=== PATIENT | male | born 1945 | race Caucasian/White ===

== ENCOUNTER 2020-04-08 14:20 | Outpatient (CLI) | payer MEDICARE, SELFPAY ==
[2020-04-08 14:50] LABS: Basophils Percent Auto 0.4 % (0.2-1.2); Eosinophils Absolute Auto 0.1 K/mm3 (0-0.3); Eosinophils Percent Auto 2.3 % (0-4.4); Hematocrit 31.4 % (42.0-52.0); Hemoglobin 10.6 g/dL (14.0-18.0); Immature Granulocyte Absolute 0.03 K/mm3 (0.00-0.031); Immature Granulocyte Percent A 0.6 % (0-0.5); Lymphocytes Absolute Auto 0.93 K/mm3 (0.9-3.2); Lymphocytes Percent Auto 18.1 % (18.3-44.2); Mean Corpuscular HGB Conc 33.8 g/dl (32-36); Mean Corpuscular Hemoglobin 31.9 pg (26-34); Mean Corpuscular Volume 94.6 fl (80-100); Monocytes Absolute Auto 0.4 K/mm3 (0.1-0.6); Monocytes Percent Auto 6.8 % (2.6-8.5); Neutrophils Absolute Auto 3.7 K/mm3 (1.3-6.7); Neutrophils Percent Auto 71.8 % (45.5-73.1); Platelet Count Result 183 k/mm3 (150-375); Red Blood Count 3.32 M/mm3 (4.6-6.20); Red Cell Distribution Width 13.5 % (11.5-14.5); White Blood Count 5.1 K/mm3 (4.5-10.0)
[2020-04-08 15:09] LABS: Alanine Aminotransferase 19 U/L (4-50); Albumin Level 4.2 g/dL (3.5-5.1); Alkaline Phosphatase 70 U/L (38-126); Anion Gap 7 mmol/L (8-16); Aspartate Amino Transferase 27 U/L (17-59); Bilirubin,Total 0.5 mg/dL (0.2-1.3); Blood Urea Nitrogen 35 mg/dL (9-20); Calcium 9.1 mg/dL (8.4-10.2); Carbon Dioxide 30 mmol/L (22-30); Chloride 106 mmol/L (98-107); Cholesterol 131 mg/dL (0-200); Estimated Glomerular Filt Rate 29; Glucose 85 mg/dL (75-110); HDL Direct 37 mg/dL; Potassium 4.4 mmol/L (3.4-5.0); Sodium 143 mmol/L (137-145); Triglycerides 160 mg/dL (<150)
[2020-04-08 15:17] LABS: LDL Cholesterol Direct 57 mg/dL
[2020-04-08 15:23] LABS: Hemoglobin A1C 5.3 % (<5.7)
[2020-04-08 15:53] LABS: Creatinine Urine 131.3 mg/dL
[2020-04-08 15:54] LABS: Vitamin D 25 Hydroxy 40.3 ng/mL
[2020-04-08 15:57] LABS: MALB Creatinine Ratio 21.9 mg/g (0-30); Microalbumin Urine Random 28.8 mg/L (0-16.7)
[2020-04-12 21:55] LABS: PSA, Free 0.24 ng/mL; PSA, Total 1.6 ng/mL (<=4.0)
== END 2020-04-08 14:21 | disposition home or self-care (01) ==
PROVIDERS: PCP Family Medicine; Visit Provider Family Medicine
DX: E11.9 Type 2 diabetes mellitus without complications (principal); R97.20 Elevated prostate specific antigen [PSA]; N40.0 Benign prostatic hyperplasia without lower urinary tract symptoms; E78.5 Hyperlipidemia, unspecified; I49.5 Sick sinus syndrome; I10 Essential (primary) hypertension; E55.9 Vitamin D deficiency, unspecified; Z00.00 Encounter for general adult medical examination without abnormal findings
CPT/HCPCS: 36415; 80053; 80061; 82043; 82306; 83036; 84153; 84154; 84443; 85025

== ENCOUNTER 2020-05-03 12:18 | Outpatient (CLI) | payer MEDICARE, SELFPAY ==
--- NOTE | ~2020-05-03 | US_ITS ---
US renal BI 05/03/2020 12:56 Procedure: Realtime transabdominal ultrasound of the kidneys and bladder. Indication: Chronic renal disease Comparison: No prior studies for comparison. Findings: Renal echotexture is normal bilaterally without hydronephrosis, contour deforming mass or r enal calculus. The right kidney measures 9 cm and left kidney measures 9.3 cm. Bladder within normal limits. Impression: 1: Unremarkable renal ultrasound. No stones, masses or hydronephrosis. Reviewed, dictated and finalized at location A. SPECIALIST Impression: 1: Unremarkable renal ultrasound. No stones, masses or hydronephrosis.
== END 2020-05-03 12:19 | disposition home or self-care (01) ==
PROVIDERS: PCP Family Medicine; Visit Provider Internal Medicine Nephrology
DX: N18.4 Chronic kidney disease, stage 4 (severe) (principal)
CPT/HCPCS: 76775

== ENCOUNTER 2021-08-05 00:01 | Day surgery (SDC) | payer MEDICARE, SELFPAY ==
[2021-05-14 10:23] VITALS: BMI 39.2
[2021-07-24 13:37] VITALS: BMI 39.2
[2021-08-05 10:18] VITALS: BP 159/82; PULSE 60; RESP 18; TEMP 36.5; O2SAT 99; BMI 37.3
[2021-08-05] MEDS: LACTATED RINGERS 1,000 ML 150 ML IV CONT (10:37)
--- NOTE | 2021-08-05 10:50 | WPDANESEPPF ---
Anes - Initial Pre Proc Eval Procedure: Operation Date: 08/05/21 11:30 Proposed Procedures p Screening Colonoscopy - Manuel Hamilton MD Date/Time: 08/05/21 10:50 Surgeon: Manuel Hamilton MD Pre Op Diagnosis: neoplasm screening Patient Data Age: 76 Gender: M Height: 1.57 m Weight: 92.6 kg Last Vital Signs Temp 36.5 C 08/05/21 10:18 Pulse 60 08/05/21 10:18 Resp 18 08/05/21 10:18 BP 159/82 H 08/05/21 10:18 Pulse Ox 99 08/05/21 10:18 Allergies Allergy/AdvReac Type Severity Reaction Status Date / Time adhesive Allergy Intermediate HIVES Verified 08/05/21 10:25 ramipril Allergy Unknown Swelling Verified 08/05/21 10:25 Home Medications Medication Instructions Recorded Confirmed Type rosuvastatin 40 mg tablet 40 mg PO DAILY 04/04/20 08/05/21 History sulfamethoxazole 800 1 tablet PO QAM tablet 04/04/20 08/05/21 History mg-trimethoprim 160 mg tablet ferrous sulfate 325 mg (65 mg 325 mg PO DAILY 09/19/20 08/05/21 History iron) tablet mecobalamin (vitamin B12) 1,000 1,000 mcg SUBLINGUAL DAILY 09/19/20 08/05/21 History mcg disintegrating tablet,sublingual hydrocortisone 1 % topical cream 1 applic TOPICAL TID PRN #28.4 g 02/18/21 08/05/21 Rx citalopram 20 mg tablet 20 mg PO DAILY #90 tablet 03/06/21 08/05/21 Rx hydrochlorothiazide 25 mg tablet 25 mg PO DAILY #90 tablet 03/06/21 08/05/21 Rx losartan 100 mg tablet 100 mg PO DAILY #90 tablet 03/06/21 08/05/21 Rx pantoprazole 40 mg tablet,delayed 40 mg PO DAILY #90 tablet 03/06/21 08/05/21 Rx release amlodipine 10 mg tablet 10 mg PO DAILY #90 tablet 04/03/21 08/05/21 Rx tamsulosin 0.4 mg capsule 0.4 mg PO DAILY #90 cap 04/03/21 08/05/21 Rx Patient hx anesthesia problems: none Family hx anesthesia problems: none Results Review: All pre-operative results and documents have been reviewed as part of the pre-operative evaluation. FOR[facility]LY [facility] Past Medical History Medical History Anxiety BPH NOS w/o ur obs/LUTS CAD in [place] artery Chronic neck and back pain CKD (chronic kidney disease) stage 3, GFR 30-59 ml/min Depression Dyslipidemia Elevated PSA Essential (primary) hypertension Family history of colon cancer GERD without esophagitis CHECO (obstructive sleep apnea) SSS (sick sinus syndrome) Type 2 diabetes mellitus without complication, without long-term current use of insulin Unspecified osteoarthritis, unspecified site Vitamin D deficiency Surgical History Surgical History H/O: knee surgery (~2013) History of arthroplasty of right hip 06/2020 History of bilateral knee replacement (~2013) History of carpal tunnel surgery of right wrist 12/2003 History of cervical spinal surgery 03/2007 History of coronary artery stent placement 04/2003, 11/2007 History of esophageal dilatation 06/2013 History of lumbosacral spine surgery 10/2004 History of pacemaker 2002 Family History Family History Father Family history of emphysema Sibling Family history of renal failure Other Carcinoma of colon Diabetes mellitus Family history of cardiovascular disease Family history of tuberculosis Hypertension Social History Social History Years smoked: 3 Smoking status: Former smoker Tobacco type: cigars Smoking end date: 05/17/80 Alcohol intake: current Alcohol use details: rare use, 2-3 times a year Substance use: never Substance use type: does not use Living arrangements: alone Spiritual care concerns: No Anes - Eval Final PreProcedure Day of Procedure 08/05/21 10:50 Patient weight: obese Heart: regular rate and rhythm Lungs: decreased breath sounds Airway: Mallampati scale class II Neurological: other (alert) Last oral intake: >/= 8 hours
--- NOTE | 2021-08-05 11:33 | PM.HPGS ---
History of Present Illness History of Present Illness Consent: Risks, benefits, and alternatives have been discussed and questions answered. Patient agrees to proceed with procedure. Chief complaint: neoplasm screening Narrative: Diomedes Bhandari is a 76 year old male with polyps in the past, last colonoscopy was in 2019. Review of Systems Constitutional: Constitutional: Denies headache(s) and Denies weakness Eyes: Eyes: Denies blurry vision ENT: Reports Normal hearing present, Denies headache(s) and Denies neck pain Cardiovascular: Cardiovascular: Denies chest pain and Denies dyspnea Respiratory: Respiratory: Denies dyspnea Gastrointestinal: Gastrointestinal: Reports no additional gastrointestinal complaints Genitourinary: Genitourinary: Denies dysuria Musculoskeletal: Musculoskeletal: Denies neck pain Integumentary/Breasts: Skin/Breast: Denies dry skin Neurologic: Reports Normal hearing present, Denies headache(s) and Denies weakness Psychiatric: Psychiatric: Denies anxiety Endocrine: Endocrine: Denies change in body appearance Hematologic/Lymphatic: Hematologic/Lymphatic: Denies easy bleeding Allergic/Immunologic: Allergic/Immunologic: Denies urticaria PMF Past Medical History Medical History (Updated 08/05/21 @ 11:34 by Manuel Hamilton MD) Anxiety BPH NOS w/o ur obs/LUTS CAD in [place] artery Chronic neck and back pain CKD (chronic kidney disease) stage 3, GFR 30-59 ml/min Colon polyp Depression Dyslipidemia Elevated PSA Essential (primary) hypertension Family history of colon cancer GERD without esophagitis CHECO (obstructive sleep apnea) SSS (sick sinus syndrome) Type 2 diabetes mellitus without complication, without long-term current use of insulin Unspecified osteoarthritis, unspecified site Vitamin D deficiency Surgical History Surgical History H/O: knee surgery (~2013) History of arthroplasty of right hip 06/2020 History of bilateral knee replacement (~2013) History of carpal tunnel surgery of right wrist 12/2003 History of cervical spinal surgery 03/2007 History of coronary artery stent placement 04/2003, 11/2007 History of esophageal dilatation 06/2013 History of lumbosacral spine surgery 10/2004 History of pacemaker 2002 Family History Family History Father Family history of emphysema Sibling Family history of renal failure Other Carcinoma of colon Diabetes mellitus Family history of cardiovascular disease Family history of tuberculosis Hypertension Social History Social History Years smoked: 3 Smoking status: Former smoker Tobacco type: cigars Smoking end date: 05/17/80 Alcohol intake: current Alcohol use details: rare use, 2-3 times a year Substance use: never Substance use type: does not use Living arrangements: alone Spiritual care concerns: No Meds Home Medications and Allergies Home Medications Medication Instructions Recorded Confirmed Type rosuvastatin 40 mg tablet 40 mg PO DAILY 04/04/20 08/05/21 History sulfamethoxazole 800 1 tablet PO QAM tablet 04/04/20 08/05/21 History mg-trimethoprim 160 mg tablet ferrous sulfate 325 mg (65 mg 325 mg PO DAILY 09/19/20 08/05/21 History iron) tablet mecobalamin (vitamin B12) 1,000 1,000 mcg SUBLINGUAL DAILY 09/19/20 08/05/21 History mcg disintegrating tablet,sublingual hydrocortisone 1 % topical cream 1 applic TOPICAL TID PRN #28.4 g 02/18/21 08/05/21 Rx citalopram 20 mg tablet 20 mg PO DAILY #90 tablet 03/06/21 08/05/21 Rx hydrochlorothiazide 25 mg tablet 25 mg PO DAILY #90 tablet 03/06/21 08/05/21 Rx losartan 100 mg tablet 100 mg PO DAILY #90 tablet 03/06/21 08/05/21 Rx pantoprazole 40 mg tablet,delayed 40 mg PO DAILY #90 tablet 03/06/21 08/05/21 Rx release amlodipine 10 mg
[2021-08-05 12:15] VITALS: BP 126/80; PULSE 64; RESP 30; O2SAT 97
[2021-08-05 12:25] VITALS: BP 130/83; PULSE 66; RESP 26; O2SAT 98
[2021-08-05 12:35] VITALS: BP 141/93; PULSE 66; RESP 18; O2SAT 99
== END 2021-08-05 12:43 | disposition home or self-care (01) ==
PROVIDERS: PCP Family Medicine; Visit Provider Internal Medicine Gastroenterology
PROC: 0DJD8ZZ Inspection of Lower Intestinal Tract, Via Natural or Artificial Opening Endoscopic (ICD-10-PCS; CPT 45378; principal; 2021-08-05 11:30)
DX: Z12.11 Encounter for screening for malignant neoplasm of colon (principal); K63.5 Polyp of colon; K57.30 Diverticulosis of large intestine without perforation or abscess without bleeding; K64.8 Other hemorrhoids; I25.10 Atherosclerotic heart disease of native coronary artery without angina pectoris; N40.0 Benign prostatic hyperplasia without lower urinary tract symptoms; K21.9 Gastro-esophageal reflux disease without esophagitis; E55.9 Vitamin D deficiency, unspecified; E78.5 Hyperlipidemia, unspecified; I12.9 Hypertensive chronic kidney disease with stage 1 through stage 4 chronic kidney disease, or unspecified chronic kidney disease; N18.30 Chronic kidney disease, stage 3 unspecified; F41.8 Other specified anxiety disorders; E11.22 Type 2 diabetes mellitus with diabetic chronic kidney disease; R97.20 Elevated prostate specific antigen [PSA]; I49.5 Sick sinus syndrome; Z87.891 Personal history of nicotine dependence; M19.90 Unspecified osteoarthritis, unspecified site; E66.9 Obesity, unspecified; Z68.37 Body mass index [BMI] 37.0-37.9, adult
CPT/HCPCS: 45385; 88305; J2704; J7120

== ENCOUNTER 2021-08-28 16:40 | Emergency (ER) | payer MEDICARE, SELFPAY ==
--- NOTE | ~2021-08-28 | CT_ITS ---
EXAMINATION: CT brain wo con DATE: 08/28/2021 18:11 INDICATION: Head injury TECHNIQUE: Computed tomography (CT) of the head was performed without intravenous contrast. The mA wa s adjusted according to patient size. Iterative reconstruction technique was employed. Exam dose: 68 1.00 mGy-cm total exam DLP. COMPARISON: 11/25/2018 CT brain FINDINGS: Left periorbital hematoma and left frontal cephalohematoma. No skull fracture There is a left orbital floor blowout fracture. There is a small amount of fluid in the dependent asp ect of left maxillary sinus. 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 Bilateral carotid siphon internal carotid artery calcifications and vertebral artery calcification. T here is nonspecific diminished attenuation of the cerebral white matter, likely due to chronic small vessel ischemic changes. No intracranial mass lesion or hemorrhage or cerebrovascular accident, midline shift or mass effect e ffect is evident. No subdural or epidural hematoma. Moderate cerebral and cerebellar volume loss. IMPRESSION: Left orbital floor blowout fracture Left periorbital hematoma, left frontal cephalohematoma; no skull fracture Cerebral atherosclerosis and chronic small vessel ischemic changes of cerebral white matter No acute intracranial finding Reviewed, dictated and finalized at Location [facility]. Reviewed, dictated and finalized at location A.
--- NOTE | ~2021-08-28 | CT_ITS ---
EXAMINATION: CT facial & cervical spine wo DATE: 08/28/2021 18:11 INDICATION: Fall. Head injury. Neck pain. TECHNIQUE: Computed tomography (CT) of the facial bones and maxillofacial region was performed withou t intravenous contrast. Automated exposure control and iterative reconstruction technique were employ ed. Exam dose: 521.33 mGy-cm total exam DLP. COMPARISON: None. FINDINGS: There is a blowout fracture at the inferomedial wall of the left orbit, with adjacent emphy sema of the left orbit. There is left periorbital and extracranial frontal hematoma.. There is a sma ll fluid collection in the dependent left maxillary sinus. The frontozygomatic sutures, orbital rims and zygomatic arches are intact. No mandibular fracture. The temporomandibular joints are intact. Status post anterior surgical cervical spine fusion at C2-6. There is minimal retrolisthesis and moderate degenerative disc disease at C2-3. There is mild anterolisthesis at C6-7. Degenerative change and fusion at multiple apophyseal joints. No fracture or dislocation of the cervical spine. IMPRESSION: Inferomedial left orbital wall blow out fracture Status post anterior surgical fusion at C2-6 Cervical spondylosis Reviewed, dictated and finalized at Location [facility]. Reviewed, dictated and finalized at location A.
--- NOTE | ~2021-08-28 | XR_ITS ---
XR knee RT min 4V DATE: 08/28/2021 17:57 INDICATION: Fall. Right knee pain. TECHNIQUE: 5 views COMPARISON: 11/11/2011 postoperative portable right knee radiographs FINDINGS: Status post right total knee arthroplasty with patellar resurfacing. No recent fracture or dislocation or joint effusion is evident. Femoral and popliteal artery calcifications. IMPRESSION: Right total knee arthroplasty with patellar resurfacing No fracture or dislocation or joint effusion is detected Reviewed, dictated and finalized at location A.
--- NOTE | ~2021-08-28 | XR_ITS ---
XR knee LT min 4V DATE: 08/28/2021 17:57 INDICATION: Fall. Left knee pain. TECHNIQUE: 4 views including crosstable lateral COMPARISON: None FINDINGS: Status post left total knee arthroplasty. There is joint space narrowing and particularly s purring at the patellofemoral joint. No fracture or dislocation or joint effusion is evident. No periosteal reaction or bone destruction. Osteopenia. Extensive femoral and popliteal artery calcifications. IMPRESSION: Left knee arthroplasty Patellofemoral osteoarthritis No fracture or dislocation or joint effusion is detected Osteopenia Reviewed, dictated and finalized at location A.
[2021-08-28 17:12] VITALS: BP 130/65; PULSE 62; RESP 16; O2SAT 98
--- NOTE | 2021-08-28 17:16 | ED.FALL ---
HPI - Fall General Chief Complaint: Fall <DORA Prater Last Filed: 08/28/21 20:01> Stated Complaint: fall - head/knee/arm pain <DORA Prater Last Filed: 08/28/21 20:01> Time Seen by Provider: 08/28/21 17:11 <DORA Prater Last Filed: 08/28/21 20:01> Source: patient and family <DORA Prater Last Filed: 08/28/21 20:01> Mode of arrival: ambulatory <DORA Prater Last Filed: 08/28/21 20:01> Limitations: no limitations <DOAR Prater Last Filed: 08/28/21 20:01> History of Present Illness HPI Narrative: Patient is a 76-year-old male who presents to the ED with report of a fall that occurred around 1230 pm today. Patient's daughter at bedside assisted in providing information. She reports the patient has history of bilateral knee replacements and hip replacement and has chronic difficulty with ambulation. He is supposed to typically use a walker for assistance with ambulation. Patient was only using his cane today when he tripped and fell, falling forward, hitting his head. Patient sustained an abrasion to his left forehead and has since developed swelling and ecchymosis to his left upper eyelid. Small abrasions to bridge of nose and left upper lip. Patient is still able to see out of his left eye. Reports slight blurry vision when both eyes are open, but no blurry vision with solo L vision. No pain with eye movements at this time. Also reports having posterior neck pain and bilateral knee pain, though he does have chronic pain in his right knee. Denies any prodromal symptoms prior to the fall, or any current CP, SOB, abdominal pain, nausea, vomiting, fever, chills. Patient's daughter reports patient has a morphine pump for chronic pain. He has also been dealing with some cognitive issues recently which Dr. Gray, PCP is aware of. <DORA Prater Last Filed: 08/28/21 20:01> Related Data Home Medications: Home Medications Medication Instructions Recorded Confirmed rosuvastatin 40 mg tablet 40 mg PO DAILY 04/04/20 08/19/21 sulfamethoxazole 800 1 tablet PO QAM tablet 04/04/20 08/19/21 mg-trimethoprim 160 mg tablet ferrous sulfate 325 mg (65 mg 325 mg PO DAILY 09/19/20 08/19/21 iron) tablet mecobalamin (vitamin B12) 1,000 1,000 mcg SUBLINGUAL DAILY 09/19/20 08/19/21 mcg disintegrating tablet,sublingual aspirin 81 mg tablet,delayed 81 mg PO DAILY 08/19/21 08/19/21 release dutasteride 0.5 mg capsule 0.5 mg PO DAILY 08/19/21 08/19/21 <Modesta Cage PA-C - Last Filed: 08/28/21 20:01> Allergies/Adverse Reactions: Allergies Allergy/AdvReac Type Severity Reaction Status Date / Time adhesive Allergy Intermediate HIVES Verified 08/19/21 13:19 ramipril Allergy Unknown Swelling Verified 08/19/21 13:19 <Modesta Cage PA-C - Last Filed: 08/28/21 20:01> Review of Systems Review of Systems: CONSTITUTIONAL: Denies fever, chills. EYES: Reports swelling/ecchymosis to L upper eyelid. Reports slight blurry vision in L eye. CARDIOVASCULAR: Denies chest pain. RESPIRATORY: Denies dyspnea. GASTROINTESTINAL: Denies abdominal pain, nausea, vomiting, or diarrhea. MUSCULOSKELETAL: Reports posterior neck pain, bilateral knee pain. SKIN: Reports abrasions to L forehead, nose, lip. NEUROLOGIC: Denies dizziness, lightheadedness, headache, numbness, or weakness. <Modesta Cage PA-C - Last Filed: 08/28/21 20:01> All systems reviewed & are unremarkable except as noted in HPI and below <Modesta Cage PA-C - Last Filed: 08/28/21 20:01> [facility] Past Medical History Medical History: Medical History Anxiety BPH NOS w/o ur obs/LUTS CAD in [place] artery Chronic neck and back pain CKD (chronic kidney disease) stage 3, GFR 30-59 ml/min Colon polyp Depression Dyslipidemia Essential (primary) hypertension Family history of colon cancer GERD without esophagitis CHECO
--- NOTE | 2021-08-28 17:28 | ECG_ITS ---
Measurements Intervals [place] Rate: 67 P: 125 LA: 287 QRS: -18 QRSD: 84 T: 56 QT: 331 QTc: 351 Interpretive Statements ELECTRONIC ATRIAL PACEMAKER LOW QRS VOLTAGE IN PRECORDIAL LEADS [QRS DEFLECTION < 1.0 mV IN CHEST LEADS] NONSPECIFIC T-WAVE ABNORMALITY ABNORMAL ECG COMPARED TO ECG 11/30/2018 02:37:03 T-WAVE ABNORMALITY NOW PRESENT Electronically Signed On 08-29-2021 15:37:29 CDT by Tang Gee M.D.
[2021-08-28 17:52] LABS: Alanine Aminotransferase 25 U/L (4-50); Albumin Level 4.4 g/dL (3.5-5.1); Alkaline Phosphatase 81 U/L (38-126); Anion Gap 8 mmol/L (8-16); Aspartate Amino Transferase 41 U/L (17-59); Bilirubin,Total 0.3 mg/dL (0.2-1.3); Blood Urea Nitrogen 30 mg/dL (9-20); Calcium 8.8 mg/dL (8.4-10.2); Carbon Dioxide 27 mmol/L (22-30); Chloride 103 mmol/L (98-107); Estimated CRCL calculation 35 ml/min; Estimated Glomerular Filt Rate 39; Glucose 156 mg/dL (65-110); Potassium 4.4 mmol/L (3.4-5.0); Sodium 138 mmol/L (137-145)
[2021-08-28 18:57] VITALS: BP 148/77; PULSE 67; RESP 22; O2SAT 98
[2021-08-28 18:57] LABS: Basophils Percent Auto 0.3 % (0.2-1.2); Eosinophils Percent Auto 0.5 % (0-4.4); Hematocrit 34.4 % (42.0-52.0); Hemoglobin 11.3 g/dL (14.0-18.0); Immature Granulocyte Absolute 0.03 K/mm3 (0.00-0.031); Immature Granulocyte Percent A 0.4 % (0-0.5); Lymphocytes Absolute Auto 0.92 K/mm3 (0.9-3.2); Lymphocytes Percent Auto 12.2 % (18.3-44.2); Mean Corpuscular HGB Conc 32.8 g/dl (32-36); Mean Corpuscular Hemoglobin 30.5 pg (26-34); Mean Corpuscular Volume 92.7 fl (80-100); Mean Platelet Volume 9.8 fl (7.4-10.4); Monocytes Absolute Auto 0.4 K/mm3 (0.1-0.6); Monocytes Percent Auto 5.3 % (2.6-8.5); Neutrophils Absolute Auto 6.1 K/mm3 (1.3-6.7); Neutrophils Percent Auto 81.3 % (45.5-73.1); Platelet Count Result 206 k/mm3 (150-375); Red Blood Count 3.71 M/mm3 (4.6-6.20); Red Cell Distribution Width 13.2 % (11.5-14.5); White Blood Count 7.5 K/mm3 (4.5-10.0)
[2021-08-28 19:01] VITALS: BP 154/81; PULSE 65; RESP 20; O2SAT 99
[2021-08-28 19:17] LABS: Appearance Urine Clear (Clear); Bilirubin Urine Negative (Negative); Color Urine Yellow (Yellow); Glucose Urine UA Negative (Negative); Ketones Urine Negative (Negative); Leukocyte Esterase Ur Negative LEU/UL (Negative); Nitrate Urine Negative (Negative); Protein Urine Negative (Negative); Specific Grav Ur 1.025 (1.001-1.035); Urobilinogen Urine 0.2 mg/dL (<2.0); pH Urine 5.5 (5.0-9.0)
[2021-08-28 19:20] VITALS: BP 127/79; PULSE 70; RESP 16; O2SAT 98
[2021-08-28 19:23] LABS: Mucus Urine Rare /lpf; Squamous Epithelial Cell Urine Rare /hpf (Few); WBC Urine 0-3 /hpf
[2021-08-28 19:24] LABS: Add Urine Microscopic? YES; Blood Urine Trace-Intact (Negative)
[2021-08-28 19:27] LABS: INR 1.1; Prothrombin Time 13.9 Seconds (11.1-14.7)
== END 2021-08-28 20:30 | disposition short-term general hospital (02) ==
PROVIDERS: Physician Assistant; Emergency Provider Emergency Medicine; PCP Family Medicine
DX: S02.32XA Fracture of orbital floor, left side, initial encounter for closed fracture (principal); N40.0 Benign prostatic hyperplasia without lower urinary tract symptoms; I25.10 Atherosclerotic heart disease of native coronary artery without angina pectoris; I12.9 Hypertensive chronic kidney disease with stage 1 through stage 4 chronic kidney disease, or unspecified chronic kidney disease; E11.22 Type 2 diabetes mellitus with diabetic chronic kidney disease; N18.30 Chronic kidney disease, stage 3 unspecified; E78.5 Hyperlipidemia, unspecified; K21.9 Gastro-esophageal reflux disease without esophagitis; G47.33 Obstructive sleep apnea (adult) (pediatric); M17.12 Unilateral primary osteoarthritis, left knee; E55.9 Vitamin D deficiency, unspecified; Z95.5 Presence of coronary angioplasty implant and graft; Z95.0 Presence of cardiac pacemaker; Z96.641 Presence of right artificial hip joint; Z96.653 Presence of artificial knee joint, bilateral; Z98.1 Arthrodesis status; Z86.010 Personal history of colon polyps; Z79.82 Long term (current) use of aspirin; F17.290 Nicotine dependence, other tobacco product, uncomplicated; M47.812 Spondylosis without myelopathy or radiculopathy, cervical region; W01.0XXA Fall on same level from slipping, tripping and stumbling without subsequent striking against object, initial encounter; R94.31 Abnormal electrocardiogram [ECG] [EKG]
CPT/HCPCS: 36415; 70450; 70486; 72125; 73564; 80053; 81001; 85025; 85610; 85730; 93005; 99285; L0140

== ENCOUNTER 2022-04-21 12:58 | Outpatient (CLI) | payer MEDICARE, MEDICAID, SELFPAY ==
[2022-04-22 11:48] LABS: Kit Draw Collected
== END 2022-04-21 12:59 | disposition home or self-care (01) ==
LOC: ANHGOSHLAB 13:03
PROVIDERS: PCP Family Medicine; Visit Provider Internal Medicine Nephrology
DX: E21.1 Secondary hyperparathyroidism, not elsewhere classified (principal); N18.32 Chronic kidney disease, stage 3b; I12.9 Hypertensive chronic kidney disease with stage 1 through stage 4 chronic kidney disease, or unspecified chronic kidney disease; E11.29 Type 2 diabetes mellitus with other diabetic kidney complication; E55.9 Vitamin D deficiency, unspecified
CPT/HCPCS: 36415

== ENCOUNTER 2022-08-27 09:05 | Outpatient (CLI) | payer MEDICARE, MEDICAID, SELFPAY ==
[2022-08-27 18:33] LABS: Creatinine Urine 107.6 mg/dL
[2022-08-27 18:44] LABS: Basophils Percent Auto 0.4 % (0.2-1.2); Eosinophils Absolute Auto 0.2 K/mm3 (0-0.3); Eosinophils Percent Auto 4.8 % (0-4.4); Hematocrit 33.6 % (42.0-52.0); Hemoglobin 11.1 g/dL (14.0-18.0); Immature Granulocyte Absolute 0.03 K/mm3 (0.00-0.031); Immature Granulocyte Percent A 0.6 % (0-0.5); Lymphocytes Absolute Auto 1.08 K/mm3 (0.9-3.2); Lymphocytes Percent Auto 21.8 % (18.3-44.2); Mean Corpuscular Hemoglobin 30.9 pg (26-34); Mean Corpuscular Volume 93.6 fl (80-100); Mean Platelet Volume 9.9 fl (7.4-10.4); Monocytes Absolute Auto 0.5 K/mm3 (0.1-0.6); Monocytes Percent Auto 9.1 % (2.6-8.5); Neutrophils Absolute Auto 3.1 K/mm3 (1.3-6.7); Neutrophils Percent Auto 63.3 % (45.5-73.1); Platelet Count Result 177 k/mm3 (150-375); Red Blood Count 3.59 M/mm3 (4.6-6.20); Red Cell Distribution Width 13.1 % (11.5-14.5)
[2022-08-27 18:52] LABS: Parathyroid Intact 66.3 pg/mL (7.5-53.5)
[2022-08-27 18:53] LABS: Vitamin D 25 Hydroxy 54.5 ng/mL
[2022-08-27 19:56] LABS: Alanine Aminotransferase 45 U/L (6-50); Albumin Level 4.3 g/dL (3.5-5.1); Alkaline Phosphatase 87 U/L (38-126); Anion Gap 6 mmol/L (8-16); Aspartate Amino Transferase 47 U/L (17-59); Bilirubin,Total 0.5 mg/dL (0.2-1.3); Blood Urea Nitrogen 42 mg/dL (9-20); Calcium 8.7 mg/dL (8.4-10.2); Carbon Dioxide 31 mmol/L (22-30); Chloride 104 mmol/L (98-107); Cholesterol 52 mg/dL (0-200); Estimated Glomerular Filt Rate 33; Glucose 95 mg/dL (65-110); HDL Direct 38 mg/dL; Phosphorus 4.2 mg/dL (2.5-4.5); Potassium 4.8 mmol/L (3.4-5.0); Sodium 141 mmol/L (137-145); Triglycerides 59 mg/dL (<150)
[2022-08-27 20:55] LABS: Hemoglobin A1C 5.6 % (<5.7)
[2022-08-27 21:46] LABS: LDL Cholesterol Direct < 30 mg/dL
[2022-08-28 10:26] LABS: Total Protein Urine Random 8 mg/dL
== END 2022-08-27 09:06 | disposition home or self-care (01) ==
PROVIDERS: PCP Family Medicine; Referring Provider Internal Medicine Nephrology; Visit Provider Family Medicine
DX: N18.32 Chronic kidney disease, stage 3b (principal); I12.9 Hypertensive chronic kidney disease with stage 1 through stage 4 chronic kidney disease, or unspecified chronic kidney disease; E11.22 Type 2 diabetes mellitus with diabetic chronic kidney disease; E55.9 Vitamin D deficiency, unspecified; N25.81 Secondary hyperparathyroidism of renal origin; E53.8 Deficiency of other specified B group vitamins; Z12.5 Encounter for screening for malignant neoplasm of prostate; E78.5 Hyperlipidemia, unspecified
CPT/HCPCS: 36415; 80053; 80061; 80069; 81002; 81050; 82306; 82570; 82607; 83036; 83970; 84153; 84156; 84443; 85025; G0103

== ENCOUNTER 2023-01-20 11:20 | Outpatient (CLI) | payer MEDICARE, MEDICAID, SELFPAY ==
[2023-01-20 19:33] LABS: Creatinine Urine 228.9 mg/dL; Total Protein Urine Random 7 mg/dL; Ur Ttl Prot Creatinine Ratio 0.03 mg/mg (0-0.20)
[2023-01-20 20:08] LABS: Albumin Level 4.3 g/dL (3.5-5.1); Anion Gap 7 mmol/L (8-16); Blood Urea Nitrogen 31 mg/dL (9-20); Calcium 9.5 mg/dL (8.4-10.2); Carbon Dioxide 30 mmol/L (22-30); Chloride 106 mmol/L (98-107); Estimated Glomerular Filt Rate 42; Glucose 85 mg/dL (65-110); Phosphorus 4.2 mg/dL (2.5-4.5); Potassium 4.7 mmol/L (3.4-5.0); Sodium 143 mmol/L (137-145)
[2023-01-20 20:29] LABS: Vitamin D 25 Hydroxy 56.8 ng/mL
== END 2023-01-20 11:21 | disposition home or self-care (01) ==
PROVIDERS: PCP Family Medicine; Visit Provider Internal Medicine Nephrology
DX: E11.22 Type 2 diabetes mellitus with diabetic chronic kidney disease (principal); I12.9 Hypertensive chronic kidney disease with stage 1 through stage 4 chronic kidney disease, or unspecified chronic kidney disease; N18.32 Chronic kidney disease, stage 3b; N25.81 Secondary hyperparathyroidism of renal origin; E55.9 Vitamin D deficiency, unspecified
CPT/HCPCS: 36415; 80069; 82306; 82570; 83970; 84156

== ENCOUNTER 2023-02-24 13:58 | Emergency (ER) | payer MEDICARE, MEDICAID, SELFPAY ==
[2023-02-24 14:06] VITALS: BP 103/73; PULSE 65; RESP 18; TEMP 36.2; O2SAT 97
[2023-02-24 14:34] LABS: Basophils Percent Auto 0.3 % (0.2-1.2); Eosinophils Absolute Auto 0.1 K/mm3 (0-0.3); Eosinophils Percent Auto 0.7 % (0-4.4); Hemoglobin 10.8 g/dL (14.0-18.0); Immature Granulocyte Absolute 0.01 K/mm3 (0.00-0.031); Immature Granulocyte Percent A 0.1 % (0-0.5); Lymphocytes Absolute Auto 0.77 K/mm3 (0.9-3.2); Lymphocytes Percent Auto 10.1 % (18.3-44.2); Mean Corpuscular HGB Conc 32.7 g/dl (32-36); Mean Corpuscular Hemoglobin 30.5 pg (26-34); Mean Corpuscular Volume 93.2 fl (80-100); Mean Platelet Volume 9.4 fl (7.4-10.4); Monocytes Absolute Auto 0.2 K/mm3 (0.1-0.6); Neutrophils Absolute Auto 6.6 K/mm3 (1.3-6.7); Neutrophils Percent Auto 85.8 % (45.5-73.1); Platelet Count Result 183 k/mm3 (150-375); Red Blood Count 3.54 M/mm3 (4.6-6.20); Red Cell Distribution Width 12.8 % (11.5-14.5); White Blood Count 7.7 K/mm3 (4.5-10.0)
--- NOTE | 2023-02-24 14:42 | ED.NAVMDI ---
HPI - Nausea/Vomiting/Diarrhea General Chief complaint: Nausea/Vomiting/Diarrhea Stated complaint: vomiting Time Seen by Provider: 02/24/23 14:16 Source: patient, family, RN notes reviewed and old records reviewed Mode of arrival: ambulatory Limitations: no limitations History of Present Illness HPI Narrative: This is a 78 year old male who presents for evaluation of nausea and vomiting. Patient states he has had nausea and bilious vomiting for 2 days. He had episodes of vomiting yesterday but he felt better and he was able to eat dinner. He denies nausea and vomiting this morning after drinking coffee. He states he has had vomiting every hour since. He denies diarrhea, abdominal pain, fever or chills. His son reports patient seems to have episode of vomiting every 2 weeks but it resolves. Related Data Home Medications Medication Instructions Recorded Confirmed rosuvastatin 40 mg tablet 40 mg PO DAILY 04/04/20 09/24/22 sulfamethoxazole 800 1 tablet PO QAM 04/04/20 09/24/22 mg-trimethoprim 160 mg tablet ferrous sulfate 325 mg (65 mg 325 mg PO DAILY 09/19/20 09/24/22 iron) tablet mecobalamin (vitamin B12) 1,000 1,000 mcg sublingual DAILY 09/19/20 09/24/22 mcg disintegrating tablet,sublingual dutasteride 0.5 mg capsule 0.5 mg PO DAILY 08/19/21 09/24/22 cholecalciferol (vitamin D3) 125 125 mcg PO DAILY 02/17/22 09/24/22 mcg (5,000 unit) capsule donepezil 10 mg tablet 10 mg PO DAILY 02/17/22 09/24/22 evolocumab 140 mg/mL subcutaneous 140 mg subcut MONTHLY 02/17/22 09/24/22 syringe (Repatha Syringe) aspirin 81 mg tablet,delayed 81 mg PO DAILY 08/24/22 09/24/22 release (Adult Low Dose Aspirin) Allergies Allergy/AdvReac Type Severity Reaction Status Date / Time adhesive Allergy Intermediate HIVES Verified 02/24/23 14:12 ramipril Allergy Unknown Swelling Verified 02/24/23 14:12 Review of Systems Constitutional: Constitutional: Denies weakness Cardiovascular: Cardiovascular: Denies syncope, Denies rapid heart rate, Denies irregular heart rhythm, Denies leg edema and Denies dyspnea Respiratory: Respiratory: Denies chest congestion, Denies hemoptysis, Denies excessive phlegm production and Denies dyspnea Gastrointestinal: Gastrointestinal: Denies abdominal pain, Denies hematochezia, Denies diarrhea, Reports nausea and Reports vomiting Genitourinary: Genitourinary: Denies hematuria, Denies dysuria, Denies penile discharge and Denies testicular pain Musculoskeletal: Musculoskeletal: Denies joint swelling, Denies loss of height and Denies muscle weakness Neurologic: Denies syncope, Denies focal weakness and Denies weakness PMFSH Past Medical History Medical History Anxiety BPH NOS w/o ur obs/LUTS CAD in [place] artery Chronic neck and back pain CKD (chronic kidney disease) stage 3, GFR 30-59 ml/min Colon polyp Dementia Depression Dyslipidemia Essential (primary) hypertension Family history of colon cancer GERD without esophagitis CHECO (obstructive sleep apnea) SSS (sick sinus syndrome) Type 2 diabetes mellitus without complication, without long-term current use of insulin Unspecified osteoarthritis, unspecified site Vitamin D deficiency Surgical History Surgical History H/O: knee surgery (~2013) History of arthroplasty of right hip (~06/2020) 06/2020 History of carpal tunnel surgery of right wrist (~12/2003) 12/2003 History of cervical spinal surgery (~03/2007) 03/2007 History of coronary artery stent placement 04/2003, 11/2007, 10/2021 History of esophageal dilatation (~06/2013) 06/2013 History of left knee replacement (~2017) History of lumbosacral spine surgery (~10/2004) 10/2004 History of pacemaker (~2002) 2002 History of right knee joint replacement (~2009) 2004 and 2009 on bactrim since 2009 due to septic arthritis post knee replacement. Family History Family History (Re
[2023-02-24 14:43] LABS: Alanine Aminotransferase 49 U/L (6-50); Albumin Level 4.4 g/dL (3.5-5.1); Alkaline Phosphatase 71 U/L (38-126); Anion Gap 11 mmol/L (8-16); Aspartate Amino Transferase 54 U/L (17-59); Bilirubin,Total 0.5 mg/dL (0.2-1.3); Blood Urea Nitrogen 37 mg/dL (9-20); Calcium 8.8 mg/dL (8.4-10.2); Carbon Dioxide 23 mmol/L (22-30); Chloride 106 mmol/L (98-107); Estimated CRCL calculation 26 ml/min; Estimated Glomerular Filt Rate 28; Glucose 135 mg/dL (65-110); Lipase 107 U/L (23-300); Potassium 4.4 mmol/L (3.4-5.0); Sodium 140 mmol/L (137-145)
[2023-02-24 14:51] LABS: Appearance Urine Cloudy (Clear); Bacteria Urine None Seen /hpf; Bilirubin Urine Negative (Negative); Blood Urine Negative (Negative); Color Urine Yellow (Yellow); Glucose Urine UA Negative (Negative); Hyaline Casts Urine Present /lpf; Ketones Urine Negative (Negative); Leukocyte Esterase Ur Negative LEU/UL (Negative); Nitrate Urine Negative (Negative); Non Pathogenic Casts >20; Protein Urine Trace mg/dL (Negative); RBC Urine 0-2 /hpf (0-2); Squamous Epithelial Cell Urine None seen /hpf (Few); Uric Acid Crystals Urine Present /hpf; Urobilinogen Urine 0.2 mg/dL (<2.0); WBC Urine 0-5 /hpf
[2023-02-24 14:52] LABS: Add Urine Microscopic? YES
[2023-02-24] MEDS: SODIUM CHLORIDE 0.9% IV 1,000 ML 999 ML IV CONT (14:56)
[2023-02-24] MEDS: PANTOPRAZOLE SODIUM IV 40 MG VIAL IV PUSH (14:57)
[2023-02-24] MEDS: ONDANSETRON INJ 4 MG/2 ML VIAL IV PUSH (14:57)
[2023-02-24 15:56] VITALS: BP 119/68; BP 120/64; PULSE 81; PULSE 83
[2023-02-24 15:59] VITALS: BP 117/59; PULSE 77
[2023-02-24 16:40] VITALS: BP 117/59; PULSE 64; RESP 16; O2SAT 96
== END 2023-02-24 16:40 | disposition home or self-care (01) ==
PROVIDERS: Emergency Provider General Practice; PCP Family Medicine
DX: R11.2 Nausea with vomiting, unspecified (principal); E86.0 Dehydration; F03.90 Unspecified dementia, unspecified severity, without behavioral disturbance, psychotic disturbance, mood disturbance, and anxiety; I25.10 Atherosclerotic heart disease of native coronary artery without angina pectoris; I12.9 Hypertensive chronic kidney disease with stage 1 through stage 4 chronic kidney disease, or unspecified chronic kidney disease; E11.22 Type 2 diabetes mellitus with diabetic chronic kidney disease; N18.30 Chronic kidney disease, stage 3 unspecified; N40.0 Benign prostatic hyperplasia without lower urinary tract symptoms; E78.5 Hyperlipidemia, unspecified; E55.9 Vitamin D deficiency, unspecified; K21.9 Gastro-esophageal reflux disease without esophagitis; G47.33 Obstructive sleep apnea (adult) (pediatric); M19.90 Unspecified osteoarthritis, unspecified site; F41.9 Anxiety disorder, unspecified; F32.A Depression, unspecified; Z96.641 Presence of right artificial hip joint; Z96.653 Presence of artificial knee joint, bilateral; Z95.5 Presence of coronary angioplasty implant and graft; Z95.0 Presence of cardiac pacemaker; Z86.010 Personal history of colon polyps; Z87.891 Personal history of nicotine dependence; Z79.82 Long term (current) use of aspirin
CPT/HCPCS: 36415; 80053; 81001; 83690; 85025; 96361; 96374; 96375; 99284; C9113; J2405; J7030

== ENCOUNTER 2024-10-17 11:27 | Emergency (ER) | payer MEDICARE, MEDICAID, SELFPAY ==
[2024-10-17] VITALS (15 sets, daily range): BP systolic 109–166; BP diastolic 47–94; PULSE 60–80; RESP 13–19; TEMP 36.6–36.8; O2SAT 98–100
--- NOTE | ~2024-10-17 | XR_ITS ---
EXAMINATION: XR chest 1V portable 10/17/2024 13:02 INDICATION: Dyspnea. PROCEDURE: AP portable chest COMPARISON: Comparison to multiple prior studies sequentially, with oldest reviewed study dated 04/17. FINDINGS: The lungs are clear. The cardiomediastinal silhouette is within normal limits. There are no pleural effusions. There is no pneumothorax suspected. Stable position to pacemaker leads in the right atrium and right ventricle respectively. There are changes of anterior fusion visualized cervi loki spine IMPRESSION: 1: NO ACUTE CARDIOPULMONARY DISEASE. Reviewed, dictated and finalized at location A.
--- OUTSIDE RECORDS SUMMARY | 2024-10-17 11:37 | XMS_ITS | Encounter Summary ---
Author Organization [facility] Address [address] [place] [address] Phone Care Team Providers Care Library Services Dean Name Role Phone Huy Elliott Primary Care Provider [phone] Tony Gray MD Primary Care Provider Alfredo Jordan DESK ASSISTANT Unavailable [phone] Encounter Details Date Type Department Care Team (Late st Contact Info) Description 08/09/2017 Orders Only 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 Gender Identity Not on file Sexual Orientation Not on file documented as of this encounter Plan of Treatment Upcoming Encounters Date Type Department Care Team (Late st Contact Info) Description 10/23/2024 7:30 AM CDT Hospital Encounter [facility] Operating Room [address] [place] [address] [place] [id number] [facility] [address] [place] [address] 10/23/2024 7:30 AM CDT - 10/23/2024 9:00 AM CDT Surgery [facility] Operating Room [id number] [place] [id number] [place] [id number] [facility] [address] [address] [place] [address] INTRATHECAL PAIN PUMP BATTERY REPLACEMENT WITH PLASMA BLADE/60 MIN 11/23/2024 7:30 AM CDT Hospital Encounter [facility] Operating Room [address] [place] [address] [place] [id number] [facility] [address] [place] [address] 11/23/2024 7:30 AM CDT - 11/23/2024 9:30 AM CDT Surgery [facility] Operating Room [address] [place] [address] [place] [id number] [facility] [address] [place] [address] NEUROLYSIS PERIPHERAL NERVE RT SAPHENOUS NERVE/120 MIN Scheduled Procedures Name Priority Associated Diagnoses Date/Ti me INSERTION PUMP - PAIN MANAGEMENT LOW BACK PAIN 10/23/2024 7:30 AM CDT NEUROLYSIS PERIPHERAL NERVE SAPHENOUS NERVE 11/23/2024 7:30 AM CDT documented as of this encounter Procedures Procedure Name Priority Date/Time Associated Diagnosis Comments DISCHARGE LABORATORY CUMULATIVE REPORT 08/09/2017 12:00 AM CDT documented in this encounter Results * DISCHARGE LABORATORY CUMULATIVE REPORT (08/09/2017 12:00 AM CDT) Narrative 08/09/2017 12:00 AM CDT Ordered by an unspecified provider. us Historical Provider LAB BLOOD ORDERABLES Judy l Result documented in this encounter Visit Diagnoses Not on filedocumented in this encounter Care Teams Library Services Dean Relationship Specialty Start Date End Date Huy Elliott [address] [place] [address] PCP - General 07/09/16 12/15/21 Tony Gray MD [address] [place] [address] PCP - General Family Practice 12/16/21 [place] [id number] [place] [address] Nurse Practitioner Pain Management 04/19/24 documented as of this encounter
--- OUTSIDE RECORDS SUMMARY | 2024-10-17 11:37 | XMS_ITS | Encounter Summary ---
Author Organization [facility] Address [address] [place] [address] Phone Care Team Providers Care Testing And Regulating Technician Name Role Phone Huy Elliott Primary Care Provider [phone] Tony Gray MD Primary Care Provider Alfredo Jordan BED MACHINE OPERATOR Unavailable [phone] Encounter Details Date Type Department Care Team (Late st Contact Info) Description 05/13/2017 Orders Only [facility] Provider, MD Erlinda [address] [place] [id number] Social History Tobacco Use Types Packs/Day Years Used Date Smoking Tobacco: Former Alcohol Use Standard Drinks/Week Comments Yes 0 (1 standard drink = 0.6 oz pur e alcohol) Sex and Gender Information Value Date Recorded Sex Assigned at Not on file 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 [address] [place] [address] 10/23/2024 7:30 AM CDT - 10/23/2024 9:00 AM CDT Surgery [facility] Operating Room [id number] [place] [address] [place] [address] [facility] [address] [place] [address] INTRATHECAL PAIN PUMP BATTERY REPLACEMENT WITH PLASMA BLADE/60 MIN 11/23/2024 7:30 AM CDT Hospital Encounter [facility] Operating Room [address] [place] [address] [place] [address] [facility] [address] [place] [address] 11/23/2024 7:30 AM CDT - 11/23/2024 9:30 AM CDT Surgery [facility] Operating Room [address] [place] [address] [place] [address] [facility] [address] [place] [address] NEUROLYSIS PERIPHERAL NERVE RT SAPHENOUS NERVE/120 MIN Scheduled Procedures Name Priority Associated Diagnoses Date/Ti me INSERTION PUMP - PAIN MANAGEMENT LOW BACK PAIN 10/23/2024 7:30 AM CDT NEUROLYSIS PERIPHERAL NERVE SAPHENOUS NERVE 11/23/2024 7:30 AM CDT documented as of this encounter Procedures Procedure Name Priority Date/Time Associated Diagnosis Comments DISCHARGE LABORATORY CUMULATIVE REPORT 05/13/2017 12:00 AM HVAC TECHNICIAN documented in this encounter Results * DISCHARGE LABORATORY CUMULATIVE REPORT (05/13/2017 12:00 AM HVAC TECHNICIAN) Narrative 05/13/2017 12:00 AM HVAC TECHNICIAN Ordered by an unspecified provider. us Historical Provider LAB BLOOD ORDERABLES Judy l Result documented in this encounter Visit Diagnoses Not on filedocumented in this encounter Care Teams Testing And Regulating Technician Relationship Specialty Start Date End Date Huy Elliott [address] [place] [address] PCP - General 07/09/16 12/15/21 Tony Gray MD [address] [place] [address] PCP - General Family Practice 12/16/21 [place] [address] [place] [address] Nurse Practitioner Pain Management 04/19/24 documented as of this encounter
--- OUTSIDE RECORDS SUMMARY | 2024-10-17 11:37 | XMS_ITS | Continuity of Care Document ---
Author Organization [facility] Address [address] [place] [address] [address] [place] [address] Phone Care Team Providers Care Honeycomb Blanket Maker Name Role Phone Cardona OD, Jerry Unavailable Unavailable Procedures Procedure Date Office/outpatient Visit, Est Eye Exam Established Pt Advance Directives Directive Yes / No Effective Date File Name No Information Encounters Encounter Description Practice Location Reason(s) For Visit Diagnoses Date Provider Providers Copied on Encounter Office/outpat ient Visit, Est [facility], [address] [place] [address] [address], [place], [place], [id number], tel:[phone] [facility] No Information Juan David-3 0-200 9 Cardona OD Jerry. [address] [facility] , [address], [place], [place], [facility], [place]. tel:[phone] [facility], [address] [place] [address] [address], [place], [place], [id number], tel:[phone] [facility] No Information Oct-2 3-200 9 Cardona OD Jerry. [address] [facility] , [address], [place], [place], [facility], [place]. tel:[phone] Family History Family Member Type Diagnosis Age At Onset No Information Payers Payer name Insurance type Covered green party ID Authoriza tion(s) [employer] [employer] [id number] Social History Type Description Quantity Date Captured Comments Sex Male Smoking Status No Information Chief Complaint And Reason For Visit No Information Reason For Referral Reason For Referral No Information History Of Present Illness Encounter Date Complaint History Of Prese nt Illness No Information Functional Status Date Functional Assessmen t No Information Instructions Date Instruction Additional Infor mation No Information Assessments Type Assessment Date No Information Patient Care Teams Name Effective Dates (start - stop) Status Members No Information
--- OUTSIDE RECORDS SUMMARY | 2024-10-17 11:37 | XMS_ITS | Encounter Summary ---
Author Organization [facility] Address [address] [place] [place] [address] Care Team Providers Care Field Producer Name Role Phone Tony Gray MD Primary Care Provider Darell Yu MD Unavailable Harry Vang MD Unavailable [phone] Twyla Cervantes MD Unavailable [phone] Encounter Details Date Type Department Care Team (Late st Contact Info) Description 08/28/2021 Ophth Exam [facility] [address] [place] [phone] [place], [place] [address] [facility] [address] [place] [address] Social History Tobacco Use Types Packs/Day Years Used Date Smoking Tobacco: Former Cigars Comments:quit 10 years ago Alcohol Use Standard Drinks/Week Comments Yes 8.3 (1 standard drink = 0.6 oz p ure alcohol) 10 beers per week Sex and Gender Information Value Date Recorded Sex Assigned at Not on file 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 [address] [address] Cardiovascular Disease 09/22/21 Harry Vang MD [address] [address] Internal Medicine 09/22/21 Twyla Cervantes MD [address] [facility] [address] [place] [address] Nephrology 09/22/21 documented as of this encounter
--- OUTSIDE RECORDS SUMMARY | 2024-10-17 11:38 | XMS_ITS | Encounter Summary ---
Author Organization [facility] Address [address] [place] [address] Phone Care Team Providers Care Store Host Name Role Phone Tony Gray MD Primary Care Provider Pepe Dunn MD Unavailable [phone] Reason for Visit * Reason Comments Medication Refill Encounter Details Date Type Department Care Team (Late st Contact Info) Description 10/25/2023 Refill [facility] - Neurology [facility] [address] [place] [address] Pepe Dunn MD [address] [place] [phone] Medication Refill Social History Tobacco Use Types Packs/Day Years Used Date Smoking Tobacco: Former Cigarettes Q uit: 05/17/1980 Smokeless Tobacco: Never Alcohol Use Standard Drinks/Week Comments Yes 0 (1 standard drink = 0.6 oz pur e alcohol) rare Sex and Gender Information Value Date Recorded Sex Assigned at Not on file Legal Sex Male 7:15 PM CDT Gender Identity Not on file Sexual Orientation Not on file documented as of this encounter Miscellaneous Notes * Telephone Encounter - Criss Woo RN - 10/25/2023 7:57 AM CDT Medication(s) refilled and signed per [facility] Chronic Medication Refill Standing Order for Pediatricand Adult Patients. Requested Prescriptions Pending Prescriptions Disp Refills donepezil (ARICEPT) 10 MG Tablet [Pharmacy Med Name: DONEPEZIL HCL 10 MG TABLET] 90 Tablet 3 Sig: TAKE 1 TABLET BY MOUTH NIGHTLY. START AFTER COMPLETING 5MG TABLETS Antidementia Agents Protocol Passed - 10/25/2023 12:53 AM Passed - Visit with relevant provider in past 12 months or upcoming 90 days Recent Visits Date Type Provider Dept 09/02/23 Office Visit Pepe Dunn MD [facility] 02/12/23 Office Visit Pepe Dunn MD [facility] Showing recent visits within past 365 days and meeting all other requirements Future Appointments No visits were found meeting these conditions. Showing future appointments within next 90 days and meeting all other requirements Passed - Patient has established therapy with Antidementia Agents for at least 6 months documented in this encounter Plan of Treatment Upcoming Encounters Date Type Department Care Team (Late st Contact Info) Description 01/22/2025 10:45 AM CDT Office Visit [facility] - [facility] [address] [place] [address] Pepe Dunn MD [address] [place] [address] documented as of this encounter Visit Diagnoses Not on filedocumented in this encounter Care Teams Store Host Relationship Specialty Start Date End Date Tony Gray MD PCP - General Family Medicine 08/26/21 Pepe Dunn MD [address] [place] [address] Consulting Physician Neurology 02/03/22 documented as of this encounter
--- OUTSIDE RECORDS SUMMARY | 2024-10-17 11:38 | XMS_ITS | CONTINUITY OF CARE DOCUMENT ---
Author Name marcus velazquez Address Unknown Organization [facility] Address [address] [facility] [address] [place] [address] Phone [phone] Care Team Providers Care Outbound Supervisor Name Role Phone Gigi COYNE, Darell Unavailable [phone] Tony Gray MD Unavailable Tony Gray MD Unavailable [phone] PROBLEMS Condition Status Date Provider Notes Iron deficiency active Rebecca Munoz RN Sick sinus syndrome active Precious Ruiz [facility] Sleep apnea, obstructive - CPAP @ 15. active Zak Roth RN Hypertension, benign active Precious DIAZ M enrolled MUSCLE PAIN completed - Darell Yu MD BACK PAIN, CHRONIC completed - Darell Yu MD SICK SINUS SYNDROME-05/[address] DAISY completed - Rosanna Whyte RN DIABETES MELLITUS active Darell Yu MD SPINAL STENOSIS active Darell Yu MD ANEMIA completed - Rosanna Whyte RN Dizziness completed - Rosanna Whyte RN Tobacco use quit completed - Darell Yu MD Dyspnea on exertion active Darell Yu MD CKD stage 3 GFR 30-59 active Rosanna Burroughs on RN Fatigue active Darell Yu MD B12 deficiency active Darell Yu MD CHF - diastolic active Darell Yu MD Diabetes Mellitus, Type II, controlled w/ renal complications completed - Darell Yu MD Long-term (current) use of other medications completed - Darell Yu MD Pre cardiovasc. examination completed - Rosanna Whyte RN S/P dual chamber pacemaker gen change/new RA lead - Biotronik active Rosanna Whyte RN SINUS BRADYCARDIA-ASYMPTOMATIC- NO BB, [place] CHANNEL BLOCKERS completed - Darell WOODS active Darell Yu MD ENCOUNTERS Date Type Provider Location Encounter Diag nosis - In-person encounter Office Visit [facility] - [facility]-person encounter [facility] - In-person encounter Office Visit [facility] Dyspnea on exertionDiabetes Mellitus, Type II, controlled w/ renal complications - In-person encounter Office Visit [facility] - In-person encounter Office Visit [facility] CHF - diastolic - In-person encounter Office Visit [facility] CAD - In-person encounter Office Visit [facility] Long-term (current) use of other medications - In-person encounter Office Visit [facility] - In-person encounter Office Visit [facility] - In-person encounter Office Visit Darell Yu MD [facility] B12 deficiency - In-person encounter Office Visit Darell Yu MD [facility] - In-person encounter Office Visit [facility] - In-person encounter Office Visit [facility] - In-person encounter Office Visit [facility] - In-person encounter Office Visit [facility] Preop cardiovasc. examination - In-person encounter Office Visit Darell Thomson Dyspnea on exertion - In-person encounter Office Visit [facility] Fatigue - In-person encounter Office Visit [facility] SICK SINUS SYNDROME-05/[address] JUDEDizzinessCKD stage 3 GFR 30-59 - In-person encounter Office Visit [facility] ANEMIAS/P dual chamb er pacemaker gen change/new RA lead - Biotronik - In-person encounter Office Visit [facility] - In-person encounter Office Visit Tariq Watson MD [place] [facility] - In-person encounter Office Visit [facility] - In-person encounter Office Visit [facility] - In-person encounter Office Visit [facility] MUSCLE PAINSINUS BRADYCARDIA-ASYMPTOMATI C- NO BB, [place] CHANNEL BLOCKERSBACK PAIN, CHRONICTobacco use quit - In-person encounter Office Visit [facility] - In-person encounter Office Visit [facility] - In-person encounter Office Visit [facility] - In-person encounter Office Visit [facility] - In-person encounter Office Visit Darell Yu MD [facility] - In-person encounter Office Visit Darell Yu MD [facility] DIABETES MELLITUSSPI NAL STENOSIS - In-person encounter Office Visit Benjamin Camacho MD [place] [facility] - In-person encounter Office Visit Darell [facility] - In-person encounter Office Visit Darell Yu MD [facility] - In-person encounter Office Visit Darell Yu MD [facility] - In-person encounter Office Visit [facility] CAD - In-person encounter Office Visit Darell Yu MD [facility] - In-person encounter Office Visit [facility] - In-person encounter Office Visit [facility] VITAL SIGNS Date Observation Value Provider Body Mass Index (Ratio) 31.79 kg/m2 Kiara Birch oxygen saturation, oximetry 97 % Carol Tilley pulse rate 72 /min Carol Tilley blood pressure, diastolic 56 mm[Hg] Em jeff Tilley blood pressure, systolic 116 mm[Hg] Jody ly Tilley weight E&M 197 [lb_av] Carol Tilley blood pressure, cuff size regular Em jeff [facility]il[facility] height E&M 66 [in_i] Carol Tilley Body Mass Index (Ratio) 31.63 kg/m2 Kiara Birch blood pressure, diastolic 51 mm[Hg] Em jeff [facility] blood pressure, systolic 108 mm[Hg] Jody ly Tilley pulse rate 65 /min Carol Tilley oxygen saturation, oximetry 97 % Carol Tilley weight E&M 196 [lb_av] Carol Tilley blood pressure, cuff size regular Gisel [facility]illey height E&M 66 [in_i] Carol Tilley Body Mass Index (Ratio) 31.79 kg/m2 Sund jr Yu MD blood pressure, diastolic 88 mm[Hg] Rae franco Palomares blood pressure, systolic 175 mm[Hg] [place] oxygen saturation, oximetry 97 % [facility] 79 [facility] rate E&M 14 /min [facility] weight E&M 197 [lb_av] [facility] height E&M 66 [in_i] [facility] blood pressure, cuff size regular An salvador Palomares blood pressure, diastolic 55 mm[Hg] Li nkLogic blood pressure, systolic 112 mm[Hg] Suzette kLogic Body Mass Index (Ratio) 34.38 kg/m2 Sund jr Yu MD blood pressure, diastolic 55 mm[Hg] Candi dumont Castaneda blood pressure, systolic 112 mm[Hg] Steven helle [place] oxygen saturation, oximetry 96 % Temi Castaneda pulse rate 89 /min Temi saab weight E&M 213 [lb_av] Temi saab respiratory rate E&M 14 /min Suad persaud Castaneda blood pressure, cuff size large Candi Castaneda height E&M 66 [in_i] Temi saab Body Mass Index (Ratio) 34.05 kg/m2 Lavonne Feliciano NP blood pressure, diastolic 74 mm[Hg] Mi tim Leonel blood pressure, systolic 110 mm[Hg] Steven helle [place] oxygen saturation, oximetry 98 % Temi Castaneda pulse rate 80 /min Temi saab weight E&M 211 [lb_av] Temi saab respiratory rate E&M 16 /min Suad Castaneda blood pressure, cuff size large Candi dumont Castaneda height E&M 66 [in_i] Temi saab Body Mass Index (Ratio) 34.28 kg/m2 Sund jr Yu MD blood pressure, cuff size large Br enda Moutray blood pressure, diastolic 71 mm[Hg] Br enda [place] blood pressure, systolic 133 mm[Hg] Peggy nda [place]ray oxygen saturation, oximetry 98 % Herminia Moutray respiratory rate E&M 16 /min Herminia Moutray pulse rate 78 /min Herminia Moutray weight E&M 212.4 [lb_av] Herminia Moutray height E&M 66 [in_i] Herminia Moutray Body Mass Index (Ratio) 33.25 kg/m2 Sund jr Yu MD blood pressure, cuff size large Candi dumont Castaneda blood pressure, diastolic 68 mm[Hg] Ak tim Castaneda blood pressure, systolic 132 mm[Hg] [facility] [place] oxygen saturation, oximetry 96 % Temi Castaneda respiratory rate E&M 16 /min Suad Castaneda pulse rate 89 /min Temi saab weight E&M 206 [lb_av] Temi saab height E&M 66 [in_i] Temi saab Body Mass Index (Ratio) 33.89 kg/m2 Eliceo Yu MD blood pressure, diastolic 57 mm[Hg] Ch astpanda Lara blood pressure, systolic 135 mm[Hg] [facility]i [facility] Lara oxygen saturation, oximetry 97 % [facility] 97 [facility] weight E&M 210 [lb_av] [facility] respiratory rate E&M 16 /min Logan leonard Lara height E&M 66 [in_i] [facility] Body Mass Index (Ratio) 34.70 kg/m2 Pamela Clemons blood pressure, diastolic 78 mm[Hg] Fe guillermo Quintero blood pressure, systolic 130 mm[Hg] Fel icia Quintero oxygen saturation, oximetry 95 % Daysi Quintero respiratory rate E&M 16 /min Daysi Quintero pulse rate 77 /min Daysi Quintero temperature E&M 97.0 [degF] Daysi Quinetro weight E&M 215 [lb_av] Daysi Quintero height E&M 66 [in_i] Daysi Quintero Body Mass Index (Ratio) 34.86 kg/m2 Eliceo Yu MD pulse rate 66 /min Daysi Quintero blood pressure, diastolic 74 mm[Hg] Fe guillermo Quintero blood pressure, systolic 126 mm[Hg] Fel icia Quintero oxygen saturation, oximetry 97 % Daysi Quintero respiratory rate E&M 16 /min Daysi Quintero temperature E&M 98.2 [degF] Daysi Quintero weight E&M 216 [lb_av] Daysi Quintero height E&M 66 [in_i] Daysi Quintero blood pressure, cuff size regular Kr iskay Geovani blood pressure, diastolic 80 mm[Hg] Kr iskay [place] blood pressure, systolic 120 mm[Hg] Gómezi sty Geovani respiratory rate E&M 18 /min Laura [place] pulse rate 78 /min Laura oxygen saturation, oximetry 97 % Laura Body Mass Index (Ratio) 35.83 kg/m2 Raul villanueva [place] weight in kilograms E&M 100.70 kg Raul ty weight E&M 222 [lb_av] Laura height E&M 66 [in_i] Laura height in centimeters E&M 167.64 cm Gómez rai Body Mass Index (Ratio) 35.67 kg/m2 Eliceo Yu MD blood pressure, cuff size regular Gómez rai Geovani blood pressure, diastolic 70 mm[Hg] Gómez rai blood pressure, systolic 122 mm[Hg] Gómezi sthoracio Geovani oxygen saturation, oximetry 95 % Laura [place] pulse rate 81 /min Laura Geovani respiratory rate E&M 18 /min Laura Geovani weight E&M 221 [lb_av] Laura Geovani height E&M 66 [in_i] Laura Body Mass Index (Ratio) 35.05 kg/m2 Eliceo Yu MD blood pressure, cuff size regular Gómez rai weight E&M 217.2 [lb_av] Laura [place] blood pressure, diastolic 70 mm[Hg] Gómez rai Geovani blood pressure, systolic 130 mm[Hg] Kri sty Geovani respiratory rate E&M 17 /min Laura [place] pulse rate 94 /min Laura [place] oxygen saturation, oximetry 95 % Laura Geovani height E&M 66 [in_i] Laura Geovani Body Mass Index (Ratio) 36.47 kg/m2 Evelyne Farr oxygen saturation, oximetry 93 % [facility] E&M 16 /min Anyiit horacio Bermudez pulse rate 64 /min [facility] Lara blood pressure, diastolic 70 mm[Hg] astity Lara blood pressure, systolic 120 mm[Hg] Anyi stity Lara weight E&M 226 [lb_av] [facility] E&M 66 [in_i] [facility] Body [facility] Index (Ratio) 36.60 kg/m2 Eliceo Yu MD oxygen saturation, oximetry 94 % Laura Olivo blood pressure, diastolic 70 mm[Hg] Gómez Anthonyby blood pressure, systolic 122 mm[Hg] Nestor Anthonyby pulse rate 75 /min Laura [place] respiratory rate E&M 17 /min Laura [place] weight E&M 226.8 [lb_av] [facility], [facility] regular Gómez Anthonyby height E&M 66 [in_i] Laura [place] Body Mass Index (Ratio) 35.83 kg/m2 Charissa Whyte RN blood pressure, diastolic 60 mm[Hg] Ma echoha O'Jose F blood pressure, systolic 110 mm[Hg] Latoya waldron O'Jose F oxygen saturation, oximetry 97 % Clara O'Jose F respiratory rate E&M 16 /min Clara O'Jose F pulse rate 60 /min Clara O'Jose F weight E&M 222 [lb_av] Clara O'Jose F height E&M 66 [in_i] Clara O'Jose F Body Mass Index (Ratio) 36.15 kg/m2 Iona Novoa blood pressure, cuff size regular Tonio ssica N Bright blood pressure, diastolic 60 mm[Hg] Je ssica N Bright blood pressure, systolic 118 mm[Hg] Maria ronnie N Bright oxygen saturation, oximetry 98 % Fay N Bright respiratory rate E&M 18 /min Fay N Bright pulse rate 68 /min Fay N Wilso n weight E&M 224.0 [lb_av] Fay N Wils on Body Mass Index (Ratio) 36.80 kg/m2 Lorena Munoz RN blood pressure, cuff size regular Je ssica N Bright blood pressure, diastolic 70 mm[Hg] Je ssica N Bright blood pressure, systolic 120 mm[Hg] Maria ronnie N Bright oxygen saturation, oximetry 97 % Fay N Bright respiratory rate E&M 18 /min Fay N Bright pulse rate 64 /min Fay N Wilso n weight E&M 228 [lb_av] Fay N Wilso n Body Mass Index (Ratio) 35.83 kg/m2 Charissa Whyte RN blood pressure, resting Yes Raul kay [place] blood pressure, cuff size regular Gómez Anthonyby blood pressure, diastolic 70 mm[Hg] Gómez isty [place] blood pressure, systolic 115 mm[Hg] Gómezi sthoracio [place] oxygen saturation, oximetry 96 % Laura Anthonyby respiratory rate E&M 17 /min Laura Geovani pulse rate 69 /min Laura [place] weight E&M 222 [lb_av] Laura Geovani height E&M 66 [in_i] Laura Geovani blood pressure, diastolic, left arm 60 mm [Hg] Niels Simpson blood pressure, systolic, left arm 120 mm [Hg] Niels Simpson blood pressure, diastolic, right arm 82 m m[Hg] Niels Simpson blood pressure, systolic, right arm 124 m m[Hg] Niels Simpson blood pressure, diastolic 60 mm[Hg] Tonio Simpson blood pressure, systolic 120 mm[Hg] Brooklyn Simpson pulse rate 60 /min Niels Simpson oxygen saturation, oximetry 98 % Niels Simpson respiratory rate E&M 16 /min Niels Simpson Body Mass Index (Ratio) 34.57 kg/m2 Estefany Simpson weight E&M 214.2 [lb_av] Niels Simpson blood pressure, diastolic, left arm 73 mm [Hg] Lucy Yazan blood pressure, systolic, left arm 131 mm [Hg] Lucy Yazan respiratory rate E&M 16 /min Lucy Yazan pulse rate 60 /min Lucy Yazan oxygen saturation, oximetry 95 % Lucy Yazan blood pressure, diastolic 74 mm[Hg] Wy wagner Yazan blood pressure, systolic 126 mm[Hg] Jannie julia Yazan Body Mass Index (Ratio) 36.80 kg/m2 Orin pardo Yazan weight E&M 228 [lb_av] Lucy Yazan blood pressure, diastolic, left arm 79 mm [Hg] Lucy Yazan blood pressure, systolic, left arm 158 mm [Hg] Lucy Yazan blood pressure, diastolic, right arm 79 m m[Hg] Lucy Yazan blood pressure, systolic, right arm 150 m m[Hg] Lucy Yazan blood pressure, diastolic 79 mm[Hg] Wy wagner Yazan blood pressure, systolic 158 mm[Hg] Jannie julia Yazan respiratory rate E&M 16 /min Lucy Hand pulse rate 64 /min Lucy Hand oxygen saturation, oximetry 97 % Lucy Hand Body Mass Index (Ratio) 36.70 kg/m2 Orin Hand weight E&M 227.4 [lb_av] Lucy Hand Body Mass Index (Ratio) 36.15 kg/m2 Anea umesh Partha blood pressure, diastolic 90 mm[Hg] An eatris Partha blood pressure, systolic 160 mm[Hg] Ane atris Partha pulse rate 60 /min Aneatris Partha oxygen saturation, oximetry 97 % Aneatrjoey Chavis respiratory rate E&M 17 /min Aneatri s Partha weight E&M 224 [lb_av] Mariusz Chavis blood pressure, diastolic 80 mm[Hg] Rodolfo webb Galo blood pressure, systolic 144 mm[Hg] Hayden Galo oxygen saturation, oximetry 98 % Laura Galo Body Mass Index (Ratio) 35.99 kg/m2 Sade lobato Galo weight E&M 223 [lb_av] Laura Galo Body Mass Index (Ratio) 37.15 kg/m2 Estefany Simpson blood pressure, diastolic, left arm 70 mm [Hg] Tonioviet Simpson blood pressure, systolic, left arm 132 mm [Hg] [place] Simpson blood pressure, diastolic, right arm 70 m m[Hg] [place] Simpson blood pressure, systolic, right arm 140 m m[Hg] Niels Simpson blood pressure, diastolic 70 mm[Hg] Tonio viet Simpson blood pressure, systolic 132 mm[Hg] Tonio viet Simpson pulse rate 66 /min Tonioviet Simpson oxygen saturation, oximetry 98 % Niels Simpson respiratory rate E&M 16 /min Niels Tatiana weight E&M 230.2 [lb_av] Brooklynviet Tatiana blood pressure, diastolic, left arm 79 mm [Hg] Lucy Pittman blood pressure, systolic, left arm 153 mm [Hg] Lucy Pittman blood pressure, diastolic, right arm 78 m m[Hg] Lucy Pittman blood pressure, systolic, right arm 143 m m[Hg] Lucy Pittman Body Mass Index (Ratio) 35.99 kg/m2 Orin pardo Pittman blood pressure, diastolic 79 mm[Hg] Me edward Pittman blood pressure, systolic 153 mm[Hg] Jannie dumont Pittman pulse rate 60 /min Lucy Pittman oxygen saturation, oximetry 98 % Lucy Pittman respiratory rate E&M 14 /min Lucy Pittman weight E&M 223 [lb_av] Lucy Pittman Body Mass Index (Ratio) 35.86 kg/m2 Estefany Simpson blood pressure, diastolic, left arm 80 mm [Hg] [place] Tatiana blood pressure, systolic, left arm 140 mm [Hg] [place] Tatiana blood pressure, diastolic, right arm 80 m m[Hg] [place] Simpson blood pressure, systolic, right arm 140 m m[Hg] [place] Tatiana blood pressure, diastolic 80 mm[Hg] Tonio Mciaviet Tatiana blood pressure, systolic 140 mm[Hg] Tonio viet Simpson pulse rate 68 /min Niels Simpson oxygen saturation, oximetry 96 % [place] Tatiana respiratory rate E&M 16 /min [place] Tatiana weight E&M 222.2 [lb_av] [place]onioviet Simpson Body Mass Index (Ratio) 35.80 kg/m2 Anea umesh [facility] blood pressure, diastolic 60 mm[Hg] An eatris Partha blood pressure, systolic 126 mm[Hg] Ane atris Partha pulse rate 60 /min Aneatris Partha oxygen saturation, oximetry 97 % Aneatris Partha respiratory rate E&M 18 /min Aneatri s Partha weight E&M 221 [lb_av] Aneatrjoey Chavis blood pressure, diastolic 70 mm[Hg] Ch erese Spann blood pressure, systolic 142 mm[Hg] Racquel resvidhi Spann pulse rate 62 /min Shea Spann oxygen saturation, oximetry 97 % Shea Spann respiratory rate E&M 16 /min Shea Spann weight E&M 218 [lb_av] Shea Spann blood pressure, diastolic 80 mm[Hg] Ta tracey Galo blood pressure, systolic 142 mm[Hg] Hayden ureña Galo Body Mass Index (Ratio) 36.29 kg/m2 Sade lobato Galo pulse rate 61 /min Laura Galo oxygen saturation, oximetry 99 % Laura Galo respiratory rate E&M 18 /min Laura Galo height E&M 66 [in_i] [facility] weight E&M 224 [lb_av] [facility] blood pressure, diastolic, left arm 78 mm [Hg] Clara O'Jose F blood pressure, systolic, left arm 143 mm [Hg] Clara O'Jose F blood pressure, diastolic, right arm 82 m m[Hg] Clara O'Jose F blood pressure, systolic, right arm 140 m m[Hg] Clara O'Jose F blood pressure, diastolic 78 mm[Hg] Ma echoha O'Jose F blood pressure, systolic 143 mm[Hg] Mar chivo O'Jose F pulse rate 91 /min Clara O'Jose F oxygen saturation, oximetry 99 % Clara WagnerJose F respiratory rate E&M 18 /min Clara WagnerJose F weight E&M 228 [lb_av] Clara WagnerJose F blood pressure, diastolic, left arm 78 mm [Hg] Ramonafelix Aguilar MA blood pressure, systolic, left arm 126 mm [Hg] Ramonabailey Aguilar MA blood pressure, diastolic, right arm 78 m m[Hg] Ramonafelix Aguilar MA blood pressure, systolic, right arm 138 m m[Hg] Ramonafelix Aguilar MA oxygen saturation, oximetry 98 % Ramonabailey Aguilar MA blood pressure, diastolic 78 mm[Hg] Elisha avalos Jeff MCCOY blood pressure, systolic 138 mm[Hg] Sabino waldron Jeff MCCOY pulse rate 73 /min Ramona Aguilar MA respiratory rate E&M 16 /min Ramona Aguilar MA blood pressure, diastolic, left arm 81 mm [Hg] Luis Manuel Teran RN blood pressure, systolic, left arm 157 mm [Hg] Luis Manuel Teran RN blood pressure, diastolic, right arm 83 m m[Hg] Luis Manuel Teran RN blood pressure, systolic, right arm 152 m m[Hg] Luis Manuel Teran RN blood pressure, diastolic 81 mm[Hg] Yogesh Teran RN blood pressure, systolic 157 mm[Hg] Luis Manuel Teran RN pulse rate 73 /min Luis Manuel Teran RN oxygen saturation, oximetry 99 % Luis Manuel Teran RN respiratory rate E&M 18 /min Luis Manuel mcpherson RN weight E&M 239 [lb_av] Luis Manuel Teran RN pulse rate, standing 78 /min Magan Morrow blood pressure, diastolic, standing 83 mm [Hg] Magan Terrellp blood pressure, systolic, standing 171 mm [Hg] Magan Terrellp pulse rate, sitting 68 /min Magan fleming blood pressure, diastolic, sitting 86 mm[ Hg] Gilliam Man[place] blood pressure, systolic, sitting 162 mm[ Hg] Gilliam [place] pulse rate, supine, right 60 /min Hiral seph [place] blood pressure, darby tolic, supine, right arm 80 Magan [place] blood pressure, systolic, supine, r arm 1 65 Gilliam [place] blood pressure, diastolic, left arm 90 mm [Hg] Gilliam [place] blood pressure, systolic, left arm 176 mm [Hg] Gilliam Man[place] blood pressure, diastolic, right arm 84 m m[Hg] Gilliam [place] blood pressure, systolic, right arm 175 m m[Hg] Gilliam [place] blood pressure, diastolic 84 mm[Hg] Hiral seph [place] blood pressure, systolic 175 mm[Hg] Roger eph [place] pulse rate 68 /min [facility], [facility] 96 % [facility] E&M 20 /min [facility] weight E&M 241 [lb_av] Gilliam [place] blood pressure, diastolic, left arm 90 mm [Hg] Gilliam [place] blood pressure, systolic, left arm 188 mm [Hg] Gilliam [place] blood pressure, diastolic, right arm 84 m m[Hg] Magan [place] blood pressure, systolic, right arm 183 m m[Hg] Gilliam [place] blood pressure, diastolic 84 mm[Hg] Hiral seph [place] blood pressure, systolic 183 mm[Hg] Roger eph [place] pulse rate 63 /min Gilliam [place] oxygen saturation, oximetry 96 % [facility] E&M 16 /min Gilliam [place] weight E&M 232.5 [lb_av] Gilliam [place] blood pressure, diastolic, left arm 70 mm [Hg] Alfonzo Aguirre blood pressure, systolic, left arm 118 mm [Hg] Alfonzo Aguirre blood pressure, diastolic, right arm 70 m m[Hg] Alfonzo Aguirre blood pressure, systolic, right arm 130 m m[Hg] Alfonzo Aguirre pulse rate 57 /min Alfonzo mazariegos oxygen saturation, oximetry 95 % Alfonzo Aguirre respiratory rate E&M 18 /min Danisha Aguirre weight E&M 227 [lb_av] Alfonzo Pollard nson blood pressure, diastolic, left arm 89 mm [Hg] Maagn [place] blood pressure, systolic, left arm 157 mm [Hg] Magan [place] blood pressure, diastolic, right arm 84 m m[Hg] Gilliam [place] blood pressure, systolic, right arm 149 m m[Hg] Magan [place] blood pressure, diastolic 84 mm[Hg] Hiral seph [place] blood pressure, systolic 149 mm[Hg] Roger [facility] [place] pulse rate 63 /min Gilliam [place] oxygen saturation, oximetry 95 % Gilliam [place] respiratory rate E&M 16 /min Magan [place] weight E&M 231 [lb_av] Magan [place] blood pressure, diastolic, left arm 84 mm [Hg] Yulia Haley blood pressure, systolic, left arm 140 mm [Hg] Yulia Haley blood pressure, diastolic, right arm 90 m m[Hg] Yulia Haley blood pressure, systolic, right arm 148 m m[Hg] Yulia Haley pulse rate 52 /min Yulia Haley oxygen saturation, oximetry 96 % Yulia Haley respiratory rate E&M 16 /min Yulia gray weight E&M 220 [lb_av] Yulia Haley blood pressure, diastolic, left arm 70 mm [Hg] Alfonzo Aguirre blood pressure, systolic, left arm 114 mm [Hg] Alfonzo Aguirre blood pressure, diastolic, right arm 62 m m[Hg] Alfonzo Aguirre blood pressure, systolic, right arm 118 m m[Hg] Alfonzo Aguirre pulse rate 54 /min Alfonzo mazariegos oxygen saturation, oximetry 96 % Alfonzo Aguirre respiratory rate E&M 16 /min Danisha Aguirre weight E&M 211.2 [lb_av] Alfonzo sapmson ALLERGIES Allergy Name Onset Date Reaction Criticality Status SURGICAL TAPE rash. Low Criticality active ALTACE lips swollen Low Criticality active MALVIN INHIBITORS Low Criticality activ e RESULTS Date Observation Value Provider Reference Range Interpretation Location NT-pro BNP 305 LinkLog[facility] <450 Normal [place] [facility] [id number] [place] [id number] Daniel Wetzel MD protein, urine, semiquantitative (dipstick) 19 LinkLog[facility] 5-25 Normal creatinine, random, urine 137 mg/dL [facility] 20-320 Normal albumin, serum 4.4 g/dL [facility] 3.6-5.1 Normal phosphate, serum 4.0 mg/dL [facility] 2.1-4.3 Normal calcium, serum 9.4 mg/dL [facility] 8.6-10.3 Normal carbon dioxide, venous blood 31 mmol/L Link[facility] 20-32 Normal chloride, serum 102 mmol/L [facility] 98-110 Normal potassium, serum 4.4 mmol/L LinkLogic 3.5-5.3 Normal sodium, serum 141 mmol/L [facility] 135-146 Normal urea nitrogen/creatinine ratio, serum 19 (calc) LinkLogic 6-22 Normal creatinine, serum 1.95 mg/dL LinkLog 0.70-1.28 High urea nitrogen, blood 38 mg/dL LinkLog[facility] 7-25 High blood glucose, random 90 mg/dL [facility] 65-139 Normal C-reactive protein, by highly sensitive test 0.9 mg/L [facility] prothrombin time (patient) 10.9 s LinkLog 9.0-11.5 Normal international normalized ratio (INR) 1.1 LinkLogic Normal basophils as percent of blood leukocytes 0.4 % LinkLog[facility] Normal eosinophils as percent of blood leukocytes 1.1 % LinkLog[facility] Normal monocyte count, blood 6.1 % LinkLog[facility] Normal lymphocyte count, blood 14.4 % LinkLog[facility] Normal neutrophils as percent of blood leukocytes 78 % [facility] Normal basophils, absolute, manual 29 cells/mcL [facility] 0-200 Normal eosinophils, absolute, manual 79 cells/mcL [facility] 15-500 Normal monocytes, absolute, manual 439 cells/mcL [facility] 200-950 Normal lymphocytes, absolute 1037 CELLS/UL [facility] 850-3900 Normal Absolute Neutrophil count 5616 cells/mcL [facility] 0562-6149 Normal mean platelet volume 9.7 fL [facility] 7.5-12.5 Normal platelet count 194 THOUSAND/[facility] Normal red blood cell distribution width 13.6 % [facility] 11.0-15.0 Normal mean corpuscular hemoglobin concentration, RBC 32.7 G/DL [facility] 32.0-36.0 Normal mean corpuscular hemoglobin, RBC 30.3 pg [facility] 27.0-33.0 Normal mean corpuscular volume, RBC 92.6 fL [facility] 80.0-100.0 Normal hematocrit, blood 37.3 % [facility] 38.5-50.0 Low hemoglobin electrophoresis, blood 12.2 [facility] 13.2-17.1 Low erythrocyte (RBC) count 4.03 MILLION/UL [facility] 4.20-5.80 Low leukocyte (white blood cells) count, blood 7.2 THOUSAND/UL [facility] 3.8-10.8 Normal calcium, serum 9.4 mg/dL [facility] 8.6-10.3 Normal carbon dioxide, venous blood 32 mmol/L [facility] 20-32 Normal chloride, serum 105 mmol/L [facility] 98-110 Normal potassium, serum 4.6 mmol/L [facility] 3.5-5.3 Normal sodium, serum 142 mmol/L [facility] 135-146 Normal urea nitrogen/creatinine ratio, serum 18 (calc) [facility] 6-22 Normal Estimated Glomerular Filtration Rate (calc) 54 mL/min/{1.73 _m2} [facility] > OR = 60 Low creatinine, serum 1.45 mg/dL [facility] 0.70-1.18 High urea nitrogen, blood 26 mg/dL [facility] 7-25 High blood glucose, random 115 mg/dL [facility] 65-99 High cholesterol, non-HDL, total 115 MG/DL (CALC) [facility] <130 Normal cholesterol/HDL ratio, serum, percent 3.4 (calc) [facility] <5.0 Normal LDL cholesterol, serum 94 MG/DL (CALC) [facility] Normal triglyceride, serum, fasting 114 mg/dL [facility] <150 Normal HDL cholesterol, serum 48 mg/dL [facility] > OR = 40 Normal cholesterol, serum 163 mg/dL [facility] <200 Normal hemoglobin A1C, blood, as % of total hemoglobin 5.6 % OF TOTAL HGB [facility] <5.7 Normal testosterone, total 258 ng/dL [facility] 250-827 Normal ferritin, serum 34 ng/mL [facility] 24-380 Normal NT-pro BNP 67 [facility] Normal iron saturation percent, serum 15 % (CALC) [facility] 20-48 Low iron binding capacity, total 380 MCG/DL (CALC) [facility] 250-425 Normal iron, serum 58 ug/dL [facility] 50-180 Normal thyroid stimulating hormone, serum 1.88 u[IU]/mL [facility] 0.40-4.50 Normal free thyroxine index 2.5 [facility] 1.4-3.8 Normal thyroxine, serum, total 7.7 ug/dL [facility] 4.9-10.5 Normal triiodothyronine resin uptake 32 % [facility] 22-35 Normal microalbumin/creati nine ratio, urine 13 MCG/MG CREAT [facility] <30 Normal microalbumin/total urine volume 17 mg/L [facility] Units converted. See lab report for original value. Normal creatinine, random, urine 135 mg/dL [facility] 20-320 Normal prostate specific antigen 1.28 ng/mL [facility] < OR = 4.00 Normal B-12, serum 603 pg/mL [facility] 200-1100 Normal basophils as percent of blood leukocytes 0.4 % [facility] Normal eosinophils as percent of blood leukocytes 2.3 % [facility] Normal monocyte count, blood 7.1 % [facility] Normal lymphocyte count, blood 18.5 % [facility] Normal neutrophils as percent of blood leukocytes 71.7 % [facility] Normal basophils, absolute, manual 19 cells/mcL [facility] 0-200 Normal eosinophils, absolute, manual 110 cells/mcL [facility] 15-500 Normal monocytes, absolute, manual 341 cells/mcL [facility] 200-950 Normal lymphocytes, absolute 888 CELLS/UL [facility] 850-3900 Normal Absolute Neutrophil count 3442 cells/mcL [facility] 7761-3410 Normal mean platelet volume 9.8 fL [facility] 7.5-12.5 Normal platelet count 219 THOUSAND/UL [facility] 140-400 Normal red blood cell distribution width 13.4 % [facility] 11.0-15.0 Normal mean corpuscular hemoglobin concentration, RBC 33.3 G/DL [facility] 32.0-36.0 Normal mean corpuscular hemoglobin, RBC 30.0 pg [facility] 27.0-33.0 Normal mean corpuscular volume, RBC 90.1 fL [facility] 80.0-100.0 Normal hematocrit, blood 36.3 % [facility] 38.5-50.0 Low hemoglobin electrophoresis, blood 12.1 [facility] 13.2-17.1 Low erythrocyte (RBC) count 4.03 MILLION/UL [facility] 4.20-5.80 Low leukocyte (white blood cells) count, blood 4.8 THOUSAND/UL [facility] 3.8-10.8 Normal alanine aminotransferase (SGPT), serum 21 1/L [facility] 9-46 Normal aspartate aminotransferase (SGOT), serum 26 1/L [facility] 10-35 Normal alkaline phosphatase, serum 67 1/L [facility] 35-144 Normal bilirubin, serum, total 0.5 mg/dL [facility] 0.2-1.2 Normal albumin/globulin ratio, serum 1.7 (calc) [facility] 1.0-2.5 Normal globulins, serum, total 2.6 G/DL (CALC) [facility] 1.9-3.7 Normal albumin, serum 4.3 g/dL [facility] 3.6-5.1 Normal protein, total, serum 6.9 g/dL [facility] 6.1-8.1 Normal calcium, serum 9.6 mg/dL [facility] 8.6-10.3 Normal carbon dioxide, venous blood 30 mmol/L [facility] 20-32 Normal chloride, serum 106 mmol/L [facility] 98-110 Normal potassium, serum 4.8 mmol/L [facility] 3.5-5.3 Normal sodium, serum 144 mmol/L [facility] 135-146 Normal urea nitrogen/creatinine ratio, serum 16 (calc) [facility] 6-22 Normal Estimated Glomerular Filtration Rate (calc) 48 mL/min/{1.73 _m2} [facility] > OR = 60 Low creatinine, serum 1.60 mg/dL [facility] 0.70-1.18 High urea nitrogen, blood 25 mg/dL [facility] 7-25 Normal blood glucose, random 97 mg/dL [facility] 65-99 Normal cholesterol, non-HDL, total 109 MG/DL (CALC) [facility] <130 Normal cholesterol/HDL ratio, serum, percent 3.6 (calc) [facility] <5.0 Normal LDL cholesterol, serum 87 MG/DL (CALC) [facility] Normal triglyceride, serum, fasting 122 mg/dL [facility] <150 Normal HDL cholesterol, serum 42 mg/dL [facility] > OR = 40 Normal cholesterol, serum 151 mg/dL [facility] <200 Normal ferritin, serum 102 ng/mL [facility] 30-400 B-12, serum 288 pg/mL [facility] 232-1245 iron saturation percent, serum 26 % [facility] 15-55 iron, serum 84 ug/dL [facility] 38-169 iron binding capacity, unsaturated 237 ug/dL [facility] 559-113 8642/06 /23 iron binding capacity, total 321 ug/dL [facility] 733-643 3941/06 /23 hemoglobin A1C, blood, as % of total hemoglobin 5.6 % [facility] 4.8-5.6 basophil count, absolute 0.0 x10E3/uL [facility] 0.0-0.2 Eosinophil Absolute Count 0.1 X10E3/UL [facility] 0.0-0.4 monocyte count, blood, automated 0.5 X10E3/UL [facility] 0.1-0.9 lymphocyte count, blood, automated 1.3 X10E3/UL [facility] 0.7-3.1 Absolute Neutrophils 4.4 X10E3/UL [facility] 1.4-7.0 basophils as percent of blood leukocytes 0 % [facility] Not Estab. eosinophils as percent of blood leukocytes 2 % [facility] Not Estab. monocytes as percent of blood leukocytes 8 % [facility] Not Estab. lymphocytes as percent of blood leukocytes 21 % [facility] Not Estab. neutrophils as percent of blood leukocytes 69 % [facility] Not Estab. platelet count 183 X10E3/UL [facility] 630-730 0409/06 /23 red blood cell distribution width 13.4 % [facility] 11.6-15.4 mean corpuscular hemoglobin concentration, RBC 32.3 G/DL [facility] 31.5-35.7 mean corpuscular hemoglobin, RBC 30.9 pg [facility] 26.6-33.0 mean corpuscular volume, RBC 96 fL [facility] 79-97 hematocrit, blood 35.9 % [facility] 37.5-51.0 Low hemoglobin, blood 11.6 g/dL [facility] 13.0-17.7 Low erythrocyte (RBC) count 3.76 X10E6/UL [facility] 4.14-5.80 Low leukocyte count, blood 6.5 X10E3/UL [facility] 3.4-10.8 ferritin, serum 131 ng/mL [facility] 30-400 B-12, serum 350 pg/mL [facility] 232-1245 iron saturation percent, serum 20 % [facility] 15-55 iron, serum 58 ug/dL [facility] 38-169 iron binding capacity, unsaturated 238 ug/dL [facility] 857-325 2077/09 /27 iron binding capacity, total 296 ug/dL [facility] 502-351 1608/07 /12 microalbumin/creati nine ratio, urine 15.8 MG/G CREAT [facility] 0.0-30.0 microalbumin, random, urine 1 mg/dL [facility] Units converted. See lab report for original value. creatinine, random, urine 63.2 mg/dL [facility] Not Estab. hemoglobin A1C, blood, as % of total hemoglobin 5.9 % [facility] 4.8-5.6 High calcium, serum 9.3 mg/dL [facility] 8.6-10.2 carbon dioxide, venous blood 29 mmol/L [facility] 20-29 chloride, serum 100 mmol/L [facility] 96-106 potassium, serum 4.3 mmol/L [facility] 3.5-5.2 sodium, serum 141 mmol/L [facility] 838-299 1256/07 /12 urea nitrogen/creatinine ratio, serum 15 [facility] 10-24 eGFR if 54 mL/min/{1.73 _m2} [facility] >59 Low eGFR if not 47 mL/min/{1.73 _m2} [facility] >59 Low creatinine, serum 1.49 mg/dL [facility] 0.76-1.27 High urea nitrogen, blood 22 mg/dL [facility] 8-27 blood glucose, random 94 mg/dL [facility] 65-99 vitamin b12, serum 371.5 pg/mL [facility] 211.0 - 946.0 thyroid stimulating hormone, serum 3.500 ??IU/ML [facility] 0.270 - 4.200 pro brain natriuretic peptide 66.3 pg/mL [facility] 0.0 - 125.0 ferritin, serum 44.0 ng/mL [facility] 30.0 - 400.0 albumin, serum 5.2 g/dL [facility] 3.5 - 5.2 red blood cell distribution width, size density 48.1 fL [facility] - immature granulocytes, percentage of total cells, blood 0.3 % [facility] - nucleated red blood cells as percent of blood leukocytes 0.0 % [facility] - red blood cell (erythrocyte) count, per high power field 0.0 10*3/UL [facility] - eosinophils as percent of blood leukocytes 2.4 % [facility] - neutrophils as percent of blood leukocytes 72.0 % [facility] - Absolute Neutrophils 4.2 CELLS/UL [facility] 1.5 - 7.8 basophils as percent of blood leukocytes 0.3 % [facility] - Absolute Basophils 0.0 CELLS/UL [facility] 0.0 - 0.2 monocytes as percent of blood leukocytes 6.0 % [facility] - Absolute Monocytes 0.4 CELLS/UL [facility] 0.2 - 1.0 lymphocytes as percent of blood leukocytes 19.0 % [facility] - Absolute Lymphocytes 1.1 CELLS/UL [facility] 0.9 - 3.9 mean platelet volume 10.1 (?) [facility] - platelet count 219.0 THOUSAND/UL [facility] 100.0 - 400.0 mean corpuscular hemoglobin concentration, RBC 32.7 G/DL [facility] 31.0 - 38.0 mean corpuscular hemoglobin, RBC 29.1 pg [facility] 25.0 - 35.0 mean corpuscular volume, RBC 89.2 fL [facility] 75.0 - 100.0 hematocrit, blood 34.6 % [facility] 35.0 - 55.0 Low hemoglobin, blood 11.3 g/dL [facility] 11.5 - 16.5 Low erythrocyte count, whole blood 3.9 MILLION/UL [facility] 3.5 - 5.5 iron, serum 63.0 ug/dL [facility] 31.0 - 144.0 iron saturation percent, serum 13.2 % [facility] 20.0 - 50.0 Low iron binding capacity, total 477.4 ug/dL [facility] 250.0 - 450.0 High red blood cell distribution width, size density 46.5 fL [facility] - immature granulocytes, percentage of total cells, blood 0.2 % [facility] - nucleated red blood cells as percent of blood leukocytes 0.0 % [facility] - red blood cell (erythrocyte) count, per high power field 0.0 10*3/UL [facility] - eosinophils as percent of blood leukocytes 4.0 % [facility] - neutrophils as percent of blood leukocytes 63.5 % [facility] Absolute Neutrophils 2.8 CELLS/UL [facility] 1.5 - 7.8 basophils as percent of blood leukocytes 0.2 % [facility] - Absolute Basophils 0.0 CELLS/UL [facility] 0.0 - 0.2 monocytes as percent of blood leukocytes 6.9 % [facility] - Absolute Monocytes 0.3 CELLS/UL [facility] 0.2 - 1.0 lymphocytes as percent of blood leukocytes 25.2 % [facility] Lymphocytes 1.1 CELLS/UL [facility] 0.9 - 3.9 mean platelet volume 9.9 (?) [facility] - platelet count 193.0 THOUSAND/UL [facility] 100.0 - 400.0 mean corpuscular hemoglobin concentration, RBC 32.0 G/DL [facility] 31.0 - 38.0 mean corpuscular hemoglobin, RBC 29.4 pg [facility] 25.0 - 35.0 mean corpuscular volume, RBC 91.8 fL [facility] 75.0 - 100.0 hematocrit, blood 35.6 % [facility] 35.0 - 55.0 hemoglobin, blood 11.4 g/dL [facility] 11.5 - 16.5 Low erythrocyte count, whole blood 3.9 MILLION/UL [facility] 3.5 - 5.5 urea nitrogen/creatinine ratio, serum 21.7 [facility] - Estimated Glomerular Filtration Rate (calc) 40.0 (?) [facility] 59.0 - Low chloride, serum 107.1 mmol/L [facility] 98.0 - 107.0 High potassium, serum 4.8 mmol/L [facility] 3.5 - 5.1 sodium, serum 148.0 mmol/L [facility] 136.0 - 145.0 High creatinine, serum 1.8 mg/dL [facility] 0.7 - 1.2 High carbon dioxide, venous blood 21.0 mmol/L [facility] 23.0 - 31.0 Low calcium, serum 9.2 mg/dL [facility] 8.6 - 10.2 urea nitrogen, blood 39.0 mg/dL [facility] 8.0 - 23.0 High blood glucose, random 99.0 mg/dL [facility] 74.0 - 99.0 pro brain natriuretic peptide 90.8 pg/mL [facility] 0.0 - 125.0 urea nitrogen/creatinine ratio, serum 12.0 [facility] - Estimated Glomerular Filtration Rate (calc) 49.3 (?) [facility] 59.0 - Low chloride, serum 106.6 mmol/L [facility] 98.0 - 107.0 potassium, serum 4.5 mmol/L [facility] 3.5 - 5.1 sodium, serum 143.0 mmol/L [facility] 136.0 - 145.0 creatinine, serum 1.5 mg/dL [facility] 0.7 - 1.2 High carbon dioxide, venous blood 26.0 mmol/L [facility] 23.0 - 31.0 calcium, serum 9.2 mg/dL [facility] 8.6 - 10.2 urea nitrogen, blood 18.0 mg/dL [facility] 8.0 - 23.0 Glucose Urine 107.0 mg/dL [facility] 74.0 - 99.0 High mucus on urinalysis Yes [facility] WBC urine on microscopy 0-5 [facility] RBC urine by microscopy 0-5 [facility] leukocyte esterase, urine, by dipstick Negative [facility], urine, semiquantitative (dipstick) Normal [facility] nitrite, urine, semiquantitative Negative [facility] RBC, urine, dipstick Negative [facility] bilirubin, urine Negative [facility] ketones, urine, by test strip Negative [facility] glucose, urine, semiquantitative Negative [facility] protein, urine, semiquantitative (dipstick) Negative [facility] pH, urine, semiquantitative 5.0 [facility] specific gravity, urine 1.019 [facility] urine color Yellow [facility] appearance[facility] urine Clear [facility] alanine aminotransferase (SGPT), serum 31 1/L [facility] aspartate aminotransferase (SGOT), serum 33 1/L [facility] creatinine, serum 1.29 mg/dL [facility] potassium, serum 4.1 mmol/L [facility] sodium, serum 140 mmol/L [facility] cholesterol/HDL ratio, serum, percent 5.7 [facility] triglyceride, serum, fasting 295 mg/dL [facility] lipoprotein, beta, serum, point, quantitative, calculated 105 mg/dL [facility] HDL cholesterol, serum 35 mg/dL [facility] cholesterol, serum 199 mg/dL [facility] alanine aminotransferase (SGPT), serum 23 1/L [facility] aspartate aminotransferase (SGOT), serum 29 1/L [facility] creatinine, serum 1.28 mg/dL [facility] potassium, serum 4.9 mmol/L [facility] sodium, serum 140 mmol/L [facility] alanine aminotransferase (SGPT), serum 23 1/L [facility] aspartate aminotransferase (SGOT), serum 27 1/L [facility] creatinine, serum 1.08 mg/dL [facility] potassium, serum 3.3 mmol/L [facility] sodium, serum 140 mmol/L [facility] alanine aminotransferase (SGPT), serum 26 1/L [facility] aspartate aminotransferase (SGOT), serum 27 1/L [facility] creatinine, serum 1.20 mg/dL [facility] potassium, serum 3.6 mmol/L [facility] sodium, serum 141 mmol/L [facility] alanine aminotransferase (SGPT), serum 21 1/L [facility] aspartate aminotransferase (SGOT), serum 35 1/L [facility] creatinine, serum 1.49 mg/dL [facility] potassium, serum 4.1 mmol/L [facility] sodium, serum 138 mmol/L [facility] prothrombin time (patient) 10.6 s [facility] 9.0-11.5 Normal international normalized ratio (INR) 1.0 [facility] Normal basophils as percent of blood leukocytes 0 % [facility] Normal eosinophils as percent of blood leukocytes 8 % [facility] Normal monocyte count, blood 6 % [facility] Normal lymphocyte count, blood 29 % [facility] Normal metamyelocyte count, blood 1 % [facility] High neutrophils, band form as percent of blood leukocytes 2 % [facility] Normal neutrophils as percent of blood leukocytes 54 % [facility] Normal basophils, absolute, manual 0 cells/mcL [facility] 0-200 Normal eosinophils, absolute, manual 296 cells/mcL [facility] 15-500 Normal monocytes, absolute, manual 222 cells/mcL [facility] 200-950 Normal lymphocytes, absolute 1073 CELLS/UL [facility] 850-3900 Normal Absolute Metamyelocyte count 37 cells/mcL [facility] 0 High Absolute Band Neutrophil count 74 cells/mcL [facility] 0-750 Normal Absolute Neutrophil count 1998 cells/mcL [facility] 7866-4219 Normal platelet count 327 THOUSAND/UL [facility] 140-400 Normal red blood cell distribution width 21.3 % [facility] 11.0-15.0 High mean corpuscular hemoglobin concentration, RBC 29.3 G/DL [facility] 32.0-36.0 Low mean corpuscular hemoglobin, RBC 19.3 pg [facility] 27.0-33.0 Low mean corpuscular volume, RBC 65.8 fL [facility] 80.0-100.0 Low hematocrit, blood 21.5 % [facility] 38.5-50.0 Low hemoglobin electrophoresis, blood 6.3 [facility] 13.2-17.1 Low erythrocyte (RBC) count 3.27 MILLION/UL [facility] 4.20-5.80 Low leukocyte (white blood cells) count, blood 3.7 THOUSAND/UL [facility] 3.8-10.8 Low calcium, serum 8.5 mg/dL [facility] 8.6-10.3 Low carbon dioxide, venous blood 23 mmol/L [facility] 19-30 Normal chloride, serum 111 mmol/L [facility] 98-110 High potassium, serum 5.0 mmol/L [facility] 3.5-5.3 Normal sodium, serum 143 mmol/L [facility] 135-146 Normal urea nitrogen/creatinine ratio, serum 22 (calc) [facility] 6-22 Normal Estimated Glomerular Filtration Rate (calc) 43 mL/min/{1.73 _m2} [facility] > OR = 60 Low creatinine, serum 1.86 mg/dL [facility] 0.70-1.25 High urea nitrogen, blood 40 mg/dL [facility] 7-25 High blood glucose, random 96 mg/dL [facility] 65-99 Normal cholesterol/HDL ratio, serum, percent 6.3 (calc) [facility] < OR = 5.0 High LDL cholesterol, serum 91 MG/DL (CALC) [facility] <130 Normal triglyceride, serum, fasting 263 mg/dL [facility] <150 High HDL cholesterol, serum 27 mg/dL [facility] > OR = 40 Low cholesterol, serum 171 mg/dL [facility] 125-200 Normal prothrombin time (patient) 10.5 s [facility] (9.0-11.5) Normal international normalized ratio (INR) 1.0 [facility] Normal basophils as percent of blood leukocytes 1.0 % [facility] Normal eosinophils as percent of blood leukocytes 5.7 % [facility] Normal monocyte count, blood 9.2 % [facility] Normal lymphocyte count, blood 24.1 % [facility] Normal neutrophils as percent of blood leukocytes 60.0 % [facility] Normal basophils, absolute, manual 52 cells/mcL [facility] (0-200) Normal eosinophils, absolute, manual 296 cells/mcL [facility] (15-500) Normal monocytes, absolute, manual 478 cells/mcL [facility] (200-950) Normal lymphocytes, absolute 1253 CELLS/UL [facility] (850-3900) Normal Absolute Neutrophil count 3120 cells/mcL [facility] (1260-9598) Normal platelet count 224 THOUSAND/UL [facility] (140-400) Normal red blood cell distribution width 13.3 % [facility] (11.0-15.0) Normal mean corpuscular hemoglobin concentration, RBC 33.7 G/DL [facility] (32.0-36.0) Normal mean corpuscular hemoglobin, RBC 30.9 pg [facility] (27.0-33.0) Normal mean corpuscular volume, RBC 91.6 fL [facility] (80.0-100.0 ) Normal hematocrit, blood 41.8 % [facility] (38.5-50.0) Normal hemoglobin electrophoresis, blood 14.1 [facility] (13.2-17.1) Normal erythrocyte (RBC) count 4.57 MILLION/UL [facility] (4.20-5.80) Normal leukocyte (white blood cells) count, blood 5.2 THOUSAND/UL [facility] (3.8-10.8) Normal hyaline casts, urine NONE SEEN [facility] (NONE SEEN) Normal bacteria, urine microscopy NONE SEEN [facility] (NONE SEEN) Normal epithelial cells, urine NONE SEEN [facility] (< OR = 5) Normal RBC urine by microscopy NONE SEEN [facility] (< OR = 3) Normal WBC urine on microscopy NONE SEEN /HPF [facility] (< OR = 5) Normal leukocyte esterase, urine, by dipstick NEGATIVE [facility] (NEGATIVE) Normal nitrite, urine, semiquantitative NEGATIVE [facility] (NEGATIVE) Normal protein, urine, semiquantitative (dipstick) TRACE [facility] (NEGATIVE) Abnormal blood in urine (hemoglobin) by dipstick NEGATIVE [facility] (NEGATIVE) Normal ketones, urine, by test strip NEGATIVE [facility] (NEGATIVE) Normal bilirubin, urine NEGATIVE [facility] (NEGATIVE) Normal glucose, urine, semiquantitative NEGATIVE [facility] (NEGATIVE) Normal pH, urine, semiquantitative 6.0 [facility] (5.0-8.0) Normal specific gravity, urine 1.023 [facility] (1.001-1.03 5) Normal appearance, urine CLEAR [facility] (CLEAR) Normal urine color YELLOW [facility] (YELLOW) Normal PTT patient 28 s [facility] (22-34) Normal alanine aminotransferase (SGPT), serum 42 1/L [facility] (9-60) Normal aspartate aminotransferase (SGOT), serum 27 1/L [facility] (10-35) Normal alkaline phosphatase, serum 122 1/L [facility] (40-115) High bilirubin, serum, total 0.5 mg/dL [facility] (0.2-1.2) Normal albumin/globulin ratio, serum 1.7 (calc) [facility] (1.0-2.1) Normal globulins, serum, total 2.7 G/DL (CALC) [facility] (2.1-3.7) Normal albumin, serum 4.6 g/dL [facility] (3.6-5.1) Normal protein, total, serum 7.3 g/dL [facility] (6.2-8.3) Normal calcium, serum 9.3 mg/dL [facility] (8.6-10.2) Normal carbon dioxide, venous blood 28 mmol/L [facility] (21-33) Normal chloride, serum 105 mmol/L [facility] (98-110) Normal potassium, serum 4.1 mmol/L [facility] (3.5-5.3) Normal sodium, serum 142 mmol/L [facility] (135-146) Normal urea nitrogen/creatinine ratio, serum NOT APPLICABLE (calc) [facility] (6-22) Estimated Glomerular Filtration Rate (calc) >60 mL/min/1.73m 2 [facility] (> OR = 60) Normal creatinine, serum 0.96 mg/dL [facility] (0.76-1.46) Normal urea nitrogen, blood 18 mg/dL [facility] (7-25) Normal blood glucose, random 100 mg/dL [facility] (65-99) High prothrombin time (patient) 10.0 s [facility] 9.0-11.5 Normal international normalized ratio (INR) 0.9 [facility] Normal basophils as percent of blood leukocytes 0.2 % [facility] Normal eosinophils as percent of blood leukocytes 3.0 % [facility] Normal monocyte count, blood 6.6 % [facility] Normal lymphocyte count, blood 25.3 % [facility] Normal neutrophils as percent of blood leukocytes 64.9 % [facility] Normal basophils, absolute, manual 11 cells/mcL [facility] 0-200 Normal eosinophils, absolute, manual 165 cells/mcL [facility] 15-500 Normal monocytes, absolute, manual 363 cells/mcL [facility] 200-950 Normal lymphocytes, absolute 1392 CELLS/UL [facility] 850-3900 Normal Absolute Neutrophil count 3570 cells/mcL [facility] 1384-8799 Normal platelet count 195 THOUSAND/UL [facility] 140-400 Normal red blood cell distribution width 13.8 % [facility] 11.0-15.0 Normal mean corpuscular hemoglobin concentration, RBC 34.5 G/DL [facility] 32.0-36.0 Normal mean corpuscular hemoglobin, RBC 31.0 pg [facility] 27.0-33.0 Normal mean corpuscular volume, RBC 89.9 fL [facility] 80.0-100.0 Normal hematocrit, blood 38.7 % [facility] 38.5-50.0 Normal hemoglobin electrophoresis, blood 13.4 [facility] 13.2-17.1 Normal erythrocyte (RBC) count 4.31 MILLION/UL [facility] 4.20-5.80 Normal leukocyte (white blood cells) count, blood 5.5 THOUSAND/UL [facility] 3.8-10.8 Normal calcium, serum 9.0 mg/dL [facility] 8.6-10.2 Normal carbon dioxide, venous blood 26 mmol/L [facility] 21-33 Normal chloride, serum 109 mmol/L [facility] 98-110 Normal potassium, serum 4.6 mmol/L [facility] 3.5-5.3 Normal sodium, serum 144 mmol/L [facility] 135-146 Normal urea nitrogen/creatinine ratio, serum NOT APPLICABLE (calc) [facility]Log[facility] 6- Estimated Glomerular Filtration Rate (calc) >60 mL/min/1.73m 2 [facility] > OR = 60 Normal creatinine, serum 0.94 mg/dL [facility] 0.76-1.46 Normal urea nitrogen, blood 17 mg/dL [facility] 7-25 Normal blood glucose, random 88 mg/dL [facility] 65-99 Normal cholesterol/HDL ratio, serum, percent 3.4 (calc) [facility]Log[facility] < OR = 5.0 Normal LDL cholesterol, serum 63 MG/DL (CALC) LinkLogic <130 Normal triglyceride, serum, fasting 137 mg/dL [facility] <150 Normal HDL cholesterol, serum 38 mg/dL [facility]Log[facility] > OR = 40 Low cholesterol, serum 128 mg/dL [facility] 125-200 Normal creatine kinase, serum 214 1/L [facility] 44-196 High alanine aminotransferase (SGPT), serum 30 1/L [facility] 9-60 Normal aspartate aminotransferase (SGOT), serum 22 1/L [facility] 10-35 Normal alkaline phosphatase, serum 99 1/L [facility] 40-115 Normal bilirubin, serum, indirect 0.4 MG/DL (CALC) [facility] 0.2-1.2 Normal bilirubin, serum, direct 0.1 mg/dL [facility] < OR = 0.2 Normal bilirubin, serum, total 0.5 mg/dL [facility] 0.2-1.2 Normal albumin/globulin ratio, serum 1.8 (calc) [facility] 1.0-2.1 Normal globulins, serum, total 2.6 G/DL (CALC) [facility] 2.1-3.7 Normal albumin, serum 4.6 g/dL [facility] 3.6-5.1 Normal protein, total, serum 7.2 g/dL [facility] 6.2-8.3 Normal cholesterol/HDL ratio, serum, percent 3.4 (calc) [facility] < OR = 5.0 Normal LDL cholesterol, serum 72 MG/DL (CALC) [facility] <130 Normal HDL cholesterol, serum 42 mg/dL [facility] > OR = 40 Normal cholesterol, serum 142 mg/dL [facility] 125-200 Normal triglyceride, serum, fasting 140 mg/dL [facility] <150 Normal cholesterol/HDL ratio, serum, percent 4.0 (calc) [facility] < OR = 5.0 Normal LDL cholesterol, serum 95 MG/DL (CALC) [facility] <130 Normal HDL cholesterol, serum 44 mg/dL [facility]Log[facility] > OR = 40 Normal cholesterol, serum 176 mg/dL [facility] 125-200 Normal triglyceride, serum, fasting 186 mg/dL [facility] <150 High HISTORY OF MEDICATION USE Medication Status Instructions Dates Provider Indications [facility] ment famotidine 20 mg tablet active Carol Tilley tamsulosin 0.4 mg capsule active Carol Tilley hydrochlorothiazide 12.5 mg tablet completed TAKE 1 TABLET BY MOUTH EVERY DAY 08/30 - 10/11 Carol Tilley Norvasc 5 mg tablet active TAKE 1 TABLE T BY MOUTH EVERY DAY 08/30 Anna Cruz NP rosuvastatin 40 mg tablet active Take 1 tablet by mouth once a day 06/03 Mary Davenport ezetimibe 10 mg tablet active TAKE 1 TABLET BY MOUTH EVERY DAY 06/26 [facility] ezetimibe 10 mg tablet completed Take 1 tablet by mouth once a day 08/04 - 06/26 Lu Mcclure ezetimibe 10 mg tablet completed TAKE 1 TABLET BY MOUTH EVERY DAY 06/07 - 08/04 Mary Davenport Repatha SureClick 140 mg/mL pen injector active INJECT 140 MG SUBCUTANEOUSLY EVERY TWO WEEKS 11/10 Astrid Rushing ezetimibe 10 mg tablet completed Take 1 tablet by mouth once a day 06/03 - 06/07 [facility] clopidogrel 75 mg tablet active TAKE 1 TABLET BY MOUTH EVERY DAY 06/19 [facility] Repatha SureClick 140 mg/mL pen injector completed Inject 140 mg subcutaneously every two weeks 12/01 - 11/10 Astrid Rushing clopidogrel 75 mg tablet completed Take 1 tablet by mouth once a day 10/24 - 06/19 Mary Davenport rosuvastatin 40 mg tablet completed TAKE 1 TABLET BY MOUTH DAILY 08/14 - 06/03 Mary Davenport rosuvastatin 40 mg tablet completed Take 1 tablet by mouth once a day TAKE 1 TABLET BY MOUTH DAILY 05/29 - 08/14 Temi Castaneda ezetimibe 10 mg tablet completed 1 tablet once a day 06/10 - 06/03 Nell Feliciano NP Ranexa 500 mg tablet extended release 12 hr completed 1 tablet twice a day - 10/11 Carol Tilley losartan 100 mg tablet active Take 1 tablet by mouth once a day 12/24 Laura Olivo #28, 28 days supply, Filled 0 dutasteride 0.5 mg capsule completed Take 1 tablet by mouth once a day 11/26 - 10/11 Carol Tilley #28, 28 days supply, Filled 0 TRAMADOL HCL 50 MG ORAL TABLET completed take one tablet by mouth as needed for pain 07/22 - 01/09 Laura Olivo #30, 10 days supply, Filled 9 aspirin 81 mg tablet,delayed release (DR/EC) active 1 tablet by mouth once a day 06/09 Lucy Pittman PREDNISONE TABLET THERAPY PACK completed As directed 05/23 - 01/09 Rosanna Whyte RN [facility] IRON TABLET active 1 tablet once a day 02/09 Chastity Lara AMITIZA 8 MCG ORAL CAPSULE completed ooe cap twice daily 02/09 - 01/09 Laura Olivo Protonix 40 mg tablet,delayed release (DR/EC) active 1 tablet once a day 02/09 Chastity Lara FLOMAX 0.4 MG ORAL CAPSULE completed one tab daily 02/09 - 01/09 Rosanna Whyte RN Celexa 20 mg tablet active 1 tablet onc e a day 02/09 Chastity Lara hydrochlorothiazide 25 mg tablet completed 1 tablet once a day 02/09 - 08/30 Anna Nalluri SENIOR RISK ANALYST Norvasc 10 mg tablet completed 1 tablet once a day 02/09 - 08/30 Anna Nalluri SENIOR RISK ANALYST COMPASS ASA/ RIVAROXABAN completed LTOLE ASA 100mg once daily and Rivaroxaban 2.5mg BID 12/24 - 06/08 Lucy Pittman ANDROGEL 50 MG/5GM (1%) TRANSDERMAL GEL completed Apply 50 mg daily to chest wall 12/29 - 11/24 Laura Olivo VITAMIN D3 2000 UNIT ORAL TABLET completed Take 2000 units by mouth daily 12/29 - 01/09 Laura Olivo diclofenac sodium 75 mg tablet,delayed release (DR/EC) completed once a day 12/23 - 10/11 Carol Tilley B-12 CAPSULE completed 1 QD 10/18 - 02/09 Chastity Lara FOLIC ACID TABLET completed 1 tab QD 10/18 - 02/09 Chastity Lara ASPIRIN ADULT LOW DOSE 81 MG ORAL TABLET DELAYED RELEASE completed One Tab By Mouth Daily 09/25 - 12/24 Lucy Pittman RANEXA 500 MG ORAL TABLET EXTENDED RELEASE 12 HOUR completed ONE TAB. TWICE DAILY for chronic angina 05/22 - 09/10 Rosnana Whyte RN METFORMIN HCL 500 MG ORAL TABLET completed once daily - 12/06 Laura Olivo PREDNISONE (RAMIN) 5 MG ORAL TABS completed two tablets today, one tablet for the next three days, 1/2 tablet for the next two days 12/12 - 12/06 Aneatris Partha LIGHT ASA/ RIVAROXABAN completed - 09/24 Lucy Pittman rosuvastatin 40 mg tablet completed Take 1 tablet by mouth once a day 10/29 - 05/29 Mary Davenport COZAAR 50 MG ORAL TABLET completed ONE TAB. DAILY - 01/09 Laura Olivo ASPIRIN 81 MG ORAL TABLET completed two TAB. DAILY 01/04 - Darell Yu MD sulfamethoxazole-tr imethoprim 800-160 mg tablet active Take as directed Temi Castaneda OMEPRAZOLE 40 MG ORAL CAPSULE DELAYED RELEASE completed ONCE DAILY - 01/09 Rosanna Whyte RN BACTRIM TABLET completed 1 TAB TWICE DAILY - 12/06 Niels Simpson FLEXERIL 10 MG TABS completed 1 tablet by mouth three times daily as needed 05/22 - 01/09 Rosanna Whyte RN HYDROCHLOROTHIAZIDE 12.5 MG ORAL CAPSULE completed ONE TAB. DAILY - Darell Yu MD COZAAR 100 MG ORAL TABLET completed ONE TAB. DAILY - 12/06 Niels Simpson NORVASC 10 MG ORAL TABLET completed 1/2 TAB. DAILY - 8 Lucy Pittman METFORMIN HCL 500 MG ORAL TABLET completed twice daily - 12/06 Laura Galo NUCYNTA 50 MG ORAL TABLET completed 4 once daily - 12/06 Laura Galo GLUCOVANCE 2.5-500 MG ORAL TABLET completed twice daily - 12/06 Clara Adam CALCIUM 600 MG ORAL TABLET completed 1 tablet by mouth daily - 12/06 Laura Galo FLAX SEED OIL 1000 MG ORAL CAPSULE completed 1 caspule by mouth daily - 12/06 Niels Simpson PREDNISOLONE ACETATE 1 % OPHTHALMIC SUSPENSION completed 2 drops in each eye twice daily - 12/06 Ramona Aguilar MA CELEXA 20 MG ORAL TABLET completed 1 tablet by mouth daily - 12/06 Niels Morales VOLTAREN-XR TABLET EXTENDED RELEASE 24 HOUR completed 75mg 1 tablet by mouth twice daily - 12/06 Niels Simpson NIASPAN 500 MG ORAL TABLET EXTENDED RELEASE completed ONE TAB. AT BEDTIME - Dispense as written 06/05 - 12/06 Laura Galo CRESTOR 40 MG ORAL TABLET completed ONE TAB. DAILY (replaces your simcor) - 12/06 Niels Simpson SIMCOR 500-20 MG ORAL TABLET EXTENDED RELEASE 24 HOUR completed ONE TAB. DAILY - Marylu Lujan RN FLEXERIL TABS completed 10 mg at bedtime as needed - 12/06 Clara Adam EXFORGE HCT 10-160-12.5 MG ORAL TABLET completed once daily - Deyvi Dee ZOLOFT 50 MG ORAL TABLET completed once daily - 12/06 Magan Morrow ASPIRIN 325 MG ORAL TABLET completed ONE TAB. DAILY - 12/06 Niels Alexandradney VOLTAREN 75 MG TBEC completed once daily - 12/06 Alfonzo Aguirre PEPCID 40 MG ORAL TABLET completed twice a day - 12/06 Alfonzo Aguirre AMBIEN CR 12.5 MG ORAL TABLET EXTENDED RELEASE completed once daily - 12/06 Magan Terrellnorberto DIOVAN 160 MG ORAL TABLET completed ONE TAB. DAILY - 12/06 Alfonzo Aguirre VYTORIN 10-80 MG ORAL TABLET completed ONE TAB. AT BEDTIME - 12/06 Alfonzo Aguirre PLAVIX 75 MG ORAL TABLET completed ONE TAB. DAILY - 01/04 Rosanna Whyte RN NORVASC 10 MG ORAL TABLET completed ONE TAB. DAILY - 12/06 Alfonzo Aguirre SOCIAL HISTORY Date Observation Value Provider smoking, year quit 2007 Carol Manley n number of years as a smoker 10 a Carol Tilley cigarette use yes Carol Tilley smoking status Former smoker Carol Tilley number of grandchildren Darelljr Yu MD Ne jose Cruz SENIOR RISK ANALYST smoking, year quit 2007 Carol Manley n number of years as a smoker 10 a Carol Tilley cigarette use yes Carol Tilley smoking status Former smoker Carol Tilley physical exercise, frequency, days per week no Temi Castaneda caffeine use, averag e drinks per day 3 /d Temi Castaneda smoking, year quit 2007 Temi Castaneda number of years as a smoker 10 a Temi Castaneda cigarette use yes Temi Med[place] nd smoking status Former smoker Temi Virgilio stapleton physical exercise, frequency, days per week no Herminia Moutray caffeine use, averag e drinks per day 3 /d Herminia Moutray smoking, year quit 2007 Herminia Mo utray number of years as a smoker 10 a Herminia Moutray cigarette use yes Herminia Moutray smoking status Former smoker Herminia Hanksutr ay physical exercise, frequency, days per week no Temi Castaneda caffeine use, averag e drinks per day 3 /d Temi Castaneda smoking, year quit 2007 Temi Castaneda number of years as a smoker 10 a Temi Castaneda cigarette use yes Temi [place] smoking status Former smoker Temi stapleton physical exercise, frequency, days per week no Sarina Lara caffeine use, averag e drinks per day 3 /d Chastity Lara smoking, year quit 2007 Chastity Lara number of years as a smoker 10 a Chastity Lara cigarette use yes Chastity Lara smoking status Former smoker Sarina Moore ue physical exercise, frequency, days per week no Daysi Quintero caffeine use, averag e drinks per day 3 /d Daysi Quintero smoking/tobacco cess ation, patient education and counseling contraindicated Daysi Quintero smoking, year quit 2007 Daysi F ox number of years as a smoker 10 a Daysi Quintero cigarette use yes Daysi Quintero smoking status Former smoker Daysi Quintero social history revie wed E&M reviewed - no changes required Darell Yu MD physical exercise, frequency, days per week no Daysi Quintero caffeine use, averag e drinks per day 3 /d Daysi Quintero smoking, year quit 2007 Daysi F ox number of years as a smoker 10 a Daysi Quintero cigarette use yes Daysi Quintero smoking status Former smoker Daysi Quintero social history revie wed E&M reviewed - no changes required Rosanna Whyte RN physical exercise, frequency, days per week no Laura [place] caffeine use, averag e drinks per day 3 /d Laura Geovani smoking, year quit 2007 Laura Bu sby number of years as a smoker 10 a Laura Geovani cigarette use yes Laura [place] smoking status Former smoker Laura Geovani caffeine use, averag e drinks per day 3 /d Yanna Lopez physical exercise, frequency, days per week no Camelot Sweet alcohol use, average drinks per day social basis only Camelot Sweet caffeine use, averag e drinks per day 2 /d Camelot Sweet smoking, year quit 2007 Camelot S weet number of years as a smoker 10 a Camelot Sweet smoking status Former smoker Camelot Swee t cigarette use yes Camelot Sweet social history revmain valenzuela E&M reviewed - no changes required Darell Yu MD physical exercise, frequency, days per week no Anyistity Lara alcohol use, average drinks per day social basis only Anyistity Lara caffeine use, averag e drinks per day yes Anyistity Lara smoking, year quit 2007 Anyistity Lara number of years as a smoker 10 a Chastity Lara cigarette use yes Chastity Lara smoking status Former smoker Chastity Hog ue social history revmain wed E&M reviewed - no changes required Rosanna Whyte RN physical exercise, frequency, days per week no Laura [place] alcohol use, average drinks per day social basis only Laura Geovani caffeine use, averag e drinks per day yes Laura Geovani smoking, year quit 2007 Laura Bu sby number of years as a smoker 10 a Laura Anthonyby cigarette use yes Laura Anthonyby smoking status Former smoker Laura Anthonyby social history revie wed E&M reviewed - no changes required Rosanna Whyte RN smoking status Former smoker Clara brower social history revie wed E&M reviewed - no changes required Darell Yu MD physical exercise, frequency, days per week no Laura [place] alcohol use, average drinks per day social basis only Laura Geovani caffeine use, averag e drinks per day yes Laura [place] smoking, year quit 2007 Laura oneilly number of years as a smoker 10 a Laura Anthonyby cigarette use yes Laura Geovani smoking status Former smoker Laura Anthonyby physical exercise, frequency, days per week no Rosanna Whyte RN alcohol use, average drinks per day social basis only Rosanna Whyte RN caffeine use, averag e drinks per day yes Rosanna Whyte RN smoking, year quit 2007 Rosanna Hunter RN number of years as a smoker 10 a Rosanna Whyte RN cigarette use yes Rosanna saravia RN smoking status Former smoker Rosanna carpenter RN social history revie wed E&M reviewed - no changes required Rosanna Whyte RN social history revie wed E&M reviewed - no changes required Rosanna Whyte RN physical exercise, frequency, days per week no Lucy Hand alcohol use, average drinks per day social basis only Lucy Hand caffeine use, averag e drinks per day yes Lucy Hand smoking, year quit 2007 Lucy Navarro billy number of years as a smoker 10 a Lucy Hand cigarette use yes Lucy Hand smoking status Former smoker Lucy Hand social history revie wed E&M reviewed - no changes required Darell Yu MD physical exercise, frequency, days per week no Lucy Hand alcohol use, average drinks per day social basis only Luyc Hand caffeine use, averag e drinks per day yes Lucy Hand smoking, year quit 2007 Lucy cervantes number of years as a smoker 10 a Lucy Hand cigarette use yes Lucy Hand smoking status Former smoker Lucy Hand social history E&M Marital Statu s: L brice with family/friends E thnicity: Smoking History: Norberto contreras is a former smoker. Tariq Watson MD smoking/tobacco cess ation, patient education and counseling No Tariq Watson MD social history revie wed E&M reviewed - no changes required Tariq Watson MD smoking status Former smoker Susanleiajoey Matthias sanchez social history revie wed E&M reviewed - no changes required Darell Yu MD physical exercise, frequency, days per week no Rosanna Whyte RN alcohol use, average drinks per day social basis only Rosanna Whyte RN caffeine use, averag e drinks per day yes Rosanna Whyte RN smoking/tobacco cess ation, patient education and counseling yes Rosanna Whyte RN smoking, year quit 2007 Rosanna Hunter RN number of years as a smoker 10 a Rosanna Whyte RN cigarette use yes Rosanna saravia RN smoking status Former smoker Rosanna carpenter RN social history revie wed E&M reviewed - no changes required Rosanna Whyte RN social history revie wed E&M reviewed - no changes required Darell Yu MD physical exercise, frequency, days per week no Lucy Pittman alcohol use, average drinks per day social basis only Lucy Pittman caffeine use, averag e drinks per day yes Lucy Pittman smoking/tobacco cess ation, patient education and counseling yes Lucy Pittman smoking, year quit 2007 Lucy Chavis Yoko number of years as a smoker 10 a Lucy Pittman cigarette use yes Lucy Pittman smoking status Former smoker Lucy Duckworth nn smoking/tobacco cess ation, patient education and counseling yes Rosanna Whyte RN smoking, year quit 2007 Rosanna Hunter RN number of years as a smoker 10 a Rosanna Whyte RN cigarette use yes Rosanna saravia RN physical exercise, frequency, days per week no Rosanna Whyte RN alcohol use, average drinks per day social basis only Rosanna Whyte RN caffeine use, averag e drinks per day yes Rosanna Whyte RN smoking status Former smoker Rosanna carpenter RN social history revie wed E&M reviewed - no changes required Rosanna Whyte RN social history revie wed E&M reviewed Darell Yu MD social history revie wed E&M reviewed Darell Yu MD social history revie wed E&M reviewed Darell Yu MD smoking status never smoker Laura Galo social history revie wed E&M reviewed Darell Yu MD social history revie wed E&M reviewed Darell Yu MD social history revie wed E&M reviewed Lusi Manuel Teran RN social history revie wed E&M reviewed Darell Yu MD social history revie wed E&M reviewed Darell Yu MD social history revie wed E&M reviewed Darell Yu MD social history revie wed E&M reviewed Darell Yu MD social history revie wed E&M reviewed Darell Yu MD social history E&M Marital Statu s: L brice with family/friends E thnicity: Alfonzo Aguirre social history revie wed E&M reviewed Alfonzo Aguirre physical exercise, frequency, days per week no [employer] caffeine use, averag e drinks per day yes [employer] alcohol use, average drinks per day social basis only [facility] smoking status Non-smoker [facility] FUNCTIONAL STATUS Date Observation Value Provider HRA, CV Assess/Plan, Angina (inactive) Management Plan continue current therapy Anna Nalluri SENIOR RISK ANALYST Reason Fall Assessme nt not done medical contraindication Carol Tilley HRA, CV Assess/Plan, Angina (inactive) Management Plan continue current therapy Anna Nalluri SENIOR RISK ANALYST Reason Fall Assessme nt not done medical contraindication Carol Tilley HRA, CV Assess/Plan, Angina (inactive) Management Plan continue current therapy Darell Yu MD HRA, CV Assess/Plan, Angina (inactive) Management Plan continue current therapy Darell Yu MD HRA, CV Assess/Plan, Angina (inactive) Management Plan continue current therapy Nell Feliciano NP HRA, CV Assess/Plan, Angina (inactive) Management Plan continue current therapy Darell Yu MD HRA, CV Assess/Plan, Angina (inactive) Management Plan schedule PCI Darell Yu MD HRA, CV Assess/Plan, Angina (inactive) Management Plan continue current therapy Darell Yu MD HRA, CV Assess/Plan, Angina (inactive) Management Plan continue current therapy Rosanna Whyte RN HRA, CV Assess/Plan, Angina (inactive) Management Plan continue current therapy Darell Yu MD HRA, CV Assess/Plan, Angina (inactive) Management Plan continue current therapy Rosanna Whyte RN HRA, CV Assess/Plan, Angina (inactive) Management Plan continue current therapy Darell Yu MD HRA, CV Assess/Plan, Angina (inactive) Management Plan continue current therapy Darell Yu MD HRA, CV Assess/Plan, Angina (inactive) Management Plan continue current therapy Darell Yu MD HRA, CV Assess/Plan, Angina (inactive) Management Plan continue current therapy Rosanna Whyte RN HRA, CV Assess/Plan, Angina (inactive) Management Plan continue current therapy Darell Yu MD HRA, CV Assess/Plan, Angina (inactive) Management Plan continue current therapy Rosanna Whyte RN MENTAL STATUS Date Observation Value Provider assessment of judgme nt and insight E&M Alert and oriented to time, place and person. Mood and affect are normal. Darell Yu MD assessment of judgme nt and insight E&M Alert and oriented to time, place and person. Mood and affect are normal. Darell Yu MD assessment of judgme nt and insight E&M Alert and oriented to time, place and person. Mood and affect are normal. Darell Yu MD assessment of judgme nt and insight E&M Alert and oriented to time, place and person. Mood and affect are normal. Darell Yu MD assessment of judgme nt and insight E&M Alert and oriented to time, place and person. Mood and affect are normal. Darell Yu MD assessment of judgme nt and insight E&M Alert and oriented to time, place and person. Mood and affect are normal. Luis Manuel Teran RN assessment of judgme nt and insight E&M Alert and oriented to time, place and person. Mood and affect are normal. Darell Yu MD assessment of judgme nt and insight E&M Alert and oriented to time, place and person. Mood and affect are normal. Darell Yu MD assessment of judgme nt and insight E&M Alert and oriented to time, place and person. Mood and affect are normal. Darell Yu MD assessment of judgme nt and insight E&M Alert and oriented to time, place and person. Mood and affect are normal. Darell Yu MD assessment of judgme nt and insight E&M Alert and oriented to time, place and person. Mood and affect are normal. Darell Yu MD assessment of judgme nt and insight E&M Alert and oriented to time, place and person. Mood and affect are normal. Alfonzo Aguirre FAMILY HISTORY Family Member Condition Mother [place] female <65 Full Brother Family History of Co ronary Artery Disease: Mother Family History Coron komal Heart Disease female < 65: Father Family History of Co ronary Artery Disease: INSURANCE PROVIDERS Payer name Policy type / Coverage type Deep red libertarian ID [id number] (PPO C-SNP) [email or web address] insurance [employer] [id number] ADVANCE DIRECTIVES Name Date DISCUSSED - NO DECISION MADE TREATMENT PLAN Date Name Performer [id number],C,s ob with walking <1 city block e cho c/w distolic dysunction b inpatient auditor nomral d /w pt re doyle trial and he is interested Darell Yu MD [id number],C, T he patient is using CPAP on a regular basis. The patient has been benefiting from therapy and should continue use. Nell Feliciano NP [id number],C, C hol: 163 (10/23/2021) HDL: 48 (10/23/2021) LDL: 94 MG/DL (CALC) (10/23/2021) T (10/23/2021) on Repatha w ill start ezetimibe again. Nell Feliciano NP [id number],C, 5 .6% u acr 13 will send him for enrollment to [place] Nell Feliciano NP [id number],C, B P today: 110/74 P rior BP: 133/71 (12/01/2021) Labs Reviewed: C reat: 1.95 (12/17/2021) C hol: 163 (10/23/2021) HDL: 48 (10/23/2021) LDL: 94 MG/DL (CALC) (10/23/2021) T (10/23/2021) Nell Feliciano NP [id number],C,N o chest pain, but continues ot have sob with exertion HsCrP 0.9 Nell Feliciano SHELIA [id number],C, H is updated medication list for this problem includes: Rosuvastatin 40 Mg Tablet (Rosuvastatin) ..... Take 1 tablet by mouth daily Ezetimibe 10 Mg Tablet (Ezetimibe) ..... 1 tablet once a day C HOL: 163 (10/23/2021) LDL: 94 MG/DL (CALC) (10/23/2021) HDL: 48 (10/23/2021) T (10/23/2021) felix Yu MD [id number],C, H is updated medication list for this problem includes: Hydrochlorothiazide 25 Mg Tablet (Hydrochlorothiazide) ..... 1 tablet once a day Losartan 100 Mg Tablet (Losartan) ..... Take 1 tablet by mouth once a day Aspirin 81 Mg Tablet,delayed Release (dr/ec) (Aspirin) ..... 1 tablet by mouth once a day Norvasc 10 Mg Tablet (Amlodipine) ..... 1 tablet once a day BP today: 133/71 P rior BP: 132/68 (10/06/2021) Labs Reviewed: C reat: 1.45 (10/23/2021) C hol: 163 (10/23/2021) HDL: 48 (10/23/2021) LDL: 94 MG/DL (CALC) (10/23/2021) T (10/23/2021) Darell Yu MD [id number],C, He had recent PCI and his sob is improved by 50%. Denies chest pains. Darell Yu MD [id number],C,f erritin 34 w ill try to get iron infusions Darell Yu MD [id number],C, H is updated medication list for this problem includes: Hydrochlorothiazide 25 Mg Tablet (Hydrochlorothiazide) ..... 1 tablet once a day Losartan 100 Mg Tablet (Losartan) ..... Take 1 tablet by mouth once a day Aspirin 81 Mg Tablet,delayed Release (dr/ec) (Aspirin) ..... 1 tablet by mouth once a day Norvasc 10 Mg Tablet (Amlodipine) ..... 1 tablet once a day BP today: 132/68 P rior BP: 135/57 (08/25/2021) Labs Reviewed: C reat: 1.60 (08/27/2021) C hol: 151 (08/27/2021) HDL: 42 (08/27/2021) LDL: 87 MG/DL (CALC) (08/27/2021) T (08/27/2021) [id number][facility],a bnl stress tst with inferio wall ischemia r ecommend cath a lso will do renals same time due to ckd a lso can consider rhc right radial ok [facility] [id number],C, H is updated medication list for this problem includes: Rosuvastatin 40 Mg Tablet (Rosuvastatin) ..... Take 1 tablet by mouth daily Ezetimibe 10 Mg Tablet (Ezetimibe) ..... 1 tablet once a day C HOL: 151 (08/27/2021) LDL: 87 MG/DL (CALC) (08/27/2021) HDL: 42 (08/27/2021) T (08/27/2021) [facility] [id number],C,uacr [facility] [id number],C,5 .6% u acr [facility] [id number],C,I m ore sob c heck labs - cbc, tsh, nt bnp e cho [facility] [id number],C, H is updated medication list for this problem includes: Rosuvastatin 40 Mg Tablet (Rosuvastatin) ..... Take 1 tablet by mouth daily Ezetimibe 10 Mg Tablet (Ezetimibe) ..... 1 tablet once a day [facility] [id number],C,T he patient is using CPAP on a regular basis. The patient has been benefiting from therapy and should continue use. Darell Yu MD [id number],C, H is updated medication list for this problem includes: Hydrochlorothiazide 25 Mg Tablet (Hydrochlorothiazide) ..... 1 tablet once a day Losartan 100 Mg Tablet (Losartan) ..... Take 1 tablet by mouth once a day Aspirin 81 Mg Tablet,delayed Release (dr/ec) (Aspirin) ..... 1 tablet by mouth once a day Norvasc 10 Mg Tablet (Amlodipine) ..... 1 tablet once a day BP today: 135/57 P rior BP: 130/78 (05/29/2020) Labs Reviewed: C reat: 1.49 (11/25/2017) C hol: 199 (06/23/2013) HDL: 35 (06/23/2013) T (06/23/2013) Darell Yu MD [id number],C, H is updated medication list for this problem includes: Losartan 100 Mg Tablet (Losartan) ..... Take 1 tablet by mouth once a day Aspirin 81 Mg Tablet,delayed Release (dr/ec) (Aspirin) ..... 1 tablet by mouth once a day c heck uacr and hbaic Darell Yu MD [id number],C,n egative stress 2019 m ore sob r susu stress test Darell Yu MD [id number],C,s table per pt c hekc HbAic and uacr no la on dopplers in 2020 Darell Yu MD [id number],C,[facility] labs Daina Yu MD [id number],C,on supplement s Darell Yu MD Take your medication s every day as directed. Failing to take your medication properly can have a negative impact on your treatment. Please monitor your blood pressure and heart rate regularly, at least weekly. Sit quietly for 5 minutes before taking your blood pressure and heart rate. Recommend a healthy diet plan which would include lots of vegetables and fruits, poultry and fish, low fat dairy products. It would include lower quantities of carbohydrates, like breads, potatoes, rice and pasta. Only small amounts of sweets should be included. Recommend a low salt, or no added salt diet. Exercise of at least 3 times a week is recommended. Even small amounts of exercise regularly can be less intimidating but still beneficial. Please contact us if you have new Chest Pain, Shortness of Breath, Palpitations, Dizziness, or Edema. Precious Ruiz Cardiology: U ses CPAP on regular basis Anna Chayoluri SHELIA Cardiology: B P today: 116/56 P rior BP: 108/51 (08/30/2024) has been running soft. Reports feeling lightheaded intermitetntly. stopped hctz and amlodipine per PCP. only takes losaratn 50 mg when SBP >110. Anna Nalluri SENIOR RISK ANALYST Cardiology: H is updated medication list for this problem includes: Losartan 100 Mg Tablet (Losartan) ..... Take 1 tablet by mouth once a day Aspirin 81 Mg Tablet,delayed Release (dr/ec) (Aspirin) ..... 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 N ormal stress test ane echo p roBNP [address] onsider LEVEL trail Anna Nalluri SENIOR RISK ANALYST Cardiology:Stable wi th no angina S tress test negative for ischemia Anna Nalluri SENIOR RISK ANALYST Cardiology:Remain un changed. N ormal stress test ane echo p roBNP 305 Anna Nalluri SENIOR RISK ANALYST Cardiology:on rx Darell Yu MD Cardiology:No angina but MCCABE with minimal exertion c heck stress test Darell Yu MD Cardiology:Uses CPAP on regular basis Anna Chayoluri SHELIA Cardiology:LDL -10, Chol 60, HDL 57, trig 67 His updated medication list for this problem includes: Repatha Sureclick 140 Mg/ml Pen Injector (Evolocumab) ..... Inject 140 mg subcutaneously every two weeks Rosuvastatin 40 Mg Tablet (Rosuvastatin) ..... Take 1 tablet by mouth once a day Ezetimibe 10 Mg Tablet (Ezetimibe) ..... Take 1 tablet by mouth every day Anna Nalluri SENIOR RISK ANALYST Cardiology: B P today: 108/51 P rior BP: 175/88 (05/15/2024) running soft, c/o feeling dizzy/lightheaded at times D ecreased amlodipine dose to 5 mg and hctz dose to 12.5 mg daily Anna Nalluri SENIOR RISK ANALYST Cardiology: H is updated medication list for this problem includes: Losartan 100 Mg Tablet (Losartan) ..... Take 1 tablet by mouth once a day Aspirin 81 Mg Tablet,delayed Release (dr/ec) (Aspirin) ..... 1 tablet by mouth once a day Anna Nalluri SENIOR RISK ANALYST Cardiology:follows with nephrolo gist Anna Nalluri SENIOR RISK ANALYST Cardiology:on rx Anna Nalluri SENIOR RISK ANALYST Cardiology:EF 69% c heck proBNP c onsider LEVEL trial Anna Nalluri SENIOR RISK ANALYST Cardiology:Remain un changed. C an only take 20-30 steps before he gets out of breath. NO LE edema. Echo shows EF 69%, impaired diastolic function. c heck stress test i f this is negative can consider level trial Anna Nalluri SHELIA Cardiology Darellnorberto Yu MD Cardiology:Will che k lipid panel His updated medication list for this problem includes: Rosuvastatin 40 Mg Tablet (Rosuvastatin) ..... Take 1 tablet by mouth daily Ezetimibe 10 Mg Tablet (Ezetimibe) ..... Take 1 tablet by mouth every day Repatha Sureclick 140 Mg/ml Pen Injector (Evolocumab) ..... Inject 140 mg subcutaneously every two weeks Darelljr Yu MD Cardiology:Discussio n of benefits for remote patient monitoring took place. Patient gives consent for remote monitoring of physiologic parameters including, but not limited to, weight, blood pressure, pulse oximetry, respiratory flow rate. BP today: 175/88 P rior BP: 112/55 (04/15/2023) Labs Reviewed: C reat: 1.95 (12/17/2021) C hol: 163 (10/23/2021) HDL: 48 (10/23/2021) LDL: 94 MG/DL (CALC) (10/23/2021) T (10/23/2021) His updated medication list for this problem includes: Hydrochlorothiazide 25 Mg Tablet (Hydrochlorothiazide) ..... 1 tablet once a day Losartan 100 Mg Tablet (Losartan) ..... Take 1 tablet by mouth once a day Aspirin 81 Mg Tablet,delayed Release (dr/ec) (Aspirin) ..... 1 tablet by mouth once a day Norvasc 10 Mg Tablet (Amlodipine) ..... 1 tablet once a day Darelljr Yu MD Cardiology: D yspnea on exertion. Will check stress PET CT and echo His updated medication list for this problem includes: Clopidogrel 75 Mg Tablet (Clopidogrel) ..... Take 1 tablet by mouth every day Aspirin 81 Mg Tablet,delayed Release (dr/ec) (Aspirin) ..... 1 tablet by mouth once a day Ranexa 500 Mg Tablet Extended Release 12 Hr (Ranolazine) ..... 1 tablet twice a day Norvasc 10 Mg Tablet (Amlodipine) ..... 1 tablet once a day Darell Yu MD Cardiology: H e gets SOB on mild exertion. This appears to be getting worse and is a lot like his sx pre pci in 2021. Will check a stress PET CT scan W ill check a stress PET CT and echo W illl also check labwork: ProBNP, BMP, and lipids Darell Yu MD Cardiology: H is updated medication list for this problem includes: Ezetimibe 10 Mg Tablet (Ezetimibe) ..... Take 1 tablet by mouth every day Rosuvastatin 40 Mg Tablet (Rosuvastatin) ..... Take 1 tablet by mouth daily Repatha Sureclick 140 Mg/ml Pen Injector (Evolocumab) ..... Inject 140 mg subcutaneously every two weeks C HOL: 163 (10/23/2021) LDL: 94 MG/DL (CALC) (10/23/2021) HDL: 48 (10/23/2021) T (10/23/2021) C RP: 0.9 mg/L (12/17/2021) crp 0.9 Darelljr Yu MD Cardiology:The patie nt is using CPAP on a regular basis. The patient has been benefiting from therapy and should continue use. Darelljr Yu MD Cardiology: H is updated medication list for this problem includes: Hydrochlorothiazide 25 Mg Tablet (Hydrochlorothiazide) ..... 1 tablet once a day Losartan 100 Mg Tablet (Losartan) ..... Take 1 tablet by mouth once a day Aspirin 81 Mg Tablet,delayed Release (dr/ec) (Aspirin) ..... 1 tablet by mouth once a day Norvasc 10 Mg Tablet (Amlodipine) ..... 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 The patient has been benefiting from therapy and should continue use. Nell Greenvidhi BASS Cardiology: C hol: 163 (10/23/2021) HDL: 48 (10/23/2021) LDL: 94 MG/DL (CALC) (10/23/2021) T (10/23/2021) on Repatha leslie cottrell start ezetimibe again. Nell Washington Braden BASS Cardiology: 5 .6% u acr 13 will send him for enrollment to [place] Nelljan Feliciano NP Cardiology: B P today: 110/74 P rior BP: 133/71 (12/01/2021) Labs Reviewed: C reat: 1.95 (12/17/2021) C hol: 163 (10/23/2021) HDL: 48 (10/23/2021) LDL: 94 MG/DL (CALC) (10/23/2021) T (10/23/2021) Nell Washington Braden BASS Cardiology:No chest pain, but continues ot have sob with exertion HsCrP 0.9 Nell Felix Braden BASS Cardiology: H is updated medication list for this problem includes: Rosuvastatin 40 Mg Tablet (Rosuvastatin) ..... Take 1 tablet by mouth daily Ezetimibe 10 Mg Tablet (Ezetimibe) ..... 1 tablet once a day C HOL: 163 (10/23/2021) LDL: 94 MG/DL (CALC) (10/23/2021) HDL: 48 (10/23/2021) T (10/23/2021) felix Yu MD Cardiology: H is updated medication list for this problem includes: Hydrochlorothiazide 25 Mg Tablet (Hydrochlorothiazide) ..... 1 tablet once a day Losartan 100 Mg Tablet (Losartan) ..... Take 1 tablet by mouth once a day Aspirin 81 Mg Tablet,delayed Release (dr/ec) (Aspirin) ..... 1 tablet by mouth once a day Norvasc 10 Mg Tablet (Amlodipine) ..... 1 tablet once a day BP today: 133/71 P rior BP: 132/68 (10/06/2021) Labs Reviewed: C reat: 1.45 (10/23/2021) C hol: 163 (10/23/2021) HDL: 48 (10/23/2021) LDL: 94 MG/DL (CALC) (10/23/2021) T (10/23/2021) Darell Yu MD Cardiology: He had r ecent PCI and his sob is improved by 50%. Denies chest pains. Darell Yu MD Cardiology:ferritin 34 w ill try to get iron infusions Darell Yu MD Cardiology: H is updated medication list for this problem includes: Hydrochlorothiazide 25 Mg Tablet (Hydrochlorothiazide) ..... 1 tablet once a day Losartan 100 Mg Tablet (Losartan) ..... Take 1 tablet by mouth once a day Aspirin 81 Mg Tablet,delayed Release (dr/ec) (Aspirin) ..... 1 tablet by mouth once a day Norvasc 10 Mg Tablet (Amlodipine) ..... 1 tablet once a day B P today: 132/68 P rior BP: 135/57 (08/25/2021) Labs Reviewed: C reat: 1.60 (08/27/2021) C hol: 151 (08/27/2021) HDL: 42 (08/27/2021) LDL: 87 MG/DL (CALC) (08/27/2021) T (08/27/2021) Darell Yu MD Cardiology:abnl stre ss tst with inferio wall ischemia r ecommend cath a lso will do renals same time due to ckd a lso can consider rhc right radial ok Darell Yu MD Cardiology: H is updated medication list for this problem includes: Rosuvastatin 40 Mg Tablet (Rosuvastatin) ..... Take 1 tablet by mouth daily Ezetimibe 10 Mg Tablet (Ezetimibe) ..... 1 tablet once a day C HOL: 151 (08/27/2021) LDL: 87 MG/DL (CALC) (08/27/2021) HDL: 42 (08/27/2021) T (08/27/2021) Darellnorberto Yu MD Cardiology:uacr 13 D Cardiology:5.6% u acr 13 Darell Gigi COYNE Cardiology:I m ore sob c heck labs - cbc, tsh, nt bnp e cho Darell Gigi COYNE Cardiology: H is updated medication list for this problem includes: Rosuvastatin 40 Mg Tablet (Rosuvastatin) ..... Take 1 tablet by mouth daily Ezetimibe 10 Mg Tablet (Ezetimibe) ..... 1 tablet once a day Gigi COYNE Cardiology:The patie nt is using CPAP on a regular basis. The patient has been benefiting from therapy and should continue use. Gigi COYNE Cardiology: H is updated medication list for this problem includes: Hydrochlorothiazide 25 Mg Tablet (Hydrochlorothiazide) ..... 1 tablet once a day Losartan 100 Mg Tablet (Losartan) ..... Take 1 tablet by mouth once a day Aspirin 81 Mg Tablet,delayed Release (dr/ec) (Aspirin) ..... 1 tablet by mouth once a day Norvasc 10 Mg Tablet (Amlodipine) ..... 1 tablet once a day BP today: 135/57 P rior BP: 130/78 (05/29/2020) Labs Reviewed: C reat: 1.49 (11/25/2017) C hol: 199 (06/23/2013) HDL: 35 (06/23/2013) T (06/23/2013) Darell Gigi COYNE Cardiology: H is updated medication list for this problem includes: Losartan 100 Mg Tablet (Losartan) ..... Take 1 tablet by mouth once a day Aspirin 81 Mg Tablet,delayed Release (dr/ec) (Aspirin) ..... 1 tablet by mouth once a day c heck uacr and hbaic Darell Gigi COYNE Cardiology:negative stress 2020 m ore sob r susu stress test Darell Das Cardiology:stable pe r pt c hekc HbAic and uacr no la on dopplers in 2020eenorberto Yu MD Cardiology:redo labs Darellnorberto Yu MD Cardiology:on supplements norberto Yu MD Cardiology:wc Rosanna Whyte RN Cardiology:sob ana r with ranexa c ath in future? Rosanna Whyte RN Cardiology:not on di abetic meds now c heck uacr Rosanna Whyte RN Cardiology:seeing ne phrolog c reatinine 2.2 now w ill get renal artery doppler and post void residual bladder scan u acr 22 a dvised to avoid diclofenac b actim may increase creatinine Rosanna Whyte RN Cardiology:fatigue a nd sob improved with ranexa h as worsening renal fn g et labs first and will decide re [facility] Darelljr Yu MD Cardiology:ldl 73 His updated medication list for this problem includes: Ezetimibe 10 Mg Oral Tablet (Ezetimibe) ..... One tab daily - ADDED TODAY Rosuvastatin 40mg Tab (Rosuvastatin calcium) ..... 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.- DR OH g et labs from [place] a lso on bactrim ds fci for suppression of orthopedic infection Gigi COYNE Cardiology:sob impro thiago with ranexa and B12 supplements s x may be cad related Darell Gigi COYNE Cardiology:ferritin was 102 in 11/03 r susu next year Darell Gigi COYNE Cardiology:sob improved with po b12 supplements Gigi COYNE :pt called f atigue slightly better but still there w ill try ranexa trial Darell Gigi COYNE Cardiology:check flp w ill add vascepa if trigs still high l dl was 71 Rosanna Whyte RN Cardiology:wc Rosanna Whyte RN Cardiology:5.6% Rosanna Whyte RN Cardiology:ranexa tr ial if still fatigued n egative stress test 11/03 Rosanna Whyte RN Cardiology:iron leve ls ok B 12 slightly low - advised to take B12 supplements will check bnp, testosterone levels, tsh r anexa trial if B12 does not help Rosanna Whyte RN Cardiology:iron leve ls ok B 12 slightly low - advised to take B12 supplements Rosanna Whyte RN Cardiology:never had bad surgery h as morphine pump Rosanna Whyte RN Cardiology:ldl 1 h dl 44 t rigs 190 Darell Gigi COYNE Cardiology:wc Darell Gigi COYNE Cardiology:stress te st in 3 months p ost banda Darell Gigi COYNE Cardiology:will check levels at next visit Darell Gigi COYNE Cardiology: H is updated medication list for this problem includes: Aspirin Adult Low Dose 81 Mg Oral Tablet Delayed Release (Aspirin) ..... One tab by mouth daily Hydrochlorothiazide 25 Mg Oral Tablet (Hydrochlorothiazide) ..... One tab daily Norvasc 10 Mg Oral Tablet (Amlodipine besylate) ..... One tab. daily Cozaar 50 Mg Oral Tablet (Losartan potassium) ..... One tab. daily BP today: 130/70 P rior BP: 120/70 (02/09/2018) Labs Reviewed: C reat: 1.49 (11/25/2017) C hol: 199 (06/23/2013) HDL: 35 (06/23/2013) T (06/23/2013) Darell Gigi COYNE Cardiology:rare cp w ill so stress test 2019eep Gigi COYNE Cardiology:iron leve ls were low nl last time in 02/01 and may need infusion again if becomes symptomatic a sx at this time [facility] Gigi COYNE Cardiology- ltr done :wc. H is updated medication list for this problem includes: Hydrochlorothiazide 25 Mg Oral Tablet (Hydrochlorothiazide) ..... One tab daily Norvasc 10 Mg Oral Tablet (Amlodipine besylate) ..... One tab. daily Cozaar 50 Mg Oral Tablet (Losartan potassium) ..... One tab. daily Darell Yu MD Cardiology- ltr done :Denies cp. Negative stress test 2017. Darelljr Yu MD Cardiology- ltr done:uacr 13 Daina geraldine Yu MD Cardiology- ltr done :Cr 1.6 O n Bactrim permanently, which might increase his creat. u acr 13 Darelljr Yu MD Cardiology- ltr done :C/o fatigue, per pt due to his anemia. W ill check ferritin, iron sats, B12. Darell Yu MD Cardiology -,ltr don e: He has been having sharp right lower parasternal chest pains occured at rest lasting for a few seconds associated with sob with numbess in the left arm. Has not had it over last 3 days. negative nuclear stress test 2016 a typical CP -- will hold off further eval at this time p t notified to contact us if recurs Rosanna Whyte RN Cardiology -,ltr don e:has been off metformin as his bs is good w/o meds Rosanna Whyte RN Cardiology -,ltr done:will check uacr Rosanna Whyte RN Cardiology -,ltr don e:BP today: 122/70 P rior BP: 110/60 (03/10/2017) Rosanna Whyte RN Cardiology -ltr done : He had iron infusions and can now walk 1-1/2 blocks before feeling tired which is a significant improvement for him. post infusion iron sat 53 and ferritin 604 Rosanna Whyte RN Cardiology -ltr done : He had iron infusions and can now walk 1-1/2 blocks before feeling tired which is a significant improvement for him. Rosanna Whyte RN Cardiology -ltr done :negative nuclear stress test 12/2016 d enies cp, sob with activitiy. Rosanna Whyte RN Cardiology -ltr done :Patient needs to have left knee replacement with Dr.Paul Vang and needs cardiac clearance for this. n egative nuclear stress test 12/2016 o k for knee surgery from cardiac standpoint Rosanna Whyte RN Cardiology -ltr done:compliant w ith CPAP nighlty Rosanna Whyte RN Cardiology -ltr done :BP today: 110/60 P rior BP: 118/60 (01/13/2017) Rosanna Whyte RN Cardiology: Also rep orts increasing fatigue with exertion, like carrying things or walking about 1/2 block. He used to be able to walk a block, but now walks 1/2 block and has to rest due to fatigue. Denies SOB, CP, dizziness, leg weakness. concerning for anginal equivelant >>>check stress test g et labs from pcp echo EF 65%, E/e' 12, no significant valvular abnormalites p reviously had bnp, pft, cbc wnl last year and no change in sob with ranexa n o longer sob, but c/o fatigue with exertion c onsider iron/ferrritin levels c heck rate response on pacemaker Darell Yu MD Cardiology:compliant with CPAP n ightly Darell Yu MD Cardiology:per pt fl p ok w ill get labs from pcp Darell Yu MD Cardiology:states his BS has bee n controlled Darell Yu MD Cardiology:BP today: 115/70 P rior BP: 120/60 (09/11/2015) Darell Yu MD Cardiology: Reports his SOB is back to baseline now, reports SOB with one flight of stairs or with 2 blocks ambulation. Also reports fatigue with exertion, like carrying groceries. normal proBNP- so not diastolic CHF n ormal PFTs and CBC u nable to assess PA pressure, but no RVE or ANU documented by echo, normal LVEF C reat elevated at 1.8 l ast nuclear stress test 01/2014 was negative for ischemia p t doesn't think Ranexa made any impact on his MCCABE sob may be due to deconditioning - all his testing is negative Darell Yu MD Cardiology:Creat 1.5 2014 C reat 1.8 05/2015 n o LA by renal u/s Rosanna Whyte RN Cardiology:due for FLP Rosanna Hunter RN Cardiology: Reports his SOB is back to baseline now, reports SOB with one flight of stairs or with 2 blocks ambulation. Also reports fatigue with exertion, like carrying groceries. l ast nuclear stress test 01/2014 was negative for ischemia, but sx concerning for anginal equivalent >>>Consider cath for definitive eval Rosanna Whyte RN Cardiology: Reports his SOB is back to baseline now, reports SOB with one flight of stairs or with 2 blocks ambulation. Also reports fatigue with exertion, like carrying groceries. normal proBNP- so not diastolic CHF n ormal PFTs and CBC u nable to assess PA pressure, but no RVE or ANU documented by echo, normal LVEF C reat elevated at 1.8 l ast nuclear stress test 01/2014 was negative for ischemia, but sx concerning for anginal equivalent >>>Consider cath for definitive eval p t doesn't think Ranexa made any impact on his MCCABE sob may be due to deconditioning - all his testing is negative Rosanna Whyte RN Cardiology:compliant with CPAP nightly Rosanna Whyte RN Cardiology:BP today: 120/60 P rior BP: 126/74 (05/22/2015) Rosanna Whyte RN Cardiology - ltr fxd :Reports getting SOB, fatigue with 1/2 flight of stairs. Denies CP. n egative nuclear stress test 01/2014 h ad LVEF 65%, mild lae and E/e'14 by echo 2012 w ill check echo, BMP, BNP, PFTs, Ranexa trial Rosanna Whyte RN Cardiology - ltr fxd :Reports getting SOB, fatigue with 1/2 flight of stairs. Denies CP. n egative nuclear stress test 01/2014 h ad LVEF 65%, mild lae and E/e'14 by echo 2012 w ill check echo, BMP, BNP, PFTs, Ranexa trial Rosanna Whyte RN Cardiology - ltr fxd :He reports BPs at home are high in the mornings before he takes his BP meds, but hasn't checked his BP in the middle of the day. B P today: 126/74 P rior BP: 158/79 (02/13/2015) Rosanna Whyte RN Cardiology - ltr fxd:compliant w ith CPAP nightly Rosanna Whyte RN Cardiology:. He repo rts BPs at home fluctuating. Sometimes it's 110/80, sometimes 160/90, sometimes 200/110. He also reports sometimes just sitting and all of a sudden breaking out in a sweat. Denies feeling SOB or CP with diaphoresis. rule out secondary HTN- renal doppler and arr Darell Yu MD Cardiology:denies CP , SOB n egative nuclear stress test 01/2014 Darell Yu MD Cardiology:states [place] d sleep study 10 years ago and has been using same mask and same CPAP settings since then c ompliant with CPAP h as occasional nights with frequent awakenings, daytime somnolence r ecommend CPAP titration (would actually need split-night sleep study as we don't have his baseline sleep study) u harley Peggy as medical supplier Darell Yu MD Cardiology:reports t otal cholesterol 150 on crestor 40mg Darell Yu MD Cardiology:In sinus rhythm. Jie Watson MD Cardiology:Diet controlled. Jie Watson MD Cardiology:Chest pain free. On C OMPASS study. Tariq Watson MD Cardiology:On Crestor. Tariq Watson MD Cardiology:Blood pressure contro l is satisfactory. Tariq Watson MD follow up:WC Darelljr Yu MD follow up:resolved Darelljr Saab follow up:Scheduled for battery change - 12/05 H as UTI and has been on bactrim for 2 years for chronically infected prosthetic knee W ill give levaquin and check UA before batery change Darell Yu MD follow up:No angina Darell Yu MD FOLLOW UP:nl fntn 4 9% ra paced 1 6% rv paced Rosanna Whyte RN FOLLOW UP:resolved Rosanna Romero son RN FOLLOW UP:LDL 66 on crestor 40 Rosanna Whyte RN FOLLOW UP:BP today: 132/70 P rior BP: 153/79 (02/14/2014) Labs Reviewed: C reat: 1.29 (08/24/2013) C hol: 199 (06/23/2013) HDL: 35 (06/23/2013) LDL: 105 (06/23/2013) T (06/23/2013) Rosanna Whyte RN FOLLOW UP:denies CP, SOB n egative stress test 01/28 Rosanna Whyte RN follow up-ltr fxd:st ress, echo and carotids fine w ill check tilt table test and eeg Rosanna Whyte RN follow up-ltr fxd:re sume statin H is updated medication list for this problem includes: Crestor 40 Mg Tabs (Rosuvastatin calcium) ..... One tab. daily Darelljr Yu MD follow up-ltr fxd:no angina n l stress Darellnorberto Yu MD follow up-ltr fxd:st ress, echo and carotids fine w ill check hut and eeg Darellnorberto Yu MD FOLLOW UP: episode a few days ago when walking up 2 steps, states everything went dark/black, like someone turned the lights off. He felt lightheaded with it, but no syncope. It lasted a few seconds and resolved. No CP, palpitations, or SOB with the episode. He also reports episodes of sudden diaphoresis, lasts for few minutes and resolves. He reports dizziness/lightheadedness episodes, occurs in the midst of walking, lasts for 1-2 minutes, resolves with rest, occurs maybe 1x/week. nl fntn by ppm ck today r ecommend exercise cardiolite stress test h e is orthostatics, although story is not consistent with orthostasis n egative carotid u/s in 2008- will recheck to r/o vertebral dz he does not have a list of his meds - as he is on furosemide and his list does not show it- he will call with accurate list and I will adjust his meds Rosanna Whyte RN FOLLOW UP:states had sleep study 10 years ago and has been using same mask and same CPAP settings since then c ompliant with CPAP h as occasional nights with frequent awakenings, daytime somnolence r ecommend CPAP titration Rosanna Whyte RN FOLLOW UP:due for FL P T he following medications were removed from the medication list: Crestor 40 Mg Tabs (Rosuvastatin calcium) ..... One tab. daily (replaces your simcor) Rosanna Whyte RN FOLLOW UP:BP today: 140/80 P rior BP: 126/60 (03/29/2013) Labs Reviewed: C reat: 1.29 (08/24/2013) C hol: 199 (06/23/2013) HDL: 35 (06/23/2013) LDL: 105 (06/23/2013) T (06/23/2013) Rosanna Whyte RN FOLLOW UP:denies CP. D OE unchanged l ast stress test 2011- has had marked diaphoresis at rest- will do stress again Rosanna Whyte RN -ltr fxd, note done:normal devic e rosette Yu MD -ltr fxd, note done: H is updated medication list for this problem includes: Crestor 40 Mg Tabs (Rosuvastatin calcium) ..... One tab. daily (replaces your simcor) BP today: 126/60 Prior BP: 142/70 (09/28/2012) C HOL: 171 (08/20/2012) LDL: 91 MG/DL (CALC) (08/20/2012) HDL: 27 (08/20/2012) T (08/20/2012) add frances Yu MD -ltr fxd, note done: H is updated medication list for this problem includes: Aspirin 325 Mg Tabs (Aspirin) ..... One tab. daily Norvasc 10 Mg Tabs (Amlodipine besylate) ..... One tab. daily Cozaar 100 Mg Tabs (Losartan potassium) ..... One tab. daily Hydrochlorothiazide 12.5 Mg Caps (Hydrochlorothiazide) ..... One tab. daily BP today: 126/60 P rior BP: 142/70 (09/28/2012) Labs Reviewed: C reat: 1.20 (12/27/2012) C hol: 171 (08/20/2012) HDL: 27 (08/20/2012) LDL: 91 MG/DL (CALC) (08/20/2012) T (08/20/2012) Darell Yu MD -ltr fxd, note done: stable n egative stress 12/26 Darell Yu MD follow up:normal fun ction Darell Yu MD follow up:stable Darell Yu MD follow up:transused n o etiology identified on gi and heme w/u- had BM also Darell Yu MD follow up: H is updated medication list for this problem includes: Crestor 40 Mg Tabs (Rosuvastatin calcium) ..... One tab. daily (replaces your simcor) Darell Yu MD follow up: T he following medications were removed from the medication list: Niaspan 500 Mg Tbcr (Niacin (antihyperlipidemic)) ..... One tab. at bedtime - dispense as written His updated medication list for this problem includes: Crestor 40 Mg Tabs (Rosuvastatin calcium) ..... One tab. daily (replaces your simcor) BP today: 142/80 Prior BP: 143/78 (07/15/2011) C HOL: 128 (06/07/2009) LDL: 63 MG/DL (CALC) (06/07/2009) HDL: 38 (06/07/2009) T (06/07/2009) Darell Yu MD follow up: H is updated medication list for this problem includes: Aspirin 325 Mg Tabs (Aspirin) ..... One tab. daily Norvasc 10 Mg Tabs (Amlodipine besylate) ..... One tab. daily Cozaar 100 Mg Tabs (Losartan potassium) ..... One tab. daily Hydrochlorothiazide 12.5 Mg Caps (Hydrochlorothiazide) ..... One tab. daily BP today: 142/80 P rior BP: 143/78 (07/15/2011) L abs Reviewed: C reat: 0.96 (06/05/2010) C hol: 128 (06/07/2009) HDL: 38 (06/07/2009) LDL: 63 MG/DL (CALC) (06/07/2009) T (06/07/2009) Darell Yu MD follow up:lastpci 20 10 n l stress 12/26 e cho nl lv c p stress indicated cardiac issue causing sob- options d/w patient and will do cath with rhc also to eval symptoms Darell Yu MD follow up:normal fun ction s uspecty pm induced cmp- check echo Darell Yu MD :has palpitations- will check de vice today Darell Yu MD :cant have anything as no one will do it on aspriin- its been 2 years since jas- still very symptomatic- ok to stop asa for surgery- may need stess test if has open surgery Darell Yu MD : H is updated medication list for this problem includes: Crestor 40 Mg Tabs (Rosuvastatin calcium) ..... One tab. daily (replaces your simcor) Niaspan 500 Mg Tbcr (Niacin (antihyperlipidemic)) ..... One tab. at bedtime - dispense as written BP today: 143/78 Prior BP: 138/78 (04/01/2011) C HOL: 128 (06/07/2009) LDL: 63 MG/DL (CALC) (06/07/2009) HDL: 38 (06/07/2009) T (06/07/2009) Darell Yu MD : H is updated medication list for this problem includes: Exforge Hct 10-160-12.5 Mg Tabs (Dstkgllxwt-aeqkfonqj-yfkc) ..... Once daily Aspirin 325 Mg Tabs (Aspirin) ..... One tab. daily B P today: 143/78 P rior BP: 138/78 (04/01/2011) Labs Reviewed: C reat: 0.96 (06/05/2010) C hol: 128 (06/07/2009) HDL: 38 (06/07/2009) LDL: 63 MG/DL (CALC) (06/07/2009) T (06/07/2009) Darell Yu MD :no angina Darell Yu MD FU: refer to Dr. Saavedra for second opinion okay to hold Plavix for injections in his back but I would like him to continue aspirin Darell Yu MD FU: H is updated medication list for this problem includes: Crestor 40 Mg Tabs (Rosuvastatin calcium) ..... One tab. daily (replaces your simcor) Niaspan 500 Mg Tbcr (Niacin (antihyperlipidemic)) ..... One tab. at bedtime - dispense as written Darell Yu MD FU: H is updated medication list for this problem includes: Exforge Hct 10-320-25 Mg Tabs (Nwfkmiivua-ikbthifpk-gbdg) ..... One tab. daily Aspirin 325 Mg Tabs (Aspirin) ..... One tab. daily Darelljr Yu MD FU: No angina Darelljr Yu MD Black outs and dizzi ness:Check Lipids. H is updated medication list for this problem includes: Crestor 40 Mg Tabs (Rosuvastatin calcium) ..... One tab. daily (replaces your simcor) Niaspan 500 Mg Tbcr (Niacin (antihyperlipidemic)) ..... One tab. at bedtime - dispense as written BP today: 175/84 Prior BP: 183/84 (01/08/2010) C HOL: 128 (06/07/2009) LDL: 63 MG/DL (CALC) (06/07/2009) HDL: 38 (06/07/2009) T (06/07/2009) Darell Yu MD Black outs and dizziness Darell Yu MD Black outs and dizzi ness: Having episodes of near syncope. suspect worsening sinus bradycardia. O rders: H olter Monitor 24 Hr ([id number]) Darell Yu MD 6 month follow-up: H is updated medication list for this problem includes: Crestor 40 Mg Tabs (Rosuvastatin calcium) ..... One tab. daily (replaces your simcor) Niaspan 500 Mg Tbcr (Niacin (antihyperlipidemic)) ..... One tab. at bedtime - dispense as written BP today: 183/84 Prior BP: 149/84 (06/05/2009) C HOL: 128 (06/07/2009) LDL: 63 MG/DL (CALC) (06/07/2009) HDL: 38 (06/07/2009) T (06/07/2009) Darell Yu MD 6 month follow-up: u ses mask Darell Yu MD 6 month follow-up:go od at home H is updated medication list for this problem includes: Exforge 10-160 Mg Tabs (Amlodipine besylate-valsartan) ..... One tab. daily Aspirin 325 Mg Tabs (Aspirin) ..... One tab. daily BP today: 183/84 P rior BP: 149/84 (06/05/2009) Labs Reviewed: C reat: 0.94 (06/07/2009) C hol: 128 (06/07/2009) HDL: 38 (06/07/2009) LDL: 63 MG/DL (CALC) (06/07/2009) T (06/07/2009) Darell Yu MD 6 month follow-up:no angina BP today: 183/84 Prior BP: 149/84 (06/05/2009) N uclear Stress Findings: Had 1.7-2.1mm horiztonal ST segment depression in the inferior leads and 1.6mm horizontal ST segement depression in the lateral leads both inferior and lateral lead changes are diagnostic for ischemia. Compred with the study of 12/17/2005, there has been an increase in horizontal ST segment depression and this time the test is abnormal and suggstive of ischemia. Normal myocardial perfusion without infarct or ischemia. Normal gated study with LVEF 62%. [facility] (02/01/2007) Cardiac Cath: Severe single-vessel CAD involving the proxirnal and the mid LAD. The rest of the circulation is stable. Compared to his last angiogram his chronically occluded LAD is now filling antegradely, he has a patent stent in the diagonal, and the distal right coronary aftery lesion has decreased in severity from being 50-60% stenosed to about 35% stenosed now. Normal LV function. Normal LVEDP. Systemic hypertension with normal renals bilaterally. EF 60%. [facility] (06/17/2009) C ardiac Cath Comments: Successful stenting of a long stenosis in the proximal/mid left a nterior descending artery with 2.75 x 28 mm Xience and 3.0 x 8 mm Xience stents. [facility] (06/17/2009) C arotid Doppler/Duplex: Normal GC (04/08/2009) C K: 214 (10/22/2008) CHOL: 128 (06/07/2009) LDL: 63 MG/DL (CALC) (06/07/2009) HDL: 38 (06/07/2009) T (06/07/2009) H CT: 38.7 (06/07/2009) Platelets: 195 THOUSAND/UL (06/07/2009) R BC: 4.31 MILLION/UL (06/07/2009) BUN: 17 (06/07/2009) Creat: 0.94 (06/07/2009) Glucose: 88 (06/07/2009) N a+: 144 (06/07/2009) K+: 4.6 (06/07/2009) Cl: 109 (06/07/2009) PT: 10.0 (06/07/2009) INR: 0.9 (06/07/2009) Darell Yu MD follow up: H is updated medication list for this problem includes: Crestor 40 Mg Tabs (Rosuvastatin calcium) ..... One tab. daily (replaces your simcor) Niaspan 500 Mg Tbcr (Niacin (antihyperlipidemic)) ..... One tab. at bedtime - dispense as written BP today: / Prior BP: 149/84 (06/05/2009) C HOL: 128 (06/07/2009) LDL: 63 MG/DL (CALC) (06/07/2009) HDL: 38 (06/07/2009) T (06/07/2009) Darell Yu MD follow up: H is updated medication list for this problem includes: Exforge 10-160 Mg Tabs (Amlodipine besylate-valsartan) ..... One tab. daily Aspirin 325 Mg Tabs (Aspirin) ..... One tab. daily Prior BP: 149/84 (06/05/2009) Labs Reviewed: C reat: 0.94 (06/07/2009) C hol: 128 (06/07/2009) HDL: 38 (06/07/2009) LDL: 63 MG/DL (CALC) (06/07/2009) T (06/07/2009) Darell Yu MD 6 month follow-up: H is updated medication list for this problem includes: Exforge 10-160 Mg Tabs (Amlodipine besylate-valsartan) ..... One tab. daily Aspirin 325 Mg Tabs (Aspirin) ..... One tab. daily BP today: 149/84 Labs Reviewed: C hol: 142 (10/22/2008) HDL: 42 (10/22/2008) LDL: 72 MG/DL (CALC) (10/22/2008) T (10/22/2008) Darell Yu MD 6 month follow-up Darell Yu MD 6 month follow-up:maddie fisher His updated medication list for this problem includes: Crestor 40 Mg Tabs (Rosuvastatin calcium) ..... One tab. daily (replaces your simcor) Niaspan 500 Mg Tbcr (Niacin (antihyperlipidemic)) ..... One tab. at bedtime - dispense as written Darell Yu MD 6 month follow-up:aguilera spect worsening cad- has quite typical angina symptoms- will cath h is stresses have been noncontributory in the past O rders: C ardiac Cath - PCL (*) Darell Yu MD 6 month f/u per reca ll: H is updated medication list for this problem includes: Crestor 40 Mg Tabs (Rosuvastatin calcium) ..... One tab. daily (replaces your simcor) Darell Yu MD 6 month f/u per recall:uses mask Darelljr Yu MD 6 month f/u per reca ll: H is updated medication list for this problem includes: Exforge 10-160 Mg Tabs (Amlodipine besylate-valsartan) ..... One tab. daily Aspirin 325 Mg Tabs (Aspirin) ..... One tab. daily Orders: Vidhi LEDEZMA ([id number]) Darell Gigi COYNE 6 month f/u per recall Katiana hoovre MD 4 week hosp f/u Alfonzo monae 4 week hosp f/u: T he following medications were removed from the medication list: Vytorin 10-80 Mg Tabs (Ezetimibe-simvastatin) ..... One tab. at bedtime His updated medication list for this problem includes: Lipitor 80 Mg Tabs (Atorvastatin calcium) ..... One tab. daily Simcor 500-20 Mg Tb24 (Niacin-simvastatin) ..... One tab. daily Alfonzo Aguirre 4 week hosp f/u: T he following medications were removed from the medication list: Norvasc 10 Mg Tabs (Amlodipine besylate) ..... One tab. daily Diovan 160 Mg Tabs (Valsartan) ..... One tab. daily His updated medication list for this problem includes: Exforge 10-160 Mg Tabs (Amlodipine besylate-valsartan) ..... One tab. daily Aspirin 325 Mg Tabs (Aspirin) ..... One tab. daily Alfonzo Aguirre 4 week hosp f/u Alfonzo monae Date Name PROBNP, N TERMINAL myocardial blood shanna w (PET) Stress Cardiac PET-C T RPM (remote patient monitoring) LIPID PANEL BASIC METABOLIC PANE L W/EGFR PROBNP, N TERMINAL Microalb/Creatinine Urine, Random myocardial blood shanna w (PET) Stress Cardiac PET-C T Complete Echo LIPID PANEL PROBNP, N TERMINAL Microalb/Creatinine Urine, Random LIPID PANEL BASIC METABOLIC PANE L W/EGFR CRP, high sensitivit y PROTHROMBIN TIME WIT H INR LIPID PANEL CBC (INCLUDES DIFF/P LT) BASIC METABOLIC PANE L W/EGFR Complete Echo Stress Regadenoson BASIC METABOLIC PANE L W/EGFR TESTOSTERONE, TOTAL CBC (INCLUDES DIFF/P LT) PROBNP, N TERMINAL Microalb/Creatinine Urine, Random HEMOGLOBIN A1c IRON AND TOTAL IRON BINDING CAPACITY FERRITIN VITAMIN B12 Vitamin D, 25-Hydrox y TSH, free T4, total T3 Renal Artery Duplex TESTOSTERONE, TOTAL B TYPE NATRIURETIC P EPTIDE (BNP) TSH, 3RD GENERATION W/REFLEX TO FT4 LIPID PANEL Stress Regadenoson HEMOGLOBIN A1c VITAMIN B12 IRON AND TOTAL IRON BINDING CAPACITY FERRITIN CBC (INCLUDES DIFF/P LT) LIPID PANEL VITAMIN B12 IRON AND TOTAL IRON BINDING CAPACITY FERRITIN URINALYSIS, RANDOM, MICROALB/CREATININE HEMOGLOBIN A1c BASIC METABOLIC PANE L W/EGFR VITAMIN D, 25-HYDROX Y, LC/MS/MS TSH, 3RD GENERATION W/REFLEX TO FT4 Testosterone; free B TYPE NATRIURETIC P EPTIDE (BNP) VITAMIN B12 IRON AND TOTAL IRON BINDING CAPACITY FERRITIN CBC (INCLUDES DIFF/P LT) CBC (INCLUDES DIFF/P LT) BASIC METABOLIC PANE L W/EGFR PROBNP, N TERMINAL BASIC METABOLIC PANE L W/EGFR Renin Activity and A ldosterone LIPID PANEL PROTHROMBIN TIME WIT H INR CBC (INCLUDES DIFF/P LT) LIPID PANEL BASIC METABOLIC PANE L W/EGFR URINALYSIS, COMPLETE COMPREHENSIVE METABO LIC PANEL W/EGFR CBC (INCLUDES DIFF/P LT) PARTIAL THROMBOPLAST IN TIME, ACTIVATED PROTHROMBIN TIME WIT H INR Holter Monitor 24 Hr Aortic Abdominal Unt rasound Cardiac Cath - PCL HISTORY OF PROCEDURES Procedure Date Procedure Name Provider Procedure Notes S tatus Complex e/m visit ad d on Darelljr Yu MD completed Complex e/m visit ad d on Darelljr Yu MD [09/05/2024 - k[place]is] APPROVED completed Complex e/m visit ad d on Darelljr Yu MD [05/22/2024 - k[place]is] APPROVED completed EKG Darell Yu MD [05/22/2024 - k[place]is] APPROVED completed EKG Darell Yu MD completed EKG Darell Yu MD completed Stress EKG Nish peña MD completed Regadenoson, 4 units Trevin Salazar MD completed Cardiolite, 2 units Trevin Salazar MD completed SPECT Images Trevin Salazar MD complet ed EKG Darell Yu MD completed ICM Interrogation, Remote (Prof) Darell Yu MD INTERROGATION EVAL REMOTE </30 D CV MNTR SYS completed ICM Interrogation, Remote (Tech) Darell Yu MD INTERROGATION EVAL REMOTE </30 D TECH REVIEW completed ICM Interrogation, Remote (Prof) Darell Yu MD INTERROGATION EVAL REMOTE </30 D CV MNTR SYS completed ICM Interrogation, Remote (Tech) Darell Yu MD INTERROGATION EVAL REMOTE </30 D TECH REVIEW completed ICM Interrogation, Remote (Prof) Darell Yu MD INTERROGATION EVAL REMOTE </30 D CV MNTR SYS completed ICM Interrogation, Remote (Tech) Darell Yu MD INTERROGATION EVAL REMOTE </30 D TECH REVIEW completed ICM Interrogation, Remote (Prof) Darell Yu MD INTERROGATION EVAL REMOTE </30 D CV MNTR SYS completed Pacemaker Interrogation, Remote (Tech) Darell Yu MD INTERROGATION REMOTE </90 D COMMUNITY SUPPORT SPECIALIST REVIEW completed Pacemaker Interrogation, Remote (Prof) Darell Yu MD INTERROGATION EVAL REMOTE </90 D 1/2/CROP CONSULTANT LEAD P completed ICM Interrogation, Remote (Prof) Darell Yu MD INTERROGATION EVAL REMOTE </30 D CV MNTR SYS completed ICM Interrogation, Remote (Tech) Darell Yu MD INTERROGATION EVAL REMOTE </30 D TECH REVIEW completed ICM Interrogation, Remote (Prof) Darell Yu MD INTERROGATION EVAL REMOTE </30 D CV MNTR SYS completed ICM Interrogation, Remote (Tech) Darell Yu MD INTERROGATION EVAL REMOTE </30 D TECH REVIEW completed ICM Interrogation, Remote (Prof) Darell Yu MD INTERROGATION EVAL REMOTE </30 D CV MNTR SYS completed Pacemaker Interrogation, Remote (Tech) Darell Yu MD INTERROGATION REMOTE </90 D COMMUNITY SUPPORT SPECIALIST REVIEW completed Pacemaker Interrogation, Remote (Prof) Darell Yu MD INTERROGATION EVAL REMOTE </90 D 1/2/CROP CONSULTANT LEAD P completed ICM Interrogation, Remote (Prof) Darell Yu MD INTERROGATION EVAL REMOTE </30 D CV MNTR SYS completed ICM Interrogation, Remote (Tech) Darell Yu MD INTERROGATION EVAL REMOTE </30 D TECH REVIEW completed ICM Interrogation, Remote (Prof) Darell Yu MD INTERROGATION EVAL REMOTE </30 D CV MNTR SYS completed ICM Interrogation, Remote (Tech) Darell Yu MD INTERROGATION EVAL REMOTE </30 D TECH REVIEW completed ICM Interrogation, Remote (Prof) Darell Yu MD INTERROGATION EVAL REMOTE </30 D CV MNTR SYS completed Pacemaker Interrogation, Remote (Tech) Darell Yu MD INTERROGATION REMOTE </90 D COMMUNITY SUPPORT SPECIALIST REVIEW completed Pacemaker Interrogation, Remote (Prof) Darell Yu MD INTERROGATION EVAL REMOTE </90 D 1/2/CROP CONSULTANT LEAD P completed ICM Interrogation, Remote (Prof) Darell Yu MD INTERROGATION EVAL REMOTE </30 D CV MNTR SYS completed ICM Interrogation, Remote (Tech) Darell Yu MD INTERROGATION EVAL REMOTE </30 D TECH REVIEW completed ICM Interrogation, Remote (Prof) Darell Yu MD INTERROGATION EVAL REMOTE </30 D CV MNTR SYS completed ICM Interrogation, Remote (Tech) Darell Yu MD INTERROGATION EVAL REMOTE </30 D TECH REVIEW completed EKG Darell Yu MD completed ICM Interrogation, Remote (Prof) Darell Yu MD INTERROGATION EVAL REMOTE </30 D CV MNTR SYS completed Pacemaker Interrogation, Remote (Tech) Darell Yu MD INTERROGATION REMOTE </90 D COMMUNITY SUPPORT SPECIALIST REVIEW completed Pacemaker Interrogation, Remote (Prof) Darell Yu MD INTERROGATION EVAL REMOTE </90 D 1/2/CROP CONSULTANT LEAD P completed ICM Interrogation, Remote (Prof) Darell Yu MD INTERROGATION EVAL REMOTE </30 D CV MNTR SYS completed ICM Interrogation, Remote (Tech) Darell Yu MD INTERROGATION EVAL REMOTE </30 D TECH REVIEW completed ICM Interrogation, Remote (Prof) Darell Yu MD INTERROGATION EVAL REMOTE </30 D CV MNTR SYS completed ICM Interrogation, Remote (Tech) Darell Yu MD INTERROGATION EVAL REMOTE </30 D TECH REVIEW completed ICM Interrogation, Remote (Prof) Darell Yu MD INTERROGATION EVAL REMOTE </30 D CV MNTR SYS completed Pacemaker Interrogation, Remote (Tech) Darell Yu MD INTERROGATION REMOTE </90 D COMMUNITY SUPPORT SPECIALIST REVIEW completed Pacemaker Interrogation, Remote (Prof) Darell Yu MD INTERROGATION EVAL REMOTE </90 D 1/2/CROP CONSULTANT LEAD P completed ICM Interrogation, Remote (Prof) Darell Yu MD INTERROGATION EVAL REMOTE </30 D CV MNTR SYS completed ICM Interrogation, Remote (Tech) Darell Yu MD INTERROGATION EVAL REMOTE </30 D TECH REVIEW completed ICM Interrogation, Remote (Prof) Darell Yu MD INTERROGATION EVAL REMOTE </30 D CV MNTR SYS completed ICM Interrogation, Remote (Tech) Darell Yu MD INTERROGATION EVAL REMOTE </30 D TECH REVIEW completed ICM Interrogation, Remote (Prof) Darell Yu MD INTERROGATION EVAL REMOTE </30 D CV MNTR SYS completed Pacemaker Interrogation, Remote (Tech) Darell Yu MD INTERROGATION REMOTE </90 D COMMUNITY SUPPORT SPECIALIST REVIEW completed Pacemaker Interrogation, Remote (Prof) Darell Yu MD INTERROGATION EVAL REMOTE </90 D 1/2/CROP CONSULTANT LEAD P completed SNOMED-CT: 76914471 Physical Exam, Performed: Pulse Exam of Foot Darellnorberto Yu MD completed EKG Darelljr Yu MD completed SNOMED-CT: [id number] Current Medications Documented Darellnorberto Yu MD completed ICM Interrogation, Remote (Prof) Darell Yu MD INTERROGATION EVAL REMOTE </30 D CV MNTR SYS completed ICM Interrogation, Remote (Tech) Darell Yu MD INTERROGATION EVAL REMOTE </30 D TECH REVIEW completed ICM Interrogation, Remote (Prof) Darell Yu MD INTERROGATION EVAL REMOTE </30 D CV MNTR SYS completed ICM Interrogation, Remote (Tech) Darelljr Yu MD INTERROGATION EVAL REMOTE </30 D TECH REVIEW completed Stewartaheme 510mg Darell Yu MD comple balta Therapeutic IV Infus ion up to 1 hour Darelljr Yu MD completed Feraheme 510mg Darelljr Yu MD comple balta Therapeutic IV Infus ion up to 1 hour Darelljr Yu MD completed Stress EKG Oh Nettles MD complet ed Regadenoson, 4 units Oh Nettles MD completed Cardiolite, 2 units Oh Nettles MD completed SPECT Images Oh Nettles MD compl eted SNOMED-CT: [id number] Physical Exam, Performed: Pulse Exam of Foot Darellnorberto Yu MD completed EKG Darelljr Yu MD completed SNOMED-CT: [id number] Current Medications Documented Darellnorberto Yu MD completed ICM Interrogation, Remote (Prof) Darelljr Yu MD INTERROGATION EVAL REMOTE </30 D CV MNTR SYS completed ICM Interrogation, Remote (Tech) Darelljr Yu MD INTERROGATION EVAL REMOTE </30 D TECH REVIEW completed Pacemaker Interrogation, Remote (Tech) Darelljr Yu MD INTERROGATION REMOTE </90 D COMMUNITY SUPPORT SPECIALIST REVIEW completed Pacemaker Interrogation, Remote (Prof) Darelljr Yu MD INTERROGATION EVAL REMOTE </90 D 1/2/CROP CONSULTANT LEAD P completed ICM Interrogation, Remote (Prof) Darelljr Yu MD INTERROGATION EVAL REMOTE </30 D CV MNTR SYS completed ICM Interrogation, Remote (Tech) Darelljr Yu MD INTERROGATION EVAL REMOTE </30 D TECH REVIEW completed ICM Interrogation, Remote (Prof) Darelljr Yu MD INTERROGATION EVAL REMOTE </30 D CV MNTR SYS completed ICM Interrogation, Remote (Tech) Darelljr Yu MD INTERROGATION EVAL REMOTE </30 D TECH REVIEW completed ICM Interrogation, Remote (Prof) Darell Yu MD INTERROGATION EVAL REMOTE </30 D CV MNTR SYS completed Pacemaker Interrogation, Remote (Tech) Darell Yu MD INTERROGATION REMOTE </90 D COMMUNITY SUPPORT SPECIALIST REVIEW completed Pacemaker Interrogation, Remote (Prof) Darell Yu MD INTERROGATION EVAL REMOTE </90 D 1/2/CROP CONSULTANT LEAD P completed ICM Interrogation, Remote (Prof) Darell Yu MD INTERROGATION EVAL REMOTE </30 D CV MNTR SYS completed ICM Interrogation, Remote (Tech) Darell Yu MD INTERROGATION EVAL REMOTE </30 D TECH REVIEW completed ICM Interrogation, Remote (Prof) Darell Yu MD INTERROGATION EVAL REMOTE </30 D CV MNTR SYS completed ICM Interrogation, Remote (Tech) Darell Yu MD INTERROGATION EVAL REMOTE </30 D TECH REVIEW completed ICM Interrogation, Remote (Prof) Darell Yu MD INTERROGATION EVAL REMOTE </30 D CV MNTR SYS completed Pacemaker Interrogation, Remote (Tech) Darell Yu MD INTERROGATION REMOTE </90 D COMMUNITY SUPPORT SPECIALIST REVIEW completed Pacemaker Interrogation, Remote (Prof) Darell Yu MD INTERROGATION EVAL REMOTE </90 D 1/2/CROP CONSULTANT LEAD P completed ICM Interrogation, Remote (Prof) Darell Yu MD INTERROGATION EVAL REMOTE </30 D CV MNTR SYS completed ICM Interrogation, Remote (Tech) Darell Yu MD INTERROGATION EVAL REMOTE </30 D TECH REVIEW completed ICM Interrogation, Remote (Prof) Darell Yu MD INTERROGATION EVAL REMOTE </30 D CV MNTR SYS completed ICM Interrogation, Remote (Tech) Darell Yu MD INTERROGATION EVAL REMOTE </30 D TECH REVIEW completed ICM Interrogation, Remote (Prof) Darell Yu MD INTERROGATION EVAL REMOTE </30 D CV MNTR SYS completed Pacemaker Interrogation, Remote (Tech) Darell Yu MD INTERROGATION REMOTE </90 D COMMUNITY SUPPORT SPECIALIST REVIEW completed Pacemaker Interrogation, Remote (Prof) Darell Das MD INTERROGATION EVAL REMOTE </90 D 1/2/CROP CONSULTANT LEAD P completed ICM Interrogation, Remote (Prof) Darell Gigi MD INTERROGATION EVAL REMOTE </30 D CV MNTR SYS completed ICM Interrogation, Remote (Tech) Darell Yu MD INTERROGATION EVAL REMOTE </30 D TECH REVIEW completed ICM Interrogation, Remote (Prof) Darell Gigi MD INTERROGATION EVAL REMOTE </30 D CV MNTR SYS completed ICM Interrogation, Remote (Tech) Darell Yu MD INTERROGATION EVAL REMOTE </30 D TECH REVIEW completed SNOMED-CT: [id number] Physical Exam, Performed: Pulse Exam of Foot Darelljr Yu MD completed SNOMED-CT: [id number] Current Medications Documented Darelljr Yu MD completed ICM Interrogation, Remote (Prof) Darell Gigi COYNE INTERROGATION EVAL REMOTE </30 D CV MNTR SYS completed Pacemaker Interrogation, Remote (Tech) Darell Gigi MD INTERROGATION REMOTE </90 D COMMUNITY SUPPORT SPECIALIST REVIEW completed Pacemaker Interrogation, Remote (Prof) Darellnorberto Yu MD INTERROGATION EVAL REMOTE </90 D 1/2/CROP CONSULTANT LEAD P completed ICM Interrogation, Remote (Prof) Darell Gigi MD INTERROGATION EVAL REMOTE </30 D CV MNTR SYS completed ICM Interrogation, Remote (Tech) Darellnorberto Yu MD INTERROGATION EVAL REMOTE </30 D TECH REVIEW completed FVC - 50610 Darelljr Yu MD completed FRC - 85344 Darell Yu MD completed DLCO - 92408 Darelljr Yu MD complete d ICM Interrogation, Remote (Prof) Darell Yu MD INTERROGATION EVAL REMOTE </30 D CV MNTR SYS completed ICM Interrogation, Remote (Tech) Darell Yu MD INTERROGATION EVAL REMOTE </30 D TECH REVIEW completed SNOMED-CT: [id number] Physical Exam, Performed: Pulse Exam of Foot Darellnorberto Yu MD completed SNOMED-CT: [id number] Current Medications Documented Gigi COYNE completed ICM Interrogation, Remote (Prof) Gigi COYNE INTERROGATION EVAL REMOTE </30 D CV MNTR SYS completed Pacemaker Interrogation, Remote (Tech) Gigi COYNE INTERROGATION REMOTE </90 D COMMUNITY SUPPORT SPECIALIST REVIEW completed Pacemaker Interrogation, Remote (Prof) Gigi COYNE INTERROGATION EVAL REMOTE </90 D 1/2/CROP CONSULTANT LEAD P completed ICM Interrogation, Remote (Prof) Gigi COYNE INTERROGATION EVAL REMOTE </30 D CV MNTR SYS completed ICM Interrogation, Remote (Tech) Gigi COYEN INTERROGATION EVAL REMOTE </30 D TECH REVIEW completed ICM Interrogation, Remote (Prof) Darellnorberto Yu MD INTERROGATION EVAL REMOTE </30 D CV MNTR SYS completed ICM Interrogation, Remote (Tech) Gigi COYNE INTERROGATION EVAL REMOTE </30 D TECH REVIEW completed SNOMED-CT: [id number] Physical Exam, Performed: Pulse Exam of Foot Darellnorberto Yu MD completed SNOMED-CT: [id number] Current Medications Documented Gigi COYNE completed EKG Tariq Watson MD complet ed TRANSTELEPHONIC RHYT HM STRIP PACEMAKER EVAL Gigi COYNE completed TRANSTELEPHONIC RHYT HM STRIP PACEMAKER EVAL Gigi COYNE completed TRANSTELEPHONIC RHYT HM STRIP PACEMAKER EVAL Gigi COYNE completed TRANSTELEPHONIC RHYT HM STRIP PACEMAKER EVAL Gigi COYNE completed EKG Darelljr Yu MD completed TRANSTELEPHONIC RHYT HM STRIP PACEMAKER EVAL Gigi COYNE completed TRANSTELEPHONIC RHYT HM STRIP PACEMAKER EVAL Ulises Vogel MD completed TRANSTELEPHONIC RHYT HM STRIP PACEMAKER EVAL Ulises Vogel MD completed TRANSTELEPHONIC RHYT HM STRIP PACEMAKER MILESAL Darell Yu MD completed TRANSTELEPHONIC RHYT HM STRIP PACEMAKER MAURILIO Yu MD completed EKG Darell Yu MD completed TRANSTELEPHONIC RHYT HM STRIP PACEMAKER MAURILIO Yu MD completed EKG Darelljr Yu MD completed EKG Benjamin Camacho MD completed EKG Darell Yu MD completed EKG Darell Yu MD completed
--- OUTSIDE RECORDS SUMMARY | 2024-10-17 11:38 | XMS_ITS | Referral Summary ---
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 Unavailable [phone] Encounters Date Type Department Care Team Description 10/10/2024 Telephone [facility] Otol[facility]ology [address] [place] [phone] Thasi Dejesus, 09/04/2024 11:45 AM CDT - 09/04/2024 11:59 PM CDT Hospital Encounter [facility] [address] [place] [phone] Alfredo Jordan NP Chronic knee pain after total replacement of right knee joint (Primary Dx); Chronic pain disorder; Saphenous neuritis, right; Mononeuropathy Discharge Disposition: Discharge to home or self care 08/30/2024 Telephone [facility] [address] [place] [phone] Hudson Perez MD 08/30/2024 Telephone [facility] [address] [place] [phone] Hudson Perez MD 08/28/2024 9:44 AM CDT - 08/28/2024 11:59 PM CDT Hospital Encounter [facility] [address] [place] [phone] Hudson Perez MD Chronic knee pain after total replacement of right knee joint [M25.561, G89.29, Z96.651] (Primary Dx); Primary osteoarthritis of right knee Discharge Disposition: Discharge to home or self care 08/24/2024 Telephone [facility] [address] [place] [phone] Leny Mendoza RN 07/24/2024 Documentation [facility] [address] [place] [phone] Alfredo Jordan NP 07/24/2024 10:37 AM CDT - 07/24/2024 11:59 PM CDT Hospital Encounter [facility] [address] [place] [phone] Hudson Perez MD Primary osteoarthritis of right knee [M17.11]; Primary osteoarthritis of right knee Discharge Disposition: Discharge to home or self care 07/20/2024 Telephone [facility] [address] [place] [phone] Hudson Perez MD from Last 3 Months Allergies Active Allergy Reactions Criticality Noted Date Comments Curt Inhibitors Anaphylaxis,Angioede m a,Swelling High 06/04/2009 Reaction: ANAPHYLAXIS, , Reaction: ANAPHYLAXIS Reaction: ANAPHYLAXIS, , Reaction: ANAPHYLAXIS Adhesive Adhesive Tape-Silicones Itching Medium Reaction: ITCHING, Reaction: ITCHING Ramipril Anaphylaxis High Reaction: ANAPHYLAXIS, , Reaction: ANAPHYLAXIS Medications losartan (COZAAR) 100 mg tablet take 1 tablet (100MG) by oral route every day 0 02/27/20 16 Active Additional Information Patient taking differently: 50 mg, Informant: Child, Reported on 10/12/2024 rosuvastatin (CRESTOR) 40 mg tablet take 1 tablet by oral route every day 0 0 02/27/[address] (PROTONIX) 40 mg EC tablet take 1 tablet by oral route every day 30 4 06/03/19 17 Active citalopram (CeleXA) 20 mg tablet Take 1 tablet (20 mg total) by mouth daily 08/15/19 22 Active tamsulosin (FLOMAX) 0.4 mg extended release capsule Take 1 capsule (0.4 mg total) by mouth daily 08/19/19 22 Active aspirin 81 mg enteric coated tablet Take 1 tablet (81 mg total) by mouth daily 06/09/19 19 Active evolocumab (Repatha SureClick) 140 mg/mL pen injector Apply topically every 14 (fourteen) days 12/02/19 22 Active donepeziL (ARICEPT) 10 mg tablet Take 1 tablet (10 mg total) by mouth nightly 12/05/19 22 Active ergocalciferol, vitamin D2, (VITAMIN D2 ORAL) Take 1 tablet by mouth daily Active clopidogreL (PLAVIX) 75 mg tablet Take 1 tablet (75 mg total) by mouth daily Active ezetimibe (ZETIA) 10 mg tablet Take 1 tablet (10 mg total) by mouth daily Active ferrous sulfate 325 mg (65 mg of elemental iron) tabletIndication s:Iron Deficiency Anemia Take 1 tablet (325 mg total) by mouth daily with breakfast Active cyanocobalamin (Vitamin B-12) 1,000 mcg tabletIndication s:Prevention of Vitamin B12 Deficiency Take 1 tablet (1,000 mcg total) by mouth daily Active mupirocin (BACTROBAN) 2 % ointment Coat inside of both nostrils twice daily for 5 days before surgery. 22 g 08/31/19 25 Active chlorhexidine (HIBICLENS) 4 % external liquidIndication s:Skin Disinfection Shower with soap daily for 5 days before surgery including the morning of. Do not use on face or genital area. 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 Active famotidine (PEPCID) 20 mg tablet Take 1 tablet (20 mg total) by mouth every morning 09/19/19 25 Active morphine 10 mg/mL injection 0 07/20/19 25 Active hydroCHLOROthiaz amada 12.5 mg tablet Take 1 tablet (12.5 mg total) by mouth daily 09/19/19 25 Active hydroCHLOROthiaz amada (HYDRODIURIL) 25 mg tablet take 1 tablet by oral route every day 30 0 02/27/20 16 10/12/2 025 Discontin ued(Thera py completed ) amLODIPine (NORVASC) 10 mg tablet take 1 tablet (10MG) by oral route every day 0 02/27/20 16 025 Discontin ued(Thera py completed ) chlorhexidine (HIBICLENS) 4 % external liquidIndication s:Skin Disinfection Use in shower every day starting 5 days prior to surgery, and AM of surgery. Avoid face/genitalia. 236 mL 09/05/19 25 025 Discontin ued(Thera py completed ) mupirocin (BACTROBAN) 2 % ointment Apply thin layer to both nostrils bid, starting 5 days prior to surgery and AM of surgery. 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 Benign hypertension 05/16/1959 Overview (08/26/2021): CCM enrolled CCM enrolled Obstructive sleep apnea syndrome 05/16/1959 Chronic pain disorder Immunizations Immunization Administration Dates Next Due Influenza, Quadrivalent, Hig h Dose, Preservative Free, Intrr 02/25/2021,02/10/2020 Influenza, Quadrivalent, Spl it, Intramuscular 03/10/2019 Influenza, Trivalent, High D ose, Split, Preservative Free, Intramuscular 02/21/2018 Influenza, Unspecified 02/10/2020 Sars-CoV-2, Unspecified 08/11/2020 ZOSTER LIVE 12/01/2017,08/17/2017,08/30/2015 ZOSTER Recombinant 12/01/2017 Social History Tobacco Use Types Packs/Day Years Used Date Smoking Tobacco: Some Days Cigars Smokeless Tobacco: Never Tobacco Cessation:Ready to Q uit: Not Asked; Counseling Given: Not Answered Comments:Every once in awhile Alcohol Use Standard Drinks/Week Comments Yes 0 (1 standard drink = 0.6 oz pur e alcohol) AUDIT-C Answer Date Recorded Q1: How often do you have a drink containing alcohol? Never 01/19/2023 Q2: How many drinks containi ng alcohol do you have on a typical day when you are drinking? Patient does not drink Q3: How often do you have si x or more drinks on one occasion? Never 01/19/2023 Personal Safety Answer Date Recorded Have you ever been in or are you currently in a harmful physical or emotional relationship or is someone making you feel afraid or unsafe? 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 Gender Identity Not on file Sexual Orientation Not on file Last Filed Vital Signs Vital Sign Reading Time Taken Comments Blood Pressure 116/57 09/04/2024 12:10 PM CDT Pulse 64 09/04/2024 12:10 PM CDT Temperature 36.8 C (98.3 F) 08/28/2024 10:15 AM CDT Respiratory Rate 16 09/04/2024 12:10 PM CDT Oxygen Saturation 97% 09/04/2024 12:10 PM CDT Inhaled Oxygen Concentration - - Weight 91.9 kg (202 lb 8 oz) 01/19/2023 7:05 AM CDT Height 165.1 cm (5' 5) 01/19/2023 7:05 AM CDT Body Mass Index 33.7 01/19/2023 7:05 AM CDT Plan of Treatment Upcoming Encounters Date Type Department Care Team (Late st Contact Info) Description 10/23/2024 7:30 AM CDT Hospital Encounter [facility] Operating Room [address] [place] [phone] [place] [id number] [facility] [address] [place] [address] 10/23/2024 7:30 AM CDT - 10/23/2024 9:00 AM CDT Surgery [facility] Operating Room [address] [place], [place] [id number] [place] [id number] [facility] [address] [place] [address] INTRATHECAL PAIN PUMP BATTERY REPLACEMENT WITH PLASMA BLADE/60 MIN 11/23/2024 7:30 AM CDT Hospital Encounter [facility] Operating Room [id number] [place] [phone] [place] [address] [place] [address] 11/23/2024 7:30 AM CDT - 11/23/2024 9:30 AM CDT Surgery [facility] Operating Room [address] [place] [phone] [place] [id number] [facility] [address] [place] [address] NEUROLYSIS PERIPHERAL NERVE RT SAPHENOUS NERVE/120 MIN Scheduled Procedures Name Priority Associated Diagnoses Date/Ti me INSERTION PUMP - PAIN MANAGEMENT LOW BACK PAIN 10/23/2024 7:30 AM CDT NEUROLYSIS PERIPHERAL NERVE SAPHENOUS NERVE 11/23/2024 7:30 AM CDT Procedures Procedure Name Priority Date/Time Associated Diagnosis Comments PAIN MGMT IMAGING PERIPHERAL NERVE STIM PLACEMENT Schedule Routine, Read Routine (OP Routine) 08/28/2024 11:15 AM CDT Primary osteoarthritis of right knee PAIN MGMT IMAGING GENICULAR NERVE BLOCK Schedule Routine, Read Routine (OP Routine) 07/24/2024 11:32 AM CDT Primary osteoarthritis of right knee EGFR Routine 11/08/2018 3:10 PM CDT COLONOSCOPY REPORT 03/11/2016 CT ABDOMEN PELVIS WO CONTRAST Routine 09/02/2012 12:25 PM CDT from Last 3 Months or Most Recently Relevant to Health Maintenance Results * Imaging Peripheral Nerve Stim Placement (95172) (08/28/2024 11:15 AM CDT) Narrative [facility] - 08/28/2024 11:16 AM CDT The images from this study are not interpreted by Radiology. Please refer to the physician's procedure / OR operative note. Hudson Perez MD IM PAIN MGMT PROCEDU RES Final Result Performing Organization Address [facility] Co de Phone Number [facility] * Imaging Genicular Nerve Block (36009) (07/24/2024 11:32 AM CDT) Narrative RAD_PACS_ - 07/24/2024 11:32 AM CDT The images from this study are not interpreted by Radiology. Please refer to the physician's procedure / OR operative note. Hudson Perez MD [facility] PAIN MGMT PROCEDU RES Final Result Performing Organization Address [facility] Phone Number [facility] * eGFR (11/08/2018 3:10 PM CDT) eGFR 42 mL/min/1.7 3 m2 RAD[facility] MARSH Comment: Interpretive Data Reference Interval Normal >/= 90 mL/min/1.73m2 Mildly decreased* 60 - 89 mL/min/1.73m2 Mildly to moderately decreased 45 - 59 mL/min/1.73m2 Moderately to severely decreased 30 - 44 mL/min/1.73m2 Severely decreased 15 - 29 mL/min/1.73m2 Kidney Failure < 15 mL/min/1.73m2 *Relative to young adult level If -[place] multiply value by 1.16. Estimated glomerular filtration rate is determined by the CKD-EPI equation recommended by the National Kidney Foundation (KDIGO 2012 Clinical Practice Guideline for the Evaluation and Management of Chronic Kidney Disease. Kidney Intnl Suppl May 2012;3:1). The CKD-EPI equation should not be used for patients with unstable renal function and has not been validated in children and those over 70. Current interpretive data was last reviewed 2015. Blood specimen (specimen) 11/08/2018 3:10 PM CDT 11/08/2018 9:35 PM CDT Ramesh Price MD LAB BLOOD ORDERABLES Final Res ult RADHA MARSH [address] [address] [facility] [place] [address] * COLONOSCOPY REPORT (03/11/2016) Anatomical Region Laterality Modality Other Narrative 03/11/2016 Ordered by an unspecified provider. [facility] Provider GI PROCEDURE ORDERABLES F inal Result * CT Abdomen Pelvis WO Contrast (09/02/2012 12:25 PM CDT) Anatomical Region Laterality Modality Body N/A Computed Tomogra phy 09/02/2012 12:2 5 PM CDT Narrative 09/02/2012 2:09 PM CDT DATE OF EXAM: Sep 02 2012 12:25PM Acc#: [id number] ECT 0073 - CT Abd/Pel WO DIAGNOSIS: ANEMIA NOS DM2/NOS UNCOMP NSU CLINICAL HISTORY: ANEMIA DIABETIC RESULT: \ CT ABDOMEN AND PELVIS WITH ORAL BUT NOT INTRAVENOUS CONTRAST HISTORY This is a 67-year-old man with anemia, diabetes and leukopenia. Noncontrast CT exam performed as requested. FINDINGS Prior abdominal imaging studies are not available for comparison. Vocational Education Professional radiograph demonstrates pacemaker leads in the right heart chambers. Electronic device is seen overlying the anterior abdominal wall on the right side with a catheter directed towards the abdomen. Degenerative changes are seen in the hip joints and lumbar spine. Transaxial images through the lung bases demonstrate no infiltrates, fluid or failure. Within the upper abdomen, there is evidence of a hiatal hernia. The liver and spleen are normal in size without mass effect or biliary dilatation. The adrenal glands, pancreas and gallbladder are normal. The kidneys demonstrate no mass effect, hydronephrosis or calculus formation. There is no free fluid or free air present within the upper abdomen. Pain-stimulating electrode device is seen entering posteriorly on the right side near the thoracolumbar junction. Degenerative changes are noted within the thoracolumbar spine with spinal stenosis being present. The electronic pack is situated in the subcutaneous tissues in the right flank. There is a small fat-containing umbilical hernia. Early atherosclerotic changes in the aorta and iliac vessels without aneurysmal dilatation. Scans obtained into the pelvis demonstrate the urinary bladder to be smooth in outline. A pelvic mass is not identified. There is no evidence of adenopathy. Coronal images demonstrate a normal bowel gas pattern. IMPRESSION: \ A SIGNIFICANT ABNORMALITY IS NOT SEEN. HIATAL HERNIA AND SMALL UMBILICAL HERNIA. SPINAL STENOSIS WITH PAIN STIMULATOR IN PLACE. SPRINKLING SYSTEM IRRIGATOR: INEZ TRANSCRIBE DATE/TIME: Sep 02 2012 1:52P RADIOLOGIST: NELI GOSS M.D. READ ON: Sep 02 2012 1:22P ORDERING DR: RAMESH PRICE M.D. THIS DOCUMENT HAS BEEN ELECTRONICALLY SIGNED BY: NELI GOSS M.D. ON: Sep 02 2012 2:09P Procedure Note Provider, MD Erlinda - 09/11/2016 DATE OF EXAM: Sep 02 2012 12:25PM Acc#: [id number] ECT 0073 - CT Abd/Pel WO DIAGNOSIS: ANEMIA NOS DM2/NOS UNCOMP NSU CLINICAL HISTORY: ANEMIA DIABETIC RESULT: \ CT ABDOMEN AND PELVIS WITH ORAL BUT NOT INTRAVENOUS CONTRAST HISTORY This is a 67-year-old man with anemia, diabetes and leukopenia. Noncontrast CT exam performed as requested. FINDINGS Prior abdominal imaging studies are not available for comparison. Vocational Education Professional radiograph demonstrates pacemaker leads in the right heart chambers. Electronic device is seen overlying the anterior abdominal wall on the right side with a catheter directed towards the abdomen. Degenerative changes are seen in the hip joints and lumbar spine. Transaxial images through the lung bases demonstrate no infiltrates, fluid or failure. Within the upper abdomen, there is evidence of a hiatal hernia. The liver and spleen are normal in size without mass effect or biliary dilatation. The adrenal glands, pancreas and gallbladder are normal. The kidneys demonstrate no mass effect, hydronephrosis or calculus formation. There is no free fluid or free air present within the upper abdomen. Pain-stimulating electrode device is seen entering posteriorly on the right side near the thoracolumbar junction. Degenerative changes are noted within the thoracolumbar spine with spinal stenosis being present. The electronic pack is situated in the subcutaneous tissues in the right flank. There is a small fat-containing umbilical hernia. Early atherosclerotic changes in the aorta and iliac vessels without aneurysmal dilatation. Scans obtained into the pelvis demonstrate the urinary bladder to be smooth in outline. A pelvic mass is not identified. There is no evidence of adenopathy. Coronal images demonstrate a normal bowel gas pattern. IMPRESSION: \ A SIGNIFICANT ABNORMALITY IS NOT SEEN. HIATAL HERNIA AND SMALL UMBILICAL HERNIA. SPINAL STENOSIS WITH PAIN STIMULATOR IN PLACE. SPRINKLING SYSTEM IRRIGATOR: INEZ TRANSCRIBE DATE/TIME: Sep 02 2012 1:52P RADIOLOGIST: NELI GOSS M.D. READ ON: Sep 02 2012 1:22P ORDERING DR: RAMESH PRICE M.D. THIS DOCUMENT HAS BEEN ELECTRONICALLY SIGNED BY: NELI GOSS M.D. ON: Sep 02 2012 2:09P us Historical Provider MD MENA CT PROCEDURES Final R esult from Last 3 Months or Most Recently Relevant to Health Maintenance Insurance [employer] CHOICE MEDICARE PPO IDPA [facility] MEDICARE ADVANTAGE IDPA IDPA [facility] MEDICARE ADVANTAGE Care Teams Procurement Internship Relationship Specialty Start Date End Date Tony Gray MD PCP - General Family Practice 12/16/21 [place] [id number] [place] [address] Nurse Practitioner Pain Management 04/19/24
--- OUTSIDE RECORDS SUMMARY | 2024-10-17 11:38 | XMS_ITS | Clinical Summary ---
Author Organization [facility] Address [address] [place] [address] Care Team Providers Care Gambreler Helper Name Role Phone Tony Gray MD Primary Care Provider Alfredo Jordan INCOME TAX AUDITOR Unavailable [phone] Allergies Active Allergy Reactions Criticality Noted Date [...] Apply topically every 14 (fourteen) days 12/02/19 Active donepeziL (ARICEPT) 10 mg tablet Take [...] route every day 30 0 02/27/20 16 025 Discontin ued(Thera py completed ) amLODIPine [...] Hyperlipidemia 05/02/2010 Atherosclerotic heart diseas e of [place] coronary artery without angina pectoris 07/10/2009 Benign hypertension 05/16/1959 Overview (08/26/2021): CCM enrolled CCM enrolled Obstructive sleep apnea syndrome 05/16/1959 Chronic pain disorder Encounters Date Type Department Care Team Description 10/10/2024 Telephone [facility] Otolaryngology [address] [place] [address] Thais Dejesus MS 09/04/2024 11:45 AM CDT - 09/04/2024 11:59 PM CDT Hospital Encounter [facility] [address] [place] [address] Alfredo Jordan NP Chronic knee pain after total replacement of right knee joint (Primary Dx); Chronic pain disorder; Saphenous neuritis, right; Mononeuropathy Discharge Disposition: Discharge to home or self care 08/30/2024 Telephone [facility] [address] [place] [address] Hudson Perez MD 08/30/2024 Telephone [facility] [address] [place] [address] Hudson Perez MD 08/28/2024 9:44 AM CDT - 08/28/2024 11:59 PM CDT Hospital Encounter [facility] [address] [place] [address]178 Hudson Perez MD Chronic knee pain after total replacement of right knee joint [M25.561, G89.29, Z96.651] (Primary Dx); Primary osteoarthritis of right knee Discharge Disposition: Discharge to home or self care 08/24/2024 Telephone [facility] [address] [place] [address] 13418 Leny Mendoza RN 07/24/2024 10:37 AM CDT - 07/24/2024 11:59 PM CDT Hospital Encounter [facility] [address] [place] [address] Hudson Perez MD Primary osteoarthritis of right knee [M17.11]; Primary osteoarthritis of right knee Discharge Disposition: Discharge to home or self care 07/24/2024 Documentation [facility] [address] [place] [address] 35757 Alfredo Jordan NP 07/20/2024 Telephone [facility] [address] [place] [address]11 Hudson Perez MD from Last 3 Months Immunizations Immunization Administration Dates Next Due Influenza, Quadrivalent, Hig h Dose, Preservative Free, Intrr 02/25/2021,02/10/2020 Influenza, Quadrivalent, Spl it, Intramuscular 03/10/2019 Influenza, Trivalent, High D ose, Split, Preservative Free, Intramuscular 02/21/2018 Influenza, Unspecified 02/10/2020 Sars-CoV-2, Unspecified 08/11/2020 ZOSTER LIVE 12/01/2017,08/17/2017,08/30/2015 ZOSTER Recombinant 12/01/2017 Surgical History Surgery Date Site/Laterality Comments CARDIAC PACEMAKER PLACEMENT 2011 Cardiac pacemaker OTHER SURGICAL HISTORY 2011 morphine pump placement CARDIAC STENT PLACEMENT 2010 stent placement Medical History Medical History Date Comments Type 2 diabetes mellitus (HCC) D iabetes type 2 pt denies this diagnosis Chronic pain disorder GERD (gastroesophageal reflux disease) Hypertension Sleep apnea Atherosclerotic heart diseas e of [place] coronary artery without angina pectoris Chronic kidney disease Family History Medical History Relation Name Comments Hypertension Mother Hypertension; Other Other 1 Family history of Tuberculosis; Cancer Other 2 Family history of Cancer; Diabetes type II Other 3 Family hist ory of Diabetes mellitus type 2; Diabetes Other 4 Diabetes mellit us; Hypertension Other 5 Hypertension; Relation Name Status Comments Mother Other 1 Other 2 Other 3 Other 4 Other 5 Social History Tobacco Use Types Packs/Day Years [...] on file Legal Sex 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 Gender Identity Not on file Sexual Orientation Not on file Obstetrics History Last Filed Vital Signs Vital Sign Reading [...] Description 10/23/2024 7:30 AM CDT Hospital Encounter [facility] Operating Room [address] [place] [address] [place] [address] [place] [address] 10/23/2024 7:30 AM CDT - 10/23/2024 9:00 AM CDT Surgery [facility] Operating Room [address] [place] [address] [place] [address] [facility] [address] [place] [address] INTRATHECAL PAIN PUMP BATTERY REPLACEMENT WITH PLASMA BLADE/60 MIN 11/23/2024 7:30 AM CDT Hospital Encounter [facility] Operating Room [address] [place] [address] [place] [address] [facility] [address] [place] [address] 11/23/2024 7:30 AM CDT - 11/23/2024 9:30 AM CDT Surgery [facility] Operating Room [address] [place] [address] [place] [address] [facility] [address] [place] [address] NEUROLYSIS PERIPHERAL NERVE RT SAPHENOUS NERVE/120 MIN Scheduled Procedures Name Priority Associated Diagnoses Date/Ti me INSERTION PUMP - PAIN MANAGEMENT LOW BACK PAIN 10/23/2024 7:30 AM CDT NEUROLYSIS PERIPHERAL NERVE SAPHENOUS NERVE 11/23/2024 7:30 AM CDT Health Maintenance Due Date Last Done Comments Albumin Creatinine Ratio, Urine 1945 Depression Screening 1945 Hemoglobin A1C 1946 Hepatitis C Screening 1945 Dilated Eye Exam 1946 Foot Exam 1946 Lipid Panel 1946 DTaP/Tdap/Td Vaccine (1 - Tdap) 1957 Hepatitis B Screening 02/04/1964 Pneumococcal vaccine 65+ (1 of 2 - PCV) 1965 Well Visit 65+ 2011 Zoster Vaccine (3 of 3) 01/26/2018 12/02/19 18, 12/01/2017, 08/17/2017, Additional history exists eGFR 11/09/2019 11/08/2018, 04/16, 02/08/2018, Additional history exists Covid-19 Vaccine (5 - 2023-2 5 season) 2024 03/25/2021, 08/11/2020, 07/22/2020, Additional history exists Influenza Vaccine (Season Ended) 2025 02/25/2021, 02/10/2020, 02/10/2020, Additional history exists Fall Risk Assessment 10/12/2025 10/12/2024 Colon Cancer Screening-Colonoscopy Discontinued 03/11/2016, 08/23/2012 Abdominal Aortic Aneurysm (A AA) Screen Completed 08/29/2021, 09/02/2012 Procedures Procedure Name Priority Date/Time Associated Diagnosis [...] Results * Imaging Peripheral Nerve Stim Placement ([id number]) (08/28/2024 11:15 AM CDT) Narrative [facility] - 08/28/2024 11:16 AM CDT The images from this study are not interpreted by Radiology. Please refer to the physician's procedure / OR operative note. Hudson Perez MD IM PAIN MGMT PROCEDU RES Final Result Performing Organization Address [facility] Co de Phone Number RAD_PACS_[facility] * Imaging Genicular Nerve Block ([id number]) (07/24/2024 11:32 AM CDT) Narrative [facility] - 07/24/2024 11:32 AM CDT The images from this study are not interpreted by Radiology. Please refer to the physician's procedure / OR operative note. Hudson Perez MD [facility] PAIN MGMT PROCEDU RES Final Result Performing Organization Address [facility] de Phone Number [facility] * eGFR (11/08/2018 3:10 PM CDT) eGFR 42 mL/min/1.7 3 m2 RADHA Comment: Interpretive Data Reference Interval Normal >/= 90 mL/min/1.73m2 Mildly decreased* 60 - 89 mL/min/1.73m2 Mildly to moderately decreased 45 - 59 mL/min/1.73m2 Moderately to severely decreased 30 - 44 mL/min/1.73m2 Severely decreased 15 - 29 mL/min/1.73m2 Kidney Failure < 15 mL/min/1.73m2 *Relative to young adult level If -Djiboutian multiply value by 1.16. Estimated glomerular filtration [...] BLOOD ORDERABLES Final Res ult RADHA MARSH [address] [place] [address] * COLONOSCOPY REPORT (03/11/2016) Anatomical Region Laterality Modality Other Narrative 03/11/2016 Ordered by an unspecified provider. Historical Provider GI PROCEDURE ORDERABLES F inal Result * CT Abdomen Pelvis WO Contrast (09/02/2012 12:25 PM CDT) Anatomical Region Laterality Modality Body N/A Computed Tomogra phy 09/02/2012 12:2 5 PM CDT Narrative 09/02/2012 2:09 PM CDT DATE OF EXAM: Sep 02 2012 12:25PM Acc#: [id number] ECT 0073 - CT Abd/Pel WO DIAGNOSIS: ANEMIA NOS DM2/NOS UNCOMP NSU CLINICAL HISTORY: ANEMIA DIABETIC RESULT: \ CT ABDOMEN AND PELVIS WITH ORAL BUT NOT INTRAVENOUS CONTRAST HISTORY This is a 67-year-old man with anemia, diabetes and leukopenia. Noncontrast CT exam performed as requested. FINDINGS Prior abdominal imaging studies are not available for comparison. Building Superintendent radiograph demonstrates pacemaker leads in the right [...] SPINAL STENOSIS WITH PAIN STIMULATOR IN PLACE. MANAGER PHARMACY: [facility] [employer] DATE/TIME: Sep 02 2012 1:52P RADIOLOGIST: NELI GOSS M.D. READ ON: Sep 02 2012 1:22P ORDERING DR: RAMESH PRICE M.D. THIS DOCUMENT HAS BEEN ELECTRONICALLY SIGNED BY: NELI GOSS M.D. ON: Sep 02 2012 2:09P Procedure Note Provider, MD Erlinda - 09/11/2016 DATE OF EXAM: Sep 02 2012 12:25PM Acc#: [id number] ECT 0073 - CT Abd/Pel WO DIAGNOSIS: ANEMIA NOS DM2/NOS UNCOMP NSU CLINICAL HISTORY: ANEMIA DIABETIC RESULT: \ CT ABDOMEN AND PELVIS WITH ORAL BUT NOT INTRAVENOUS CONTRAST HISTORY This is a 67-year-old man with anemia, diabetes and leukopenia. Noncontrast CT exam performed as requested. FINDINGS Prior abdominal imaging studies are not available for comparison. Building Superintendent radiograph demonstrates pacemaker leads in the right [...] SPINAL STENOSIS WITH PAIN STIMULATOR IN PLACE. MANAGER PHARMACY: [employer] DATE/TIME: Sep 02 2012 1:52P RADIOLOGIST: NELI GOSS M.D. READ ON: Sep 02 2012 1:22P ORDERING DR: RAMESH PRICE M.D. THIS DOCUMENT HAS BEEN ELECTRONICALLY SIGNED BY: NELI GOSS M.D. ON: Sep 02 2012 2:09P us Historical Provider MD MENA CT PROCEDURES Final R esult from Last 3 Months or Most Recently Relevant to Health Maintenance Insurance CHOICE MEDICARE PPO IDCT MEDICARE ADVANTAGE IDPA IDPA [facility] MEDICARE ADVANTAGE Care Teams Gambreler Helper Relationship Specialty Start Date End Date Tony Gray MD PCP - General Family Practice 12/16/21 [place] [address] [facility] [address] [place] [address] Nurse Practitioner Pain Management 04/19/24
--- OUTSIDE RECORDS SUMMARY | 2024-10-17 11:38 | XMS_ITS | Encounter Summary ---
Author Organization [facility] Address [address] [place] [address] Phone Care Team Providers Care Tooling Mechanic Name Role Phone Tony Gray MD Primary Care Provider Pepe Dunn MD Unavailable [phone] Reason for Visit * Reason Comments Medication Refill Encounter Details Date Type Department Care Team (Late st Contact Info) Description 11/26/2021 Refill [facility] - [facility] [address] [place] [id number] Pepe Dunn MD [address] [place] [id number] Medication Refill Social History Tobacco Use Types [...] on file Sexual Orientation Not on file COVID-19 Exposure Response Date Recorded In the last 10 days, have yo u been in contact with someone who was confirmed or suspected to have Coronavirus/COVID-19? No / Unsure 11/03/2021 11:21 AM CDT documented as of this encounter Plan of Treatment Upcoming Encounters Date Type Department Care Team (Late st Contact Info) Description 01/22/2025 10:45 AM CDT Office Visit [facility] - [facility] [address] [place] [address] Pepe Dunn MD [address] [place] [address] documented as of this encounter Visit Diagnoses Not on filedocumented in this encounter Care Teams Tooling Mechanic Relationship Specialty Start Date End Date Tony Gray MD PCP - General Family Medicine 08/26/21 Pepe Dunn MD [address] [place] [address] Consulting Physician Neurology 02/03/22 documented as of this encounter
--- OUTSIDE RECORDS SUMMARY | 2024-10-17 11:38 | XMS_ITS | Clinical Summary ---
Author Organization [facility] Address [address] [facility] [place] [address] Care Team Providers Care Concrete Batch Plant Operator Name Role Phone Tony Gray MD Primary Care Provider Darell Yu MD Unavailable Harry Vang MD Unavailable [phone] Twyla Cervantes MD Unavailable [phone] Source Comments [facility],non-owned Affiliates and Associated Physician Practices is amultiple site organization consisting of ambulatory clinics and hospital sitesin [place], [place], [place] and [place]. This disclosure is being madepursuant to the Care Everywhere program and may not contain all information available regarding this patient. Last updated 18.[facility] Allergies Active Allergy Reactions Criticality Noted Date Comments Curt Inhibitors Anaphylaxis,Swelling High 06/04/2009 Reaction: ANAPHYLAXIS, , Reaction: ANAPHYLAXIS Reaction: ANAPHYLAXIS, , Reaction: ANAPHYLAXIS Adhesive Sensitivity Rash Medium 09/22/2021 Welts Ramipril 06/17/2009 Medications * Be aware that medications may not be up to date on this document. Alwaysverify current medications with the patient. rosuvastatin (CRESTOR) 40 MG tablet Take 40 mg by mouth daily. Active cyclobenzapri ne (FLEXERIL) 10 MG tablet Take 10 mg by mouth 3 times daily as needed for Muscle Spasms. Active sulfamethoxaz ole-trimethop rim (BACTRIM DS; SEPTRA DS) 800-160 MG tablet Take 1 Tab by mouth once daily. Active amLODIPine (NORVASC) 10 MG tablet Take 10 mg by mouth once daily. Active oxymetazoline (AFRIN) 0.05 % nasal spray Castile 1 (one) spray into each nostril 2 times daily 37 mL 08/30/19 Active vitamin B-12 (CYANOCOBALAM IN) 500 MCG tablet Active aspirin EC (ECOTRIN) 81 MG tablet Take 81 mg by mouth once daily Active citalopram (CELEXA) 20 MG tablet citalopram 20 mg tablet 04/10/20 Active dutasteride (AVODART) 0.5 MG capsule dutasteride 0.5 mg capsule 04/09/20 Active ferrous sulfate 325 (65 FE) MG tablet Take 325 mg by mouth once daily Active losartan (COZAAR) 100 MG tablet losartan 100 mg tablet 04/09 Active pantoprazole EC (PROTONIX) 40 MG tablet pantoprazole 40 mg tablet,delayed release 04/09/20 Active tamsulosin (FLOMAX) 0.4 MG capsule tamsulosin 0.4 mg capsule 04/09/20 Active hydroCHLOROth iazide (HYDRODIURIL) 25 MG tablet hydrochlorothiazide 25 mg tablet 04/09/20 Active Active Problems No known active problems Social History Tobacco Use Types Packs/Day Years Used Date Smoking Tobacco: Former Cigars Tobacco Cessation:Counseling Given: Yes Comments:quit 10 years ago Alcohol Use Standard Drinks/Week Comments Yes 8.3 (1 standard drink = 0.6 oz p ure alcohol) 10 beers per week Sex and Gender Information Value Date Recorded Sex Assigned at Not on file 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 Gender Identity Not on file Sexual Orientation Not on file Last Filed Vital Signs Vital Sign Reading Time Taken Comments Blood Pressure 143/75 08/29/2021 2:00 AM CDT Pulse 68 08/29/2021 2:00 AM CDT Temperature 36.7 C (98.1 F) 03/02/2014 1:03 PM CDT Respiratory Rate 16 08/29/2021 2:00 AM CDT Oxygen Saturation 96% 08/29/2021 2:00 AM CDT Inhaled Oxygen Concentration - - Weight 95.3 kg (210 lb) 08/28/2021 9:09 PM CDT Height 170.2 cm (5' 7) 08/28/2021 9:09 PM CDT Body Mass Index 32.89 08/28/2021 9:09 PM CDT Plan of Treatment Health Maintenance Due Date Last Done Comments HEPATITIS C SCREENING 01/30/1963 DTAP/TDAP/TD VACCINES (1 - Tdap) 1965 PNEUMOCOCCAL VACCINE 50+ (1 of 1 - PCV) 02/04/1996 ZOSTER VACCINE (1 of 2) 02/04/1996 Respiratory Syncytial Virus (RSV) Vaccine Pt: or over 60 yrs (1 - 1-dose 75+ series) 2021 COVID-19 VACCINE ( - season) 2024 03/25/2021, 07/22/2020, 06/25/2020 DEPRESSION SCREENING 05/17/2024 INFLUENZA VACCINE (Season Ended) 2025 02/25/2021, 02/10/2020, 03/10/2019, Additional history exists HEPATITIS B VACCINE Aged Out No longe r eligible based on patient's age to complete this topic HIB VACCINE Aged Out No longer eligi ble based on patient's age to complete this topic HPV VACCINE Aged Out No longer eligi ble based on patient's age to complete this topic MENINGOCOCCAL (Group B) VACCINE SHARED DECISION-MAKING Aged Out No longer eligible based on patient's age to complete this topic MENINGOCOCCAL GROUPS A/C/Y/W VACCINE Aged Out No longer eligible based on patient's age to complete this topic Insurance MEDICAID - OUT OF STATE MEDICAID [facility] HUMANA Advance Directives * Full Code (Latest Code Status on File) Date Activated Date Inactivated Comments 06/17/2009 3:42 PM 06/19/2009 12:18 AM Care Teams Concrete Batch Plant Operator Relationship Specialty Start Date End Date Tony Gray MD [address] [place] [address] PCP - General Family Medicine 08/28/21 [place] [address] [facility] [address] [facility] [place] [address] Cardiovascular Disease 09/22/21 Harry Vang MD [address] [facility] [address] [place] [id number] Internal Medicine 09/22/21 Twyla Cervanets MD [facility] [address] [address] Nephrology 09/22/21
--- OUTSIDE RECORDS SUMMARY | 2024-10-17 11:38 | XMS_ITS | Clinical Summary ---
Author Organization [facility] Address [address] [place] [address] Phone Care Team Providers Care Doctor Of Osteopathy Name Role Phone Tony Gray MD Primary Care Provider Allergies Active Allergy Reactions Criticality Noted Date Comments Curt Inhibitors Angioedema 06/04/2009 Ramipril Anaphylaxis High 06/17/2009 Reaction: ANAPHYLAXIS, , Reaction: ANAPHYLAXIS Wound Dressing Adhesive Hives 08/27/2021 Medications amLODIPine (NORVASC) 10 MG tablet 0 Active citalopram (CeleXA) 20 MG tablet 0 Active diclofenac (VOLTAREN) 75 MG EC tablet 0 Active dutasteride (AVODART) 0.5 MG capsule 0 Active hydroCHLOROthi azide (HYDRODIURIL) 25 MG tablet 0 Active losartan (COZAAR) 100 MG tablet 0 Active pantoprazole (PROTONIX) 40 MG EC tablet 0 Active ranolazine (RANEXA) 1000 MG 12 hr tablet TAKE ONE TAB. BY MOUTH TWICE DAILY FOR CHRONIC ANGINA 0 Active rosuvastatin (CRESTOR) 40 MG tablet 0 Active sulfamethoxazo le-trimethopri m (BACTRIM DS) 800-160 MG per tablet 0 Active tamsulosin (FLOMAX) 0.4 MG 24 hr capsule 0 Active traMADol (ULTRAM) 50 MG tablet 0 Active Apixaban (Eliquis) 2.5 MG tablet Eliquis 2.5 mg tablet Active oxyCODONE (ROXICODONE) 5 MG immediate release tablet oxycodone 5 mg tablet Active clopidogrel (PLAVIX) 75 MG tablet Take 75 mg by mouth 1 (one) time each day 2 Active donepezil (ARICEPT) 10 MG tablet TAKE 1 TABLET BY MOUTH NIGHTLY. 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 08/26/2021 Device in situ 08/26/2021 Lumbosacral spondylosis without myelopathy 08/26 Brachial neuritis 05/01/2020 Implantation of joint prosthesis 05/01/2020 Knee pain 05/01/2020 Morbid obesity 05/01/2020 Muscle weakness 05/01/2020 Neck pain 05/01/2020 Osteoarthritis of knee 05/01/2020 Shoulder joint pain 05/01/2020 Cobalamin deficiency 04/09/2020 Arthritis 08/02/2017 Heartburn 08/02/2017 Sleep disorder 08/02/2017 Iron deficiency 01/05/2017 Fatigue 12/22/2016 Chronic kidney disease, stage 3 (moderate) 09/09 Sinus node dysfunction 03/17/2015 Overview (02/10/2021): [facility] Cardiac pacemaker in situ 12/04/2014 Diabetes mellitus 03/31/2011 Spinal stenosis 03/31/2011 Hyperlipidemia 05/02/2010 Atherosclerotic heart diseas e of [place] coronary artery without angina pectoris 07/10/2009 Benign hypertension 05/16/1959 Overview (05/01/2020): [facility] enrolled Obstructive sleep apnea syndrome 05/16/1959 Immunizations Immunization Administration Dates Next Due Fluzone High-Dose 02/10/2020 Influenza Split High Dose Pr eservative Free IM 02/25/2021,02/10/2020,02/21/2018 Influenza, Injectable, Quadrivalent 03/10/2019 Influenza, Unspecified 02/10/2020 Sars-cov-2, Unspecified 08/11/2020 Zoster 12/01/2017,08/17/2017,08/30/2015 Zoster Recombinant 12/01/2017 Family History Medical History Relation Comments Emphysema Father Kidney disease Sister Relation Status Comments Father Sister Social History Tobacco Use Types Packs/Day Years Used Date Smoking Tobacco: Former Smokeless Tobacco: Never Tobacco Cessation:Counseling Given: Not Answered Alcohol Use Standard Drinks/Week Comments Yes 0 (1 standard drink = 0.6 oz pur e alcohol) Sex and Gender Information Value Date Recorded Sex Assigned at Not on file Legal Sex Male 9:44 AM MST Gender Identity Not on file Sexual Orientation Not on file Last Filed Vital Signs Vital Sign Reading Time Taken Comments Blood Pressure 134/76 04/27/2022 2:51 PM AUTOMOBILE MECHANIC APPRENTICE Pulse - - Temperature 35.7 C (96.3 F) 04/27/2022 2:51 PM AUTOMOBILE MECHANIC APPRENTICE Respiratory Rate 18 04/27/2022 2:51 PM AUTOMOBILE MECHANIC APPRENTICE Oxygen Saturation - - Inhaled Oxygen Concentration - - Weight 95.7 kg (211 lb) 04/27/2022 2:51 PM AUTOMOBILE MECHANIC APPRENTICE Height 167.6 cm (5' 6) 04/27/2022 2:51 PM AUTOMOBILE MECHANIC APPRENTICE Body Mass Index 34.06 04/27/2022 2:51 PM AUTOMOBILE MECHANIC APPRENTICE Plan of Treatment Health Maintenance Due Date Last Done Comments Pneumococcal PPSV23/PCV13 65 + Years / Low and Medium Risk (1 of 4 - PCV) 02/04/1996 Influenza Vaccine (Season Ended) 2025 02/10/[address] [place] [address] [place] [address] MEDICARE ADVANTAGE MEDICAID - [place] Care Teams Doctor Of Osteopathy Relationship Specialty Start Date End Date Tony Gray MD [address] [place] [address] PCP - General Internal Medicine 04/10/20
--- OUTSIDE RECORDS SUMMARY | 2024-10-17 11:38 | XMS_ITS | Clinical Summary ---
Author Organization [facility] Address [address] [place] [address] Phone Care Team Providers Care Medical Services Assistant Name Role Phone Tony Gray MD Primary Care Provider Pepe Dunn MD Unavailable [phone] Allergies Active Allergy Reactions Criticality Noted Date Comments Ramipril Swelling 08/27/2021 Wound Dressing Adhesive Hives 08/27/2021 Medications rosuvastatin (CRESTOR) 40 MG Tablet Take 40 mg by mouth daily. Active ferrous sulfate 325 (65 Fe) MG Tablet Take 325 mg by mouth daily. Active Cyanocobalami n (B-12 PO) Take by mouth. Act dary amLODIPine (NORVASC) 10 MG Tablet Take 10 mg by mouth daily. Active tamsulosin (FLOMAX) 0.4 MG Capsule Take 0.4 mg by mouth daily. Active citalopram (CeleXA) 20 MG Tablet Take 20 mg by mouth daily. Active hydroCHLOROth iazide 25 MG Tablet Take 25 mg by mouth daily. Active losartan (COZAAR) 100 MG Tablet Take 100 mg by mouth daily. Active pantoprazole (PROTONIX) 40 MG Tablet Delayed Response Take 40 mg by mouth daily. Active aspirin EC 81 MG Tablet Delayed Response Take 81 mg by mouth daily. Active dutasteride (AVODART) 0.5 MG Capsule Take 0.5 mg by mouth daily. Active sulfamethoxaz ole-trimethop rim DS (BACTRIM DS, SEPTRA DS) 800-160 MG Tablet Take 1 Tablet by mouth 2 times daily. Active Repatha SureClick 140 MG/ML Solution Auto-injector INJECT 140 MG SUBCUTANEOUSLY EVERY TWO WEEKS 05/23/19 23 Active donepezil (ARICEPT) 10 MG Tablet TAKE 1 TABLET BY MOUTH NIGHTLY. START AFTER COMPLETING 5MG TABLETS 90 Tablet 3 10/12/19 25 Active donepezil (ARICEPT) 10 MG Tablet TAKE 1 TABLET BY MOUTH NIGHTLY. START AFTER COMPLETING 5MG TABLETS 90 Tablet 3 10/25/19 24 2024 Discontinued Encounters Date Type Department Care Team Description 10/11/2024 Refill [facility] [address] [place] [address] Pepe Dunn MD Medication Refill 07/17/2024 9:00 AM SOLUTION ARCHITECT Office Visit [facility] [address] [place] [address] Pepe Dunn MD Late onset Alzheimer's dementia without behavioral disturbance (HCC) (Primary Dx); Morbid obesity (HCC) Discharge Disposition: Discharged to home or Selfcare 07/17/2024 Travel from Last 3 Months Family History Relation Name Status Comments Father Mother Social History Tobacco Use Types Packs/Day Years Used Date Smoking Tobacco: Former Cigarettes Q uit: 05/17/1980 Smokeless Tobacco: Never Tobacco Cessation:Counseling Given: Not [...] Sign Reading Time Taken Comments Blood Pressure 140/60 07/17/2024 9:06 AM SOLUTION ARCHITECT Pulse 57 07/17/2024 9:06 AM SOLUTION ARCHITECT Temperature 36.4 C (97.5 F) 07/17/2024 9:06 AM SOLUTION ARCHITECT Respiratory Rate 18 07/17/2024 9:06 AM SOLUTION ARCHITECT Oxygen Saturation 88% 07/17/2024 9:06 AM SOLUTION ARCHITECT Inhaled Oxygen Concentration - - Weight 89.4 kg (197 lb 3.2 oz) 07/17/2024 9:06 A M SOLUTION ARCHITECT Height 160 cm (5' 3) 07/17/2024 9:06 AM SOLUTION ARCHITECT Body Mass Index 34.93 07/17/2024 9:06 AM SOLUTION ARCHITECT Plan of Treatment Upcoming Encounters Date Type Department Care Team (Late st Contact Info) Description 01/22/2025 10:45 AM CDT Office Visit [facility] [address] [place] [address] Pepe Dunn MD [address] [place] [address] Health Maintenance Due Date Last Done Comments Hepatitis C Virus (HCV) Screening 1945 TdaP Immunization 1945 Zoster Immunization (2 of 3) 01/26/2018, 08/17/2017, 08/30/2015 Respiratory Syncytial Virus (RSV) Immunization (Adult) (1 - 1-dose 75+ series) 2021 SARS-COV-2 Immunization ( season) 2024 02/06/2023, 09/02/2021, 03/25/2021, Additional history exists Pneumococcal Immunization (50+ years) Completed 08/22/2022 Influenza Immunization Completed , 02/06/2023, 03/29/2022, Additional history exists Hepatitis B Immunization Aged Out No longer eligible based on patient's age to complete this topic Human Papillomavirus (HPV) Immunization Aged Out No longer eligible based on patient's age to complete this topic Meningococcal Immunization (ACWY) Aged Out No longer eligible based on patient's age to complete this topic Rotavirus Immunization Aged Out No lo nger eligible based on patient's age to complete this topic Insurance MEDICAID [place] MEDICARE C [employer] Care Teams Medical Services Assistant Relationship Specialty Start Date End Date Tony Gray MD PCP - General Family Medicine 08/26/21 Pepe Dunn MD [address] [place] [address] Consulting Physician Neurology 02/03/22
--- NOTE | 2024-10-17 11:40 | ECG_ITS ---
Test Date: 2024-10-17 11:47:42 Measurements Intervals [place] Rate: 63 P: 67 NC: 201 QRS: 215 QRSD: 73 T: 168 QT: 397 QTc: 407 Interpretive Statements ELECTRONIC ATRIAL PACEMAKER CONSIDER LIMB LEAD REVERSAL BASELINE ARTIFACT- I, II, III, AVR, AVL, AVF, V1-V6 ATYPICAL ECG No previous ECG available for comparison Electronically Signed On 10-17-2024 12:01:47 CDT by Cali Hwang D.O.
--- NOTE | 2024-10-17 11:41 | PC.NURSE ---
orders entered per ERP
--- OUTSIDE RECORDS SUMMARY | 2024-10-17 11:48 | XMS_ITS | Continuity of Care Document ---
Author Organization [facility] Address [address] [place] [address] [address] [place] [address] Phone Care Team Providers Care Rug Clipper Name Role Phone Cardona OD, Jerry Unavailable Unavailable Procedures Procedure Date Office/outpatient Visit, Est Eye Exam Established Pt Advance Directives Directive Yes / No Effective Date File Name No Information Encounters Encounter Description Practice Location Reason(s) For Visit Diagnoses Date Provider Providers Copied on Encounter Office/outpat ient Visit, Est [facility], [address] [place] [address] [address], [place], [place], [id number], tel:[phone] [facility] No Information Juan David-3 0-200 9 Cardona OD Jerry. [address] [place] , [address], [place], [place], [facility], [place]. tel:[phone] [facility], [address] [place] [address] [address], [place], [place], [id number], tel:[phone] [facility] [place] No Information Oct-2 3-200 9 Cardona OD Jerry. [address] [place] , [address], [place], [place], [facility], [place]. tel:[phone] Family History Family Member Type Diagnosis Age At Onset No Information Payers Payer name Insurance type Covered democrat ID Authoriza tion(s) [employer] [id number] Social History Type Description Quantity Date Captured [...]
--- OUTSIDE RECORDS SUMMARY | 2024-10-17 11:48 | XMS_ITS | CONTINUITY OF CARE DOCUMENT ---
Author Name marcus velazquez Address Unknown Organization [facility] Address [address] [facility] [address] [place] [address] Phone [phone] Care Team Providers Care Receptionist Name Role Phone Gigi COYNE, Darell Unavailable [phone] Tony Gray MD Unavailable [phone] Tony Gray MD Unavailable [phone] PROBLEMS Condition Status Date Provider Notes Iron deficiency active Rebecca Munoz RN Sick sinus syndrome active Precious Ruiz [facility] Sleep apnea, obstructive - CPAP @ 15. active Zak Roth RN Hypertension, benign active Precious Ruiz CC M enrolled CAD active Darell Yu MD MUSCLE PAIN completed - Darell Yu MD SINUS BRADYCARDIA-ASYMPTOMATIC- NO BB, CA CHANNEL BLOCKERS completed - Darell Yu MD BACK PAIN, CHRONIC completed - Darell Yu MD SICK SINUS SYNDROME-05/[address] DAISY completed - Rosanna Whyte RN DIABETES MELLITUS active Darell Yu MD SPINAL STENOSIS active Darell Yu MD ANEMIA completed - Rosanna Whyte RN Dizziness completed - Rosanna Whyte RN Tobacco use quit completed - Darell Yu MD S/P dual chamber pacemaker gen change/new RA lead - Biotronik active Rosanna Whyte RN Dyspnea on exertion active Darell Yu MD CKD stage 3 GFR 30-59 active Rosanna Burroughs on RN Fatigue active Darell Yu MD Preop cardiovasc. examination completed - Rosanna Whyte RN B12 deficiency active Darell Yu MD Long-term (current) use of other medications completed - Darell uY MD Diabetes Mellitus, Type II, controlled w/ renal complications completed - Darell Yu MD CHF - diastolic active Darell Yu MD ENCOUNTERS Date Type [...] In-person encounter Office Visit Darell Yu MD [facility] B12 deficiency - In-person encounter Office Visit Darell Holt [...] In-person encounter Office Visit Tariq Watson MD [place] [facility] - In-person encounter Office Visit Darell [...] In-person encounter Office Visit Darell Yu MD [facility] - In-person encounter Office Visit Darell Yu MD [facility] DIABETES MELLITUSSPI NAL STENOSIS - In-person encounter Office Visit Benjamin Camacho MD [place] [facility] - In-person encounter Office Visit Darell Yu MD [facility] - In-person encounter Office Visit Darell Yu MD [facility] - In-person encounter Office Visit Darell Yu MD [facility] - In-person encounter Office Visit Darell [facility] CAD - In-person encounter Office Visit Darell Yu MD [facility] - In-person encounter Office Visit Darell [...] Tilley blood pressure, cuff size regular Gisel Tilely height E&M 66 [in_i] Carol Tilley Body Mass Index (Ratio) 31.79 kg/m2 Sund jr Yu MD blood pressure, diastolic 88 mm[Hg] Rae franco Palomares blood pressure, systolic 175 mm[Hg] [place] oxygen saturation, oximetry 97 % [facility] 79 /min [facility] respiratory rate E&M 14 /min [facility] weight E&M 197 [lb_av] [facility] height E&M 66 [in_i] [facility] blood pressure, cuff size regular An salvador Palomares blood pressure, diastolic 55 mm[Hg] Li nkLogic blood pressure, systolic 112 mm[Hg] Suzette kLogic Body Mass Index (Ratio) 34.38 kg/m2 Sund jr Yu MD blood pressure, diastolic 55 mm[Hg] Candi dumont Castaneda blood pressure, systolic 112 mm[Hg] Steven helle Redfield oxygen saturation, oximetry 96 % Temi Castaneda [...] blood pressure, systolic 110 mm[Hg] Steven helle Redfield oxygen saturation, oximetry 98 % Temi Castaneda [...] dumont Castaneda blood pressure, diastolic 68 mm[Hg] Co tim Castaneda blood pressure, systolic 132 mm[Hg] [facility] saturation, oximetry 96 % Temi Castaneda respiratory rate E&M 16 /min Suad Castaneda pulse rate 89 /min Temi saab weight E&M 206 [lb_av] Temi saab height E&M 66 [in_i] Temi saab Body Mass Index (Ratio) 33.89 kg/m2 Eliceo Yu MD blood pressure, diastolic 57 mm[Hg] Ch astpanda Lara blood pressure, systolic 135 mm[Hg] [facility]i [facility] oxygen saturation, oximetry 97 % [facility] 97 /min [facility] weight E&M 210 [lb_av] [facility] respiratory rate E&M 16 /min Logan leonard Lara height E&M 66 [in_i] [facility] Body Mass Index (Ratio) 34.70 kg/m2 Pamela Clemons blood pressure, diastolic 78 mm[Hg] Fe guillermo Quintero blood pressure, systolic 130 mm[Hg] Fel icia Quintero oxygen saturation, oximetry 95 % Daysi Quintero respiratory rate E&M 16 /min Daysi Quintero pulse rate 77 /min Daysi Quintero temperature E&M 97.0 [degF] Daysi Quintero weight E&M 215 [lb_av] Daysi Quintero height [...] blood pressure, diastolic 80 mm[Hg] Kr iskay Littleton blood pressure, systolic 120 mm[Hg] Gómezi sty Geovani respiratory rate E&M 18 /min Laura Littleton pulse rate 78 /min Laura oxygen saturation, oximetry 97 % Laura Body Mass Index (Ratio) 35.83 kg/m2 Raul villanueva [place] weight in kilograms E&M 100.70 kg Raul ty weight E&M 222 [lb_av] Laura height E&M 66 [in_i] Laura height in centimeters E&M 167.64 cm Gómez rai Body Mass Index (Ratio) 35.67 kg/m2 Eliceo Yu MD blood pressure, cuff size regular Gómez rai Gevoani blood pressure, diastolic 70 mm[Hg] Gómez rai blood pressure, systolic 122 mm[Hg] Gómezi sthoracio Geovani oxygen saturation, oximetry 95 % Laura Littleton pulse rate 81 /min Laura Geovani respiratory rate E&M 18 /min Laura Geovani weight E&M 221 [lb_av] Laura Geovani height E&M 66 [in_i] Laura Body Mass Index (Ratio) 35.05 kg/m2 Eliceo Yu MD blood pressure, cuff size regular Gómez rai weight E&M 217.2 [lb_av] Laura Littleton blood pressure, diastolic 70 mm[Hg] Gómez rai Geovani blood pressure, systolic 130 mm[Hg] Kri sty Geovani respiratory rate E&M 17 /min Laura Littleton pulse rate 94 /min Laura Littleton oxygen saturation, oximetry 95 % Laura Geovani height E&M 66 [in_i] Laura Geovani Body Mass Index (Ratio) 36.47 kg/m2 Evelyne Farr oxygen saturation, oximetry 93 % [facility] E&M 16 /min Anyiit horacio Bermudez pulse rate 64 /min [facility] Lara blood pressure, diastolic 70 mm[Hg] astity Lara blood pressure, systolic 120 mm[Hg] Anyi stity Lara weight E&M 226 [lb_av] [facility] height E&M 66 [in_i] [facility] Body Mass Index (Ratio) 36.60 kg/m2 Eliceo Yu MD oxygen saturation, oximetry 94 % Laura Olivo blood pressure, diastolic 70 mm[Hg] Gómez Anthonyby blood pressure, systolic 122 mm[Hg] Nestor Anthonyby pulse rate 75 /min Laura Littleton respiratory rate E&M 17 /min Laura L[place] weight E&M 226.8 [lb_av] [facility], cuff size regular Gómez Anthonyby height E&M 66 [in_i] Laura Littleton Body Mass Index (Ratio) 35.83 kg/m2 Charissa [...] RN blood pressure, resting Yes Raul kay [place] blood pressure, cuff size regular Gómez Anthonyby blood pressure, diastolic 70 mm[Hg] Gómez isty Littleton blood pressure, systolic 115 mm[Hg] Gómezi sthoracio [place] oxygen saturation, oximetry 96 % Laura Anthonyby respiratory rate E&M 17 /min Laura Geovani pulse rate 69 /min Laura Littleton weight E&M 222 [lb_av] Laura Geovani height [...] Lucy Yazan blood pressure, diastolic 74 mm[Hg] Ky wagner Yazan blood pressure, systolic 126 mm[Hg] [...] systolic, right arm 150 m m[Hg] Lucy Yzaan blood pressure, diastolic 79 mm[Hg] Ky wagner Yazan blood pressure, systolic 158 mm[Hg] [...] Tatiana blood pressure, diastolic 80 mm[Hg] Tonio Micaviet Tatiana blood pressure, systolic 140 mm[Hg] Tonio viet Simpson pulse rate 68 /min Niels Simpson oxygen saturation, oximetry 96 % Tonioviet Tatiana respiratory rate E&M 16 /min Tonioviet Tatiana weight E&M 222.2 [lb_av] Tonioviet Simpson Body Mass Index (Ratio) 35.80 kg/m2 Anea umesh [facility] blood pressure, diastolic 60 mm[Hg] An eatris [...] /min Laura Galo height E&M 66 [in_i] [facility] weight E&M 224 [lb_av] [facility] blood pressure, diastolic, left arm 78 mm [...] blood pressure, diastolic, sitting 86 mm[ Hg] Hasty Man[place] blood pressure, systolic, sitting 162 mm[ Hg] Hasty [place] pulse rate, supine, right 60 /min Hiral seph [place] blood pressure, darby tolic, supine, right arm 80 Magan [place] blood pressure, systolic, supine, r arm 1 65 Hasty [place] blood pressure, diastolic, left arm 90 mm [Hg] Hasty [place] blood pressure, systolic, left arm 176 mm [Hg] Hasty [place] blood pressure, diastolic, right arm 84 m m[Hg] Hasty [place] blood pressure, systolic, right arm 175 m m[Hg] Hasty [place] blood pressure, diastolic 84 mm[Hg] Hiral seph [place] blood pressure, systolic 175 mm[Hg] Roger eph [place] pulse rate 68 /min [facility], oximetry 96 % [facility] rate E&M 20 /min [facility] weight E&M 241 [lb_av] Hasty [place] blood pressure, diastolic, left arm 90 mm [Hg] Hasty [place] blood pressure, systolic, left arm 188 mm [Hg] Hasty [place] blood pressure, diastolic, right arm 84 m m[Hg] Magan [place] blood pressure, systolic, right arm 183 m m[Hg] Hasty [place] blood pressure, diastolic 84 mm[Hg] Hiral seph [place] blood pressure, systolic 183 mm[Hg] Roger eph [place] pulse rate 63 /min Hasty [place] oxygen saturation, oximetry 96 % [facility] rate E&M 16 /min Hasty [place] weight E&M 232.5 [lb_av] Hasty [place] blood pressure, diastolic, left arm 70 [...] pressure, diastolic, left arm 89 mm [Hg] Magan [place] blood pressure, systolic, left arm 157 mm [Hg] Magan [place] blood pressure, diastolic, right arm 84 m m[Hg] Hasty [place] blood pressure, systolic, right arm 149 m m[Hg] Magan [place] blood pressure, diastolic 84 mm[Hg] Hiral seph [place] blood pressure, systolic 149 mm[Hg] Roger [facility] [place] pulse rate 63 /min Hasty [place] oxygen saturation, oximetry 95 % Hasty [place] respiratory rate E&M 16 /min Magan [...] Danisha Aguirre weight E&M 211.2 [lb_av] Alfonzo samposn ALLERGIES Allergy Name Onset Date Reaction Criticality Status SURGICAL TAPE rash. Low Criticality active ALTACE lips swollen Low Criticality active MALVIN INHIBITORS Low Criticality activ e RESULTS Date Observation Value Provider Reference Range Interpretation Location NT-pro BNP 305 LinkLogic <450 Normal [place] [facility] [address] [place] [address] Daniel Wetzel MD protein, urine, semiquantitative (dipstick) [...] High blood glucose, random 90 mg/dL [facility] 65-139 Normal C-reactive protein, by highly sensitive test 0.9 mg/[facility]thrombin time (patient) 10.9 s [...] Normal Absolute Neutrophil count 5616 cells/mcL LinkLog [id number] Normal mean platelet volume 9.7 fL LinkLog 7.5-12.5 Normal platelet count 194 THOUSAND/UL [facility] 140-400 Normal red blood cell distribution [...] Normal Absolute Neutrophil count 3442 cells/mcL LinkLogic 6054-5240 Normal mean platelet volume 9.8 fL LinkLogic [...] iron binding capacity, unsaturated 237 ug/dL LinkLogic 625-893 4426/06 /23 iron binding capacity, total 321 ug/dL Link[facility]ic 194-018 2980/06 /23 hemoglobin A1C, blood, as % of [...] Not Estab. platelet count 183 X10E3/UL LinkLogic 844-791 6320/06 /23 red blood cell distribution width 13.4 [...] iron binding capacity, unsaturated 238 ug/dL LinkLogic 050-242 6661/09 /27 iron binding capacity, total 296 ug/dL [facility] 350-106 4984/07 /12 microalbumin/creati nine ratio, urine 15.8 MG/G [...] LinkLogic 3.5-5.2 sodium, serum 141 mmol/L Link[facility]ic 575-034 9888/07 /12 urea nitrogen/creatinine ratio, serum 15 LinkLogic 10-24 eGFR if 54 mL/min/{1.73 _m2} LinkLogic >59 Low eGFR if not 47 mL/min/{1.73 _m2} LinkLogic >59 Low creatinine, serum 1.49 mg/dL LinkLogic 0.76-1.27 High urea nitrogen, blood 22 mg/dL LinkLogic 8-27 blood glucose, random 94 mg/dL LinkLogic 65-99 vitamin b12, serum 371.5 pg/mL [facility] 211.0 - 946.0 thyroid stimulating hormone, serum 3.500 ??IU/ML [facility] 0.270 - 4.200 pro brain natriuretic peptide 66.3 pg/mL [facility] 0.0 - 125.0 ferritin, serum 44.0 ng/mL [facility] 30.0 - 400.0 albumin, serum 5.2 g/dL [facility] 3.5 - 5.2 red blood cell distribution width, size density 48.[address] [facility] - immature granulocytes, percentage of total cells, blood 0.3 % [facility] - nucleated red blood cells as percent of blood leukocytes 0.0 % [facility] - red blood cell (erythrocyte) count, per high power field 0.0 10*3/UL [facility] - eosinophils as percent of blood leukocytes 2.4 % [facility] - neutrophils as percent of blood leukocytes 72.0 % [facility] - Absolute Neutrophils 4.2 CELLS/UL LinkLogic 1.5 - 7.8 basophils as percent of blood leukocytes 0.3 % [facility] - Absolute Basophils 0.0 CELLS/UL [facility] 0.0 - 0.2 monocytes as percent of blood leukocytes 6.0 % [facility] - Absolute Monocytes 0.4 CELLS/UL [facility] 0.2 - 1.0 lymphocytes as percent of blood leukocytes 19.0 % [facility] - Absolute Lymphocytes 1.1 CELLS/UL LinkLogic 0.9 - 3.9 mean platelet volume 10.1 (?) [facility] - platelet count 219.0 THOUSAND/UL LinkLog [...] distribution width, size density 46.[address] [facility] - immature granulocytes, percentage of total cells, blood 0.2 % [facility] - nucleated red blood cells as percent of blood leukocytes 0.0 % [facility] - red blood cell (erythrocyte) count, per high power field 0.0 10*3/UL LinkLogic - eosinophils as percent of blood leukocytes 4.0 % [facility] - neutrophils as percent of blood leukocytes 63.5 % [facility] Absolute Neutrophils 2.8 CELLS/UL LinkLogic 1.5 - 7.8 basophils as percent of blood leukocytes 0.2 % [facility] - Absolute Basophils 0.0 CELLS/UL [facility]ic 0.0 - 0.2 monocytes as percent of blood leukocytes 6.9 % [facility] - Absolute Monocytes 0.3 CELLS/UL [facility] 0.2 - 1.0 lymphocytes as percent of blood leukocytes 25.2 % [facility] Lymphocytes 1.1 CELLS/UL LinkLogic 0.9 [...] 99.0 High mucus on urinalysis Yes [facility] WBC urine on microscopy 0-5 [facility] RBC urine by microscopy 0-5 [facility] leukocyte esterase, urine, by dipstick Negative [facility], urine, semiquantitative (dipstick) Normal [facility] nitrite, urine, semiquantitative Negative [facility] RBC, urine, dipstick Negative [facility] bilirubin, urine Negative [facility] ketones, urine, by test strip Negative [facility] glucose, urine, semiquantitative Negative [facility] protein, urine, semiquantitative (dipstick) Negative [facility] pH, urine, semiquantitative 5.0 [facility] specific gravity, urine 1.019 [facility] urine color Yellow [facility] appearance, urine Clear [facility] alanine aminotransferase (SGPT), serum 31 1/L [facility] aspartate aminotransferase (SGOT), serum 33 1/L [facility] creatinine, serum 1.29 mg/dL [facility] potassium, serum 4.1 mmol/L [facility] sodium, serum 140 mmol/L [facility] cholesterol/HDL ratio, serum, percent 5.7 [facility] triglyceride, serum, fasting 295 mg/dL [facility] lipoprotein, beta, serum, point, quantitative, calculated 105 mg/dL [facility] HDL cholesterol, serum 35 mg/dL [facility] cholesterol, serum 199 mg/dL [facility] alanine aminotransferase (SGPT), serum 23 1/L [facility] aspartate aminotransferase (SGOT), serum 29 1/L [facility] creatinine, serum 1.28 mg/dL [facility] potassium, serum 4.9 mmol/L [facility] sodium, serum 140 mmol/L [facility] alanine aminotransferase (SGPT), serum 23 1/L [facility] aspartate aminotransferase (SGOT), serum 27 1/L [facility] creatinine, serum 1.08 mg/dL [facility] potassium, serum 3.3 mmol/L [facility] sodium, serum 140 mmol/L [facility] alanine aminotransferase (SGPT), serum 26 1/L [facility] aspartate aminotransferase (SGOT), serum 27 1/L [facility] creatinine, serum 1.20 mg/dL [facility] potassium, serum 3.6 mmol/L [facility] sodium, serum 141 mmol/L [facility] alanine aminotransferase (SGPT), serum 21 1/L [facility] aspartate aminotransferase (SGOT), serum 35 1/L [facility] creatinine, serum 1.49 mg/dL [facility] potassium, serum 4.1 mmol/L [facility] sodium, serum 138 mmol/L [facility] prothrombin time (patient) 10.6 s LinkLogic [...] Normal Absolute Neutrophil count 1998 cells/mcL LinkLogic 1032-9028 Normal platelet count 327 THOUSAND/UL Link[facility] 140-400 [...] Normal Absolute Neutrophil count 3120 cells/mcL LinkLogic (5795-2091) Normal platelet count 224 THOUSAND/UL LinkLog[facility] (140-400) [...] Normal Absolute Neutrophil count 3570 cells/mcL LinkLogic 9049-2778 Normal platelet count 195 THOUSAND/UL LinkLog[facility] 140-400 [...] USE Medication Status Instructions Dates Provider Indications [facility] ment famotidine 20 mg tablet active Carol [...] 1 TABLET BY MOUTH EVERY DAY 06/26 [facility] ezetimibe 10 mg tablet [...] mouth once a day 06/03 - 06/07 [facility] Specialist clopidogrel 75 mg tablet active TAKE 1 TABLET BY MOUTH EVERY DAY 06/19 [facility] Repatha SureClick 140 mg/mL [...] a day 02/09 - 08/30 Anna Nalluri MANAGER ART Norvasc 10 mg tablet completed 1 tablet once a day 02/09 - 08/30 Anna Nalluri MANAGER ART COMPASS ASA/ RIVAROXABAN completed LTOLE ASA 100mg [...] DAILY for chronic angina 05/22 - 09/10 Rosanna Whyte RN METFORMIN HCL 500 MG ORAL [...] grandchildren Darelljr Yu MD Ne jose Cruz MANAGER ART smoking, year quit 2007 Carol Manley n [...] exercise, frequency, days per week no Laura Littleton caffeine use, averag e drinks per day 3 /d Laura Geovani smoking, year quit 2007 Laura Bu sby number of years as a smoker 10 a Laura Geovani cigarette use yes Laura Littleton smoking status Former smoker Laura Geovani caffeine [...] exercise, frequency, days per week no Laura Littleton alcohol use, average drinks per day social [...] exercise, frequency, days per week no Laura Littleton alcohol use, average drinks per day social basis only Laura Geovani caffeine use, averag e drinks per day yes Laura Littleton smoking, year quit 2007 Laura oneilly number [...] yes Lucy Pittman smoking, year quit 2007 uLcy Chavis Yoko number of years as a [...] MD social history revie wed E&M reviewed Luis Manuel Teran RN social history revie wed [...] Management Plan continue current therapy Anna Nalluri MANAGER ART Reason Fall Assessme nt not done medical contraindication Carol Tilley HRA, CV Assess/Plan, Angina (inactive) Management Plan continue current therapy Anna Nalluri MANAGER ART Reason Fall Assessme nt not done medical [...] Aguirre FAMILY HISTORY Family Member Condition Mother [place] female <65 Full Brother Family History of Co ronary Artery Disease: Mother Family History Coron komal Heart Disease female < 65: Father Family History of Co ronary Artery Disease: INSURANCE PROVIDERS Payer name Policy type / Coverage type Deep red democrat ID [facility] COMPLETE CARE [id number] (PPO C-SNP) [employer] insurance [employer] [id number] ADVANCE DIRECTIVES Name Date DISCUSSED - NO DECISION MADE TREATMENT PLAN Date Name Performer [id number],C,s ob with walking <1 city block e cho c/w distolic dysunction 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 The patient has been benefiting from therapy and should continue use. Nell Feliciano NP [id number],C, C hol: 163 (10/23/2021) HDL: 48 (10/23/2021) LDL: 94 MG/DL (CALC) (10/23/2021) T (10/23/2021) on Repatha w ill start ezetimibe again. Nell Feliciano NP [id number],C, 5 .6% u acr 13 will send him for enrollment to [facility] Nell Feliciano NP [id number],C, B P today: 110/74 P rior BP: 133/71 (12/01/2021) Labs Reviewed: C reat: 1.95 (12/17/2021) C hol: 163 (10/23/2021) HDL: 48 (10/23/2021) LDL: 94 MG/DL (CALC) (10/23/2021) T (10/23/2021) Nell Feliciano NP [id number],C,N o chest pain, but continues ot have sob with exertion HsCrP 0.9 Nell Feliciano SHELIA [id number],C, H is updated medication list for this problem includes: Rosuvastatin 40 Mg Tablet (Rosuvastatin) ..... Take 1 tablet by mouth daily Ezetimibe 10 Mg Tablet (Ezetimibe) ..... 1 tablet once a day C HOL: 163 (10/23/2021) LDL: 94 MG/DL (CALC) (10/23/2021) HDL: 48 (10/23/2021) T (10/23/2021) felix Yu MD [id number],C, H is updated medication list for this [...] (CALC) (10/23/2021) T (10/23/2021) Darell Yu MD [id number],C, He had recent PCI and his sob is improved by 50%. Denies chest pains. Darell Yu MD [id number],C,f erritin 34 w ill try to get iron infusions Darell Yu MD [id number],C, H is updated medication list for this [...] LDL: 87 MG/DL (CALC) (08/27/2021) T (08/27/2021) [facility] [id number],C,a bnl stress tst with inferio wall ischemia r ecommend cath a lso will do renals same time due to ckd a lso can consider rhc right radial ok [facility] [id number],C, H is updated medication list for this problem includes: Rosuvastatin 40 Mg Tablet (Rosuvastatin) ..... Take 1 tablet by mouth daily Ezetimibe 10 Mg Tablet (Ezetimibe) ..... 1 tablet once a day C HOL: 151 (08/27/2021) LDL: 87 MG/DL (CALC) (08/27/2021) HDL: 42 (08/27/2021) T (08/27/2021) [facility] [id number],C,uacr [facility] [id number],C,5 .6% u acr [facility] [id number],C,I m ore sob c heck labs - cbc, tsh, nt bnp e cho [facility] [id number],C, H is updated medication list for this problem includes: Rosuvastatin 40 Mg Tablet (Rosuvastatin) ..... Take 1 tablet by mouth daily Ezetimibe 10 Mg Tablet (Ezetimibe) ..... 1 tablet once a day [facility] [id number],C,T he patient is using CPAP on a regular basis. The patient has been benefiting from therapy and should continue use. Darell Yu MD [id number],C, H is updated medication list for this [...] 35 (06/23/2013) T (06/23/2013) Darell Yu MD [id number],C, H is updated medication list for this problem includes: Losartan 100 Mg Tablet (Losartan) ..... Take 1 tablet by mouth once a day Aspirin 81 Mg Tablet,delayed Release (dr/ec) (Aspirin) ..... 1 tablet by mouth once a day c heck uacr and hbaic Darell Yu MD [id number],C,n egative stress 2019 m ore sob r susu stress test Darell Yu MD [id number],C,s table per pt c hekc HbAic and uacr no la on dopplers in 2020 Darell Yu MD [id number],C,[facility] labs Daina Yu MD [id number],C,on supplement s Darell Yu MD Take your [...] 50 mg when SBP >110. Anna Nalluri MANAGER ART Cardiology: H is updated medication list for this problem includes: Losartan 100 Mg Tablet (Losartan) ..... Take 1 tablet by mouth once a day Aspirin 81 Mg Tablet,delayed Release (dr/ec) (Aspirin) ..... 1 tablet by mouth once a day Anna Nalluri MANAGER ART Cardiology: lorrie saldana with jointer operator Anna Domingoluri SHELIA Cardiology:On rx Anna Nalluri MANAGER ART Cardiology:on rx Anna Nalluri MANAGER ART Cardiology:Remain un changed. N ormal stress test ane echo p roBNP [address] Anna Nalluri MANAGER ART Cardiology:Stable wi th no angina S tress test negative for ischemia Anna Nalluri MANAGER ART Cardiology:Remain un changed. N ormal stress test ane echo p roBNP 305 Anna Nalluri MANAGER ART Cardiology:on rx Darell Yu MD Cardiology:No angina [...] tablet by mouth every day Anna Nalluri MANAGER ART Cardiology: B P today: 108/51 P rior BP: 175/88 (05/15/2024) running soft, c/o feeling dizzy/lightheaded at times D ecreased amlodipine dose to 5 mg and hctz dose to 12.5 mg daily Anna Nalluri MANAGER ART Cardiology: H is updated medication list for this problem includes: Losartan 100 Mg Tablet (Losartan) ..... Take 1 tablet by mouth once a day Aspirin 81 Mg Tablet,delayed Release (dr/ec) (Aspirin) ..... 1 tablet by mouth once a day Anna Nalluri MANAGER ART Cardiology:follows with nephrolo gist Anna Nalluri MANAGER ART Cardiology:on rx Anna Nalluri MANAGER ART Cardiology:EF 69% c heck proBNP c onsider LEVEL trial Anna Nalluri MANAGER ART Cardiology:Remain un changed. 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 Denies chest pains. Darell uY MD Cardiology:ferritin 34 w ill try to [...] et labs first and will decide re [facility] Darelljr Yu MD Cardiology:ldl 73 His updated medication list for this problem includes: Ezetimibe 10 Mg Oral Tablet (Ezetimibe) ..... One tab daily - ADDED TODAY Rosuvastatin 40mg Tab (Rosuvastatin calcium) ..... Take 1 tablet by mouth daily Gigi COYNE Cardiology: Getting worse renal function and is supposed to see a jointer operator.- DR OH g et labs from [place] a lso on bactrim ds fci for [...] becomes symptomatic a sx at this time [facility] Gigi COYNE Cardiology- ltr done :wc. H [...] problem includes: Exforge Hct 10-160-12.5 Mg Tabs (Jsmovgtjen-tudyrzdqw-scol) ..... Once daily Aspirin 325 Mg Tabs [...] problem includes: Exforge Hct 10-320-25 Mg Tabs (Nwegzkackl-eqdrtuggm-nzij) ..... One tab. daily Aspirin 325 Mg [...] O rders: H olter Monitor 24 Hr (CPT-17070) Darell Yu MD 6 month follow-up: H [...] ischemia. Normal gated study with LVEF 62%. [facility] (02/01/2007) Cardiac Cath: Severe single-vessel CAD [...] and 3.0 x 8 mm Xience stents. [facility] (06/17/2009) C arotid Doppler/Duplex: Normal GC (04/08/2009) [...] ..... One tab. daily Orders: Vidhi LEDEZMA (CPT-42841) Darell Gigi COYNE 6 month f/u per recall Katiana hoover MD 4 week hosp f/u Alfonzo monae [...] Darell Yu MD INTERROGATION REMOTE </90 D HOP FARMER REVIEW completed Pacemaker Interrogation, Remote (Prof) Darell Yu MD INTERROGATION EVAL REMOTE </90 D 1/2/PEDIATRIC PSYCHOLOGIST LEAD P completed ICM Interrogation, Remote (Prof) [...] Darell Yu MD INTERROGATION REMOTE </90 D HOP FARMER REVIEW completed Pacemaker Interrogation, Remote (Prof) Darell Yu MD INTERROGATION EVAL REMOTE </90 D 1/2/PEDIATRIC PSYCHOLOGIST LEAD P completed ICM Interrogation, Remote (Prof) [...] Darell Yu MD INTERROGATION REMOTE </90 D HOP FARMER REVIEW completed Pacemaker Interrogation, Remote (Prof) Darell Yu MD INTERROGATION EVAL REMOTE </90 D 1/2/PEDIATRIC PSYCHOLOGIST LEAD P completed ICM Interrogation, Remote (Prof) [...] Darell Yu MD INTERROGATION REMOTE </90 D HOP FARMER REVIEW completed Pacemaker Interrogation, Remote (Prof) Darell Yu MD INTERROGATION EVAL REMOTE </90 D 1/2/PEDIATRIC PSYCHOLOGIST LEAD P completed ICM Interrogation, Remote (Prof) [...] Darell Yu MD INTERROGATION REMOTE </90 D HOP FARMER REVIEW completed Pacemaker Interrogation, Remote (Prof) Darell Yu MD INTERROGATION EVAL REMOTE </90 D 1/2/PEDIATRIC PSYCHOLOGIST LEAD P completed ICM Interrogation, Remote (Prof) [...] Darell Yu MD INTERROGATION REMOTE </90 D HOP FARMER REVIEW completed Pacemaker Interrogation, Remote (Prof) Darell Yu MD INTERROGATION EVAL REMOTE </90 D 1/2/PEDIATRIC PSYCHOLOGIST LEAD P completed SNOMED-CT: 27352837 Physical Exam, Performed: Pulse Exam of Foot Darellnorberto Yu MD completed EKG Darelljr Yu MD completed SNOMED-CT: [id number] Current Medications Documented Darellnorberto Yu MD completed ICM Interrogation, Remote (Prof) Darell Yu MD INTERROGATION EVAL REMOTE </30 D CV MNTR SYS completed ICM Interrogation, Remote (Tech) Adrell Yu MD INTERROGATION EVAL REMOTE </30 D [...] Images Oh Nettles MD compl eted SNOMED-CT: [id number] Physical Exam, Performed: Pulse Exam of Foot Darellnorberto Yu MD completed EKG Darelljr Yu MD completed SNOMED-CT: [id number] Current Medications Documented Darellnorberto Yu MD completed ICM Interrogation, Remote (Prof) Darelljr Yu MD INTERROGATION EVAL REMOTE </30 D CV MNTR SYS completed ICM Interrogation, Remote (Tech) Darelljr Yu MD INTERROGATION EVAL REMOTE </30 D TECH REVIEW completed Pacemaker Interrogation, Remote (Tech) Darelljr Yu MD INTERROGATION REMOTE </90 D HOP FARMER REVIEW completed Pacemaker Interrogation, Remote (Prof) Darelljr Yu MD INTERROGATION EVAL REMOTE </90 D 1/2/PEDIATRIC PSYCHOLOGIST LEAD P completed ICM Interrogation, Remote (Prof) [...] Darell Yu MD INTERROGATION REMOTE </90 D HOP FARMER REVIEW completed Pacemaker Interrogation, Remote (Prof) Darell Yu MD INTERROGATION EVAL REMOTE </90 D 1/2/PEDIATRIC PSYCHOLOGIST LEAD P completed ICM Interrogation, Remote (Prof) [...] Darell Yu MD INTERROGATION REMOTE </90 D HOP FARMER REVIEW completed Pacemaker Interrogation, Remote (Prof) Darell Yu MD INTERROGATION EVAL REMOTE </90 D 1/2/PEDIATRIC PSYCHOLOGIST LEAD P completed ICM Interrogation, Remote (Prof) [...] Darell Yu MD INTERROGATION REMOTE </90 D HOP FARMER REVIEW completed Pacemaker Interrogation, Remote (Prof) Darell Das MD INTERROGATION EVAL REMOTE </90 D 1/2/PEDIATRIC PSYCHOLOGIST LEAD P completed ICM Interrogation, Remote (Prof) [...] REMOTE </30 D TECH REVIEW completed SNOMED-CT: [id number] Physical Exam, Performed: Pulse Exam of Foot Darelljr Yu MD completed SNOMED-CT: [id number] Current Medications Documented Darelljr Yu MD completed ICM Interrogation, Remote (Prof) Darell Gigi COYNE INTERROGATION EVAL REMOTE </30 D CV MNTR SYS completed Pacemaker Interrogation, Remote (Tech) Darell Gigi MD INTERROGATION REMOTE </90 D HOP FARMER REVIEW completed Pacemaker Interrogation, Remote (Prof) Darellnorberto Yu MD INTERROGATION EVAL REMOTE </90 D 1/2/PEDIATRIC PSYCHOLOGIST LEAD P completed ICM Interrogation, Remote (Prof) Darell Gigi MD INTERROGATION EVAL REMOTE </30 D CV MNTR SYS completed ICM Interrogation, Remote (Tech) Darellnorberto Yu MD INTERROGATION EVAL REMOTE </30 D TECH REVIEW completed FVC - 57027 Darelljr Yu MD completed FRC - 51283 Darell Yu MD completed DLCO - 87513 Darelljr Yu MD complete d ICM Interrogation, Remote (Prof) Darell Yu MD INTERROGATION EVAL REMOTE </30 D CV MNTR SYS completed ICM Interrogation, Remote (Tech) Darell Yu MD INTERROGATION EVAL REMOTE </30 D TECH REVIEW completed SNOMED-CT: [id number] Physical Exam, Performed: Pulse Exam of Foot Darellnorberto Yu MD completed SNOMED-CT: [id number] Current Medications Documented Gigi COYNE completed ICM Interrogation, Remote (Prof) Gigi COYNE INTERROGATION EVAL REMOTE </30 D CV MNTR SYS completed Pacemaker Interrogation, Remote (Tech) Gigi COYNE INTERROGATION REMOTE </90 D HOP FARMER REVIEW completed Pacemaker Interrogation, Remote (Prof) Gigi COYNE INTERROGATION EVAL REMOTE </90 D 1/2/PEDIATRIC PSYCHOLOGIST LEAD P completed ICM Interrogation, Remote (Prof) Gigi COYNE INTERROGATION EVAL REMOTE </30 D CV MNTR SYS completed ICM Interrogation, Remote (Tech) Gigi COYNE INTERROGATION EVAL REMOTE </30 D TECH REVIEW completed ICM Interrogation, Remote (Prof) Darellnorberto Yu MD INTERROGATION EVAL REMOTE </30 D CV MNTR SYS completed ICM Interrogation, Remote (Tech) Gigi COYNE INTERROGATION EVAL REMOTE </30 D TECH REVIEW completed SNOMED-CT: [id number] Physical Exam, Performed: Pulse Exam of Foot Darellnorberto Yu MD completed SNOMED-CT: [id number] Current Medications Documented Gigi COYNE completed EKG [...]
[2024-10-17 12:08] LABS: Basophils Percent Auto 0.4 % (0.2-1.2); Eosinophils Absolute Auto 0.1 K/mm3 (0-0.3); Eosinophils Percent Auto 1.7 % (0-4.4); Immature Granulocyte Absolute 0.03 K/mm3 (0.00-0.031); Immature Granulocyte Percent A 0.6 % (0-0.5); Lymphocytes Percent Auto 20.9 % (18.3-44.2); Mean Corpuscular HGB Conc 27.8 g/dl (32-36); Mean Corpuscular Hemoglobin 19.1 pg (26-34); Mean Corpuscular Volume 68.8 fl (80-100); Mean Platelet Volume 8.7 fl (7.4-10.4); Monocytes Absolute Auto 0.4 K/mm3 (0.1-0.6); Monocytes Percent Auto 8.4 % (2.6-8.5); Neutrophils Absolute Auto 3.3 K/mm3 (1.3-6.7); Platelet Count Result 180 k/mm3 (150-375); Red Blood Count 2.88 M/mm3 (4.6-6.20); Red Cell Distribution Width 21.6 % (11.5-14.5); White Blood Count 4.8 K/mm3 (4.5-10.0)
[2024-10-17 12:13] LABS: Hematocrit 19.8 % (42.0-52.0); Hemoglobin 5.5 g/dL (14.0-18.0)
[2024-10-17 12:23] LABS: INR 1.2; Partial Thromboplastin Time 27.3 Seconds (22.3-36.8); Prothrombin Time 15.3 Seconds (11.1-14.7)
[2024-10-17 12:25] LABS: Alanine Aminotransferase 28 U/L (6-50); Albumin Level 3.9 g/dL (3.5-5.1); Alkaline Phosphatase 62 U/L (38-126); Anion Gap 6 mmol/L (4-12); Aspartate Amino Transferase 34 U/L (17-59); Bilirubin,Total 0.2 mg/dL (0.2-1.3); Blood Urea Nitrogen 29 mg/dL (9-20); Calcium 9.1 mg/dL (8.4-10.2); Carbon Dioxide 24 mmol/L (22-30); Chloride 111 mmol/L (98-107); Estimated CRCL calculation 28 ml/min; Estimated Glomerular Filt Rate 33; Glucose 95 mg/dL (65-110); Sodium 141 mmol/L (137-145); Total Protein 6.6 g/dL (6.3-8.2)
[2024-10-17 12:28] LABS: Hypochromasia 2+; Microcytosis 1+ (NORMAL); Platelet Estimate Adequate (Adequate); Target Cells 1+
[2024-10-17 12:29] LABS: Anisocytosis 1+; Ovalocytes 1+; Schistocytes None Seen
[2024-10-17 12:37] LABS: NT Pro B Type Natriuretic Pept 725 pg/mL (19.9-100); Troponin I < 0.012 ng/mL (0.000-0.034)
--- NOTE | 2024-10-17 13:44 | ED.SOB ---
HPI - SOB/Dyspnea General Chief Complaint: Shortness of Breath/Dyspnea Stated Complaint: ANEMIA NEEDS BLOOD TRANSFUSION Time Seen by Provider: 10/17/24 11:43 History of Present Illness HPI Narrative: Patient presents here with shortness of breath that has been ongoing and worsening over last few weeks to months, he does have history of CKD and heart disease; outpatient blood work today shows low hemoglobin and he was sent in by his doctor. He has not noticed any source of bleeding, no blood in his stool or dark stools. Related Data Home Medications ?Medication ?Instructions ?Recorded ?Confirmed ?Last Taken ?Type donepezil 10 mg tablet 10 mg PO DAILY 02/17/22 10/04/24 Unknown History aspirin 81 mg tablet,delayed 81 mg PO DAILY 08/24/22 10/04/24 Unknown History release (Adult Low Dose Aspirin) clopidogrel 75 mg tablet 75 mg PO DAILY 03/17/23 10/04/24 Unknown History ezetimibe 10 mg tablet 10 mg PO DAILY 02/15/24 10/04/24 Unknown History evolocumab 140 mg/mL subcutaneous 140 mg subcut .every 2 weeks 10/04/24 10/04/24 Unknown History syringe (Repatha Syringe) famotidine 20 mg tablet (Pepcid) 20 mg PO BID 10/04/24 10/04/24 Unknown History hydrochlorothiazide 12.5 mg tablet 12.5 mg PO DAILY 10/04/24 10/04/24 Unknown History losartan 100 mg tablet 100 mg PO DAILY 10/04/24 10/04/24 Unknown History mecobalamin (vitamin B12) 2,500 2,500 mcg PO .QOD 10/04/24 10/04/24 Unknown History mcg chewable tablet multivitamin (Daily Multi-Vitamin 1 tablet PO .QOD 10/04/24 10/04/24 Unknown History tablet) rosuvastatin 40 mg tablet 40 mg PO QHS 10/04/24 10/04/24 Unknown History sulfamethoxazole 800 1 tablet PO DAILY 10/04/24 10/04/24 Unknown History mg-trimethoprim 160 mg tablet Allergies Allergy/AdvReac Type Severity Reaction Status Date / Time adhesive Allergy Intermediate HIVES Verified 10/17/24 11:28 ramipril Allergy Unknown Swelling Verified 10/04/24 15:00 Review of Systems Review of Systems: All systems reviewed & are unremarkable except as noted in HPI and below PMFSH Past Medical History Medical History Dementia Colon polyp Depression Family history of colon cancer Anxiety BPH NOS w/o ur obs/LUTS CAD in [place] artery CKD (chronic kidney disease) stage 3, GFR 30-59 ml/min Chronic neck and back pain Dyslipidemia Essential (primary) hypertension GERD without esophagitis CHECO (obstructive sleep apnea) SSS (sick sinus syndrome) Type 2 diabetes mellitus without complication, without long-term current use of insulin Unspecified osteoarthritis, unspecified site Vitamin D deficiency Surgical History Surgical History History of right knee joint replacement (~2009) 2004 and 2009 on bactrim since 2009 due to septic arthritis post knee replacement. History of left knee replacement (~2017) History of arthroplasty of right hip (~06/2020) 06/2020 History of lumbosacral spine surgery (~10/2004) 10/2004 History of cervical spinal surgery (~03/2007) 03/2007 History of esophageal dilatation (~06/2013) 06/2013 History of carpal tunnel surgery of right wrist (~12/2003) 12/2003 History of coronary artery stent placement 04/2003, 11/2007, 10/2021 History of pacemaker (~2002) 2002 H/O: knee surgery (~2013) Family History Family History Father Family history of emphysema Sibling Family history of renal failure Other Carcinoma of colon Diabetes mellitus Family history of cardiovascular disease Family history of tuberculosis Hypertension Social History Social History Years smoked: 3 Smoking status: Former smoker Tobacco type: cigars Smoking end date: 05/17/80 Alcohol intake: current Alcohol use details: rare use, 2-3 times a year Substance use: never Substance use type: does not use Do You Feel Safe in your Home?: Yes Lack of Transportation: No Lack of Food: Never True Current Housing: I Have Housing Concerned About Future Housing: No Difficulty Paying Gas/Electric Bills: No Difficulty Paying for Meds: No Currently Unemployed: No Education: Trade/Vocational Certificate Difficulty w/ Childcare or Family Care: No Living arrangements: alone Occupation/Education: retired Gender identity (if verbalized by the patient): Male Spiritual care concerns: No Agree to blood products: Yes Exam Narrative: EXAMINATION OF ORGAN SYSTEMS/BODY AREAS: Constitutional: Vital signs per nursing GENERAL:[No acute distress, non-toxic appearing.] Appears slightly tired HEAD: Normal with no signs of head trauma. EYES: EOMI, conjunctiva pale ENT: Hearing grossly intact LUNGS: Nonlabored breathing. HEART: [Regular rate and rhythm] ABD: [Soft], [nontender to palpation] EXT: Normal range of motion SKIN: Pale RECTAL: Guaiac neg NEURO: [Alert and oriented x 3. No gross focal sensory or strength deficits.] PSYCH: Normal affect Course Vital Signs Vital signs: Vital Signs Temperature 98.2 F 10/17/24 11:35 Pulse Rate 80 10/17/24 11:35 Respiratory Rate 16 10/17/24 11:35 Blood Pressure 109/47 L 10/17/24 11:35 Pulse Oximetry 98 10/17/24 11:35 Oxygen Delivery Room Air 10/17/24 11:35 Temperature 98.0 F 10/17/24 17:39 Pulse Rate 63 10/17/24 17:39 Respiratory Rate 13 10/17/24 17:39 Blood Pressure 163/74 H 10/17/24 17:39 Pulse Oximetry 100 10/17/24 17:39 Oxygen Delivery Room Air 10/17/24 12:32 MDM - SOB/Dyspnea MDM Narrative Medical decision making narrative: Patient presenting here with low hemoglobin, had been feeling short of breath and tired for months. Hgb today was 5.8 and last in our records was 2022, 10.8. Guaiac negative and he has no other sources of blood loss. However based on the low MCV, MCH, MCHC, does seem to be issue with production rather than blood loss, I did try to reach out to his other doctors to see if they are able to give me a trend on his hemoglobin, did speak with his cardiology group and they do not have any recent hemoglobin within last 2 years either. I did speak with Hematology, who recommends close outpatient management with him in clinic and several tests which I have ordered. I did have a very long conversation with patient and his daughter at bedside and they are comfortable with this plan with strict return precautions. Patient is transfused here for 2 units, will repeat hemoglobin after he is finished, and anticipate he would be stable for discharge once his hemoglobin is above 7. On my re-evaluation he does feel better. Lab Data 10/17/24 11:53 10/17/24 11:53 Labs: Lab Results 10/17/24 Range/Units 11:53 WBC 4.8 (4.5-10.0) K/mm3 RBC 2.88 L (4.6-6.20) M/mm3 Hgb 5.5 L* D (14.0-18.0) g/dL Hct 19.8 L* (42.0-52.0) % MCV 68.8 L (80-100) fl MCH 19.1 L (26-34) pg MCHC 27.8 L (32-36) g/dl RDW 21.6 H (11.5-14.5) % Plt Count 180 (150-375) k/mm3 MPV 8.7 (7.4-10.4) fl Immature Gran % (Auto) 0.6 H (0-0.5) % Neut % (Auto) 68.0 (45.5-73.1) % Lymph % (Auto) 20.9 (18.3-44.2) % [place] % (Auto) 8.4 (2.6-8.5) % Eos % (Auto) 1.7 (0-4.4) % Baso % (Auto) 0.4 (0.2-1.2) % Lymph # (Auto) 1.00 (0.9-3.2) K/mm3 [place] # (Auto) 0.4 (0.1-0.6) K/mm3 Eos # (Auto) 0.1 (0-0.3) K/mm3 Baso # (Auto) 0.0 (0.0-0.1) K/mm3 Abs Immat Gran (auto) 0.03 (0.00-0.031) K/mm3 Absolute Neuts (auto) 3.3 (1.3-6.7) K/mm3 Absolute Nucleated RBC 0.000 (0.0-0.012) K/mm3 Band Neutrophils % Not Reportable Nucleated RBC % 0.0 (0.0-0.2) % Platelet Estimate Adequate (Adequate) Hypochromasia 2+ Anisocytosis 1+ Microcytosis 1+ (NORMAL) Target Cells 1+ Ovalocytes 1+ Schistocytes None seen PT 15.3 H (11.1-14.7) Seconds INR 1.2 APTT 27.3 (22.3-36.8) Seconds Sodium 141 (137-145) mmol/L Potassium 5.0 (3.4-5.0) mmol/L Chloride 111 H (98-107) mmol/L Carbon Dioxide 24 (22-30) mmol/L Anion Gap 6 (4-12) mmol/L BUN 29 H (9-20) mg/dL Creatinine 1.98 H (0.7-1.3) mg/dL Estim Creat Clear Calc 28 ml/min Estimated GFR 33 L (59 - ) Glucose 95 (65-110) mg/dL Calcium 9.1 (8.4-10.2) mg/dL Total Bilirubin 0.2 (0.2-1.3) mg/dL AST 34 (17-59) U/L ALT 28 (6-50) U/L Alkaline Phosphatase 62 (38-126) U/L Troponin I < 0.012 (0.000-0.034) ng/mL NT-Pro-B Natriuret Pep 725 H (19.9-100) pg/mL Total Protein 6.6 (6.3-8.2) g/dL Albumin 3.9 (3.5-5.1) g/dL Blood Type O Positive Antibody Screen Negative Enhanced Crossmatch See Detail Critical Care Time Critical Care Time Critical Care Time: Yes Total Critical Care Time: 31 Discharge Plan Discharge Clinical Impression: Anemia Patient Disposition: Home Condition: Stable Instructions: Anemia (ED) Additional Instructions: Please start the iron pills and follow up with the superintendent mechanical. Start tracking your blood pressures at home. If your blood pressure is consistently higher than 140/90, you can start giving the full tab of your losartan (100 mg) daily. If you start having shortness of breath, chest pain, or anything else concerning, come back to the emergency room. Patient Language: Irish Prescriptions: New ferrous sulfate [Iron (ferrous sulfate)] 325 mg (65 mg iron) tablet 325 mg PO DAILY Qty: 30 0RF No Action donepezil 10 mg tablet 10 mg PO DAILY Repatha Syringe 140 mg/mL syringe 140 mg subcut .every 2 weeks clopidogrel 75 mg tablet 75 mg PO DAILY rosuvastatin 40 mg tablet 40 mg PO QHS aspirin [Adult Low Dose Aspirin] 81 mg tablet,delayed release (DR/EC) 81 mg PO DAILY ezetimibe 10 mg tablet 10 mg PO DAILY losartan 100 mg tablet 100 mg PO DAILY sulfamethoxazole-trimethoprim 800-160 mg tablet 1 tablet PO DAILY hydrochlorothiazide 12.5 mg tablet 12.5 mg PO DAILY multivitamin [Daily Multi-Vitamin] Tablet 1 tablet PO .QOD mecobalamin (vitamin B12) 2,500 mcg tablet,chewable 2,500 mcg PO .QOD famotidine [Pepcid] 20 mg tablet 20 mg PO BID amlodipine 5 mg tablet 5 mg PO DAILY Qty: 90 1RF citalopram 20 mg tablet 20 mg PO DAILY Qty: 90 0RF tamsulosin 0.4 mg capsule 0.4 mg PO DAILY Qty: 90 1RF ergocalciferol (vitamin D2) 1,250 mcg (50,000 unit) capsule 1,250 mcg PO WEEKLY Qty: 12 1RF Follow-up/Referrals: Richard Brooke MD [Physician] - 2 Days Hemal Gray MD [Primary Care Provider] -
[2024-10-17] MEDS: SODIUM CHLORIDE 0.9% IV 250 ML 30 ML IV CONT (16:40)
[2024-10-17] MEDS: TUBING, BLOOD SET 1 EACH XX (16:40)
[2024-10-17 19:26] LABS: Hematocrit 26.5 % (42.0-52.0); Hemoglobin 7.7 g/dL (14.0-18.0)
[2024-10-17 19:36] LABS: Lactate Dehydrogenase 225 U/L (120-246)
[2024-10-17 19:44] LABS: Iron 11 ug/dL (49-181)
[2024-10-17 19:53] LABS: Percent Iron Saturation 3 % (20-50)
[2024-10-17 22:35] LABS: Folic Acid 5.1 ng/mL (2.76->20)
== END 2024-10-17 21:06 | disposition home or self-care (01) ==
PROVIDERS: Emergency Provider Emergency Medicine; PCP Family Medicine
DX: D64.9 Anemia, unspecified (principal); I12.9 Hypertensive chronic kidney disease with stage 1 through stage 4 chronic kidney disease, or unspecified chronic kidney disease; E11.22 Type 2 diabetes mellitus with diabetic chronic kidney disease; N18.30 Chronic kidney disease, stage 3 unspecified; I25.10 Atherosclerotic heart disease of native coronary artery without angina pectoris; Z87.891 Personal history of nicotine dependence
CPT/HCPCS: 36415; 36430; 71045; 80053; 82607; 82746; 83540; 83550; 83615; 83880; 84484; 85014; 85018; 85025; 85610; 85730; 86850; 86900; 86901; 86922; 93005; 96360; 96361; 99285; J7050; P9016

== ENCOUNTER 2024-10-25 14:42 | Outpatient (CLI) | payer MEDICARE, MEDICAID, SELFPAY ==
--- OUTSIDE RECORDS SUMMARY | 2024-10-25 17:20 | XMS_ITS | Encounter Summary ---
Author Organization [facility] Address [address] [place] [address] Phone Care Team Providers Care Warehouser Name Role Phone Huy Elliott Primary Care Provider [phone] Tony Gray MD Primary Care Provider Alfredo Jordan VASCULAR MANAGER Unavailable [phone] Encounter Details Date Type Department Care Team (Late st Contact Info) Description 08/09/2017 Orders Only [facility] Provider, MD Erlinda [address] [place] [id number] Social History Tobacco Use Types Packs/Day Years Used Date Smoking Tobacco: Former Alcohol Use Standard Drinks/Week Comments Yes 0 (1 standard drink = 0.6 oz pur e alcohol) Sex and Gender Information Value Date Recorded Sex Assigned at Not on file Legal Sex Male 1:11 AM ACCOUNT SERVICE 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 Gender Identity Not on file Sexual Orientation Not on file documented as of this encounter Plan of Treatment Upcoming Encounters Date Type Department Care Team (Late st Contact Info) Description 11/23/2024 7:30 AM CDT Hospital Encounter [facility] Operating Room [address] [place] [address] [place] [address] [facility] [address] [place], [place] [id number] 11/23/2024 7:30 AM CDT - 11/23/2024 9:30 AM CDT Surgery [facility] Operating Room [address] [place] [address] [place] [address] [address] [place] [address] NEUROLYSIS PERIPHERAL NERVE RT SAPHENOUS NERVE/120 MIN Scheduled Procedures Name Priority Associated Diagnoses Date/Ti me NEUROLYSIS PERIPHERAL NERVE SAPHENOUS NERVE 11/23/2024 7:30 [...] on filedocumented in this encounter Care Teams Warehouser Relationship Specialty Start Date End Date Huy Elliott [address] [place] [address] PCP - General 07/09/16 12/15/21 Tony Gray MD [address] [place] [address] PCP - General Family Practice 12/16/21 [place] [address] [address] [place] [address] Nurse Practitioner Pain Management 04/19/24 documented as of this encounter
--- OUTSIDE RECORDS SUMMARY | 2024-10-25 17:20 | XMS_ITS | Encounter Summary ---
Author Organization [facility] Address [address] [place] [address] Care Team Providers Care Preventive Medicine Specialist Name Role Phone Tony Gray MD Primary Care Provider Darell Yu MD Unavailable Harry Vang MD Unavailable [phone] Twyla Cervantes MD Unavailable Encounter Details Date Type Department Care Team (Late st Contact Info) Description 08/28/2021 Ophth Exam [facility] [address] [place] [id number] [place], [place] [address] [facility] [address] [place] [address] Social History Tobacco Use Types Packs/Day Years Used Date Smoking Tobacco: Former Cigars Comments:quit 10 years ago Alcohol Use Standard Drinks/Week Comments Yes 8.3 (1 standard drink = 0.6 oz p ure alcohol) 10 beers per week Sex and Gender Information Value Date Recorded Sex Assigned at Not on file Legal Sex Male 6:32 AM 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 CENTER MANAGER Gender Identity Not on file Sexual Orientation Not on file documented as of this encounter Plan of Treatment Not on file documented as of this encounter Visit Diagnoses Not on filedocumented in this encounter Care Teams Preventive Medicine Specialist Relationship Specialty Start Date End Date Tony Gray MD [address] [place] [id number] PCP - General Family Medicine 08/28/21 [place] [address] [facility] [address] [address] Cardiovascular Disease 09/22/21 Harry Vang MD [address] [address] Internal Medicine 09/22/21 Twyla Cervantes MD [address] [facility] [address] [place] [address] Nephrology 09/22/21 documented as of this encounter
--- OUTSIDE RECORDS SUMMARY | 2024-10-25 17:20 | XMS_ITS | Encounter Summary ---
Author Organization [facility] Address [address] [place] [address] Phone Care Team Providers Care Second Baller Name Role Phone Huy Elliott Primary Care Provider [phone] Tony Gray MD Primary Care Provider Alfredo Jordan TRACKMAN Unavailable [phone] Encounter Details Date Type Department Care Team (Late st Contact Info) Description 05/13/2017 Orders Only [facility] Provider, MD Erlinda [address] [place] [id number] Social History Tobacco Use Types Packs/Day Years Used Date Smoking Tobacco: Former Alcohol Use Standard Drinks/Week Comments Yes 0 (1 standard drink = 0.6 oz pur e alcohol) Sex and Gender Information Value Date Recorded Sex Assigned at Not on file Legal Sex Male 1:11 AM CARDROOM 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 Gender Identity Not on file Sexual Orientation Not on file documented as of this encounter Plan of Treatment Upcoming Encounters Date Type Department Care Team (Late st Contact Info) Description 11/23/2024 7:30 AM CDT Hospital Encounter [facility] [address] [place] [address] [place] [address] [facility] [address] [place], [place] [id number] 11/23/2024 7:30 AM CDT - 11/23/2024 9:30 AM CDT Surgery [facility] [address] [place] [address] [place] [address] [facility] [address] [place] [address] NEUROLYSIS PERIPHERAL NERVE RT SAPHENOUS NERVE/120 MIN Scheduled Procedures Name Priority Associated Diagnoses Date/Ti me NEUROLYSIS PERIPHERAL NERVE SAPHENOUS NERVE 11/23/2024 7:30 AM CDT documented as of this encounter Procedures Procedure Name Priority Date/Time Associated Diagnosis Comments DISCHARGE LABORATORY CUMULATIVE REPORT 05/13/2017 12:00 AM CARDROOM MANAGER documented in this encounter Results * DISCHARGE LABORATORY CUMULATIVE REPORT (05/13/2017 12:00 AM CARDROOM MANAGER) Narrative 05/13/2017 12:00 AM CARDROOM MANAGER Ordered by an unspecified provider. us Historical Provider LAB BLOOD ORDERABLES Judy l Result documented in this encounter Visit Diagnoses Not on filedocumented in this encounter Care Teams Second Baller Relationship Specialty Start Date End Date Huy Elliott [address] [place] [address] PCP - General 07/09/16 12/15/21 Tony Gray MD [address] [place] [address] PCP - General Family Practice 12/16/21 [place] [id number] [facility] [address] [place] [address] Nurse Practitioner Pain Management 04/19/24 documented as of this encounter
--- OUTSIDE RECORDS SUMMARY | 2024-10-25 17:21 | XMS_ITS | Encounter Summary ---
Author Organization [facility] Address [address] [place] [address] Phone Care Team Providers Care Newspaper Managing Editor Name Role Phone Tony Gray MD Primary Care Provider Pepe Dunn MD Unavailable Reason for Visit * Reason Comments Medication Refill Encounter Details Date Type Department Care Team (Late st Contact Info) Description 11/26/2021 Refill [facility] - [facility]rology [facility] [address] [place] [id number] Pepe Dunn MD [address] [place] [id number] Medication Refill Social History Tobacco Use Types [...] Visit [facility] - Neurology [facility] [address] [place] [address] Pepe Dunn MD [address] [place] [address] documented as of this encounter Visit Diagnoses Not on filedocumented in this encounter Care Teams Newspaper Managing Editor Relationship Specialty Start Date End Date Tony Gray MD PCP - General Family Medicine 08/26/21 Pepe Dunn MD [address] [place] [address] Consulting Physician Neurology 02/03/22 documented as of this encounter
--- OUTSIDE RECORDS SUMMARY | 2024-10-25 17:21 | XMS_ITS | CONTINUITY OF CARE DOCUMENT ---
Author Name marcus velazquez Address Unknown Organization [facility] Address [address] [place] [address] Phone [phone] Care Team Providers Care Blunger Machine Operator Name Role Phone Gigi COYNE, Darell Unavailable [phone] Tony Gray MD Unavailable Tony Gray MD Unavailable [phone] PROBLEMS Condition Status Date Provider Notes Iron deficiency active Rebecca Munoz RN Sick sinus syndrome active Precious Ruiz [facility] Sleep apnea, obstructive - CPAP @ 15. [...] In-person encounter Office Visit Darell Yu MD [facility] B12 deficiency - In-person encounter Office Visit Darell Yu MD [facility] - In-person encounter Office Visit Darell [...] In-person encounter Office Visit Tariq Watson MD [facility] - In-person encounter Office Visit Darell [...] In-person encounter Office Visit Darell Yu MD [facility] - In-person encounter Office Visit Darell Yu MD [facility] DIABETES MELLITUSSPI NAL STENOSIS - In-person encounter Office Visit Benjamin Camacho MD [facility] - In-person encounter Office Visit Darell Yu MD [facility] - In-person encounter Office Visit Darell Yu MD [facility] - In-person encounter Office Visit Darell Yu MD [facility] - In-person encounter Office Visit Darell [facility] CAD - In-person encounter Office Visit Darell Yu MD [facility] - In-person encounter Office Visit Darell [...] [place] oxygen saturation, oximetry 97 % [facility] pulse [facility] 79 /min [facility] respiratory rate E&M 14 /min [facility] weight E&M 197 [lb_av] [facility] height E&M 66 [in_i] [facility] blood pressure, cuff size regular An salvador [place] blood pressure, diastolic 55 mm[Hg] Li nkLogic blood pressure, systolic 112 mm[Hg] Suzette kLogic Body Mass Index (Ratio) 34.38 kg/m2 Sund jr Yu MD blood pressure, diastolic 55 mm[Hg] Candi dumont Castaneda blood pressure, systolic 112 mm[Hg] Steven helle [place] oxygen saturation, oximetry 96 % Temi Castaneda [...] blood pressure, systolic 110 mm[Hg] Steven helle [place] oxygen saturation, oximetry 98 % Temi Castaneda [...] dumont Castaneda blood pressure, diastolic 68 mm[Hg] Tn tim Castaneda blood pressure, systolic 132 mm[Hg] [facility] [place] oxygen saturation, oximetry 96 % Temi Castaneda respiratory rate E&M 16 /min Suad Castaneda pulse rate 89 /min Temi saab weight E&M 206 [lb_av] Temi saab height E&M 66 [in_i] Temi saab Body Mass Index (Ratio) 33.89 kg/m2 Eliceo Yu MD blood pressure, diastolic 57 mm[Hg] Ch astpanda Lara blood pressure, systolic 135 mm[Hg] [facility]i [facility] oxygen saturation, oximetry 97 % [facility] 97 /min [facility] weight E&M 210 [lb_av] [facility] respiratory rate E&M 16 /min Logan leonard Lara height E&M 66 [in_i] [facility] Body Mass Index (Ratio) 34.70 kg/m2 [...] blood pressure, diastolic 80 mm[Hg] Kr iskay Geovani blood pressure, systolic 120 mm[Hg] Gómezi sty Geovani respiratory rate E&M 18 /min Laura Geovani pulse rate 78 /min Laura oxygen saturation, oximetry 97 % Laura Body Mass Index (Ratio) 35.83 kg/m2 Raul villanueva Geovani weight in kilograms E&M 100.70 kg Raul ty weight E&M 222 [lb_av] Laura height E&M 66 [in_i] Laura height in centimeters E&M 167.64 cm Gómez rai Body Mass Index (Ratio) 35.67 kg/m2 Eliceo Yu MD blood pressure, cuff size regular Gómez rai Geovani blood pressure, diastolic 70 mm[Hg] Gómez rai blood pressure, systolic 122 mm[Hg] Gómezi sthoracio Weed oxygen saturation, oximetry 95 % Laura Geovani pulse rate 81 /min Laura Weed respiratory rate E&M 18 /min Laura Geovani weight E&M 221 [lb_av] Laura Weed height E&M 66 [in_i] Laura Body Mass Index (Ratio) 35.05 kg/m2 Eliceo Yu MD blood pressure, cuff size regular Gómez rai weight E&M 217.2 [lb_av] Laura Geovani blood pressure, diastolic 70 mm[Hg] Gómez rai Geovani blood pressure, systolic 130 mm[Hg] Kri sty Geovani respiratory rate E&M 17 /min Laura Weed pulse rate 94 /min Laura Weed oxygen saturation, oximetry 95 % Laura Weed height E&M 66 [in_i] Laura Weed Body Mass Index (Ratio) 36.47 kg/m2 Evelyne Farr oxygen saturation, oximetry 93 % [facility] rate E&M 16 /min Anyiit horacio eBrmudez pulse rate 64 /min [facility] Lara blood pressure, diastolic 70 mm[Hg] astity Lara blood pressure, systolic 120 mm[Hg] Anyi stity Lara weight E&M 226 [lb_av] [facility] height E&M 66 [in_i] [facility] Body Mass Index (Ratio) 36.60 kg/m2 Eliceo Yu MD oxygen saturation, oximetry 94 % Laura Olivo blood pressure, diastolic 70 mm[Hg] Gómez Anthonyby blood pressure, systolic 122 mm[Hg] Nestor Anthonyby pulse rate 75 /min Laura Weed respiratory rate E&M 17 /min Laura Weed weight E&M 226.8 [lb_av] [facility], [facility] regular Gómez Anthonyby height E&M 66 [in_i] Laura Weed Body Mass Index (Ratio) 35.83 kg/m2 Charissa [...] RN blood pressure, resting Yes Raul kay Weed blood pressure, cuff size regular Gómez Anthonyby blood pressure, diastolic 70 mm[Hg] Gómez isty Weed blood pressure, systolic 115 mm[Hg] Gómezi sthoracio Geovani oxygen saturation, oximetry 96 % Laura Anthonyby respiratory rate E&M 17 /min Laura Geovani pulse rate 69 /min Laura Weed weight E&M 222 [lb_av] Laura Weed height E&M 66 [in_i] Laura Weed blood pressure, diastolic, left arm 60 mm [...] Lucy Yazan blood pressure, diastolic 74 mm[Hg] Nv wagner Yazan blood pressure, systolic 126 mm[Hg] [...] Lucy Yazan blood pressure, diastolic 79 mm[Hg] Nv wagner Yazan blood pressure, systolic 158 mm[Hg] Jannie julia Yazan respiratory rate E&M 16 /min Lucy Hand pulse rate 64 /min Lucy Hand oxygen saturation, oximetry 97 % Lucy Hand Body Mass Index (Ratio) 36.70 kg/m2 Orin Hand weight E&M 227.4 [lb_av] Lucy Hand Body Mass Index (Ratio) 36.15 kg/m2 Anea umesh Partha blood pressure, diastolic 90 mm[Hg] An eatris Patrha blood pressure, systolic 160 mm[Hg] Ane atris [...] Mass Index (Ratio) 35.80 kg/m2 Anea umesh [facility] blood pressure, diastolic 60 mm[Hg] An [...] /min Laura Galo height E&M 66 [in_i] [facility] weight E&M 224 [lb_av] [facility] blood pressure, diastolic, left arm 78 [...] Aguilar MA oxygen saturation, oximetry 98 % Ramonaabiley Aguilar MA blood pressure, diastolic 78 mm[Hg] [...] blood pressure, diastolic, sitting 86 mm[ Hg] [place] blood pressure, systolic, sitting 162 mm[ Hg] [place] pulse rate, supine, right 60 /min Hiral seph [place] blood pressure, darby tolic, supine, right arm 80 Magan [place] blood pressure, systolic, supine, r arm 1 65 [place] blood pressure, diastolic, left arm 90 mm [Hg] [place] blood pressure, systolic, left arm 176 mm [Hg] [place] blood pressure, diastolic, right arm 84 m m[Hg] [place] blood pressure, systolic, right arm 175 m m[Hg] [place] blood pressure, diastolic 84 mm[Hg] Hiral seph [place] blood pressure, systolic 175 mm[Hg] Roger eph [place] pulse rate 68 /min [facility] saturation, oximetry 96 % [facility] respiratory rate E&M 20 /min [facility] weight E&M 241 [lb_av] [place] blood pressure, diastolic, left arm 90 mm [Hg] [place] blood pressure, systolic, left arm 188 mm [Hg] [place] blood pressure, diastolic, right arm 84 m m[Hg] Magan [place] blood pressure, systolic, right arm 183 m m[Hg] [place] blood pressure, diastolic 84 mm[Hg] Hiral seph [place] blood pressure, systolic 183 mm[Hg] Roger eph [place] pulse rate 63 /min [place] oxygen saturation, oximetry 96 % [facility] respiratory rate E&M 16 /min [place] weight E&M 232.5 [lb_av] [place] blood pressure, diastolic, left arm 70 [...] pressure, diastolic, right arm 84 m m[Hg] [place] blood pressure, systolic, right arm 149 m m[Hg] Magan [place] blood pressure, diastolic 84 mm[Hg] Hiral seph [place] blood pressure, systolic 149 mm[Hg] Roger [facility] [place] pulse rate 63 /min [place] oxygen saturation, oximetry 95 % [place] respiratory rate E&M 16 /min Magan [...] Danisha Aguirre weight E&M 211.2 [lb_av] Alfonzo sampson ALLERGIES Allergy Name Onset Date Reaction Criticality Status SURGICAL TAPE rash. Low Criticality active ALTACE lips swollen Low Criticality active MALVIN INHIBITORS Low Criticality activ e RESULTS Date Observation Value Provider Reference Range Interpretation Location NT-pro BNP 305 LinkLogic <450 Normal [place] [facility] [address] [place] [address] Daniel Wetzel MD protein, urine, semiquantitative (dipstick) [...] 7-25 High blood glucose, random 90 mg/dL [facility] 65-139 Normal C-reactive protein, by highly sensitive test 0.9 mg/L [facility] Normal prothrombin time (patient) 10.9 s [...] Normal Absolute Neutrophil count 5616 cells/mcL LinkLog 5089-7763 Normal mean platelet volume 9.7 fL LinkLog 7.5-12.5 Normal platelet count 194 THOUSAND/UL [facility] 140-400 Normal red blood cell distribution [...] Normal Absolute Neutrophil count 3442 cells/mcL LinkLogic 9601-7689 Normal mean platelet volume 9.8 fL LinkLogic [...] iron binding capacity, unsaturated 237 ug/dL Link[facility] 313-200 6528/06 /23 iron binding capacity, total 321 ug/dL Link[facility] 187-057 1233/06 /23 hemoglobin A1C, blood, as % of [...] Not Estab. platelet count 183 X10E3/UL LinkLogic 131-900 4300/06 /23 red blood cell distribution width 13.4 [...] iron binding capacity, unsaturated 238 ug/dL LinkLogic 655-656 6078/09 /27 iron binding capacity, total 296 ug/dL [facility] 535-634 6370/07 /12 microalbumin/creati nine ratio, urine 15.8 MG/G [...] LinkLogic 3.5-5.2 sodium, serum 141 mmol/L Link[facility] 501-164 9906/07 /12 urea nitrogen/creatinine ratio, serum 15 LinkLogic 10-24 eGFR if 54 mL/min/{1.73 _m2} LinkLogic >59 Low eGFR if not 47 mL/min/{1.73 _m2} LinkLogic >59 Low creatinine, serum 1.49 mg/dL LinkLogic 0.76-1.27 High urea nitrogen, blood 22 mg/dL LinkLogic 8-27 blood glucose, random 94 mg/dL Link[facility] 65-99 vitamin b12, serum 371.5 pg/mL [facility] 211.0 - 946.0 thyroid stimulating hormone, serum 3.500 ??IU/ML [facility] 0.270 - 4.200 pro brain natriuretic peptide 66.3 pg/mL [facility] 0.0 - 125.0 ferritin, serum 44.0 ng/mL [facility] 30.0 - 400.0 albumin, serum 5.2 g/dL [facility] 3.5 - 5.2 red blood cell distribution width, size density 48.1 fL [facility] - immature granulocytes, percentage of total cells, blood 0.3 % [facility] - nucleated red blood cells as percent of blood leukocytes 0.0 % [facility] - red blood cell (erythrocyte) count, per high power field 0.0 10*3/UL [facility] - eosinophils as percent of blood leukocytes 2.4 % [facility] - neutrophils as percent of blood leukocytes 72.0 % [facility] - Absolute Neutrophils 4.2 CELLS/UL LinkLogic 1.5 - 7.8 basophils as percent of blood leukocytes 0.3 % [facility] - Absolute Basophils 0.0 CELLS/UL [facility] 0.0 - 0.2 monocytes as percent of blood leukocytes 6.0 % [facility] - Absolute Monocytes 0.4 CELLS/UL [facility] 0.2 - 1.0 lymphocytes as percent of blood leukocytes 19.0 % [facility] - Absolute Lymphocytes 1.1 CELLS/UL LinkLogic 0.9 - 3.9 mean platelet volume 10.1 (?) [facility] - platelet count 219.0 THOUSAND/UL LinkLog [...] cell distribution width, size density 46.5 fL [facility] - immature granulocytes, percentage of total cells, blood 0.2 % [facility] - nucleated red blood cells as percent of blood leukocytes 0.0 % [facility] - red blood cell (erythrocyte) count, per high power field 0.0 10*3/UL LinkLogic - eosinophils as percent of blood leukocytes 4.0 % [facility] - neutrophils as percent of blood leukocytes 63.5 % [facility] - Absolute Neutrophils 2.8 CELLS/UL LinkLogic 1.5 - 7.8 basophils as percent of blood leukocytes 0.2 % [facility] - Absolute Basophils 0.0 CELLS/UL LinkLogic 0.0 - 0.2 monocytes as percent of blood leukocytes 6.9 % [facility] - Absolute Monocytes 0.3 CELLS/UL LinkLog[facility] 0.2 - 1.0 lymphocytes as percent of blood leukocytes 25.2 % [facility] Lymphocytes 1.1 CELLS/UL LinkLogic 0.9 [...] mucus on urinalysis Yes Malini [facility] WBC urine on microscopy 0-5 [facility] RBC urine by microscopy 0-5 [facility] leukocyte esterase, urine, by dipstick Negative [facility] urob[facility], urine, semiquantitative (dipstick) Normal [facility] nitrite, urine, semiquantitative Negative [facility] RBC, urine, dipstick Negative [facility] bilirubin, urine Negative [facility] ketones, urine, by test strip Negative [facility] glucose, urine, semiquantitative Negative [facility] protein, urine, semiquantitative (dipstick) Negative [facility] pH, urine, semiquantitative 5.0 [facility] specific gravity, urine 1.019 [facility] urine color Yellow [facility] appearance, urine Clear [facility] alanine aminotransferase (SGPT), serum 31 1/L [facility] aspartate aminotransferase (SGOT), serum 33 1/L [facility] creatinine, serum 1.29 mg/dL [facility] [place] potassium, serum 4.1 mmol/L [facility] sodium, serum 140 mmol/L [facility] cholesterol/HDL ratio, serum, percent 5.7 [facility] triglyceride, serum, fasting 295 mg/dL [facility] lipoprotein, beta, serum, point, quantitative, calculated 105 mg/dL [facility] HDL cholesterol, serum 35 mg/dL [facility] cholesterol, serum 199 mg/dL [facility] alanine aminotransferase (SGPT), serum 23 1/L [facility] aspartate aminotransferase (SGOT), serum 29 1/L [facility] creatinine, serum 1.28 mg/dL [facility] potassium, serum 4.9 mmol/L [facility] sodium, serum 140 mmol/L [facility] alanine aminotransferase (SGPT), serum 23 1/L [facility] aspartate aminotransferase (SGOT), serum 27 1/L [facility] creatinine, serum 1.08 mg/dL [facility] potassium, serum 3.3 mmol/L [facility] sodium, serum 140 mmol/L [facility] alanine aminotransferase (SGPT), serum 26 1/L [facility] aspartate aminotransferase (SGOT), serum 27 1/L [facility] creatinine, serum 1.20 mg/dL [facility] potassium, serum 3.6 mmol/L [facility] sodium, serum 141 mmol/L [facility] alanine aminotransferase (SGPT), serum 21 1/L [facility] aspartate aminotransferase (SGOT), serum 35 1/L [facility] creatinine, serum 1.49 mg/dL [facility] potassium, serum 4.1 mmol/L [facility] sodium, serum 138 mmol/L [facility] prothrombin time (patient) 10.6 s LinkLogic [...] Normal Absolute Neutrophil count 1998 cells/mcL LinkLogic 9067-4151 Normal platelet count 327 THOUSAND/UL LinkLogic 140-400 [...] Normal Absolute Neutrophil count 3120 cells/mcL LinkLogic (0154-3345) Normal platelet count 224 THOUSAND/UL LinkLogic (140-400) [...] Normal Absolute Neutrophil count 3570 cells/mcL LinkLogic 6437-6556 Normal platelet count 195 THOUSAND/UL LinkLogic 140-400 [...] USE Medication Status Instructions Dates Provider Indications [facility] ment famotidine 20 mg tablet active [...] 1 TABLET BY MOUTH EVERY DAY 06/26 Lu Mcclure ezetimibe 10 mg tablet completed Take 1 tablet by mouth once a day 08/04 - 06/26 Lu Mcclure ezetimibe 10 mg tablet completed TAKE 1 TABLET BY MOUTH EVERY DAY 06/07 - 08/04 Mary Oakleya SureClick 140 mg/mL pen injector active INJECT 140 MG SUBCUTANEOUSLY EVERY TWO WEEKS 11/10 Astrid Rushing ezetimibe 10 mg tablet completed Take 1 tablet by mouth once a day 06/03 - 06/07 [facility] clopidogrel 75 mg tablet active TAKE 1 TABLET BY MOUTH EVERY DAY 06/19 Angelika Escobar RN Repatha SureClick 140 mg/mL pen injector completed [...] cap twice daily 02/09 - 01/09 Laura lOivo Protonix 40 mg tablet,delayed release (DR/EC) active 1 tablet once a day 02/09 Chastity Lara FLOMAX 0.4 MG ORAL CAPSULE completed one tab daily 02/09 - 01/09 Rosanna Whyte RN Celexa 20 mg tablet active 1 tablet onc e a day 02/09 Chastity Lara hydrochlorothiazide 25 mg tablet completed 1 tablet once a day 02/09 - 08/30 Anna Nalluri CIRCULAR GANG SAW OPERATOR Norvasc 10 mg tablet completed 1 tablet once a day 02/09 - 08/30 Anna Nalluri CIRCULAR GANG SAW OPERATOR COMPASS ASA/ RIVAROXABAN completed LTOLE ASA 100mg once daily and Rivaroxaban 2.5mg BID 12/24 - 06/08 Luyc Pittman ANDROGEL 50 MG/5GM (1%) TRANSDERMAL GEL [...] HOUR completed ONE TAB. DAILY - Marylu Luajn RN FLEXERIL TABS completed 10 mg at [...] grandchildren Darelljr Yu MD Ne jose Cruz CIRCULAR GANG SAW OPERATOR smoking, year quit 2007 Carol Manley n [...] Temi [place] smoking status Former smoker Tmei stapleton physical exercise, frequency, days per week [...] exercise, frequency, days per week no Laura Geovani caffeine use, averag e drinks per day 3 /d Laura Weed smoking, year quit 2007 Laura Bu sby number of years as a smoker 10 a Laura Weed cigarette use yes Laura Weed smoking status Former smoker Laura Geovani caffeine [...] exercise, frequency, days per week no Laura Weed alcohol use, average drinks per day social [...] exercise, frequency, days per week no Laura Weed alcohol use, average drinks per day social basis only Laura Weed caffeine use, averag e drinks per day yes Laura Weed smoking, year quit 2007 Laura oneilly number of years as a smoker 10 a Laura Anthonyby cigarette use yes Laura Weed smoking status Former smoker Laura Anthonyby physical [...] social history revie wed E&M reviewed Darell uY MD social history revie wed E&M reviewed [...] Management Plan continue current therapy Anna Nalluri CIRCULAR GANG SAW OPERATOR Reason Fall Assessme nt not done medical contraindication Carol Tilley HRA, CV Assess/Plan, Angina (inactive) Management Plan continue current therapy Anna Nalluri CIRCULAR GANG SAW OPERATOR Reason Fall Assessme nt not done medical [...] Aguirre FAMILY HISTORY Family Member Condition Mother [place] female <65 Full Brother Family History of Co ronary Artery Disease: Mother Family History Coron komal Heart Disease female < 65: Father Family History of Co ronary Artery Disease: INSURANCE PROVIDERS Payer name Policy type / Coverage type Deep red democrat ID [id number] (PPO C-SNP) [employer] insurance [employer] [id number] ADVANCE DIRECTIVES Name Date DISCUSSED - NO DECISION MADE TREATMENT PLAN Date Name Performer [id number],C,s ob with walking <1 city block e cho c/w distolic dysunction 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 The patient has been benefiting from therapy and should continue use. Nell Feliciano NP [id number],C, C hol: 163 (10/23/2021) HDL: 48 (10/23/2021) LDL: 94 MG/DL (CALC) (10/23/2021) T (10/23/2021) on Repatha w ill start ezetimibe again. Nell Feliciano NP [id number],C, 5 .6% u acr 13 will send him for enrollment to [place] Nell Feilciano NP [id number],C, B P today: 110/74 P rior BP: 133/71 (12/01/2021) Labs Reviewed: C reat: 1.95 (12/17/2021) C hol: 163 (10/23/2021) HDL: 48 (10/23/2021) LDL: 94 MG/DL (CALC) (10/23/2021) T (10/23/2021) Nell Feliciano NP [id number],C,N o chest pain, but continues ot have sob with exertion HsCrP 0.9 Nell Feliciano SHELIA [id number],C, H is updated medication list for this problem includes: Rosuvastatin 40 Mg Tablet (Rosuvastatin) ..... Take 1 tablet by mouth daily Ezetimibe 10 Mg Tablet (Ezetimibe) ..... 1 tablet once a day C HOL: 163 (10/23/2021) LDL: 94 MG/DL (CALC) (10/23/2021) HDL: 48 (10/23/2021) T (10/23/2021) felix Yu MD [id number],C, H is updated medication list for this [...] (CALC) (10/23/2021) T (10/23/2021) Darell Yu MD [id number],C, He had recent PCI and his sob is improved by 50%. Denies chest pains. Darell Yu MD [id number],C,f erritin 34 w ill try to get iron infusions Darell uY MD [id number],C, H is updated medication list for this [...] LDL: 87 MG/DL (CALC) (08/27/2021) T (08/27/2021) [id number],[facility],a bnl stress tst with inferio wall ischemia r ecommend cath a lso will do renals same time due to ckd a lso can consider rhc right radial ok [facility] [id number],C, H is updated medication list for this problem includes: Rosuvastatin 40 Mg Tablet (Rosuvastatin) ..... Take 1 tablet by mouth daily Ezetimibe 10 Mg Tablet (Ezetimibe) ..... 1 tablet once a day C HOL: 151 (08/27/2021) LDL: 87 MG/DL (CALC) (08/27/2021) HDL: 42 (08/27/2021) T (08/27/2021) [facility] [id number],C,uacr [facility] [id number],C,5 .6% u acr [facility] [id number],C,I m ore sob c heck labs - cbc, tsh, nt bnp e cho [facility] [id number],C, H is updated medication list for this problem includes: Rosuvastatin 40 Mg Tablet (Rosuvastatin) ..... Take 1 tablet by mouth daily Ezetimibe 10 Mg Tablet (Ezetimibe) ..... 1 tablet once a day [facility] [id number],C,T he patient is using CPAP on a regular basis. The patient has been benefiting from therapy and should continue use. Darell Yu MD [id number],C, H is updated medication list for this [...] 35 (06/23/2013) T (06/23/2013) Darell Yu MD [id number],C, H is updated medication list for this problem includes: Losartan 100 Mg Tablet (Losartan) ..... Take 1 tablet by mouth once a day Aspirin 81 Mg Tablet,delayed Release (dr/ec) (Aspirin) ..... 1 tablet by mouth once a day c heck uacr and hbaic Darell Yu MD [id number],C,n egative stress 2019 m ore sob r susu stress test Darell Yu MD [id number],C,s table per pt c hekc HbAic and uacr no la on dopplers in 2020 Darell Yu MD [id number],C,redo labs Daina Yu MD [id number],C,on supplement s Darell Yu MD Take your [...] 50 mg when SBP >110. Anna Nalluri CIRCULAR GANG SAW OPERATOR Cardiology: H is updated medication list for this problem includes: Losartan 100 Mg Tablet (Losartan) ..... Take 1 tablet by mouth once a day Aspirin 81 Mg Tablet,delayed Release (dr/ec) (Aspirin) ..... 1 tablet by mouth once a day Anna Nalluri CIRCULAR GANG SAW OPERATOR Cardiology: lorrie saldana with foundation maker Anna Domingoluri SHELAI Cardiology:On rx Anna Nalluri CIRCULAR GANG SAW OPERATOR Cardiology:on rx Anna Nalluri CIRCULAR GANG SAW OPERATOR Cardiology:Remain un changed. N ormal stress test ane echo p roBNP [address] Anna Nalluri CIRCULAR GANG SAW OPERATOR Cardiology:Stable wi th no angina S tress test negative for ischemia Anna Nalluri CIRCULAR GANG SAW OPERATOR Cardiology:Remain un changed. N ormal stress test ane echo p roBNP 305 Anna Nalluri CIRCULAR GANG SAW OPERATOR Cardiology:on rx Darell Yu MD Cardiology:No angina [...] tablet by mouth every day Anna Nalluri CIRCULAR GANG SAW OPERATOR Cardiology: B P today: 108/51 P rior BP: 175/88 (05/15/2024) running soft, c/o feeling dizzy/lightheaded at times D ecreased amlodipine dose to 5 mg and hctz dose to 12.5 mg daily Anna Nalluri CIRCULAR GANG SAW OPERATOR Cardiology: H is updated medication list for this problem includes: Losartan 100 Mg Tablet (Losartan) ..... Take 1 tablet by mouth once a day Aspirin 81 Mg Tablet,delayed Release (dr/ec) (Aspirin) ..... 1 tablet by mouth once a day Anna Nalluri CIRCULAR GANG SAW OPERATOR Cardiology:follows with nephrolo gist Anna Nalluri CIRCULAR GANG SAW OPERATOR Cardiology:on rx Anna Nalluri CIRCULAR GANG SAW OPERATOR Cardiology:EF 69% c heck proBNP c onsider LEVEL trial Anna Nalluri CIRCULAR GANG SAW OPERATOR Cardiology:Remain un changed. 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 1 tablet once a day Darell Gigi COYNE Cardiology:The patie nt is using CPAP on a regular basis. The patient has been benefiting from therapy and should continue use. Darell Gigi COYNE Cardiology: H is updated [...] in 2020eenorberto Yu MD Cardiology:redo labs Darellnorberto uY MD Cardiology:on supplements norberto Yu MD Cardiology:wc [...] et labs first and will decide re [facility] Darellnorberto Yu MD Cardiology:ldl 73 His updated medication list for this problem includes: Ezetimibe 10 Mg Oral Tablet (Ezetimibe) ..... One tab daily - ADDED TODAY Rosuvastatin 40mg Tab (Rosuvastatin calcium) ..... Take 1 tablet by mouth daily Gigi COYNE Cardiology: Getting worse renal function and is supposed to see a foundation maker.- DR OH g et labs from [facility] a lso on bactrim ds correction for suppression of orthopedic infection Gigi COYNE [...] becomes symptomatic a sx at this time Darell Gigi COYNE Cardiology- ltr done :wc. H [...] Yu MD Cardiology- ltr done:uacr 13 Daina Yu MD Cardiology- ltr done :Cr 1.6 [...] have his baseline sleep study) u harley Woods as medical supplier Darell Yu MD Cardiology:reports t otal cholesterol 150 on crestor 40mg Darell Yu MD Cardiology:In sinus rhythm. Jie Watson MD Cardiology:Diet controlled. Jie Watson MD Cardiology:Chest pain free. On C OMPASS study. Tariq Watson MD Cardiology:On Crestor. Tariq Watson MD Cardiology:Blood pressure contro l is satisfactory. Tariq Watson MD follow up:WC Darelljr Yu MD follow up:resolved Darell Saab follow up:Scheduled for battery change - [...] Tabs (Rosuvastatin calcium) ..... One tab. daily Darell Gigi COYNE follow up-ltr fxd:no angina n l stress Darell Gigi COYNE follow up-ltr fxd:st ress, echo and carotids fine w ill check hut and eeg Darell Gigi COYNE FOLLOW UP: episode a few days ago [...] 63 MG/DL (CALC) (06/07/2009) T (06/07/2009) Darell uY MD follow up:lastpci 20 10 n l [...] problem includes: Exforge Hct 10-160-12.5 Mg Tabs (Jnnzwgzxbe-skxlvlfxw-osae) ..... Once daily Aspirin 325 Mg Tabs [...] I would like him to continue aspirin Darelljr Yu MD FU: H is updated medication list for this problem includes: Crestor 40 Mg Tabs (Rosuvastatin calcium) ..... One tab. daily (replaces your simcor) Niaspan 500 Mg Tbcr (Niacin (antihyperlipidemic)) ..... One tab. at bedtime - dispense as written Darell Yu MD FU: H is updated medication list for this problem includes: Exforge Hct 10-320-25 Mg Tabs (Yrtkkgbojs-ffwqzoxsz-xltb) ..... One tab. daily Aspirin 325 Mg [...] O rders: H olter Monitor 24 Hr (CPT-53265) Darell Yu MD 6 month follow-up: H [...] ischemia. Normal gated study with LVEF 62%. [facility] (02/01/2007) Cardiac Cath: Severe single-vessel CAD involving [...] and 3.0 x 8 mm Xience stents. [facility] (06/17/2009) C arotid Doppler/Duplex: Normal GC [...] ..... One tab. daily (replaces your simcor) Darelljr Yu MD 6 month f/u per recall:uses mask Darelljr Yu MD 6 month f/u per reca ll: H is updated medication list for this problem includes: Exforge 10-160 Mg Tabs (Amlodipine besylate-valsartan) ..... One tab. daily Aspirin 325 Mg Tabs (Aspirin) ..... One tab. daily Orders: Vidhi LEDEZMA (CPT-98184) Darell Gigi COYNE 6 month f/u per [...] tatus Complex e/m visit ad d on Darell Yu MD completed Complex e/m visit ad d on Darell Yu MD [09/05/2024 - k[place]is] APPROVED completed Complex e/m visit ad d on Darell Yu MD [05/22/2024 - k[place]is] APPROVED [...] Darell Yu MD INTERROGATION REMOTE </90 D CORRECTIONAL CLASSIFICATION COUNSELOR REVIEW completed Pacemaker Interrogation, Remote (Prof) Darell Yu MD INTERROGATION EVAL REMOTE </90 D 1/2/NETWORK ASSOCIATE LEAD P completed ICM Interrogation, Remote (Prof) [...] Darell Yu MD INTERROGATION REMOTE </90 D CORRECTIONAL CLASSIFICATION COUNSELOR REVIEW completed Pacemaker Interrogation, Remote (Prof) Darell Yu MD INTERROGATION EVAL REMOTE </90 D 1/2/NETWORK ASSOCIATE LEAD P completed ICM Interrogation, Remote (Prof) Darell Yu MD INTERROGATION EVAL REMOTE </30 D CV MNTR SYS completed ICM Interrogation, Remote (Tech) Darlel Yu MD INTERROGATION EVAL REMOTE </30 D [...] Darell Yu MD INTERROGATION REMOTE </90 D CORRECTIONAL CLASSIFICATION COUNSELOR REVIEW completed Pacemaker Interrogation, Remote (Prof) Darell Yu MD INTERROGATION EVAL REMOTE </90 D 1/2/NETWORK ASSOCIATE LEAD P completed ICM Interrogation, Remote (Prof) [...] Darell Yu MD INTERROGATION REMOTE </90 D CORRECTIONAL CLASSIFICATION COUNSELOR REVIEW completed Pacemaker Interrogation, Remote (Prof) Darell Yu MD INTERROGATION EVAL REMOTE </90 D 1/2/NETWORK ASSOCIATE LEAD P completed ICM Interrogation, Remote (Prof) [...] Darell Yu MD INTERROGATION REMOTE </90 D CORRECTIONAL CLASSIFICATION COUNSELOR REVIEW completed Pacemaker Interrogation, Remote (Prof) Darell Yu MD INTERROGATION EVAL REMOTE </90 D 1/2/NETWORK ASSOCIATE LEAD P completed ICM Interrogation, Remote (Prof) [...] Darell Yu MD INTERROGATION REMOTE </90 D CORRECTIONAL CLASSIFICATION COUNSELOR REVIEW completed Pacemaker Interrogation, Remote (Prof) Darell Yu MD INTERROGATION EVAL REMOTE </90 D 1/2/NETWORK ASSOCIATE LEAD P completed SNOMED-CT: 76087905 Physical Exam, Performed: Pulse Exam of Foot Darelljr Yu MD completed EKG Darelljr Yu MD completed SNOMED-CT: 166156277419063 Current Medications Documented Darellnorberto Yu MD completed [...] EVAL REMOTE </30 D TECH REVIEW completed Feraheme 510mg Daerlljr uY MD comple balta Therapeutic IV Infus ion up to 1 hour Darelljr Yu MD completed Feraheme 510mg Darelljr Yu MD comple balta Therapeutic IV Infus ion up to 1 hour Darellnorberto Yu MD completed Stress EKG Oh Nettles MD complet ed Regadenoson, 4 units Oh Nettles MD completed Cardiolite, 2 units Oh Nettles MD completed SPECT Images Oh Nettles MD compl eted SNOMED-CT: 36237380 Physical Exam, Performed: Pulse Exam of Foot Adrellnorberto Yu MD completed EKG Darellnorberto Yu MD completed SNOMED-CT: [id number] Current Medications Documented Gigi COYNE completed ICM Interrogation, Remote (Prof) Darelljr Yu MD INTERROGATION EVAL REMOTE </30 D CV MNTR SYS completed ICM Interrogation, Remote (Tech) Darelljr Yu MD INTERROGATION EVAL REMOTE </30 D TECH REVIEW completed Pacemaker Interrogation, Remote (Tech) Darelljr Yu MD INTERROGATION REMOTE </90 D CORRECTIONAL CLASSIFICATION COUNSELOR REVIEW completed Pacemaker Interrogation, Remote (Prof) Darelljr Yu MD INTERROGATION EVAL REMOTE </90 D 1/2/NETWORK ASSOCIATE LEAD P completed ICM Interrogation, Remote (Prof) [...] Darell Yu MD INTERROGATION REMOTE </90 D CORRECTIONAL CLASSIFICATION COUNSELOR REVIEW completed Pacemaker Interrogation, Remote (Prof) Darell Yu MD INTERROGATION EVAL REMOTE </90 D 1/2/NETWORK ASSOCIATE LEAD P completed ICM Interrogation, Remote (Prof) [...] Darell Yu MD INTERROGATION REMOTE </90 D CORRECTIONAL CLASSIFICATION COUNSELOR REVIEW completed Pacemaker Interrogation, Remote (Prof) Darell Yu MD INTERROGATION EVAL REMOTE </90 D 1/2/NETWORK ASSOCIATE LEAD P completed ICM Interrogation, Remote (Prof) [...] Darell Yu MD INTERROGATION REMOTE </90 D CORRECTIONAL CLASSIFICATION COUNSELOR REVIEW completed Pacemaker Interrogation, Remote (Prof) Darell Gigi MD INTERROGATION EVAL REMOTE </90 D 1/2/NETWORK ASSOCIATE LEAD P completed ICM Interrogation, Remote (Prof) [...] REMOTE </30 D TECH REVIEW completed SNOMED-CT: 41351053 Physical Exam, Performed: Pulse Exam of Foot Gigi COYNE completed SNOMED-CT: 214579739950768 Current Medications Documented Darellnorberto Yu MD completed ICM Interrogation, Remote (Prof) Darell Gigi COYNE INTERROGATION EVAL REMOTE </30 D CV MNTR SYS completed Pacemaker Interrogation, Remote (Tech) Darell Gigi COYNE INTERROGATION REMOTE </90 D CORRECTIONAL CLASSIFICATION COUNSELOR REVIEW completed Pacemaker Interrogation, Remote (Prof) Darell Gigi COYNE INTERROGATION EVAL REMOTE </90 D 1/2/NETWORK ASSOCIATE LEAD P completed ICM Interrogation, Remote (Prof) Darell Gigi MD INTERROGATION EVAL REMOTE </30 D CV MNTR SYS completed ICM Interrogation, Remote (Tech) Darell Gigi COYNE INTERROGATION EVAL REMOTE </30 D TECH REVIEW completed FVC - 40783 Darelljr Yu MD completed FRC - 91923 Darelljr Yu MD completed DLCO - 12406 Darelljr Yu MD complete d ICM Interrogation, Remote (Prof) Darell Gigi MD INTERROGATION EVAL REMOTE </30 D CV MNTR SYS completed ICM Interrogation, Remote (Tech) Darell Gigi MD INTERROGATION EVAL REMOTE </30 D TECH REVIEW completed SNOMED-CT: 60222822 Physical Exam, Performed: Pulse Exam of Foot Darellnorberto Yu MD completed SNOMED-CT: 415600822022504 Current Medications Documented Gigi COYNE completed ICM Interrogation, Remote (Prof) Darellnorberto Yu MD INTERROGATION EVAL REMOTE </30 D CV MNTR SYS completed Pacemaker Interrogation, Remote (Tech) Gigi COYNE INTERROGATION REMOTE </90 D CORRECTIONAL CLASSIFICATION COUNSELOR REVIEW completed Pacemaker Interrogation, Remote (Prof) Gigi COYNE INTERROGATION EVAL REMOTE </90 D 1/2/NETWORK ASSOCIATE LEAD P completed ICM Interrogation, Remote (Prof) Gigi COYNE INTERROGATION EVAL REMOTE </30 D CV MNTR SYS completed ICM Interrogation, Remote (Tech) Gigi COYNE INTERROGATION EVAL REMOTE </30 D TECH REVIEW completed ICM Interrogation, Remote (Prof) Darellnorberto Yu MD INTERROGATION EVAL REMOTE </30 D CV MNTR SYS completed ICM Interrogation, Remote (Tech) Darell Gigi COYNE INTERROGATION EVAL REMOTE </30 D TECH REVIEW completed SNOMED-CT: 16425247 Physical Exam, Performed: Pulse Exam of Foot Darellnorberto Yu MD completed SNOMED-CT: 249868865814770 Current Medications Documented Gigi COYNE completed EKG [...] completed TRANSTELEPHONIC RHYT HM STRIP PACEMAKER EVAL Darelljr Yu MD completed TRANSTELEPHONIC RHYT HM STRIP PACEMAKER MILESAL Darell Yu MD completed EKG Darell Yu MD completed TRANSTELEPHONIC RHYT HM STRIP PACEMAKER MILESjr Yu MD completed EKG Darelljr Yu MD completed EKG Benjamin Camacho MD completed EKG Darell Yu MD completed EKG Darell Yu MD completed
--- OUTSIDE RECORDS SUMMARY | 2024-10-25 17:21 | XMS_ITS | Clinical Summary ---
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 Active morphine 10 mg/mL injection 0 07/20/19 25 Active hydroCHLOROthiaz amada 12.5 mg tablet Take 1 tablet (12.5 mg total) by mouth daily 09/19/19 25 Active HYDROcodone-acet aminophen (NORCO) 5-325 mg per tabletIndication s:Pain Take 1 tablet by mouth every 8 (eight) hours as needed for pain 7 tablet 10/24/19 25 Active hydroCHLOROthiaz maada (HYDRODIURIL) 25 mg tablet take 1 tablet by oral route every day 30 0 02/27/20 16 025 Discontin ued(Thera py completed ) amLODIPine (NORVASC) 10 mg tablet take 1 tablet (10MG) by oral route every day 0 02/27/20 16 025 Discontin ued(Thera py completed ) mupirocin (BACTROBAN) 2 % ointment Coat inside of both nostrils twice daily for 5 days before surgery. 22 g 08/31/19 25 025 Discontin ued(Stop Taking at Discharge ) chlorhexidine (HIBICLENS) 4 % external liquidIndication s:Skin Disinfection Shower with soap daily for 5 days before surgery including the morning of. Do not use on face or genital area. 120 mL 08/31/19 25 025 Discontin ued(Stop Taking at Discharge ) chlorhexidine (HIBICLENS) 4 % external liquidIndication [...] 25 025 Discontin ued(Thera py completed ) famotidine (PEPCID) 20 mg tablet Take 1 tablet (20 mg total) by mouth every morning 09/19/19 25 025 Discontin ued(Thera py completed ) [...] Hyperlipidemia 05/02/2010 Atherosclerotic heart diseas e of [place] coronary artery without angina pectoris 07/10/2009 Benign hypertension 05/16/1959 Overview (08/26/2021): CCM enrolled CCM enrolled Obstructive sleep apnea syndrome 05/16/1959 Chronic pain disorder Encounters Date Type Department Care Team Description 10/23/2024 7:30 AM CDT - 10/23/2024 9:00 AM CDT Surgery [facility] Operating Room [address] [place] [id number] Hudson Perez MD INTRATHECAL PAIN PUMP REVISION, BATTERY REPLACEMENT AND CATHETER REVISION WITH PLASMA BLADE 10/23/2024 7:29 AM CDT Anesthesia Event [facility] Operating Room [address] [place] [phone] Lottie Longoria MD Tadros, Hany B., MD 10/23/2024 5:20 AM CDT - 10/23/2024 12:53 PM CDT Hospital Encounter [facility] Operating Room [address] [place] [address] Hudson Perez MD End of battery life of intrathecal infusion pump [Z46.2] (Primary Dx); Mononeuropathy [G58.9] Discharge Disposition: Discharge to home or self care 10/10/2024 Telephone [facility] Otolaryngology [address] [place] [address] Dejesus, ThaisMS sumeet 09/04/2024 11:45 AM CDT - 09/04/2024 11:59 PM CDT Hospital Encounter [facility] Pain Management Center [address] [place] [phone] Alfredo Jordan NP Chronic knee pain after total replacement of right knee joint (Primary Dx); Chronic pain disorder; Saphenous neuritis, right; Mononeuropathy Discharge Disposition: Discharge to home or self care 08/30/2024 Telephone [facility] [address] [place] [address] Hudson Perez MD 08/30/2024 Telephone [facility] [address] [place] [address] Hudson Perez MD 08/28/2024 9:44 AM CDT - 08/28/2024 11:59 PM CDT Hospital Encounter [facility] [address] [place] [address] Hudson Perez MD Chronic knee pain after total replacement of right knee joint [M25.561, G89.29, Z96.651] (Primary Dx); Primary osteoarthritis of right knee Discharge Disposition: Discharge to home or self care 08/24/2024 Telephone [facility] [address] [place] [phone] Leny Mendoza RN from Last 3 Months Immunizations Immunization Administration [...] Sleep apnea Atherosclerotic heart diseas e of [place] coronary artery without angina pectoris Chronic kidney [...] making you feel afraid or unsafe? 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 Gender Identity Not on file Sexual Orientation Not on file Obstetrics History Last Filed Vital Signs Vital Sign Reading Time Taken Comments Blood Pressure 145/86 10/23/2024 11:28 AM CDT Pulse 64 10/23/2024 11:28 AM CDT Temperature 36.2 C (97.2 F) 10/23/2024 10:15 AM CDT Respiratory Rate 17 10/23/2024 11:28 AM CDT Oxygen Saturation 97% 10/23/2024 11:28 AM CDT Inhaled Oxygen Concentration - - Weight 88.9 kg (196 lb) 10/23/2024 5:34 AM CDT Height 165.1 cm (5' 5) 10/23/2024 5:34 AM CDT Body Mass Index 32.62 10/23/2024 5:34 AM CDT Plan of Treatment Upcoming Encounters Date Type Department Care Team (Late st Contact Info) Description 11/23/2024 7:30 AM CDT Hospital Encounter [facility] Operating Room [id number] [place] [address] [place] [address] [facility] [address] [place] [address] 11/23/2024 7:30 AM CDT - 11/23/2024 9:30 AM CDT Surgery [facility] Operating Room [address] [place] [phone] [place] [id number] [facility] [address] [place] [address] NEUROLYSIS PERIPHERAL NERVE RT SAPHENOUS NERVE/120 MIN [...] Additional history exists Covid-19 Vaccine (5 - 4-2 5 season) 2024 03/25/2021, 08/11/2020, 07/22/2020, Additional history exists Influenza Vaccine (Season Ended) 2025 02/25/2021, 02/10/2020, 02/10/2020, Additional history exists Fall Risk Assessment 10/23/2025 10/23/2024 Colon Cancer Screening-Colonoscopy Discontinued 03/11/2016, 08/23/2012 Abdominal Aortic Aneurysm (A AA) Screen Completed 08/29/2021, 09/02/2012 Medical Devices Implanted Type Area Club Car Attendant Device Identifier Shelf Expiration Date Model / Serial / Lot Medtronic Inc Kit Implant Connector Pump Synchromed Iii 8578 - [id number] - [id number] Implanted:Qty: 1 on 10/23/2024 by Hudson Perez MD at [facility] Right: Abdomen Medtronic Inc [id number] 03/30/2026 8578 / [id number] / Med[employer]onic [employer] X Pump Infusion Programmable Ulp Ami 20ml Volume 8667-20 - [id number] - [id number] Implanted:Qty: 1 on 10/23/2024 by Hudson Perez MD at [facility] Right: Abdomen Medtronic [employer] X 02/27/2026 8667-20 / [id number] / Medtronic Inc Kit Implant Connector Pump Synchromed Iii 8578 - [id number] Implanted:Qty: 1 on 10/23/2024 by Hudson Perez MD at [facility] Right: Abdomen Medtronic Inc 10/20/2025 8578 / / [id number] Explanted Type Area Club Car Attendant Device Identifier Shelf Expiration Date Model / Serial / Lot Existing Pain Pump Explanted:Qty: 1 on 10/23/2024 by Hudson Perez MD at [facility] Right: Abdomen Medtronic UNKNOWN / / Procedures Procedure Name Priority Date/Time Associated Diagnosis Comments INSERTION PUMP - PAIN MANAGEMENT 10/23/2024 7:28 AM CDT LOW BACK PAIN POCT GLUCOSE DEVICE Routine 10/23/2024 5:28 AM CDT PAIN MGMT IMAGING PERIPHERAL NERVE STIM PLACEMENT Schedule Routine, Read Routine (OP Routine) 08/28/2024 11:15 AM CDT Primary osteoarthritis of right knee EGFR Routine 11/08/2018 3:10 PM CDT COLONOSCOPY REPORT 03/11/2016 CT ABDOMEN PELVIS WO CONTRAST Routine 09/02/2012 12:25 PM CDT from Last 3 Months or Most Recently Relevant to Health Maintenance Results * POCT glucose (10/23/2024 5:28 AM CDT) [facility] Glucose, POC 92 70 - 199 mg/dL POC Performer [id number] RADHA Blood 10/23/2024 5:28 AM CDT 10/23/2024 5:28 AM CDT us Hudson Perez MD LAB POCT ORDERABLES - DEVICE Final Result Performing Organization Address [facility]/ZIP Co de Phone Number [facility] [address] [place] [address] * Imaging Peripheral Nerve Stim Placement (26036) (08/28/2024 11:15 AM CDT) Narrative [facility] - 08/28/2024 11:16 AM CDT The images from this study are not interpreted by Radiology. Please refer to the physician's procedure / OR operative note. us Hudson Perez MD IMG PAIN MGMT PROCEDU RES Final Result Performing Organization Address City/[facility]/ZIP Co de Phone Number RAD_PACS_ * eGFR (11/08/2018 3:10 PM CDT) eGFR 42 mL/min/1.7 3 m2 RADHA MARSH Comment: Interpretive Data Reference Interval Normal >/= 90 mL/min/1.73m2 Mildly decreased* 60 - 89 mL/min/1.73m2 Mildly to moderately decreased 45 - 59 mL/min/1.73m2 Moderately to severely decreased 30 - 44 mL/min/1.73m2 Severely decreased 15 - 29 mL/min/1.73m2 Kidney Failure < 15 mL/min/1.73m2 *Relative to young adult level If -Nepalese multiply value by 1.16. Estimated glomerular filtration [...] LAB BLOOD ORDERABLES Final Res ult RADHA [address] [facility] [place] [address] * COLONOSCOPY REPORT (03/11/2016) Anatomical Region Laterality Modality Other Narrative 03/11/2016 Ordered by an unspecified provider. [facility] Provider GI PROCEDURE ORDERABLES F inal Result * CT Abdomen Pelvis WO Contrast (09/02/2012 12:25 PM CDT) Anatomical Region Laterality Modality Body N/A Computed Tomogra phy 09/02/2012 12:2 5 PM CDT Narrative 09/02/2012 2:09 PM CDT DATE OF EXAM: Sep 02 2012 12:25PM Acc#: [id number] ECT 0073 - CT Abd/Pel WO DIAGNOSIS: ANEMIA NOS DM2/NOS UNCOMP NSU CLINICAL HISTORY: ANEMIA DIABETIC RESULT: \ CT ABDOMEN AND PELVIS WITH ORAL BUT NOT INTRAVENOUS CONTRAST HISTORY This is a 67-year-old man with anemia, diabetes and leukopenia. Noncontrast CT exam performed as requested. FINDINGS Prior abdominal imaging studies are not available for comparison. Senior Air Director radiograph demonstrates pacemaker leads in the right [...] SPINAL STENOSIS WITH PAIN STIMULATOR IN PLACE. DIRECTOR OF BUSINESS CONTINUITY: INEZ TRANSCRIBE DATE/TIME: Sep 02 2012 1:52P RADIOLOGIST: NELI GOSS M.D. READ ON: Sep 02 2012 1:22P ORDERING DR: RAMESH PRICE M.D. THIS DOCUMENT HAS BEEN ELECTRONICALLY SIGNED BY: NELI GOSS M.D. ON: Sep 02 2012 2:09P Procedure Note Provider, MD Erlinda - 09/11/2016 DATE OF EXAM: Sep 02 2012 12:25PM Acc#: [id number] ECT 0073 - CT Abd/Pel WO DIAGNOSIS: ANEMIA NOS DM2/NOS UNCOMP NSU CLINICAL HISTORY: ANEMIA DIABETIC RESULT: \ CT ABDOMEN AND PELVIS WITH ORAL BUT NOT INTRAVENOUS CONTRAST HISTORY This is a 67-year-old man with anemia, diabetes and leukopenia. Noncontrast CT exam performed as requested. FINDINGS Prior abdominal imaging studies are not available for comparison. Senior Air Director radiograph demonstrates pacemaker leads in the right [...] SPINAL STENOSIS WITH PAIN STIMULATOR IN PLACE. DIRECTOR OF BUSINESS CONTINUITY: INEZ TRANSCRIBE DATE/TIME: Sep 02 2012 1:52P RADIOLOGIST: NELI GOSS M.D. READ ON: Sep 02 2012 1:22P ORDERING DR: RAMESH PRICE M.D. THIS DOCUMENT HAS BEEN ELECTRONICALLY SIGNED BY: NELI GOSS M.D. ON: Sep 02 2012 2:09P Historical Provider MD MENA CT PROCEDURES Final R esult from Last 3 Months or Most Recently Relevant to Health Maintenance Insurance [employer] CHOICE MEDICARE PPO [facility] MEDICARE [facility] Address: [address] [address] [place] [address] [facility] MEDICARE [facility] Address: [address] [address] [place] [address] Care Teams Grain Buyer Relationship Specialty Start Date End Date Tony Gray MD PCP - General Family Practice 12/16/21 [place] [address] [facility] [address] [place] [address] Nurse Practitioner Pain Management 04/19/24
--- OUTSIDE RECORDS SUMMARY | 2024-10-25 17:21 | XMS_ITS | Clinical Summary ---
Author Organization [facility] Address [address] [place] [address] Phone Care Team Providers Care Hot Air Furnace Installer And Repairer Name Role Phone Tnoy Gray MD Primary Care Provider Pepe Dunn MD Unavailable [phone] Allergies Active Allergy Reactions Criticality Noted Date [...] Type Department Care Team Description 10/11/2024 [facility] [address] [place] [address] Pepe Dunn MD Medication Refill from Last 3 Months Family History Relation [...] Comments Blood Pressure 140/60 07/17/2024 9:06 AM DESIGN TEACHER Pulse 57 07/17/2024 9:06 AM DESIGN TEACHER Temperature 36.4 C (97.5 F) 07/17/2024 9:06 AM DESIGN TEACHER Respiratory Rate 18 07/17/2024 9:06 AM DESIGN TEACHER Oxygen Saturation 88% 07/17/2024 9:06 AM DESIGN TEACHER Inhaled Oxygen Concentration - - Weight 89.4 kg (197 lb 3.2 oz) 07/17/2024 9:06 A M DESIGN TEACHER Height 160 cm (5' 3) 07/17/2024 9:06 AM DESIGN TEACHER Body Mass Index 34.93 07/17/2024 9:06 AM DESIGN TEACHER Plan of Treatment Upcoming Encounters Date Type Department Care Team (Late st Contact Info) Description 01/22/2025 10:45 AM CDT Office Visit [facility] Neurology [facility] [address] [place] [address] Pepe Dunn MD [address] [place] [address] Health Maintenance Due Date Last Done Comments [...] topic Insurance MEDICAID [place] MEDICARE C [employer] [place] [id number] Care Teams Hot Air Furnace Installer And Repairer Relationship Specialty Start Date End Date Tony Gray MD PCP - General Family Medicine 08/26/21 Pepe Dunn MD [address] [place] [address] Consulting Physician Neurology 02/03/22
--- OUTSIDE RECORDS SUMMARY | 2024-10-25 17:21 | XMS_ITS | Continuity of Care Document ---
Author Organization [facility] Address [address] [place] [address] [address] [place] [address] Phone Care Team Providers Care Group Burner Machine Name Role Phone Cardona OD, Jerry Unavailable Unavailable Procedures Procedure Date Office/outpatient Visit, Est Eye Exam Established Pt Advance Directives Directive Yes / No Effective Date File Name No Information Encounters Encounter Description Practice Location Reason(s) For Visit Diagnoses Date Provider Providers Copied on Encounter Office/outpat ient Visit, Est [facility], [address] [place] [address] [address], [place], [place], [id number], tel:[phone] SEC [facility] No Information Juan David-3 0-200 9 Cardona OD Jerry. [address] [facility] [address] , [address], [place], [place], [facility], [place]. tel:[phone] [facility], [address] [place] [address] [address], [place], [place], [id number], tel:[phone] [facility] [place] No Information Oct-2 3-200 9 Carodna OD Jerry. [address] [facility] [address] , [address], [place], [place], [facility], [place]. tel:[phone] Family History Family Member Type Diagnosis Age At Onset No Information Payers Payer name Insurance type Covered libertarian ID Authoriza tion(s) [place] [employer] [id number] Social History Type Description Quantity Date Captured [...]
--- OUTSIDE RECORDS SUMMARY | 2024-10-25 17:21 | XMS_ITS | Clinical Summary ---
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 Benign hypertension 05/16/1959 Overview (05/01/2020): [facility] enrolled Obstructive sleep apnea syndrome 05/16/1959 [...] Comments Blood Pressure 134/76 04/27/2022 2:51 PM METER ENGINEER Pulse - - Temperature 35.7 C (96.3 F) 04/27/2022 2:51 PM METER ENGINEER Respiratory Rate 18 04/27/2022 2:51 PM METER ENGINEER Oxygen Saturation - - Inhaled Oxygen Concentration - - Weight 95.7 kg (211 lb) 04/27/2022 2:51 PM METER ENGINEER Height 167.6 cm (5' 6) 04/27/2022 2:51 PM METER ENGINEER Body Mass Index 34.06 04/27/2022 2:51 PM METER ENGINEER Plan of Treatment Health Maintenance Due Date Last Done Comments Pneumococcal PPSV23/PCV13 65 + Years / Low and Medium Risk (1 of 4 - PCV) 02/04/1996 Influenza Vaccine (Season Ended) 2025 02/10/[address] [place] [address] [place] [address] MEDICARE ADVANTAGE MEDICAID - [place] Care Teams Prune Washer Relationship Specialty Start Date End Date Tony Gray MD [address] [place] [address] PCP - General Internal Medicine 04/10/20
--- OUTSIDE RECORDS SUMMARY | 2024-10-25 17:21 | XMS_ITS | Referral Summary ---
Author Organization [facility] Address [address] [place] [address] Care Team Providers Care Credit Resolution Representative Name Role Phone Tony Gray MD Primary Care Provider Alfredo Jordan NECK BAND SETTER Unavailable [phone] Encounters Date Type Department Care Team Description 10/23/2024 7:30 AM CDT - 10/23/2024 9:00 AM CDT Surgery [facility] Operating Room [address] [place] [address] Hudson Perez MD INTRATHECAL PAIN PUMP REVISION, BATTERY REPLACEMENT AND CATHETER REVISION WITH PLASMA BLADE 10/23/2024 7:29 AM CDT Anesthesia Event [facility] Operating Room [id number] [place] [address] Lottie Longoria MD Tadros, Hany B., MD 10/23/2024 5:20 AM CDT - 10/23/2024 12:53 PM CDT Hospital Encounter [facility] Operating Room [id number] [place] [address] Hudson Perez MD End of battery life of intrathecal infusion pump [Z46.2] (Primary Dx); Mononeuropathy [G58.9] Discharge Disposition: Discharge to home or self care 10/10/2024 Telephone [facility] Otolaryngology [address] [place] [address] Thais Dejesus MS 09/04/2024 11:45 AM CDT - 09/04/2024 11:59 PM CDT Hospital Encounter [facility] [address] [place] [address] Alfredo Jordan NP Chronic knee pain after total replacement of right knee joint (Primary Dx); Chronic pain disorder; Saphenous neuritis, right; Mononeuropathy Discharge Disposition: Discharge to home or self care 08/30/2024 Telephone [facility] [address] [place] [address] Hudson Perez MD 08/30/2024 Telephone [facility] [address] [place] [address] Hudson Perez MD 08/28/2024 9:44 AM CDT - 08/28/2024 11:59 PM CDT Hospital Encounter [facility] [address] [place] [address] Hudson Perez MD Chronic knee pain after total replacement of right knee joint [M25.561, G89.29, Z96.651] (Primary Dx); Primary osteoarthritis of right knee Discharge Disposition: Discharge to home or self care 08/24/2024 Telephone [facility] [address] [place] [address] Leny Mendoza RN from Last 3 Months Allergies Active Allergy [...] pain 7 tablet 10/24/19 25 Active hydroCHLOROthiaz amada (HYDRODIURIL) 25 mg [...] Hyperlipidemia 05/02/2010 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 Benign [...] on file Legal Sex 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 Gender Identity Not on file Sexual Orientation [...] Description 11/23/2024 7:30 AM CDT Hospital Encounter [facility] Operating Room [address] [place] [address] [place] [address] [facility] [address] [place] [address] 11/23/2024 7:30 AM CDT - 11/23/2024 9:30 AM CDT Surgery [facility] Operating Room [address] [place] [address] [place] [address] [address] [place] [address] NEUROLYSIS PERIPHERAL NERVE RT SAPHENOUS NERVE/120 MIN Scheduled Procedures Name Priority Associated Diagnoses Date/Ti me NEUROLYSIS PERIPHERAL NERVE SAPHENOUS NERVE 11/23/2024 7:30 AM CDT Medical Devices Implanted Type Area Barrel Rifler Button Device Identifier Shelf Expiration Date Model / Serial / Lot Medtronic Inc Kit Implant Connector Pump Synchromed Iii 8578 - [id number] - [id number] Implanted:Qty: 1 on 10/23/2024 by Hudson Perez MD at [facility] Right: Abdomen Med[employer]onic Inc [id number] 03/30/2026 8578 / [id number] / Medtronic [employer] X Pump Infusion Programmable Ulp Ami 20ml Volume 8667-20 - [id number] - [id number] Implanted:Qty: 1 on 10/23/2024 by Hudson Perez MD at [facility] Right: Abdomen Medtronic [employer] X 02/27/2026 8667-20 / [id number] / Medtronic Inc Kit Implant Connector Pump Synchromed Iii 8578 - [id number] Implanted:Qty: 1 on 10/23/2024 by Hudson Perez MD at [facility] Right: Abdomen Medtronic Inc 10/20/2025 8578 / / [id number] Explanted Type Area Barrel Rifler Button Device Identifier Shelf Expiration Date Model / Serial / Lot Existing Pain Pump Explanted:Qty: 1 on 10/23/2024 by Hudson Perez MD at [facility] Right: Abdomen Medtronic UNKNOWN / / Procedures [...] * POCT glucose (10/23/2024 5:28 AM CDT) Glucose, POC 92 70 - 199 mg/dL POC Performer [id number] RADHA MARSH Blood 10/23/2024 5:28 AM CDT 10/23/2024 5:28 AM CDT Hudson Perez MD LAB POCT ORDERABLES - DEVICE Final Result RADHA [address] [facility] Department [place] [address] * Imaging Peripheral Nerve Stim Placement (28379) (08/28/2024 11:15 AM CDT) Narrative RAD_PACS[facility] - 08/28/2024 11:16 AM CDT The images from this study are not interpreted by Radiology. Please refer to the physician's procedure / OR operative note. Hudson Perez MD IMG PAIN MGMT PROCEDU RES Final Result Performing Organization Address [facility] Co de Phone Number RAD_PACS_[facility] * eGFR (11/08/2018 [...] mL/min/1.73m2 *Relative to young adult level If -Mauritanian multiply value by 1.16. Estimated glomerular filtration [...] MD LAB BLOOD ORDERABLES Final Res ult Performing Organization Address [facility] Co de Phone Number RADHA [address] Department [place] [address] * COLONOSCOPY REPORT (03/11/2016) Anatomical Region Laterality Modality Other Narrative 03/11/2016 Ordered by an unspecified provider. Historical Provider GI PROCEDURE ORDERABLES F inal Result * CT Abdomen Pelvis WO Contrast (09/02/2012 12:25 PM CDT) Anatomical Region Laterality Modality Body N/A Computed Tomogra phy 09/02/2012 12:2 5 PM CDT Narrative 09/02/2012 2:09 PM CDT DATE OF EXAM: Sep 02 2012 12:25PM Acc#: [id number] ECT 0073 - CT Abd/Pel WO DIAGNOSIS: ANEMIA NOS DM2/NOS UNCOMP NSU CLINICAL HISTORY: ANEMIA DIABETIC RESULT: \ CT ABDOMEN AND PELVIS WITH ORAL BUT NOT INTRAVENOUS CONTRAST HISTORY This is a 67-year-old man with anemia, diabetes and leukopenia. Noncontrast CT exam performed as requested. FINDINGS Prior abdominal imaging studies are not available for comparison. Chucking Machine Set Up Operator Tool radiograph demonstrates pacemaker leads in the right [...] SPINAL STENOSIS WITH PAIN STIMULATOR IN PLACE. MUSIC ENGRAVER: INEZ TRANSCRIBE DATE/TIME: Sep 02 2012 1:52P RADIOLOGIST: NELI GOSS M.D. READ ON: Sep 02 2012 1:22P ORDERING DR: RAMESH PRICE M.D. THIS DOCUMENT HAS BEEN ELECTRONICALLY SIGNED BY: NELI GOSS M.D. ON: Sep 02 2012 2:09P Procedure Note Provider, MD Erlinda - 09/11/2016 DATE OF EXAM: Sep 02 2012 12:25PM Acc#: [id number] ECT 0073 - CT Abd/Pel WO DIAGNOSIS: ANEMIA NOS DM2/NOS UNCOMP NSU CLINICAL HISTORY: ANEMIA DIABETIC RESULT: \ CT ABDOMEN AND PELVIS WITH ORAL BUT NOT INTRAVENOUS CONTRAST HISTORY This is a 67-year-old man with anemia, diabetes and leukopenia. Noncontrast CT exam performed as requested. FINDINGS Prior abdominal imaging studies are not available for comparison. Chucking Machine Set Up Operator Tool radiograph demonstrates pacemaker leads in the right [...] SPINAL STENOSIS WITH PAIN STIMULATOR IN PLACE. MUSIC ENGRAVER: INEZ TRANSCRIBE DATE/TIME: Sep 02 2012 1:52P RADIOLOGIST: NELI GOSS M.D. READ ON: Sep 02 2012 1:22P ORDERING DR: RMAESH PRICE M.D. THIS DOCUMENT HAS BEEN ELECTRONICALLY SIGNED BY: NELI GOSS M.D. ON: Sep 02 2012 2:09P us Historical Provider MD MENA CT PROCEDURES Final R esult from Last 3 Months or Most Recently Relevant to Health Maintenance Insurance HUMANA CHOICE MEDICARE PPO IDPA [facility] MEDICARE ADVANTAGE [facility] Address: [address] [address] [place] [address] IDPA IDPA [facility] MEDICARE ADVANTAGE [facility] Address: [address] [address] [place] [address] Care Teams Credit Resolution Representative Relationship Specialty Start Date End Date Tony Gray MD PCP - General Family Practice 12/16/21 [place] [address] [address] [place] [address] Nurse Practitioner Pain Management 04/19/24
--- OUTSIDE RECORDS SUMMARY | 2024-10-25 17:21 | XMS_ITS | Encounter Summary ---
Author Organization [facility] Address [address] [place] [address] Phone Care Team Providers Care Laboratory Associate Name Role Phone Tony Gray MD Primary Care Provider Pepe Dunn MD Unavailable [phone] Reason for Visit * Reason Comments Medication Refill Encounter Details Date Type Department Care Team (Late st Contact Info) Description 10/25/2023 Refill [facility] - [facility] [address] [place] [address] Pepe Dunn MD [address] [place] [phone] Medication Refill Social History Tobacco Use Types [...] Dept 09/02/23 Office Visit Pepe Dunn MD [facility] Neurology [facility] 02/12/23 Office Visit Pepe Dunn MD [facility] Neurology [facility] Showing recent visits within past 365 days [...] Description 01/22/2025 10:45 AM CDT Office Visit [facility] - [facility] [address] [place] [address] Pepe Dunn MD [address] [place] [address] documented as of this encounter Visit Diagnoses Not on filedocumented in this encounter Care Teams Laboratory Associate Relationship Specialty Start Date End Date Tony Gray MD PCP - General Family Medicine 08/26/21 Pepe Dunn MD [address] [place] [address] Consulting Physician Neurology 02/03/22 documented as of this encounter
--- OUTSIDE RECORDS SUMMARY | 2024-10-25 17:21 | XMS_ITS | Clinical Summary ---
Author Organization [facility] [employer] Address [address] [facility] [place] [address] Care Team Providers Care Systems Analyst Name Role Phone Tony Gray MD Primary Care Provider Darell Yu MD Unavailable Harry Vang MD Unavailable [phone] Twyla Cervantes MD Unavailable [phone] Source Comments [facility],non-owned Affiliates and Associated Physician Practices is amultiple site organization consisting of ambulatory clinics and hospital sitesin [place], [place], [place] and [place]. This disclosure is being madepursuant to the Care Everywhere program and may not contain all information available regarding this patient. 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 [place] [address] [facility] [place] [address] Cardiovascular Disease 09/22/21 Harry Vang MD [address] [facility] [address] [place] [address] Internal Medicine 09/22/21 Twyla Cervantes MD [facility] [address] [address] Nephrology 09/22/21
[2024-10-25 19:45] LABS: Basophils Percent Auto 0.2 % (0.2-1.2); Eosinophils Absolute Auto 0.1 K/mm3 (0-0.3); Eosinophils Percent Auto 0.7 % (0-4.4); Hematocrit 27.8 % (42.0-52.0); Hemoglobin 7.8 g/dL (14.0-18.0); Immature Granulocyte Absolute 0.04 K/mm3 (0.00-0.031); Immature Granulocyte Percent A 0.4 % (0-0.5); Lymphocytes Absolute Auto 1.22 K/mm3 (0.9-3.2); Lymphocytes Percent Auto 10.7 % (18.3-44.2); Mean Corpuscular HGB Conc 28.1 g/dl (32-36); Mean Corpuscular Hemoglobin 21.4 pg (26-34); Mean Corpuscular Volume 76.4 fl (80-100); Mean Platelet Volume 9.1 fl (7.4-10.4); Monocytes Percent Auto 8.4 % (2.6-8.5); Neutrophils Absolute Auto 9.1 K/mm3 (1.3-6.7); Neutrophils Percent Auto 79.6 % (45.5-73.1); Platelet Count Result 185 k/mm3 (150-375); Red Blood Count 3.64 M/mm3 (4.6-6.20); Red Cell Distribution Width 25.2 % (11.5-14.5); White Blood Count 11.4 K/mm3 (4.5-10.0)
[2024-10-25 21:33] LABS: Band Neutrophils Percent 0 % (0-6); Hypochromasia 1+; Platelet Estimate Adequate (Adequate)
[2024-10-25 21:34] LABS: Ovalocytes 1+; Schistocytes None Seen; Tear Drop Cells 1+
== END 2024-10-25 14:43 | disposition home or self-care (01) ==
LOC: ANHGOSHLAB 14:42
PROVIDERS: PCP Family Medicine; Visit Provider Family Medicine
DX: D64.9 Anemia, unspecified (principal)
CPT/HCPCS: 36415; 85025

== ENCOUNTER 2024-12-08 11:41 | Outpatient (CLI) | payer MEDICARE, MEDICAID, SELFPAY ==
--- OUTSIDE RECORDS SUMMARY | 2024-12-08 11:45 | XMS_ITS | Clinical Summary ---
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 Benign hypertension 05/16/1959 Overview (05/01/2020): [facility] enrolled Obstructive sleep apnea syndrome 05/16/1959 [...] Comments Blood Pressure 134/76 04/27/2022 2:51 PM GREASE MAKER Pulse - - Temperature 35.7 C (96.3 F) 04/27/2022 2:51 PM GREASE MAKER Respiratory Rate 18 04/27/2022 2:51 PM GREASE MAKER Oxygen Saturation - - Inhaled Oxygen Concentration - - Weight 95.7 kg (211 lb) 04/27/2022 2:51 PM GREASE MAKER Height 167.6 cm (5' 6) 04/27/2022 2:51 PM GREASE MAKER Body Mass Index 34.06 04/27/2022 2:51 PM GREASE MAKER Plan of Treatment Health Maintenance Due Date Last Done Comments Pneumococcal PPSV23/PCV13 65 + Years / Low and Medium Risk (1 of 2 - PCV) 02/04/1996 Influenza Vaccine (#1) 2025 02/10/[address] [place] [address] [address] [address] MEDICARE ADVANTAGE MEDICAID - [place] Care Teams Research Fellow Relationship Specialty Start Date End Date Tony Gray MD [address] [place] [address] PCP - General Internal Medicine 04/10/20
--- OUTSIDE RECORDS SUMMARY | 2024-12-08 11:45 | XMS_ITS | Encounter Summary ---
Author Organization [facility] Address [address] [place] [address] Care Team Providers Care Ship Scaler Name Role Phone Unavailable Primary Care Provider Unavailabl e Encounter Details Date Type Department Care Team (Late st Contact Info) Description 12/08/2024 11:00 AM CDT Office Visit [facility] Oncology and Hematology - Julien [address] [facility] [address] [place] [address] Richard Brooke MD [address] [facility] [address] [place] [address] Chronic anemia (Primary Dx) Social History Tobacco Use Types Packs/Day Years Used Date Smoking Tobacco: Some Days Cigars Smokeless Tobacco: Never Tobacco Cessation:Ready to Q uit: Not Asked; Counseling Given: Not Answered Alcohol Use Standard Drinks/Week Comments Yes 0 (1 standard drink = 0.6 oz pur e alcohol) occasional Sex and Gender Information Value Date Recorded Sex Assigned at Not on file Legal Sex Male 12:48 PM CDT Gender Identity Not on file Sexual Orientation Not on file documented as of this encounter Last Filed Vital Signs Vital Sign Reading Time Taken Comments Blood Pressure 120/67 12/08/2024 10:57 AM CDT Pulse 82 12/08/2024 10:57 AM CDT Temperature 36.6 C (97.9 F) 12/08/2024 10:57 AM CDT Respiratory Rate 16 12/08/2024 10:57 AM CDT Oxygen Saturation 93% 12/08/2024 10:57 AM CDT Inhaled Oxygen Concentration - - Weight 90.9 kg (200 lb 6.4 oz) 12/08/2024 10:57 AM CDT Height 162.6 cm (5' 4) 12/08/2024 10:57 AM CDT Body Mass Index 34.4 12/08/2024 10:57 AM CDT documented in this encounter Plan of Treatment Upcoming Encounters Date Type Department Care Team (Late st Contact Info) Description 12/18/2024 4:30 PM CDT Telephone Check Up [facility] Oncology and Hematology - [place] [facility] [address] [place] [address] Richard Brooke MD [address] [facility] [address] [place] [address] Scheduled Orders Name Type Priority Associated Diagnoses Orde r Schedule CBC WITH DIFFERENTIAL Lab Stat Chronic anemia Expected: 12/08/2024, Expires: 12/08/2025 COMPREHENSIVE METABOLIC PANEL Lab Stat Chronic anemia Expected: 12/08/2024, Expires: 12/08/2025 ERYTHROPOIETIN LEVEL Lab Routine Chronic anemia Expected: 12/08/2024, Expires: 12/08/2025 FERRITIN Lab Routine Chronic anemia Expected: 12/08/2024, Expires: 12/08/2025 IRON, TIBC, AND PERCENT SATURATION Lab Routine Chronic anemia Expected: 12/08/2024, Expires: 12/08/2025 LACTATE DEHYDROGENASE Lab Routine Chronic anemia Expected: 12/08/2024, Expires: 12/08/2025 METHYLMALONIC ACID Lab Routine Chronic anemia Expected: 12/08/2024, Expires: 12/08/2025 TRANSFERRIN RECEPTOR TFR SOLUBLE Lab Routine Chronic anemia Expected: 12/08/2024, Expires: 12/08/2025 VITAMIN B12 AND FOLATE Lab Routine Chronic anemia Expected: 12/08/2024, Expires: 12/08/2025 PROTEIN ELECTROPHORESIS W/REFLEX,SERUM Lab Routine Chronic anemia Expected: 12/08/2024, Expires: 12/08/2025 documented as of this encounter Visit Diagnoses Diagnosis Chronic anemia- Primary Anemia, unspecified documented in this encounter
--- OUTSIDE RECORDS SUMMARY | 2024-12-08 11:45 | XMS_ITS | Clinical Summary ---
Author Organization [facility] Guillermina Padilla Address [address] [place] [address] Care Team Providers Care Insurance Claim Approver Name Role Phone Unavailable Primary Care Provider Unavailabl e Allergies Active Allergy Reactions Criticality Noted Date Comments Curt Inhibitors Anaphylaxis,Angioede ma,Swelling High 06/04/2009 Reaction: ANAPHYLAXIS, , Reaction: ANAPHYLAXIS Reaction: ANAPHYLAXIS, , Reaction: ANAPHYLAXIS Reaction: ANAPHYLAXIS, , Reaction: ANAPHYLAXIS Reaction: ANAPHYLAXIS, , Reaction: ANAPHYLAXIS Reaction: ANAPHYLAXIS, , Reaction: ANAPHYLAXIS Adhesive Tape-Silicones Itching Medium 12/08/2024 Reaction: ITCHING, Reaction: ITCHING Medications donepeziL (ARICEPT) 10 mg tablet TAKE 1 TABLET BY MOUTH NIGHTLY. START AFTER COMPLETING 5MG TABLETS Active clopidogreL (PLAVIX) 75 mg Tablet Take 75 mg by mouth daily. Active ezetimibe (ZETIA) 10 mg tablet Take 10 mg by mouth daily. Active citalopram (CeleXA) 20 mg tablet Take 20 mg by mouth daily. Active tamsulosin (FLOMAX) 0.4 mg capsule Take 0.4 mg by mouth daily. Active sulfamethoxazol e-trimethoprim (BACTRIM DS) 800-160 mg tablet Take 160 mg of trimethoprim by mouth daily. Active losartan (COZAAR) 100 mg tablet Take 100 mg by mouth daily. Active evolocumab (REPATHA) 140 mg/mL Pen Injector Inject 140 mg by subcutaneous injection every 2 weeks. Active rosuvastatin (CRESTOR) 40 mg tablet Take 40 mg by mouth daily. Active famotidine (PEPCID) 20 mg tablet Take 20 mg by mouth daily. Active aspirin (ECOTRIN EC) 81 mg Tablet, Delayed Release (E.C.) Take 81 mg by mouth daily. Active multivitamin (DAILY-KARLO) tablet Take 1 Tablet by mouth daily. Active cyanocobalamin 1,000 mcg Tablet Take 1,000 mcg by mouth daily. Active ergocalciferol (VITAMIN D2) 50,000 unit capsule Take 50,000 Units by mouth every 7 days. Active ferrous sulfate 325 mg (65 mg iron) tablet Take 325 mg by mouth daily with breakfast. Active Active Problems No known active problems Encounters Date Type Department Care Team Description 12/08/2024 11:00 AM CDT Office Visit [facility] - [place] [address] [place] [address] Richard Brooke MD Chronic anemia (Primary Dx) from Last 3 Months Family History Medical History Relation Name Comments No Known Problems Brother 1 No Known Problems Brother 2 No Known Problems Brother 3 No Known Problems Child 1 No Known Problems Child 2 No Known Problems Child 3 No Known Problems Father Diabetes Mother No Known Problems Sister 1 No Known Problems Sister 2 Cancer - Other Sister 3 Diabetes Sister 4 No Known Problems Sister 5 No Known Problems Sister 6 Relation Name Status Comments Brother 1 Alive Brother 2 Brother 3 Child 1 Alive Child 2 Alive Child 3 Alive Father Mother Sister 1 Sister 2 Sister 3 Sister 4 Alive Sister 5 Alive Sister 6 Alive Social History Tobacco Use Types Packs/Day Years [...] Mass Index 34.4 12/08/2024 10:57 AM CDT Plan of Treatment Upcoming Encounters Date Type Department Care Team (Late st Contact Info) Description 12/18/2024 4:30 PM CDT Telephone Check Up [facility] - [place] [address] [facility] [address] [place] [address] Richard Brooke MD [address] [facility] [employer] [address] [place] [address] Health Maintenance Due Date Last Done Comments DIABETES ANNUAL FOOT EXAM 02/04/1964 DIABETES ANNUAL RETINAL EXAM 02/04/1964 DIABETES HBA1C Q 6 MONTHS 02/04/1964 DIABETES MICROALBUMIN ANNUAL SCREEN 02/04/1964 LDL CHOLESTEROL ANNUAL 02/04/1964 DTAP/TDAP/TD VACCINES (1 - Tdap) 1965 PNEUMOCOCCAL VACCINE 50+ YEA RS (1 of 2 - PCV) 1965 ZOSTER VACCINE (3 of 3) 01/26/2018 12/02/19 18, 08/17/2017, 08/30/2015 RSV VACCINE (60+ or ) (1 - 1-dose 75+ series) 2021 Medicare [place]) Preventative Visit/Annual Wellness Visit 05/17/2024 INFLUENZA VACCINE (#1) 2024 , 02/25/2021, 02/10/2020, Additional history exists Insurance MEDICAID [place]
--- OUTSIDE RECORDS SUMMARY | 2024-12-08 11:45 | XMS_ITS | Encounter Summary ---
Author Organization [facility] Address [address] [place] [address] Phone Care Team Providers Care Plasterer Journeyman Name Role Phone Huy Elliott Primary Care Provider [phone] Tony Gray MD Primary Care Provider Alfredo Jordan ENGINEERING PRODUCTION LIAISON Unavailable [phone] Encounter Details Date Type Department Care Team (Late st Contact Info) Description 08/09/2017 Orders Only [facility] Provider, MD Erlinda [address] [place] [address] Social History Tobacco Use Types Packs/Day Years Used Date Smoking Tobacco: Former Alcohol Use Standard Drinks/Week Comments Yes 0 (1 standard drink = 0.6 oz pur e alcohol) Sex and Gender Information Value Date Recorded Sex Assigned at Not on file 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 Historical Provider LAB BLOOD ORDERABLES Judy l Result documented in this encounter Visit Diagnoses Not on filedocumented in this encounter Care Teams Plasterer Journeyman Relationship Specialty Start Date End Date Huy Elliott [address] [place] [address] PCP - General 07/09/16 12/15/21 Tony Gray MD [address] [place] [id number] PCP - General Family Practice 12/16/21 [place] [id number] [facility] [address] [place] [address] Nurse Practitioner Pain Management 04/19/24 documented as of this encounter
--- OUTSIDE RECORDS SUMMARY | 2024-12-08 11:45 | XMS_ITS | Encounter Summary ---
Author Organization [facility] Address [address] [place] [address] Phone Care Team Providers Care Chamber Walker Name Role Phone Huy Elliott Primary Care Provider [phone] Tony Gray MD Primary Care Provider Alfredo Jordan SOLE TRIMMER Unavailable [phone] Encounter Details Date Type Department Care Team (Late st Contact Info) Description 05/13/[address] [facility] ProviderErlinda MD [address] [place] [address] Social History Tobacco Use Types Packs/Day Years Used Date Smoking Tobacco: Former Alcohol Use Standard Drinks/Week Comments Yes 0 (1 standard drink = 0.6 oz pur e alcohol) Sex and Gender Information Value Date Recorded Sex Assigned at Not on file Legal Sex Male 1:11 AM DYE MAKER Gender Identity Not on file Sexual Orientation Not on file documented as of this encounter Plan of Treatment Not on file documented as of this encounter Procedures Procedure Name Priority Date/Time Associated Diagnosis Comments DISCHARGE LABORATORY CUMULATIVE REPORT 05/13/2017 12:00 AM DYE MAKER documented in this encounter Results * DISCHARGE LABORATORY CUMULATIVE REPORT (05/13/2017 12:00 AM DYE MAKER) Narrative 05/13/2017 12:00 AM DYE MAKER Ordered by an unspecified provider. Historical Provider LAB BLOOD ORDERABLES Judy l Result documented in this encounter Visit Diagnoses Not on filedocumented in this encounter Care Teams Chamber Walker Relationship Specialty Start Date End Date Huy Elliott [address] [place] [address] PCP - General 07/09/16 12/15/21 Tony Gray MD [address] [place] [id number] PCP - General Family Practice 12/16/21 [place] [address] [address] [facility] [address] [place] [address] Nurse Practitioner Pain Management 04/19/24 documented as of this encounter
--- OUTSIDE RECORDS SUMMARY | 2024-12-08 11:45 | XMS_ITS | Referral Summary ---
Author Organization [facility] Address [address] [place] [address] Care Team Providers Care Glost Kiln Placer Name Role Phone Tony Gray MD Primary Care Provider Alfredo Jordan DIRECT SUPPORT STAFF MEMBER Unavailable [phone] Encounters Date Type Department Care Team Description 11/28/2024 Documentation [facility] [address] [place] [address] Shefali Hargrove RN 11/28/2024 9:00 AM CDT - 11/28/2024 11:59 PM CDT Hospital Encounter [facility] [address] [place] [address] Alfredo Jordan NP 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); Saphenous neuritis, right; Mononeuropathy; Chronic pain disorder; Chronic knee pain after total replacement of right knee joint Discharge Disposition: Discharge to home or self care 11/23/2024 9:00 AM CDT - 11/23/2024 10:30 AM CDT Surgery [facility] Operating Room [address] [place] [address] Hudson Perez MD RIGHT INFRAPATELLAR SAPHENOUS PERIPHERAL NERVE STIMULATOR IMPLANT 11/23/2024 9:10 AM CDT Anesthesia Event [facility] Operating Room [address] [place] [address] Jayna Bateman MD PhD Alisia Carvajal MD PhD 11/23/2024 6:54 AM CDT - 11/23/2024 12:23 PM CDT Hospital Encounter [facility] Operating Room [id number] [place] [address] Hudson Perez MD Mononeuropathy [G58.9] (Primary Dx); Saphenous neuritis, right [G57.81]; Chronic knee pain after total replacement of right knee joint [M25.561, G89.29, Z96.651] Discharge Disposition: Discharge to home or self care 10/30/2024 2:15 PM CDT - 10/30/2024 11:59 PM CDT Hospital Encounter [facility] [address] [place] [address] Alfredo Jordan NP 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); Chronic pain disorder; Presence of intrathecal pump; Spinal stenosis of lumbar region, unspecified whether neurogenic claudication present Discharge Disposition: Discharge to home or self care 10/23/2024 7:30 AM CDT - 10/23/2024 9:00 AM CDT Surgery [facility] Operating Room [id number] [place] [address] Hudson Perez MD INTRATHECAL PAIN PUMP REVISION, BATTERY REPLACEMENT AND CATHETER REVISION WITH PLASMA BLADE 10/23/2024 7:29 AM CDT Anesthesia Event [facility] Operating Room [id number] [place] [address] Lottie Longoria MD Tadros, Hany B., MD 10/23/2024 5:20 AM CDT - 10/23/2024 12:53 PM CDT Hospital Encounter [facility] Operating Room [address] [place] [address] Hudson Perez MD End of battery life of intrathecal infusion pump [Z46.2] (Primary Dx); Mononeuropathy [G58.9] Discharge Disposition: Discharge to home or self care 10/10/2024 Telephone [facility] Otolaryngology [address] [place] [address] Thais Dejesus MS from Last 3 Months Allergies Active Allergy [...] route every day 0 02/27/20 16 Active rosuvastatin (CRESTOR) 40 mg tablet take 1 tablet by oral route every day 0 0 02/27/20 16 Active citalopram (CeleXA) 20 mg tablet Take [...] total) by mouth nightly 12/05/19 22 Active ergocalciferol , vitamin D2, (VITAMIN D2 ORAL) Take 1 tablet by mouth daily Active clopidogreL (PLAVIX) 75 mg tablet Take 1 tablet (75 mg total) by mouth daily Active ezetimibe (ZETIA) 10 mg tablet Take 1 tablet (10 mg total) by mouth daily Active ferrous sulfate 325 mg (65 mg of elemental iron) tablet Take 1 tablet (325 mg total) by mouth daily with breakfast Active cyanocobalamin (Vitamin B-12) 1,000 mcg tablet Take 1 tablet (1,000 mcg total) by mouth daily Active sulfamethoxazo le-trimethopri m (BACTRIM DS) 800-160 mg per tablet Take 1 tablet (160 mg of trimethoprim total) by mouth daily Daily due to post knee replacement infection Active morphine sulfate (MORPHINE IV) In morphine pump 0 07/20/19 25 Active famotidine (PEPCID) 20 mg tablet Take 1 tablet (20 mg total) by mouth daily Active multivitamin tablet Take 1 tablet by mouth daily Active HYDROcodone-ac etaminophen (NORCO) 5-325 mg per tabletIndicati ons:Pain Take 1 tablet by mouth every 8 (eight) hours as needed for pain 10 tablet 11/24/19 25 Active Additional Information Patient not taking.Reported on 11/28/[address] (PROTONIX) 40 mg EC tablet take 1 tablet by oral route every day 30 4 06/03/19 17 025 Discontinued hydroCHLOROthi azide 12.5 mg tablet Take 1 tablet (12.5 mg total) by mouth daily 09/19/19 25 025 Discontinued HYDROcodone-ac etaminophen (NORCO) 5-325 mg per tabletIndicati ons:Pain Take 1 tablet by mouth every 8 (eight) hours as needed for pain 7 tablet 10/24/19 25 025 Discontinued Active Problems Problem Noted Date Diagnosed Date [...] Hyperlipidemia 05/02/2010 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 2-4 times a month 11/23/2024 Q2: How many drinks containi ng alcohol do you have on a typical day when you are drinking? 3 or 4 11/23/2024 Q3: How often do you have si x or more drinks on one occasion? Never 11/23/2024 Personal Safety Answer Date Recorded Have you ever been in or are you currently in a harmful physical or emotional relationship or is someone making you feel afraid or unsafe? 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 Gender Identity Not on file Sexual Orientation Not on file Last Filed Vital Signs Vital Sign Reading Time Taken Comments Blood Pressure 105/47 11/28/2024 9:09 AM CDT Pulse 81 11/28/2024 9:09 AM CDT Temperature 36.1 C (97 F) 11/23/2024 10:50 AM CDT Respiratory Rate 18 11/28/2024 9:09 AM CDT Oxygen Saturation 99% 11/28/2024 9:09 AM CDT Inhaled Oxygen Concentration - - Weight 91.2 kg (201 lb) 11/23/2024 7:23 AM CDT Height 165.1 cm (5' 5) 11/23/2024 7:23 AM CDT Body Mass Index 33.45 11/23/2024 7:23 AM CDT Plan of Treatment Not on file Medical Devices Implanted Type Area Wood Milling Machine Tender Device Identifier Shelf Expiration Date Model / Serial / Lot Medtronic Inc Kit Implant Connector Pump Synchromed Iii 8578 - [id number] - [id number] Implanted:Qty: 1 on 10/23/2024 by Hudson Perez MD at [facility] Right: Abdomen Medtronic Inc [id number] 03/30/2026 8578 / [id number] / Medtronic [employer] X Pump Infusion Programmable Ulp Ami 20ml Volume 8667-20 - [id number] - [id number] Implanted:Qty: 1 on 10/23/2024 by Hudson Perez MD at [facility] Right: Abdomen Medtronic [employer] X 02/27/2026 8667-20 / [id number] / Medtronic Inc Kit Implant Connector Pump Synchromed Iii 8578 - [id number] Implanted:Qty: 1 on 10/23/2024 by Hudson Perez MD at [facility] Right: Abdomen Medtronic Inc 10/20/2025 8578 / / [id number] An[employer] Lead Neurostimulator Pain Management Peripheral Nerve Permanent 4 Electrode Stimq [id number] - [id number] - [id number] Implanted:Qty: 1 on 11/23/2024 by Hudson Perez MD at [facility] Right: Leg [employer] 07/15/2026 PNSST Q4- RCV-[id number] / [id number] / Explanted Type Area Wood Milling Machine Tender Device Identifier Shelf Expiration Date Model / Serial / Lot Existing Pain Pump Explanted:Qty: 1 on 10/23/2024 by Hudson Perez MD at [facility] Right: Abdomen Medtronic UNKNOWN / / Procedures Procedure Name Priority Date/Time Associated Diagnosis Comments POCT GLUCOSE DEVICE Routine 11/23/2024 1 0:53 AM CDT XR KNEE RIGHT 1 OR 2 VIEWS IP Routine 11/23/2024 10:08 AM CDT FL FLUOROSCOPY < 1 HOUR IP Routine 11/23/2024 10:08 AM CDT PLACEMENT PERIPHERAL NERVE STIMULATOR 11/23/2024 9:09 AM CDT SAPHENOUS NERVE EGFR STAT 11/23/2024 7:16 AM CDT BASIC METABOLIC PANEL STAT 11/23/2024 7:16 AM CDT CBC WITHOUT DIFFERENTIAL STAT 11/23/2024 7:16 AM CDT POCT GLUCOSE DEVICE Routine 11/23/2024 7 :08 AM CDT INSERTION PUMP - PAIN MANAGEMENT 10/23/2024 7:28 AM CDT LOW BACK PAIN POCT GLUCOSE DEVICE Routine 10/23/2024 5 :28 AM CDT COLONOSCOPY REPORT 03/11/2016 CT ABDOMEN PELVIS WO CONTRAST Routine 09/02/2012 12:25 PM CDT from Last 3 Months or Most Recently Relevant to Health Maintenance Results * POCT glucose (11/23/2024 10:53 AM CDT) [facility] Signature Glucose, POC 95 70 - 199 mg/dL POC Performer [id number] RADHA MARSH Blood 11/23/2024 10:5 3 AM CDT 11/23/2024 10:53 AM CDT Hudson Perez MD LAB POCT ORDERABLES - DEVICE Final Result Performing Organization Address City/[facility]/ZIP Co de Phone Number RADHA [address] [facility] Department [place] [address] * FL Fluoroscopy < 1 Hour (11/23/2024 10:08 AM CDT) Narrative RAD_PACS_CH - 11/23/2024 10:09 AM CDT The images from this study are not interpreted by Radiology. Please refer to the physician's procedure / OR operative note. Hudson Perez MD IMG FLUOROSCOPY PROCE DURES Final Result Performing Organization Address City/[facility]/ZIP Co de Phone Number RAD_PACS_ * XR Knee Right 1 or 2 Views (11/23/2024 10:08 AM CDT) Anatomical Region Laterality Modality Lower Extremities, Knee Right Computed Radiography 11/23/2024 10:1 0 AM CDT Impressions 11/23/2024 10:10 AM CDT Fluoroscopic guidance surgical procedure Electronically signed by: Nlei Goss M.D. Narrative 11/23/2024 10:10 AM CDT EXAMINATION: XR KNEE RIGHT 1 OR 2 VIEWS HISTORY: Knee replacement pain FINDINGS: Intraoperative study demonstrating knee replacement longstem tibial component with good alignment. Procedure Note Neli Goss MD - 11/23/2024 EXAMINATION: XR KNEE RIGHT 1 OR 2 VIEWS HISTORY: Knee replacement pain FINDINGS: Intraoperative study demonstrating knee replacement longstem tibial component with good alignment. IMPRESSION: Fluoroscopic guidance surgical procedure Electronically signed by: Neli Goss M.D. us Hudson Perez MD IMG XR PROCEDURES Fin al Result * (ABNORMAL) eGFR (11/23/2024 7:16 AM CDT) eGFR 57(L) >=60 mL/min/1. 73 m2 Comment: Interpretive Data Reference Interval Normal >/= 90 mL/min/1.73m2 Mildly decreased* 60 - 89 mL/min/1.73m2 Mildly to moderately decreased 45 - 59 mL/min/1.73m2 Moderately to severely decreased 30 - 44 mL/min/1.73m2 Severely decreased 15 - 29 mL/min/1.73m2 Kidney Failure < 15 mL/min/1.73m2 *Relative to young adult level Estimated glomerular filtration rate is determined by the 2020 CKD-EPI equation recommended by the National Kidney Foundation (A Unifying Approach to GFR Estimation: Recommendations of the NKF-ASK Task Force on Reassessing the Inclusion of Race in Diagnosing Kidney Disease, JASN 2020). The CKD-EPI equation should not be used for patients with unstable renal function and has not been validated in children and those over 70. Current interpretive data was last reviewed 2021. Blood 11/23/2024 7:16 AM CDT 11/23/2024 7:57 AM CDT Gallo Roman MD LAB BLOOD ORDERABLES Final Result RADHA MARSH [address] Department [place] [address] * (ABNORMAL) CBC without differential (11/23/2024 7:16 AM CDT) Pathologist [facility] WBC 3.85 3.80 - 9.90 K/cumm Hgb 8.3(L) 13.0 - 17.5 g/dL [facility] Hct 27.6(L) 38.9 - 50.3 % [facility] CH Plt 200 150 - 400 K/cumm [facility] MPV 9.1 9.1 - 12.3 fL [facility] CH RBC 3.45(L) 4.30 - 5.80 M/cumm [facility] MCV 80.0(L) 81.3 - 96.4 fL [facility] MCH 24.1(L) 27.1 - 33.3 pg [facility] MCHC 30.1(L) 32.3 - 35.7 g/dL [facility] RDW CV 27.1(H) 11.1 - 14.9 % [facility] RDW SD 77.8(H) 35.7 - 48.1 fL [facility] NRBC abs 0.00 0.00 - 0.01 K/cumm [facility] Blood 11/23/2024 7:16 AM CDT 11/23/2024 7:57 AM CDT us Gallo Roman MD LAB BLOOD ORDERABLES Final Result Performing Organization Address [facility] Co de Phone Number RADHA MARSH [address] Department [place] [address] * (ABNORMAL) Basic metabolic panel (11/23/2024 7:16 AM CDT) Pathologist [facility] Sodium 141 135 - 145 mmol/L Potassium, pl 4.2 3.3 - 4.9 mmol/L [facility] Chloride 105 97 - 110 mmol/L [facility] CO2 27 22 - 32 mmol/L [facility] Anion gap 9 2 - 15 mmol/L [facility] BUN 30(H) 6 - 25 mg/dL [facility] Creatinine 1.29 0.80 - 1.30 mg/dL [facility] Glucose 91 70 - 199 mg/dL [facility] Comment: Interpretive Data Fasting glucose >/= 126 mg/dl is diagnostic for diabetes. Fasting is defined as no caloric intake for at least 8 hours. Fasting glucose between 100 mg/dl to 125 mg/dl is diagnostic of prediabetes. In a patient with classic symptoms of hyperglycemia or hyperglycemic crisis, a random glucose >/= 200 mg/dl is diagnostic for diabetes. In the absence of unequivocal hyperglycemia, results should be confirmed by repeat testing. The classification and Diagnosis of Diabetes Diabetes Care 2021; 46: S19-S40. Current interpretive data was last revised 2022. Calcium 9.0 8.5 - 10.3 mg/dL [facility] Blood 11/23/2024 7:16 AM CDT 11/23/2024 7:57 AM CDT Gallo Roman MD LAB BLOOD ORDERABLES Final Result Performing Organization Address City[facility]/ZIP Co de Phone Number RADHA [address] [employer] [place] [address] * POCT glucose (11/23/2024 7:08 AM CDT) Glucose, POC 102 70 - 199 mg/dL POC Performer [id number] [facility] Blood 11/23/2024 7:08 AM CDT 11/23/2024 7:08 AM CDT us Hudson Perez MD LAB POCT ORDERABLES - DEVICE Final Result [facility] [address] [address] [place] [address] * POCT glucose (10/23/2024 5:28 AM CDT) Glucose, POC 92 70 - 199 mg/dL POC Performer [id number] [facility] Blood 10/23/2024 5:28 AM CDT 10/23/2024 5:28 AM CDT Hudson Perez MD LAB POCT ORDERABLES - DEVICE Final Result RADHA MARSH [address] Department [place] [address] * COLONOSCOPY REPORT (03/11/2016) Anatomical Region Laterality Modality Other Narrative 03/11/2016 Ordered by an unspecified provider. Historical Provider GI PROCEDURE ORDERABLES F inal Result * CT Abdomen Pelvis WO Contrast (09/02/2012 12:25 PM CDT) Anatomical Region Laterality Modality Body N/A Computed Tomogra phy 09/02/2012 12:2 5 PM CDT Narrative 09/02/2012 2:09 PM CDT DATE OF EXAM: Sep 02 2012 12:25PM Acc#: [id number] ECT 0073 - CT Abd/Pel WO DIAGNOSIS: ANEMIA NOS DM2/NOS UNCOMP NSU CLINICAL HISTORY: ANEMIA DIABETIC RESULT: \ CT ABDOMEN AND PELVIS WITH ORAL BUT NOT INTRAVENOUS CONTRAST HISTORY This is a 67-year-old man with anemia, diabetes and leukopenia. Noncontrast CT exam performed as requested. FINDINGS Prior abdominal imaging studies are not available for comparison. Superintendent Pressure radiograph demonstrates pacemaker leads in the right [...] SPINAL STENOSIS WITH PAIN STIMULATOR IN PLACE. MEMORIAL COUNSELOR: INEZ TRANSCRIBE DATE/TIME: Sep 02 2012 1:52P RADIOLOGIST: NELI GOSS M.D. READ ON: Sep 02 2012 1:22P ORDERING DR: JENNIFER PRICE M.D. THIS DOCUMENT HAS BEEN ELECTRONICALLY SIGNED BY: NELI GOSS M.D. ON: Sep 02 2012 2:09P Procedure Note Provider, MD Erlinda - 09/11/2016 DATE OF EXAM: Sep 02 2012 12:25PM Acc#: [id number] ECT 0073 - CT Abd/Pel WO DIAGNOSIS: ANEMIA NOS DM2/NOS UNCOMP NSU CLINICAL HISTORY: ANEMIA DIABETIC RESULT: \ CT ABDOMEN AND PELVIS WITH ORAL BUT NOT INTRAVENOUS CONTRAST HISTORY This is a 67-year-old man with anemia, diabetes and leukopenia. Noncontrast CT exam performed as requested. FINDINGS Prior abdominal imaging studies are not available for comparison. Superintendent Pressure radiograph demonstrates pacemaker leads in the right [...] SPINAL STENOSIS WITH PAIN STIMULATOR IN PLACE. MEMORIAL COUNSELOR: INEZ TRANSCRIBE DATE/TIME: Sep 02 2012 1:52P RADIOLOGIST: NELI GOSS M.D. READ ON: Sep 02 2012 1:22P ORDERING DR: JENNIFER PRICE M.D. THIS DOCUMENT HAS BEEN ELECTRONICALLY SIGNED BY: NELI GOSS M.D. ON: Sep 02 2012 2:09P us Historical Provider MD MENA CT PROCEDURES Final R esult from Last 3 Months or Most Recently Relevant to Health Maintenance Insurance [employer] CHOICE MEDICARE PPO IDPA [id number] [place] [address] MEDICARE ADVANTAGE [facility] MED[facility] Address: [address] [address] [place] [address] IDPA IDPA [employer] [facility] MEDICARE ADVANTAGE [facility] MEDIC[facility] Address: [address] [address] [place] [address] Care Teams Glost Kiln Placer Relationship Specialty Start Date End Date Tony Gray MD PCP - General Family Practice 12/16/21 [place] [address] [place] [address] Nurse Practitioner Pain Management 04/19/24
--- OUTSIDE RECORDS SUMMARY | 2024-12-08 11:45 | XMS_ITS | Continuity of Care Document ---
Author Organization [facility] Address [address] [place] [address] [address] [place] [address] Phone Care Team Providers Care Necktie Maker Name Role Phone Cardona OD, Jerry Unavailable Unavailable Procedures Procedure Date Office/outpatient Visit, Est Eye Exam Established Pt Advance Directives Directive Yes / No Effective Date File Name No Information Encounters Encounter Description Practice Location Reason(s) For Visit Diagnoses Date Provider Providers Copied on Encounter Office/outpat ient Visit, Est [facility], [address] [place] [address] [address], [place], [place], [id number], tel:[phone] SEC [facility] No Information Juan David-3 0-200 9 Cardona OD Jerry. [address] , [address], [place], [place], [facility], [place]. tel:[phone] [facility], [address] [place] [address] [address], [place], [place], [id number], tel:[phone] [facility] [place] No Information Oct-2 3-200 9 Cardona OD Jerry. [address] , [address], [place], [place], [facility], [place]. tel:[phone] Family History Family Member Type Diagnosis Age At Onset No Information Payers Payer name Insurance type Covered republican ID Authoriza tion(s) [employer] [id number] Social History Type Description Quantity Date Captured [...]
--- OUTSIDE RECORDS SUMMARY | 2024-12-08 11:45 | XMS_ITS | Clinical Summary ---
Author Organization [facility] Address [address] [place] [address] Phone Care Team Providers Care Diploma Maker Name Role Phone Tony Gray MD Primary Care Provider Pepe Dunn MD Unavailable [phone] Allergies Active Allergy Reactions Criticality Noted Date Comments Ramipril Swelling 08/27/2021 Wound Dressing Adhesive Hives 08/27/2021 Medications rosuvastatin (CRESTOR) 40 MG Tablet Take 40 mg by mouth daily. Active ferrous sulfate 325 (65 Fe) MG Tablet Take 325 mg by mouth daily. Active Cyanocobalamin (B-12 PO) Take by mouth. Activ e amLODIPine (NORVASC) 10 MG Tablet Take 10 mg by mouth daily. Active tamsulosin (FLOMAX) 0.4 MG Capsule Take 0.4 mg by mouth daily. Active citalopram (CeleXA) 20 MG Tablet Take 20 mg by mouth daily. Active hydroCHLOROthi azide 25 MG Tablet Take 25 mg by mouth daily. Active losartan (COZAAR) 100 MG Tablet Take 100 mg by mouth daily. Active pantoprazole (PROTONIX) 40 MG Tablet Delayed Response Take 40 mg by mouth daily. Active aspirin EC 81 MG Tablet Delayed Response Take 81 mg by mouth daily. Active dutasteride (AVODART) 0.5 MG Capsule Take 0.5 mg by mouth daily. Active sulfamethoxazo le-trimethopri m DS (BACTRIM DS, SEPTRA DS) 800-160 MG Tablet Take 1 Tablet by mouth 2 times daily. Active Repatha SureClick 140 MG/ML Solution Auto-injector INJECT 140 MG SUBCUTANEOUSLY EVERY TWO WEEKS 3 Active donepezil (ARICEPT) 10 MG Tablet TAKE 1 TABLET BY MOUTH NIGHTLY. START AFTER COMPLETING 5MG TABLETS 90 Tablet 3 5 Active Encounters Date Type Department Care Team Description 10/11/2024 Refill [facility] Neurology [facility] [address] [place] [address] Pepe Dunn MD Medication Refill from Last [...] Comments Blood Pressure 140/60 07/17/2024 9:06 AM MOTORIZED SQUAD CAPTAIN Pulse 57 07/17/2024 9:06 AM MOTORIZED SQUAD CAPTAIN Temperature 36.4 C (97.5 F) 07/17/2024 9:06 AM MOTORIZED SQUAD CAPTAIN Respiratory Rate 18 07/17/2024 9:06 AM MOTORIZED SQUAD CAPTAIN Oxygen Saturation 88% 07/17/2024 9:06 AM MOTORIZED SQUAD CAPTAIN Inhaled Oxygen Concentration - - Weight 89.4 kg (197 lb 3.2 oz) 07/17/2024 9:06 A M MOTORIZED SQUAD CAPTAIN Height 160 cm (5' 3) 07/17/2024 9:06 AM MOTORIZED SQUAD CAPTAIN Body Mass Index 34.93 07/17/2024 9:06 AM MOTORIZED SQUAD CAPTAIN Plan of Treatment Upcoming Encounters Date Type Department Care Team (Late st Contact Info) Description 01/22/2025 10:45 AM CDT Office Visit [facility] [address] [place] [address] Pepe Dunn MD [address] [place] [id number] Health Maintenance Due Date Last Done Comments Hepatitis C Virus (HCV) Screening 1945 TdaP Immunization 1945 Zoster Immunization (2 of 3) 01/26/2018, 08/17/2017, 08/30/2015 Respiratory Syncytial Virus (RSV) Immunization (Adult) (1 - 1-dose 75+ series) 2021 SARS-COV-2 Immunization (2023- season) 2024 02/06/2023, 09/02/2021, 03/25/2021, Additional history exists Influenza Immunization (#1) 01/15/202505/2023, 02/06/2023, 03/29/2022, Additional history exists Pneumococcal Immunization (50+ years) Completed 08/22/2022 Hepatitis B Immunization Aged Out No longer [...] topic Insurance MEDICAID [place] MEDICARE C [employer] [place] [id number] Care Teams Diploma Maker Relationship Specialty Start Date End Date Tony Gray MD PCP - General Family Medicine 08/26/21 Pepe Dunn MD [address] [place] [phone] Consulting Physician Neurology 02/03/22
--- OUTSIDE RECORDS SUMMARY | 2024-12-08 11:45 | XMS_ITS | Encounter Summary ---
Author Organization [facility] Address [address] [place] [address] Phone Care Team Providers Care Property Supervisor Name Role Phone Tony Gray MD Primary Care Provider Pepe Dunn MD Unavailable Reason for Visit * Reason Comments Medication Refill Encounter Details Date Type Department Care Team (Late st Contact Info) Description 10/25/[address] [facility] - Neu[facility] [address] [place] [address] Pepe Dunn MD [address] [place] [phone] Medication Refill Social History Tobacco Use Types [...] Dept 09/02/23 Office Visit Pepe Dunn MD [facility] Neurology [facility] 02/12/23 Office Visit Pepe Dunn MD [facility] Neurology [facility] Showing recent visits within past 365 days [...] Description 01/22/2025 10:45 AM CDT Office Visit [facility] Neu[facility] [address] [place] [address] Pepe Dunn MD [address] [place] [address] documented as of this encounter Visit Diagnoses Not on filedocumented in this encounter Care Teams Property Supervisor Relationship Specialty Start Date End Date Tony Gray MD PCP - General Family Medicine 08/26/21 Pepe Dunn MD [address] [place] [address] Consulting Physician Neurology 02/03/22 documented as of this encounter
--- OUTSIDE RECORDS SUMMARY | 2024-12-08 11:45 | XMS_ITS | Clinical Summary ---
Author Organization [facility] [employer] Address [address] [facility] [place] [address] Care Team Providers Care Electroplating Technician Name Role Phone Tony Gray MD Primary Care Provider Darell Yu MD Unavailable Harry Vang MD Unavailable [phone] Twyla Cervantes MD Unavailable [phone] Source Comments [facility],non-owned Affiliates and Associated Physician Practices is amultiple site organization consisting of ambulatory clinics and hospital sitesin [place], [place] and [place]. This disclosure is being madepursuant to the Care Everywhere program and may not contain all information available regarding this patient. 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 Gender Identity Not on file Sexual Orientation [...] 07/22/2020, 06/25/2020 DEPRESSION SCREENING 05/17/2024 INFLUENZA VACCINE (#1) 2025 , 02/10/2020, 03/10/2019, Additional history exists HEPATITIS B [...] Insurance MEDICAID - OUT OF STATE MEDICAID [facility] HUMANA Advance Directives * Full Code (Latest Code Status on File) Date Activated Date Inactivated Comments 06/17/2009 3:42 PM 06/19/2009 12:18 AM Care Teams Electroplating Technician Relationship Specialty Start Date End Date Tony Gray MD [address] [place] [address] PCP - General Family Medicine 08/28/21 [place] [address] [facility] [address] [facility] [place] [address] Cardiovascular Disease 09/22/21 Harry Vang MD 4 [facility] [address] [place] [phone] Internal Medicine 09/22/21 Twyla Cervantes MD [facility] [address] Nephrology 09/22/21
--- OUTSIDE RECORDS SUMMARY | 2024-12-08 11:45 | XMS_ITS | Encounter Summary ---
Author Organization [facility] Address [address] [place] [address] Phone Care Team Providers Care Street Sprinkler Name Role Phone Tony Gray MD Primary Care Provider Pepe Dunn MD Unavailable Reason for Visit * Reason Comments Medication Refill Encounter Details Date Type Department Care Team (Late st Contact Info) Description 11/26/2021 Refill [facility] - [facility] [address] [place] [phone] Pepe Dunn MD [address] [place] [phone] Medication Refill Social History Tobacco Use Types [...] Visit [facility] - [facility] [address] [place] [address] Pepe Dunn MD [address] [place] [address] documented as of this encounter Visit Diagnoses Not on filedocumented in this encounter Care Teams Street Sprinkler Relationship Specialty Start Date End Date Tony Gray MD PCP - General Family Medicine 08/26/21 Pepe Dunn MD [address] [place] [address] Consulting Physician Neurology 02/03/22 documented as of this encounter
--- OUTSIDE RECORDS SUMMARY | 2024-12-08 11:45 | XMS_ITS | Encounter Summary ---
Author Organization [facility] Address [address] [facility] [place] [address] Care Team Providers Care Wash Helper Name Role Phone Tony Gray MD Primary Care Provider Darell Yu MD Unavailable Harry Vang MD Unavailable [phone] Twyla Cervantes MD Unavailable [phone] Encounter Details Date Type Department Care Team (Late st Contact Info) Description 08/28/2021 Ophth Exam [facility] [address] [place] [phone] Pi, [place] [address] [facility] [address] [place] [address] Social History Tobacco Use Types Packs/Day Years Used Date Smoking Tobacco: Former Cigars Comments:quit 10 years ago Alcohol Use Standard Drinks/Week Comments Yes 8.3 (1 standard drink = 0.6 oz p ure alcohol) 10 beers per week Sex and Gender Information Value Date Recorded Sex Assigned at Not on file 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 Gender Identity Not on file Sexual Orientation Not on file documented as of this encounter Plan of Treatment Not on file documented as of this encounter Visit Diagnoses Not on filedocumented in this encounter Care Teams Wash Helper Relationship Specialty Start Date End Date Tony Gray MD [address] [place] [phone] PCP - General Family Medicine 08/28/21 [place] [address] [facility] [address] [address] Cardiovascular Disease 09/22/21 Harry Vang MD [address] [address] Internal Medicine 09/22/21 Twyla Cervantes MD [address] [facility] [address] [place] [address] Nephrology 09/22/21 documented as of this encounter
--- OUTSIDE RECORDS SUMMARY | 2024-12-08 11:45 | XMS_ITS | Clinical Summary ---
Author Organization [facility] Address [address] [place] [address] Care Team Providers Care Store Stock Help Name Role Phone Tony Gray MD Primary Care Provider Alfredo Jordan AFFIRMATIVE ACTION SPECIALIST Unavailable [phone] Allergies Active Allergy Reactions Criticality Noted [...] (10 mg total) by mouth nightly 12/05/19 Active ergocalciferol , vitamin D2, (VITAMIN D2 [...] (MORPHINE IV) In morphine pump 0 07/20/19 Active famotidine (PEPCID) 20 mg tablet Take 1 tablet (20 mg total) by mouth daily Active multivitamin tablet Take 1 tablet by mouth daily Active HYDROcodone-ac etaminophen (NORCO) 5-325 mg per tabletIndicati ons:Pain Take 1 tablet by mouth every 8 (eight) hours as needed for pain 10 tablet 11/24/19 Active Additional Information Patient not taking.Reported on 11/28/[address] (PROTONIX) 40 mg EC tablet take 1 tablet by oral route every day 30 4 06/03/19 17 025 Discontinued hydroCHLOROthi azide 12.5 mg tablet Take 1 tablet (12.5 mg total) by mouth daily 09/19/19 025 Discontinued HYDROcodone-ac etaminophen (NORCO) 5-325 mg [...] Hyperlipidemia 05/02/2010 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 07/10/2009 Benign hypertension 05/16/1959 Overview (08/26/2021): CCM enrolled CCM enrolled Obstructive sleep apnea syndrome 05/16/1959 Chronic pain disorder Encounters Date Type Department Care Team Description 11/28/2024 9:00 AM CDT - 11/28/2024 11:59 PM CDT Hospital Encounter [facility] [address] [place] [address] Alfredo Jordan NP 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); Saphenous neuritis, right; Mononeuropathy; Chronic pain disorder; Chronic knee pain after total replacement of right knee joint Discharge Disposition: Discharge to home or self care 11/28/2024 Documentation [facility] [address] [place] [address] Shefali Hargrove RN 11/23/2024 9:10 AM CDT Anesthesia Event [facility] [address] [place] [address] Jayna Bateman MD PhD Alisia Carvajal MD PhD 11/23/2024 9:00 AM CDT - 11/23/2024 10:30 AM CDT Surgery [facility] [address] [place] [address] Hudson Perez MD RIGHT INFRAPATELLAR SAPHENOUS PERIPHERAL NERVE STIMULATOR IMPLANT 11/23/2024 6:54 AM CDT - 11/23/2024 12:23 PM CDT Hospital Encounter [facility] [address] [place] [address] Hudson Perez MD Mononeuropathy [G58.9] (Primary Dx); Saphenous neuritis, right [G57.81]; Chronic knee pain after total replacement of right knee joint [M25.561, G89.29, Z96.651] Discharge Disposition: Discharge to home or self care 10/30/2024 2:15 PM CDT - 10/30/2024 11:59 PM CDT Hospital Encounter [facility] [address] [place] [address] Alfredo Jordan NP 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); Chronic pain disorder; Presence of intrathecal pump; Spinal stenosis of lumbar region, unspecified whether neurogenic claudication present Discharge Disposition: Discharge to home or self care 10/23/2024 7:30 AM CDT - 10/23/2024 9:00 AM CDT Surgery [facility] [address] [place] [address] Hudson Perez MD INTRATHECAL PAIN PUMP REVISION, BATTERY REPLACEMENT AND CATHETER REVISION WITH PLASMA BLADE 10/23/2024 7:29 AM CDT Anesthesia Event [facility] [address] [place] [address] Lottie Longoria MD Tadros, Hany B., MD 10/23/2024 5:20 AM CDT - 10/23/2024 12:53 PM CDT Hospital Encounter [facility] [address] [place] [address] Hudson Perez MD End of battery life of intrathecal infusion pump [Z46.2] (Primary Dx); Mononeuropathy [G58.9] Discharge Disposition: Discharge to home or self care 10/10/2024 Telephone [facility] Ot[facility] [address] [place] [address] Thais Dejesus MS from Last 3 Months Immunizations Immunization Administration [...] placement CARDIAC STENT PLACEMENT 2010 stent placement OTHER SURGICAL HISTORY 10/23/2024 INTRATHECAL PAIN PUMP REVISION, BATTERY REPLACEMENT AND CATHETER REVISION WITH PLASMA BLADE Medical History Medical History Date Comments Type 2 diabetes mellitus (HCC) D iabetes type 2 pt denies this diagnosis Chronic pain disorder GERD (gastroesophageal reflux disease) Hypertension Sleep apnea 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 Chronic kidney disease Knee pain, right Family History Medical History Relation Name Comments [...] on file 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 Gender Identity Not on file Sexual Orientation [...] 11/23/2024 7:23 AM CDT Plan of Treatment Health Maintenance Due [...] 2011 Zoster Vaccine (3 of 3) 01/26/2018 12/02/19, 12/01/2017, 08/17/2017, Additional history exists Covid-19 Vaccine (2023-2 5 season) 2024 03/25/2021, 08/11/2020, 07/22/2020, Additional history exists Influenza Vaccine (#1) 2025 , 02/10/2020, 02/10/2020, Additional history exists eGFR 11/23/2025 11/23/2024, 10/16, 05/04/2018, Additional history exists Fall Risk Assessment 11/28/2025 11/28/2024 Colon Cancer Screening-Colonoscopy Discontinued 03/11/2016, 08/23/2012 Abdominal Aortic Aneurysm (A AA) Screen Completed 08/29/2021, 09/02/2012 Medical Devices Implanted Type Area Spool Sorter Device Identifier Shelf Expiration Date Model / Serial / Lot Medtronic Inc Kit Implant Connector Pump Synchromed Iii 8578 - [id number] - [id number] Implanted:Qty: 1 on 10/23/2024 by Hudson Perez MD at [facility] Right: Abdomen Medtronic Inc [id number] 03/30/2026 8578 / [id number] / Medtronic Usa Inc X Pump Infusion Programmable Ulp Ami 20ml Volume 8667-20 - [id number] - [id number] Implanted:Qty: 1 on 10/23/2024 by Hudson Perez MD at [facility] Right: Abdomen Medtronic Usa Inc X 02/27/2026 8667-20 / [id number] / Medtronic Inc Kit Implant Connector Pump Synchromed Iii 8578 - [id number] Implanted:Qty: 1 on 10/23/2024 by Hudson Perez MD at [facility] Right: Abdomen Medtronic Inc 10/20/2025 8578 / / [id number] [employer] Lead Neurostimulator Pain Management Peripheral Nerve Permanent 4 Electrode Stimq [id number] 1.83lix44th [id number] - [id number] - [id number] Implanted:Qty: 1 on 11/23/2024 by Hudson Perez MD at [facility] Right: Leg [id number] LLC 07/15/2026 PNSST Q4- RCV-A0 / [id number] 02-04 / Explanted Type Area Spool Sorter Device Identifier Shelf Expiration Date Model / Serial / Lot Existing Pain Pump Explanted:Qty: 1 on 10/23/2024 by Hudson Perez MD at [facility] Right: Abdomen Medtronic UNKNOWN / / [...] * POCT glucose (11/23/2024 10:53 AM CDT) [facility] Signature Glucose, POC 95 70 - 199 mg/dL POC Performer [id number] RADHA MARSH Blood 11/23/2024 10:5 3 AM CDT 11/23/2024 10:53 AM CDT Hudson Perez MD LAB POCT ORDERABLES - DEVICE Final Result Performing Organization Address City/[facility]/ZIP Co de Phone Number RADHA [address] Department [place] [address] * FL Fluoroscopy < 1 Hour (11/23/2024 10:08 AM CDT) Narrative RAD_PACS_CH - 11/23/2024 10:09 AM CDT The images from this study are not interpreted by Radiology. Please refer to the physician's procedure / OR operative note. Hudson Perez MD IMG FLUOROSCOPY PROCE DURES Final Result RAD_PACS_[facility] * XR Knee Right 1 or 2 Views (11/23/2024 10:08 AM CDT) Anatomical Region Laterality Modality Lower Extremities, Knee Right Computed Radiography 11/23/2024 10:1 0 AM CDT Impressions 11/23/2024 10:10 AM CDT Fluoroscopic guidance surgical procedure Electronically signed by: Neli Goss M.D. Narrative 11/23/2024 10:10 AM CDT [...] LAB BLOOD ORDERABLES Final Result RADHA MARSH [id number] [place] [address] * (ABNORMAL) CBC without differential (11/23/2024 7:16 AM CDT) WBC 3.85 3.80 - 9.90 K/cumm Hgb [...] RDW SD 77.8(H) 35.7 - 48.1 fL [facility] NRBC abs 0.00 0.00 - 0.01 K/cumm [facility] Blood 11/23/2024 7:16 AM CDT 11/23/2024 7:57 AM CDT us Gallo Roman MD LAB BLOOD ORDERABLES Final Result RADHA MARSH [address] [facility] [place] [address] * (ABNORMAL) Basic metabolic panel (11/23/2024 7:16 AM CDT) Pathologist [facility] Sodium 141 135 - 145 mmol/L Potassium, pl 4.2 3.3 - 4.9 mmol/L [facility] Chloride 105 97 - 110 mmol/L [facility] CO2 27 22 - 32 mmol/L [facility] Anion gap 9 2 - 15 mmol/L [facility] BUN 30(H) 6 - 25 mg/dL [facility] Creatinine 1.29 0.80 - 1.30 mg/dL [facility] Glucose 91 70 - 199 mg/dL [facility] Comment: Interpretive Data Fasting glucose >/= 126 [...] 2022. Calcium 9.0 8.5 - 10.3 mg/dL [facility] Blood 11/23/2024 7:16 AM CDT 11/23/2024 7:57 AM CDT Gallo Roman MD LAB BLOOD ORDERABLES Final Result Performing Organization Address City/[facility] Co de Phone Number RADHA [address] [place] [address] * POCT glucose (11/23/2024 7:08 AM CDT) Glucose, POC 102 70 - 199 mg/dL POC Performer [id number] [facility] Blood 11/23/2024 7:08 AM CDT 11/23/2024 7:08 AM CDT Hudson Perez MD LAB POCT ORDERABLES - DEVICE Final Result RADHA MARSH [address] [place] [address] * POCT glucose (10/23/2024 5:28 AM CDT) Glucose, POC 92 70 - 199 mg/dL POC Performer [id number] [facility] Blood 10/23/2024 5:28 AM CDT 10/23/2024 5:28 AM CDT Hudson Perez MD LAB POCT ORDERABLES - DEVICE Final Result RADHA MARSH [address] Department [place] [address] * COLONOSCOPY REPORT (03/11/2016) Anatomical Region Laterality Modality Other Narrative 03/11/2016 Ordered by an unspecified provider. Historical Provider GI PROCEDURE ORDERABLES F inal Result * CT Abdomen Pelvis WO Contrast (09/02/2012 12:25 PM CDT) Anatomical Region Laterality Modality Body N/A Computed Tomogra phy 09/02/2012 12:2 5 PM CDT Narrative 09/02/2012 2:09 PM CDT DATE OF EXAM: Sep 02 2012 12:25PM Acc#: [id number] ECT 0073 - CT Abd/Pel WO DIAGNOSIS: ANEMIA NOS DM2/NOS UNCOMP NSU CLINICAL HISTORY: ANEMIA DIABETIC RESULT: \ CT ABDOMEN AND PELVIS WITH ORAL BUT NOT INTRAVENOUS CONTRAST HISTORY This is a 67-year-old man with anemia, diabetes and leukopenia. Noncontrast CT exam performed as requested. FINDINGS Prior abdominal imaging studies are not available for comparison. Process Consultant radiograph demonstrates pacemaker leads in the right [...] SPINAL STENOSIS WITH PAIN STIMULATOR IN PLACE. MECHANICAL SERVICE TECHNICIAN: INEZ TRANSCRIBE DATE/TIME: Sep 02 2012 1:52P RADIOLOGIST: NELI GOSS M.D. READ ON: Sep 02 2012 1:22P ORDERING DR: JENNIFER PRICE M.D. THIS DOCUMENT HAS BEEN ELECTRONICALLY SIGNED BY: NELI GOSS M.D. ON: Sep 02 2012 2:09P Procedure Note Provider, MD Erlinda - 09/11/2016 DATE OF EXAM: Sep 02 2012 12:25PM Acc#: [id number] ECT 0073 - CT Abd/Pel WO DIAGNOSIS: ANEMIA NOS DM2/NOS UNCOMP NSU CLINICAL HISTORY: ANEMIA DIABETIC RESULT: \ CT ABDOMEN AND PELVIS WITH ORAL BUT NOT INTRAVENOUS CONTRAST HISTORY This is a 67-year-old man with anemia, diabetes and leukopenia. Noncontrast CT exam performed as requested. FINDINGS Prior abdominal imaging studies are not available for comparison. Process Consultant radiograph demonstrates pacemaker leads in the right [...] SPINAL STENOSIS WITH PAIN STIMULATOR IN PLACE. MECHANICAL SERVICE TECHNICIAN: INEZ TRANSCRIBE DATE/TIME: Sep 02 2012 1:52P [...] Maintenance Insurance HUMANA CHOICE MEDICARE PPO IDPA MEDICARE [facility] Address: [address] [address] [place] [address] IDPA IDPA [facility] MEDICARE [facility] Address: [address] [address] [place] [address] Care Teams Store Stock Help Relationship Specialty Start Date End Date Tony Gray MD PCP - General Family Practice 12/16/21 [place] [address] [facility] [address] [place] [address] Nurse Practitioner Pain Management 04/19/24
[2024-12-08 11:59] LABS: Hematocrit 30.2 % (42.0-52.0); Hemoglobin 9.4 g/dL (14.0-18.0); Immature Granulocyte Percent A 0.2 % (0-0.5); Lymphocytes Absolute Auto 0.84 K/mm3 (0.9-3.2); Mean Corpuscular HGB Conc 31.1 g/dl (32-36); Mean Corpuscular Hemoglobin 26.4 pg (26-34); Mean Corpuscular Volume 84.8 fl (80-100); Nucleated Red Blood Cells Absolute Auto 0.000 K/mm3 (0.0-0.012); Nucleated Red Blood Cells Perc 0.0 % (0.0-0.2); Platelet Count Result 189 k/mm3 (150-375); Red Blood Count 3.56 M/mm3 (4.6-6.20); White Blood Count 5.5 K/mm3 (4.5-10.0)
[2024-12-08 13:52] LABS: Alanine Aminotransferase 44 U/L (6-50); Albumin Level 4.0 g/dL (3.5-5.1); Alkaline Phosphatase 64 U/L (38-126); Anion Gap 8 mmol/L (4-12); Aspartate Amino Transferase 68 U/L (17-59); Bilirubin,Total 0.3 mg/dL (0.2-1.3); Blood Urea Nitrogen 24 mg/dL (9-20); Calcium 9.1 mg/dL (8.4-10.2); Carbon Dioxide 25 mmol/L (22-30); Chloride 107 mmol/L (98-107); Estimated Glomerular Filt Rate 42; Glucose 111 mg/dL (65-110); Potassium 4.7 mmol/L (3.4-5.0); Sodium 140 mmol/L (137-145); Total Protein 6.8 g/dL (6.3-8.2)
[2024-12-08 13:55] LABS: Iron 53 ug/dL (49-181)
[2024-12-08 14:07] LABS: Percent Iron Saturation 14 % (20-50)
[2024-12-08 14:43] LABS: Ferritin 30.70 ng/mL (11.1-264)
[2024-12-08 15:07] LABS: Vitamin B12 467.0 pg/mL (239-931)
[2024-12-11 15:09] LABS: Albumin 3.7 g/dL (2.9-4.4); Alpha-1-Globulin 0.2 g/dL (0.0-0.4); Alpha-2-Globulin 0.6 g/dL (0.4-1.0); Gamma Globulin 0.9 g/dL (0.4-1.8)
== END 2024-12-08 11:42 | disposition home or self-care (01) ==
PROVIDERS: PCP Family Medicine; Visit Provider Internal Medicine Hematology & Oncology
DX: D64.9 Anemia, unspecified (principal)
CPT/HCPCS: 36415; 80053; 82607; 82668; 82728; 82746; 83540; 83550; 83615; 83921; 84165; 84238; 85025

== ENCOUNTER 2025-04-23 00:37 | Day surgery (SDC) | payer MEDICARE, MEDICAID, SELFPAY ==
[2025-04-18 14:12] VITALS: BMI 34.5
--- NOTE | 2025-04-18 14:22 | PC.NURSE ---
Spoke with daughter, Nevaeh regarding medication Plavix. Nevaeh verbalizes understanding that the last dose is to be taken on 04/18/25 and the Endoscopist will instruct them when to restart after the procedure.
--- OUTSIDE RECORDS SUMMARY | 2025-04-23 00:40 | XMS_ITS | Clinical Summary ---
Author Organization [facility] Address [address] [place] [address] Phone Care Team Providers Care Matzo Forming Machine Operator Name Role Phone Tony Gray MD [...] 09/09 Sinus node dysfunction 03/17/2015 Overview (02/10/2021): [facility] Cardiac pacemaker in situ 12/04/2014 Diabetes mellitus 03/31/2011 Spinal stenosis 03/31/2011 Hyperlipidemia 05/02/2010 Atherosclerotic heart diseas e of [place] coronary artery without angina pectoris 07/10/2009 Benign hypertension 05/16/1959 Overview (05/01/2020): [facility] enrolled Obstructive sleep apnea syndrome 05/16/1959 Immunizations [...] Comments Blood Pressure 134/76 04/27/2022 2:51 PM CAD PROGRAMMER Pulse - - Temperature 35.7 C (96.3 F) 04/27/2022 2:51 PM CAD PROGRAMMER Respiratory Rate 18 04/27/2022 2:51 PM CAD PROGRAMMER Oxygen Saturation - - Inhaled Oxygen Concentration - - Weight 95.7 kg (211 lb) 04/27/2022 2:51 PM CAD PROGRAMMER Height 167.6 cm (5' 6) 04/27/2022 2:51 PM CAD PROGRAMMER Body Mass Index 34.06 04/27/2022 2:51 PM CAD PROGRAMMER Plan of Treatment Health Maintenance Due Date Last Done Comments Pneumococcal PPSV23/PCV13 65 + Years / Low and Medium Risk (1 of 2 - PCV) 02/04/1996 Influenza Vaccine (#1) 2025 02/10/[address] [place] [address] MEDICARE ADVANTAGE MEDICAID - [place] Care Teams Matzo Forming Machine Operator Relationship Specialty Start Date End Date Tony Gray MD [address] [place] [address] PCP - General Internal Medicine 04/10/20
--- OUTSIDE RECORDS SUMMARY | 2025-04-23 00:40 | XMS_ITS | Clinical Summary ---
Author Organization [facility] [employer] Address [address] [facility] [place] [address] Care Team Providers Care Science Center Display Builder Name Role Phone Tony Gray MD Primary Care Provider Darell Yu MD Unavailable Harry Vang MD Unavailable Twyla Cervantes MD Unavailable [phone] Source Comments [facility],non-owned Affiliates and Associated Physician Practices is amultiple site organization consisting of ambulatory clinics and hospital sitesin [place], [place], [place] and [place]. This disclosure is being madepursuant to the Care Everywhere program and may not contain all information available regarding this patient. 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 Gender Identity Not on file Sexual Orientation [...] Health Maintenance Due Date Last Done Comments DTAP/TDAP/TD VACCINES (1 - Tdap) 1964 PNEUMOCOCCAL VACCINE 50+ (1 of 1 - PCV) 02/04/1996 ZOSTER VACCINE (1 of 2) 02/04/1996 Respiratory Syncytial Virus (RSV) Vaccine Pt: or over 60 yrs (1 - 1-dose 75+ series) 2021 DEPRESSION SCREENING 05/17/2024 COVID-19 VACCINE ( - 2024- season) 2025 03/25/2021, 07/22/2020, 06/25/2020 INFLUENZA VACCINE (#1) 2025 , 02/10/2020, 03/10/2019, [...] Insurance MEDICAID - OUT OF STATE MEDICAID [facility] HUMANA Advance Directives * Full Code (Latest Code Status on File) Date Activated Date Inactivated Comments 06/17/2009 3:42 PM 06/19/2009 12:18 AM Care Teams Science Center Display Builder Relationship Specialty Start Date End Date Tony Gray MD [address] [place] [phone] PCP - General Family Medicine 08/28/21 [place] [address] [facility] [address] [place] [address] Cardiovascular Disease 09/22/21 Harry Vang MD [address] [phone] Internal Medicine 09/22/21 Twyla Cervantes MD [address] [address] Nephrology 09/22/21
--- OUTSIDE RECORDS SUMMARY | 2025-04-23 00:40 | XMS_ITS | Encounter Summary ---
Author Organization [facility] Address [address] [place] [address] Phone Care Team Providers Care Spray Gun Sizer Name Role Phone Tony Gray MD Primary Care Provider Pepe Dunn MD Unavailable [phone] Reason for Visit * Reason Comments Medication Refill Encounter Details Date Type Department Care Team (Late st Contact Info) Description 11/26/2021 Refill [facility] - Neurology [facility] [address] [place] [address] Pepe Dunn MD [address] [place] [address] Medication Refill Social History Tobacco Use Types Packs/Day Years Used Date Smoking Tobacco: Former Cigarettes 0 Q uit: 05/17/1980 Smokeless Tobacco: Never Alcohol [...] on filedocumented in this encounter Care Teams Spray Gun Sizer Relationship Specialty Start Date End Date Tony Gray MD PCP - General Family Medicine 08/26/21 Pepe Dunn MD [address] [place] [address] Consulting Physician Neurology 02/03/22 documented as of this encounter
--- OUTSIDE RECORDS SUMMARY | 2025-04-23 00:40 | XMS_ITS | Encounter Summary ---
Author Organization [facility] Address [address] [place] [address] Phone Care Team Providers Care Clinical Business Manager Name Role Phone Tony Gray MD Primary Care Provider Pepe Dunn MD Unavailable Reason for Visit * Reason Comments Medication Refill Encounter Details Date Type Department Care Team (Late st Contact Info) Description 10/25/2023 Refill [facility] - Neurology [facility] [address] [place] [address] Pepe Dunn MD [address] [place] [address] Medication Refill Social History Tobacco [...] Dept 09/02/23 Office Visit Pepe Dunn MD [facility] 02/12/23 Office Visit Pepe Dunn MD [facility] Showing recent visits within past 365 days and meeting all other requirements Future Appointments No visits were found meeting these conditions. Showing future appointments within next 90 days and meeting all other requirements Passed - Patient has established therapy with Antidementia Agents for at least 6 months documented in this encounter Plan of Treatment Not on file documented as of this encounter Visit Diagnoses Not on filedocumented in this encounter Care Teams Clinical Business Manager Relationship Specialty Start Date End Date Tony Gray MD PCP - General Family Medicine 08/26/21 Pepe Dunn MD [address] [place] [address] Consulting Physician Neurology 02/03/22 documented as of this encounter
--- OUTSIDE RECORDS SUMMARY | 2025-04-23 00:40 | XMS_ITS | Clinical Summary ---
Author Organization [facility] Address [address] [place] [address] Care Team Providers Care Repulping Supervisor Name Role Phone Tony Gray MD Primary Care Provider Alfredo Jordan NP Unavailable [phone] Hudson Perez MD Unavailable [phone] Allergies Active Allergy Reactions Criticality Noted Date Comments Curt Inhibitors Anaphylaxis,Angioede m a,Swelling High 06/04/2009 Reaction: ANAPHYLAXIS, , Reaction: ANAPHYLAXIS Reaction: ANAPHYLAXIS, , Reaction: ANAPHYLAXIS Adhesive Adhesive Tape-Silicones Itching Medium Reaction: ITCHING, Reaction: ITCHING Ramipril Anaphylaxis High Reaction: ANAPHYLAXIS, , Reaction: ANAPHYLAXIS Medications losartan (COZAAR) 100 mg tablet take 1 tablet (100MG) by oral route every day 0 6 Active rosuvastatin (CRESTOR) 40 mg tablet take 1 tablet by oral route every day 0 0 6 Active citalopram (CeleXA) 20 mg tablet Take 1 tablet (20 mg total) by mouth daily 2 Active tamsulosin (FLOMAX) 0.4 mg extended release capsule Take 1 capsule (0.4 mg total) by mouth daily 2 Active aspirin 81 mg enteric coated tablet Take 1 tablet (81 mg total) by mouth daily 9 Active evolocumab (Repatha SureClick) 140 mg/mL pen injector Apply topically every 14 (fourteen) days 2 Active donepeziL (ARICEPT) 10 mg tablet Take 1 tablet (10 mg total) by mouth nightly 2 Active ergocalciferol, vitamin D2, (VITAMIN D2 ORAL) [...] (1,000 mcg total) by mouth daily Active sulfamethoxazol e-trimethoprim (BACTRIM DS) 800-160 mg per tablet Take 1 tablet (160 mg of trimethoprim total) by mouth daily Daily due to post knee replacement infection Active morphine sulfate (MORPHINE IV) In morphine pump 0 5 Active famotidine (PEPCID) 20 mg tablet Take 1 tablet (20 mg total) by mouth daily Active multivitamin tablet Take 1 tablet by mouth daily Active Active Problems Problem Noted Date Diagnosed [...] Hyperlipidemia 05/02/2010 Atherosclerotic heart diseas e of [place] coronary artery without angina pectoris 07/10/2009 Benign [...] BATTERY REPLACEMENT AND CATHETER REVISION WITH PLASMA BLADE-Dr.Chris Perez OTHER SURGICAL HISTORY 11/23/2024 Right Curonix Perpheral Nerve Stimulator placement-Dr.Chris Perez Medical History Medical History Date Comments Type 2 diabetes mellitus Diabete s type 2 pt denies this diagnosis Chronic pain disorder GERD (gastroesophageal reflux disease) Hypertension Sleep apnea Atherosclerotic heart diseas e of [place] coronary artery without angina pectoris Chronic kidney [...] Used Date Smoking Tobacco: Some Days Cigars Passive Smoke Exposure: Current Smokeless Tobacco: Never Comments:Every couple days Alcohol Use Standard Drinks/Week Comments Yes 0 [...] on file 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 Gender Identity Not on file Sexual Orientation Not on file Last Filed Vital Signs Vital Sign Reading Time Taken Comments Blood Pressure 153/79 12/26/2024 10:05 AM CDT Pulse 60 12/26/2024 10:05 AM CDT Temperature 36.1 C (97 F) 11/23/2024 10:50 AM CDT Respiratory Rate 18 12/26/2024 10:05 AM CDT Oxygen Saturation 98% 12/26/2024 10:05 AM CDT Inhaled Oxygen Concentration - - [...] 12/02/19 18, 12/01/2017, 08/17/2017, Additional history exists Covid-19 Vaccine (5 - 2024-2 6 season) 2025 03/25/2021, 08/11/2020, 07/22/2020, Additional history exists Influenza Vaccine (#1) 2025 , 02/10/2020, 02/10/2020, Additional history exists eGFR 11/23/2025 11/23/2024, 06/2 09/2018, 05/04/2018, Additional history exists Fall Risk Assessment 12/26/2025 12/26/2024 Colon Cancer Screening-Colonoscopy Discontinued 03/11/2016, 08/23/2012 Abdominal Aortic Aneurysm (A AA) Screen Completed 08/29/2021, 09/02/2012 Medical Devices Implanted Type Area Tariff Compiler Device Identifier Shelf Expiration Date Model / Serial / Lot AMGastronic Inc Kit Implant Connector Pump Synchromed Iii 8578 - [id number] - [id number] Implanted:Qty: 1 on 10/23/2024 by Hudson Perez MD at [facility] Right: Abdomen Medtronic Inc [id number] 03/30/2026 8578 / [id number] / Medtronic Usa [employer] X Pump Infusion Programmable Ulp Ami 20ml Volume 8667-20 - [id number] - [id number] Implanted:Qty: 1 on 10/23/2024 by Hudson Perez MD at [facility] Right: Abdomen Medtronic Usa Inc X 02/27/2026 8667-20 / [id number] / Medtronic Inc Kit Implant Connector Pump Synchromed Iii 8578 - [id number] Implanted:Qty: 1 on 10/23/2024 by Hudson Perez MD at [facility] Right: Abdomen Medtronic Inc 10/20/2025 8578 / / [id number] Curonix Llc Lead Neurostimulator Pain Management Peripheral Nerve Permanent 4 Electrode Stimq [id number] [id number] [id number]-Dsi-T8 - [id number] - [id number] Implanted:Qty: 1 on 11/23/2024 by Hudson Perez MD at [facility] Right: Leg CURONIX LLC 07/15/2026 PNSST Q4- RCV-A0 / [id number] [id number] / Explanted Type Area Tariff Compiler Device Identifier Shelf Expiration Date Model / Serial / Lot Existing Pain Pump Explanted:Qty: 1 on 10/23/2024 by Hudson Perez MD at [facility] Right: Abdomen Medtronic UNKNOWN / / Procedures Procedure Name Priority Date/Time Associated Diagnosis Comments EGFR STAT 11/23/2024 7:16 AM CDT COLONOSCOPY REPORT 03/11/2016 CT ABDOMEN PELVIS WO CONTRAST Routine 09/02/2012 12:25 PM CDT from Last 3 Months or Most Recently Relevant to Health Maintenance Results * (ABNORMAL) eGFR (11/23/2024 7:16 AM CDT) [...] MD LAB BLOOD ORDERABLES Final Result [facility] [id number] [facility] Department [place] [address] * COLONOSCOPY REPORT (03/11/2016) Anatomical Region Laterality Modality Other Narrative 03/11/2016 Ordered by an unspecified provider. Historical Provider GI PROCEDURE ORDERABLES F inal Result * CT Abdomen Pelvis WO Contrast (09/02/2012 12:25 PM CDT) Anatomical Region Laterality Modality Body N/A Computed Tomogra phy 09/02/2012 12:2 5 PM CDT Narrative 09/02/2012 2:09 PM CDT DATE OF EXAM: Sep 02 2012 12:25PM Acc#: [id number] ECT 0073 - CT Abd/Pel WO DIAGNOSIS: ANEMIA NOS DM2/NOS UNCOMP NSU CLINICAL HISTORY: ANEMIA DIABETIC RESULT: \ CT ABDOMEN AND PELVIS WITH ORAL BUT NOT INTRAVENOUS CONTRAST HISTORY This is a 67-year-old man with anemia, diabetes and leukopenia. Noncontrast CT exam performed as requested. FINDINGS Prior abdominal imaging studies are not available for comparison. Toaster Element Repairer radiograph demonstrates pacemaker leads in the right [...] SPINAL STENOSIS WITH PAIN STIMULATOR IN PLACE. ASSISTANT COOK: INEZ TRANSCRIBE DATE/TIME: Sep 02 2012 1:52P RADIOLOGIST: NELI GOSS M.D. READ ON: Sep 02 2012 1:22P ORDERING DR: JENNIFER PRICE M.D. THIS DOCUMENT HAS BEEN ELECTRONICALLY SIGNED BY: NELI GOSS M.D. ON: Sep 02 2012 2:09P Procedure Note Provider, MD Erlinda - 09/11/2016 DATE OF EXAM: Sep 02 2012 12:25PM Acc#: [id number] ECT 0073 - CT Abd/Pel WO DIAGNOSIS: ANEMIA NOS DM2/NOS UNCOMP NSU CLINICAL HISTORY: ANEMIA DIABETIC RESULT: \ CT ABDOMEN AND PELVIS WITH ORAL BUT NOT INTRAVENOUS CONTRAST HISTORY This is a 67-year-old man with anemia, diabetes and leukopenia. Noncontrast CT exam performed as requested. FINDINGS Prior abdominal imaging studies are not available for comparison. Toaster Element Repairer radiograph demonstrates pacemaker leads in the right [...] SPINAL STENOSIS WITH PAIN STIMULATOR IN PLACE. ASSISTANT COOK: INEZ TRANSCRIBE DATE/TIME: Sep 02 2012 1:52P RADIOLOGIST: NELI GOSS M.D. READ ON: Sep 02 2012 1:22P ORDERING DR: JENNIFER PRICE M.D. THIS DOCUMENT HAS BEEN ELECTRONICALLY SIGNED BY: NELI GOSS M.D. ON: Sep 02 2012 2:09P Historical Provider MD MENA CT PROCEDURES Final R esult from Last 3 Months or Most Recently Relevant to Health Maintenance Insurance [employer] CHOICE MEDICARE PPO IDPA [facility] MEDICARE [facility] Address: [address] [address] [place] [address] IDPA IDPA [facility] MEDICARE [facility] Address: [address] [address] [place] [address] Care Teams Repulping Supervisor Relationship Specialty Start Date End Date Tony Gray MD PCP - General Family Practice 12/16/21 [place] [address] [address] [place] [address] Nurse Practitioner Pain Management 04/19/24 [place] [address] [address] [facility] [place] [address] Consulting Physician Pain Management 12/26/24
--- OUTSIDE RECORDS SUMMARY | 2025-04-23 00:40 | XMS_ITS | Encounter Summary ---
Author Organization [facility] Address [address] [facility] [place] [address] Care Team Providers Care Voice Coach Name Role Phone Tony Gray MD Primary Care Provider Darell Yu MD Unavailable Harry Vang MD Unavailable Twyla Cervantes MD Unavailable [phone] Encounter Details Date Type Department Care Team (Late st Contact Info) Description 08/28/2021 Ophth Exam [facility] [address] [place] [id number] Pi, [place] [address] [facility] [address] [place] [address] Social History Tobacco Use Types Packs/Day Years Used Date Smoking Tobacco: Former Cigars Comments:quit 10 years ago Alcohol Use Standard Drinks/Week Comments Yes 8.3 (1 standard drink = 0.6 oz p ure alcohol) 10 beers per week Sex and Gender Information Value Date Recorded Sex Assigned at Not on file 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 [address] [address] Cardiovascular Disease 09/22/21 Harry Vang MD [address] [address] Internal Medicine 09/22/21 Twyla Cervantes MD [address] [facility] [address] [place] [id number] Nephrology 09/22/21 documented as of this encounter
--- OUTSIDE RECORDS SUMMARY | 2025-04-23 00:40 | XMS_ITS | Clinical Summary ---
Author Organization [facility] Address [address] [place] [address] Phone Care Team Providers Care Client Solutions Specialist Name Role Phone Tony Gray MD Primary Care Provider Pepe Dunn MD Unavailable [phone] Allergies Active Allergy Reactions Criticality Noted Date [...] 5MG TABLETS 90 Tablet 3 5 Active Family History Relation Name Status Comments Father Mother Social History Tobacco Use Types Packs/Day Years Used Date Smoking Tobacco: Former Cigarettes 0 Q uit: 05/17/1980 Smokeless Tobacco: Never Tobacco [...] Comments Blood Pressure 140/60 07/17/2024 9:06 AM WATER RESOURCE CONSULTANT Pulse 57 07/17/2024 9:06 AM WATER RESOURCE CONSULTANT Temperature 36.4 C (97.5 F) 07/17/2024 9:06 AM WATER RESOURCE CONSULTANT Respiratory Rate 18 07/17/2024 9:06 AM WATER RESOURCE CONSULTANT Oxygen Saturation 88% 07/17/2024 9:06 AM WATER RESOURCE CONSULTANT Inhaled Oxygen Concentration - - Weight 89.4 kg (197 lb 3.2 oz) 07/17/2024 9:06 A M WATER RESOURCE CONSULTANT Height 160 cm (5' 3) 07/17/2024 9:06 AM WATER RESOURCE CONSULTANT Body Mass Index 34.93 07/17/2024 9:06 AM WATER RESOURCE CONSULTANT Plan of Treatment Health Maintenance Due Date Last Done Comments Hepatitis C Virus (HCV) Screening 1945 TdaP Immunization 1945 Zoster Immunization (2 of 3) 01/26/2018, 08/17/2017, 08/30/2015 Medicare Initial AWV G0438 05/17/2020 Respiratory Syncytial Virus (RSV) Immunization (Adult) (1 - 1-dose 75+ series) 2021 Influenza Immunization (#1) 2025 10/0 05/2023, 02/06/2023, 03/29/2022, Additional history exists SARS-COV-2 Immunization ( season) 2025 02/06/2023, 09/02/2021, 03/25/2021, Additional history exists Pneumococcal [...] topic Insurance MEDICA[place] [address] Care Teams Client Solutions Specialist Relationship Specialty Start Date End Date Tony Gray MD PCP - General Family Medicine 08/26/21 Pepe Dunn MD [address] [place] [address] Consulting Physician Neurology 02/03/22
--- OUTSIDE RECORDS SUMMARY | 2025-04-23 00:40 | XMS_ITS | Encounter Summary ---
Author Organization [facility] Address [address] [place] [address] Phone Care Team Providers Care Metal Finisher Name Role Phone Huy Elliott Primary Care Provider [phone] Tony Gray MD Primary Care Provider Alfredo Jordan DISPATCH SPECIALIST Unavailable [phone] Hudson Perez MD Unavailable Encounter Details Date Type Department Care Team (Late st Contact Info) Description 08/09/2017 Orders Only [facility] Care ProviderErlinda MD [address] [place] [address] Social History Tobacco Use Types Packs/Day Years Used Date Smoking Tobacco: Former Alcohol Use Standard Drinks/Week Comments Yes 0 (1 standard drink = 0.6 oz pur e alcohol) Sex and Gender Information Value Date Recorded Sex Assigned at Not on file 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
--- OUTSIDE RECORDS SUMMARY | 2025-04-23 00:40 | XMS_ITS | Encounter Summary ---
Author Organization [facility] Address [address] [place] [address] Phone Care Team Providers Care Independent Freight Agent Name Role Phone Huy Elliott Primary Care Provider [phone] Toyn Gray MD Primary Care Provider Alfredo Jordan SHANK CARRIER Unavailable [phone] Hudsno Perez MD Unavailable Encounter Details Date Type Department Care Team (Late st Contact Info) Description 05/13/2017 Orders Only [facility] ProviderErlinda MD [facility] [place] [place] [address] Social History Tobacco Use Types Packs/Day Years Used Date Smoking Tobacco: Former Alcohol Use Standard Drinks/Week Comments Yes 0 (1 standard drink = 0.6 oz pur e alcohol) Sex and Gender Information Value Date Recorded Sex Assigned at Not on file 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 Historical Provider LAB BLOOD ORDERABLES Judy l Result documented in this encounter Visit Diagnoses Not on filedocumented in this encounter Care Teams Independent Freight Agent Relationship Specialty Start Date End Date ToriblaynecarlinHuy [address] [place] [address] PCP - General 07/09/16 12/15/21 Tony Gray MD [address] [facility] [place] [address] PCP - General Family Practice 12/16/21 [place] [address] [address] [place] [address] Nurse Practitioner Pain Management 04/19/24 [place] [address] [address] [place] [address] Consulting Physician Pain Management 12/26/24 documented as of this encounter
[2025-04-23 08:49] VITALS: BP 176/92; PULSE 81; RESP 15; TEMP 36.5; O2SAT 100; BMI 34.2
[2025-04-23] MEDS: LACTATED RINGERS 1,000 ML 150 ML IV CONT (09:01)
--- NOTE | 2025-04-23 09:14 | WPDANESEPPF ---
Anes - Initial Pre Proc Eval Procedure: Operation Date: 04/23/25 10:00 Proposed Procedures p Screening Colonoscopy - Manuel Hamilton MD Date/Time: 04/23/25 09:14 Surgeon: Manuel Hamilton MD Pre Op Diagnosis: Personal history of colon polyps, unspecified Patient Data Age: 80 Gender: M Height: 1.6 m Weight: 87.5 kg Last Vital Signs Temp 36.5 C 04/23/25 08:49 Pulse 81 04/23/25 08:49 Resp 15 04/23/25 08:49 BP 176/92 H 04/23/25 08:49 Pulse Ox 100 04/23/25 08:49 O2 Del Method Room Air 04/23/25 08:49 Allergies Allergy/AdvReac Type Severity Reaction Status Date / Time adhesive Allergy Intermediate HIVES Verified 04/23/25 08:45 ramipril Allergy Unknown Swelling Verified 04/23/25 08:45 Home Medications ?Medication ?Instructions ?Recorded ?Confirmed ?Type donepezil 10 mg tablet 10 mg PO DAILY 02/17/22 04/23/25 History aspirin 81 mg tablet,delayed 81 mg PO DAILY 08/24/22 04/23/25 History release (Adult Low Dose Aspirin) clopidogrel 75 mg tablet 75 mg PO DAILY 03/17/23 04/23/25 History ezetimibe 10 mg tablet 10 mg PO DAILY 02/15/24 04/18/25 History evolocumab 140 mg/mL subcutaneous 140 mg subcut .every 2 weeks 10/04/24 04/23/25 History syringe (Repatha Syringe) mecobalamin (vitamin B12) 2,500 2,500 mcg PO .QOD 10/04/24 04/23/25 History mcg chewable tablet multivitamin (Daily Multi-Vitamin 1 tablet PO .QOD 10/04/24 04/23/25 History tablet) rosuvastatin 40 mg tablet 40 mg PO QHS 10/04/24 04/23/25 History sulfamethoxazole 800 1 tablet PO DAILY 10/04/24 04/23/25 History mg-trimethoprim 160 mg tablet citalopram 20 mg tablet 20 mg PO DAILY #90 tabs 11/10/24 04/23/25 Rx famotidine 20 mg tablet (Pepcid) 20 mg PO BID #180 tabs 11/10/24 04/23/25 Rx losartan 100 mg tablet 100 mg PO DAILY #30 tabs 01/08/25 04/23/25 Rx ferrous sulfate 325 mg (65 mg 325 mg PO BID #180 tabs 02/06/25 04/23/25 Rx iron) tablet (Iron (ferrous sulfate)) amlodipine 10 mg tablet 10 mg PO DAILY #90 tabs 02/28/25 04/23/25 Rx tamsulosin 0.4 mg capsule 0.4 mg PO DAILY #90 caps 03/02/25 04/23/25 Rx cholecalciferol (vitamin D3) 50 50 mcg PO DAILY #90 tabs 04/02/25 04/23/25 Rx mcg (2,000 unit) tablet Patient hx anesthesia problems: none Family hx anesthesia problems: none Results Review: All pre-operative results and documents have been reviewed as part of the pre-operative evaluation. [facility] Past Medical History Medical History Prediabetes Dementia Colon polyp Depression Family history of colon cancer Anxiety BPH NOS w/o ur obs/LUTS CAD in [place] artery CKD (chronic kidney disease) stage 3, GFR 30-59 ml/min Chronic neck and back pain Dyslipidemia Essential (primary) hypertension GERD without esophagitis CHECO (obstructive sleep apnea) SSS (sick sinus syndrome) Type 2 diabetes mellitus without complication, without long-term current use of insulin Unspecified osteoarthritis, unspecified site Vitamin D deficiency Surgical History Surgical History History of right knee joint replacement (~2009) 2004 and 2009 on bactrim since 2009 due to septic arthritis post knee replacement. History of left knee replacement (~2017) History of arthroplasty of right hip (~06/2020) 06/2020 History of lumbosacral spine surgery (~10/2004) 10/2004 History of cervical spinal surgery (~03/2007) 03/2007 History of esophageal dilatation (~06/2013) 06/2013 History of carpal tunnel surgery of right wrist (~12/2003) 12/2003 History of coronary artery stent placement 04/2003, 11/2007, 10/2021 History of pacemaker (~2002) 2002 H/O: knee surgery (~2013) Family History Family History Father Family history of emphysema Sibling Family history of renal failure Other Carcinoma of colon Diabetes mellitus Family history of cardiovascular disease Family history of tuberculosis Hypertension Social History Social History Years smoked: 3 Smoking status: Former smoker Tobacco type: cigars Smoking end date: 05/17/80 Alcohol intake: current Alcohol use details: rare use, 2-3 times a year Substance use: never Substance use type: does not use Lack of Transportation: No Lack of Food: Never True Current Housing: I Have Housing Concerned About Future Housing: No Difficulty Paying Gas/Electric Bills: No Difficulty Paying for Meds: No Currently Unemployed: No Education: Trade/Vocational Certificate Difficulty w/ Childcare or Family Care: No Living arrangements: alone Occupation/Education: retired Gender identity (if verbalized by the patient): Male Spiritual care concerns: No Agree to blood products: Yes Anes - Eval Final PreProcedure Day of Procedure 04/23/25 09:14 Patient weight: obese Heart: regular rate and rhythm Lungs: clear to auscultation Airway: Mallampati scale class II Neurological: alert and oriented Last oral intake: >/= 8 hours ASA classification: III Emergent: no Anesthetic plan: proceed Anesthesia type and monitoring: general GIVS and standard monitoring Results Review: All pre-operative results and documents have been reviewed as part of the pre-operative evaluation. Informed Consent: The patient's anesthetic plan and its attendant risks and benefits were discussed with the patient/family/POA. Questions were solicited and answers provided to the satisfaction of the patient/family/POA.
--- NOTE | 2025-04-23 09:21 | PM.HPGS ---
History of Present Illness History of Present Illness Consent: Risks, benefits, and alternatives have been discussed and questions answered. Patient agrees to proceed with procedure. Chief complaint: Personal history of colon polyps, unspecified Narrative: Diomedes Bhandari is a 80 year old male with colon polyp in 2021 Review of Systems Review of Systems: All systems reviewed & are unremarkable except as noted in HPI and below PMFSH Past Medical History Medical History Prediabetes Dementia Colon polyp Depression Family history of colon cancer Anxiety BPH NOS w/o ur obs/LUTS CAD in [place] artery CKD (chronic kidney disease) stage 3, GFR 30-59 ml/min Chronic neck and back pain Dyslipidemia Essential (primary) hypertension GERD without esophagitis CHECO (obstructive sleep apnea) SSS (sick sinus syndrome) Type 2 diabetes mellitus without complication, without long-term current use of insulin Unspecified osteoarthritis, unspecified site Vitamin D deficiency Surgical History Surgical History History of right knee joint replacement (~2009) 2004 and 2009 on bactrim since 2009 due to septic arthritis post knee replacement. History of left knee replacement (~2017) History of arthroplasty of right hip (~06/2020) 06/2020 History of lumbosacral spine surgery (~10/2004) 10/2004 History of cervical spinal surgery (~03/2007) 03/2007 History of esophageal dilatation (~06/2013) 06/2013 History of carpal tunnel surgery of right wrist (~12/2003) 12/2003 History of coronary artery stent placement 04/2003, 11/2007, 10/2021 History of pacemaker (~2002) 2002 H/O: knee surgery (~2013) Family History Family History Father Family history of emphysema Sibling Family history of renal failure Other Carcinoma of colon Diabetes mellitus Family history of cardiovascular disease Family history of tuberculosis Hypertension Social History Social History Years smoked: 3 Smoking status: Former smoker Tobacco type: cigars Smoking end date: 05/17/80 Alcohol intake: current Alcohol use details: rare use, 2-3 times a year Substance use: never Substance use type: does not use Lack of Transportation: No Lack of Food: Never True Current Housing: I Have Housing Concerned About Future Housing: No Difficulty Paying Gas/Electric Bills: No Difficulty Paying for Meds: No Currently Unemployed: No Education: Trade/Vocational Certificate Difficulty w/ Childcare or Family Care: No Living arrangements: alone Occupation/Education: retired Gender identity (if verbalized by the patient): Male Spiritual care concerns: No Agree to blood products: Yes Meds Home Medications and Allergies Home Medications ?Medication ?Instructions ?Recorded ?Confirmed ?Type donepezil 10 mg tablet 10 mg PO DAILY 02/17/22 04/23/25 History aspirin 81 mg tablet,delayed 81 mg PO DAILY 08/24/22 04/23/25 History release (Adult Low Dose Aspirin) clopidogrel 75 mg tablet 75 mg PO DAILY 03/17/23 04/23/25 History ezetimibe 10 mg tablet 10 mg PO DAILY 02/15/24 04/18/25 History evolocumab 140 mg/mL subcutaneous 140 mg subcut .every 2 weeks 10/04/24 04/23/25 History syringe (Repatha Syringe) mecobalamin (vitamin B12) 2,500 2,500 mcg PO .QOD 10/04/24 04/23/25 History mcg chewable tablet multivitamin (Daily Multi-Vitamin 1 tablet PO .QOD 10/04/24 04/23/25 History tablet) rosuvastatin 40 mg tablet 40 mg PO QHS 10/04/24 04/23/25 History sulfamethoxazole 800 1 tablet PO DAILY 10/04/24 04/23/25 History mg-trimethoprim 160 mg tablet citalopram 20 mg tablet 20 mg PO DAILY #90 tabs 11/10/24 04/23/25 Rx famotidine 20 mg tablet (Pepcid) 20 mg PO BID #180 tabs 11/10/24 04/23/25 Rx losartan 100 mg tablet 100 mg PO DAILY #30 tabs 01/08/25 04/23/25 Rx ferrous sulfate 325 mg (65 mg 325 mg PO BID #180 tabs 02/06/25 04/23/25 Rx iron) tablet (Iron (ferrous sulfate)) amlodipine 10 mg tablet 10 mg PO DAILY #90 tabs 02/28/25 04/23/25 Rx tamsulosin 0.4 mg capsule 0.4 mg PO DAILY #90 caps 03/02/25 04/23/25 Rx cholecalciferol (vitamin D3) 50 50 mcg PO DAILY #90 tabs 04/02/25 04/23/25 Rx mcg (2,000 unit) tablet Allergies Allergy/AdvReac Type Severity Reaction Status Date / Time adhesive Allergy Intermediate HIVES Verified 04/23/25 08:45 ramipril Allergy Unknown Swelling Verified 04/23/25 08:45 Vital Signs Vital Signs - 24 hr 04/23/25 08:49 Temperature 97.7 F Pulse Rate 81 Respiratory Rate 15 Blood Pressure 176/92 H Pulse Oximetry 100 Oxygen Delivery Room Air Exam Const: General: comfortable and no acute distress HENMT: Face/Nose/Sinus: Normal nares present Eyes: General: appearance normal, both eyes and all related structures Neck: Neck: no JVD Resp: Auscultation: clear to auscultation bilaterally Cardio: Rate: regular rate Rhythm: regular rhythm GI: Inspection: non-distended GI Palp: Yes Soft to palpation Skin: General skin exam: normal color Extrem: General: normal to inspection Psych: Mental Status: mental status grossly normal Assessment and Plan Assessment and plan (1) Colon polyp: Code(s): K63.5 - Polyp of colon Status: Acute Assessment and Plan: colonoscopy
[2025-04-23 09:38] VITALS: BP 83/49; PULSE 66; RESP 15; O2SAT 99
--- NOTE | 2025-04-23 09:39 | S_PTH ---
PATIENT: Diomedes Bhandari LOC: [facility]#:[id number] AGE/SX: 80/M ROOM: RE04/23/[address]: Manuel Hamilton MD : 1945 BED: DIS: 04/23/2025 SPEC #: [id number] RECD: 04/23/25 10:45 STATUS: DANIEL RESalina #: [id number] OWEN: 04/23/25 09:[address]: Manuel Hmailton DEPT: [facility] Surgical RECD BY: Guadalupe Rodas ENTERED: 04/23/25 10:46 SP TYPE: Surgical OTHR DR: Tony Gray MD Tissues: A - Colon Polypectomy Procedures: Hematoxylin and Eosin Stain Gross and Microscopic Level 4
[2025-04-23 09:48] VITALS: BP 121/68; PULSE 66; RESP 15; O2SAT 99
[2025-04-23 09:58] VITALS: BP 128/69; PULSE 60; RESP 15; O2SAT 99
== END 2025-04-23 10:13 | disposition home or self-care (01) ==
PROVIDERS: PCP Family Medicine; Referring Provider Family Medicine; Visit Provider Internal Medicine Gastroenterology
PROC: 0DJD8ZZ Inspection of Lower Intestinal Tract, Via Natural or Artificial Opening Endoscopic (ICD-10-PCS; CPT 45378; principal; 2025-04-23 10:00)
DX: Z12.11 Encounter for screening for malignant neoplasm of colon (principal); D12.3 Benign neoplasm of transverse colon; K64.8 Other hemorrhoids; K57.30 Diverticulosis of large intestine without perforation or abscess without bleeding; K21.9 Gastro-esophageal reflux disease without esophagitis; G47.33 Obstructive sleep apnea (adult) (pediatric); I49.5 Sick sinus syndrome; E55.9 Vitamin D deficiency, unspecified; E11.22 Type 2 diabetes mellitus with diabetic chronic kidney disease; I12.9 Hypertensive chronic kidney disease with stage 1 through stage 4 chronic kidney disease, or unspecified chronic kidney disease; N18.30 Chronic kidney disease, stage 3 unspecified; F03.90 Unspecified dementia, unspecified severity, without behavioral disturbance, psychotic disturbance, mood disturbance, and anxiety; F41.9 Anxiety disorder, unspecified; I25.10 Atherosclerotic heart disease of native coronary artery without angina pectoris; G89.29 Other chronic pain; M54.2 Cervicalgia; M54.9 Dorsalgia, unspecified; M19.90 Unspecified osteoarthritis, unspecified site; E66.9 Obesity, unspecified; Z68.34 Body mass index [BMI] 34.0-34.9, adult; Z79.82 Long term (current) use of aspirin; Z79.02 Long term (current) use of antithrombotics/antiplatelets; Z98.890 Other specified postprocedural states; Z98.1 Arthrodesis status; Z95.5 Presence of coronary angioplasty implant and graft; Z95.0 Presence of cardiac pacemaker; Z87.891 Personal history of nicotine dependence; Z80.0 Family history of malignant neoplasm of digestive organs; Z82.49 Family history of ischemic heart disease and other diseases of the circulatory system
CPT/HCPCS: 45385; 88305; J2704; J7120